=== PATIENT | female | born 1945 | race Caucasian/White ===

== ENCOUNTER 2017-01-25 21:04 | Emergency (ER) | payer MEDICARE ==
[2017-01-25] MEDS ORDERED: ONDANSETRON 4 MG TAB.RAPDIS PO ONE (21:54)
[2017-01-25 22:12] LABS: ANION GAP 17 (5-19); BLOOD UREA NITROGEN 24 mg/dL (7-20); CALCIUM 10.4 mg/dL (8.4-10.2); CARBON DIOXIDE 27 mmol/L (22-30); CHLORIDE 98 mmol/L (98-107); CREATININE RESULT 0.86 mg/dL (0.52-1.25); GLUCOSE 255 mg/dL (75-110); POTASSIUM 3.7 mmol/L (3.6-5.0); SODIUM 141.5 mmol/L (137-145)
[2017-01-25] MEDS ORDERED: HALOPERIDOL LACTATE INJ 5 MG/1 ML VIAL IV ONE ×2 (22:34)
--- NOTE | 2017-01-25 22:35 | ER Document Report ---
ED General - General Stated Complaint: ALL OVER PAIN Cannot obtain history due to: Altered mental status Notes: Patient is a 71-year-old female with past medical history of Charcot-Ludy- Tooth disease, hypertension, pacer placement for bradycardia who presents with agitation and uncontrollable muscle spasms. She has presented on multiple occasions for the same complaint and has intermittently been hospitalized for this. Patient is a very poor historian on initial assessment, crying and asking for medications to help her calm down. Family at the bedside corroborates the patient has had multiple similar presentations that are thought to be psychiatric in origin. Patient denies any focal complaints beyond bilateral leg pain which she has chronically for which she takes methadone. She does complain of severe anxiety. Nothing has been noted to improve or worsen her symptoms. She has not seen her primary care doctor regarding today's concerns. TRAVEL OUTSIDE OF THE [place] IN LAST 30 DAYS: No - Related Data Allergies/Adverse Reactions: lorazepam [From Ativan] Allergy (Intermediate, Verified 09/04/16 08:40) makes her crazy Sulfa (Sulfonamide Antibiotics) Allergy (Mild, Verified 09/04/16 08:40) Hives Past Medical History - General Information source: Patient - Social History Smoking Status: Never Smoker Frequency of alcohol use: None Drug Abuse: None Lives with: Spouse/Significant other Family History: Hypertension - Past Medical History Cardiac Medical History: Reports: Hx Congestive Heart Failure, Hx Coronary Artery Disease, Hx Heart Attack, Hx Hypercholesterolemia, Hx Hypertension Denies: Hx DVT, Hx Pulmonary Embolism Pulmonary Medical History: Reports: Hx Pneumonia Denies: Hx Asthma, Hx COPD Neurological Medical History: Reports: Hx Seizures Endocrine Medical History: Reports: Hx Diabetes Mellitus Type 1, Hx Diabetes Mellitus Type 2, Hx Hypothyroidism. Denies: Hx Hyperthyroidism GI Medical History: Denies: Hx Cirrhosis, Hx Gastroesophageal Reflux Disease, Hx Hepatitis Musculoskeltal Medical History: Reports Hx Arthritis Skin Medical History: Denies Hx Eczema, Denies Hx Psoriasis Psychiatric Medical History: Reports: Hx Depression Infectious Medical History: Denies: Hx Hepatitis Past Surgical History: Reports: Hx Appendectomy, Hx Cardiac Surgery - pacemaker/ CABG, Hx Cholecystectomy, Hx Coronary Artery Bypass Graft, Hx Hysterectomy, Hx Orthopedic Surgery - Back surgery 2., Hx Pacemaker - Immunizations Hx Diphtheria, Pertussis, Tetanus Vaccination: Yes Hx Pneumococcal Vaccination: 10/29/10 Review of Systems - Review of Systems Notes: Constitutional: Negative for fever. HENT: Negative for sore throat. Eyes: Negative for visual changes. Cardiovascular: Negative for chest pain. Respiratory: Negative for shortness of breath. Gastrointestinal: Negative for abdominal pain, vomiting or diarrhea. Genitourinary: Negative for dysuria. Musculoskeletal: Negative for back pain. Positive for bilateral leg pain Skin: Negative for rash. Neurological: Negative for headaches, weakness or numbness. 10 point ROS negative except as marked above and in HPI. Physical Exam - Vital signs Vitals: BP 177/99 H 01/25/17 21:15 Interpretation: Hypertensive Notes: PHYSICAL EXAMINATION: GENERAL: Appears very restless, somewhat agitated HEAD: Atraumatic, normocephalic. EYES: Pupils equal round and reactive to light, extraocular movements intact, sclera anicteric, conjunctiva are normal. ENT: nares patent, oropharynx clear without exudates. Moist mucous membranes. NECK: Normal range of motion, supple without lymphadenopathy LUNGS: Breath sounds clear to auscultation bilaterally and equal. No wheezes rales or rhonchi. HEART: Regular rate and rhythm ABDOMEN: Soft, nontender, normoactive bowel sounds. No guarding, no rebound. No masses appreciated. EXTREMITIES: Normal range of motion, no pitting or edema. No cyanosis. NEUROLOGICAL: No focal neurological deficits. Moves all extremities spontaneously and on command. PSYCH: Highly agitated, repeatedly saying "I need a shot" SKIN: Warm, Dry, normal turgor, no rashes or lesions noted. Course - Re-evaluation Re-evalutation: 01/25/17 22:35 Patient presents with multiple vague complaints that did not appear to be concerning for any acute life-threatening pathology. Patient is agitated and has presented to the emergency room for the same presentation on multiple occasions and has been responsive to antipsychotics in the past. Vitals are within normal limits at triage and at time of discharge. Physical examination is unremarkable. Patient has tolerated oral intake without difficulty. Patient was not noted to be in distress at any point during their ER visit. Patient was observed for 4 hours did have complete resolution of her symptoms after medications were administered. At this time, based on the reassuring evaluation, I do not suspect an acute UT, pulmonary embolus, aortic dissection, acute intra-abdominal pathology, stroke, or sepsis.Will discharge with return precautions and follow-up recommendations. Verbal discharge instructions given a the bedside and opportunity for questions given. Medication warnings reviewed. Patient is in agreement with this plan and has verbalized understanding of return precautions and the need for primary care follow-up in the next 24-72 hours. - Vital Signs Vital signs: Temp Pulse Resp BP Pulse Ox 18 143/87 H 97 01/26/17 01:14 01/26/17 01:14 01/26/17 01:14 - Laboratory Result Diagrams: 01/25/17 21:24 Laboratory results interpreted by me: 01/25/17 01/25/17 21:21 21:24 BUN 24 H Glucose 255 H POC Glucose 233 H Calcium 10.4 H Discharge - Discharge Clinical Impression: Charcot-Ludy disease, Anxiety Condition: Good Disposition: HOME, SELF-CARE Additional Instructions: Please return to the emergency room immediately if you experience any concerning symptoms including high fevers, severe headache, chest pain, difficulty breathing, abdominal pain, slurred speech, numbness or weakness in your arms or legs, or any other symptom that concerns you. Follow-up with your primary care doctor in the next 1-2 days
[2017-01-25] MEDS ORDERED: HALOPERIDOL LACTATE INJ 5 MG/1 ML VIAL ONE (22:36)
[2017-01-26] MEDS ORDERED: DIAZEPAM INJ 10 MG/2 ML DISP.SYRIN IV ONE (00:06)
[2017-01-26] MEDS ORDERED: FENTANYL CITRATE INJ/PF 100 MCG/2 ML AMPUL IV ONE (00:58)
[2017-01-26 03:11] VITALS: BP 149/73
== END 2017-01-26 03:10 | disposition home or self-care (01) ==
LOC: ER 21:04
DX: G60.0 Hereditary motor and sensory neuropathy (principal); F41.9 Anxiety disorder, unspecified; I10 Essential (primary) hypertension; M62.838 Other muscle spasm; M79.604 Pain in right leg; M79.605 Pain in left leg; G89.29 Other chronic pain; Z79.891 Long term (current) use of opiate analgesic; R00.1 Bradycardia, unspecified; Z95.0 Presence of cardiac pacemaker; I25.10 Atherosclerotic heart disease of native coronary artery without angina pectoris; I25.2 Old myocardial infarction; E11.9 Type 2 diabetes mellitus without complications; Z95.1 Presence of aortocoronary bypass graft; Z88.8 Allergy status to other drugs, medicaments and biological substances; Z88.2 Allergy status to sulfonamides
CPT/HCPCS: 96376; 99284; 96374; 96375; 36415; 82962; 80048; J3360; A9270; J3010; J1630; S0119

== ENCOUNTER 2017-02-16 19:41 | Emergency (ER) | payer MEDICARE ==
[2017-02-16 20:15] VITALS: BP 159/80
--- NOTE | 2017-02-16 20:37 | ER Document Report ---
ED Medical Screen (RME) - General Chief Complaint: Altered Mental Status Stated Complaint: ALTERED MENTAL STATUS Notes: This 71-year-old female patient is brought to emergency room by her spouse for mental status changes with hallucinations. He reports she's been that way ever since she came to the emergency room and got to new medications. That ER visit was actually 3 weeks ago on January 25 and she received some Haldol at that time. He reports she is hallucinating seeing and hearing people who were not there. She is then O2 dependent COPD here and he came here without her oxygen and her O2 sat was 84% when they checked her in. By history she fell sometime in the last week or more and possibly reinjured the right knee. I have greeted and performed a rapid initial assessment of this patient. A comprehensive ED assessment and evaluation of the patient, analysis of test results and completion of the medical decision making process will be conducted by additional ED providers. TRAVEL OUTSIDE OF THE [place] IN LAST 30 DAYS: No - Related Data Allergies/Adverse Reactions: lorazepam [From Ativan] Allergy (Intermediate, Verified 09/04/16 08:40) makes her crazy Sulfa (Sulfonamide Antibiotics) Allergy (Mild, Verified 09/04/16 08:40) Hives Past Medical History - Past Medical History Cardiac Medical History: Reports: Hx Congestive Heart Failure, Hx Coronary Artery Disease, Hx Heart Attack, Hx Hypercholesterolemia, Hx Hypertension Denies: Hx DVT, Hx Pulmonary Embolism Pulmonary Medical History: Reports: Hx Pneumonia Denies: Hx Asthma, Hx COPD Neurological Medical History: Reports: Hx Seizures Endocrine Medical History: Reports: Hx Diabetes Mellitus Type 1, Hx Diabetes Mellitus Type 2, Hx Hypothyroidism. Denies: Hx Hyperthyroidism Renal/ Medical History: Denies: Hx Peritoneal Dialysis GI Medical History: Denies: Hx Cirrhosis, Hx Gastroesophageal Reflux Disease, Hx Hepatitis Musculoskeltal Medical History: Reports Hx Arthritis Skin Medical History: Denies Hx Eczema, Denies Hx Psoriasis Psychiatric Medical History: Reports: Hx Depression Infectious Medical History: Denies: Hx Hepatitis Past Surgical History: Reports: Hx Appendectomy, Hx Cardiac Surgery - pacemaker/ CABG, Hx Cholecystectomy, Hx Coronary Artery Bypass Graft, Hx Hysterectomy, Hx Orthopedic Surgery - Back surgery 2., Hx Pacemaker - Immunizations Hx Diphtheria, Pertussis, Tetanus Vaccination: Yes Physical Exam - Vital signs Vitals: Temp Pulse Resp BP Pulse Ox 98.5 F 94 18 159/80 H 84 L 04/21/17 20:12 02/16/17 20:12 02/16/17 20:12 02/16/17 20:12 02/16/17 20:12 Course - Vital Signs Vital signs: Temp Pulse Resp BP Pulse Ox 98.5 F 94 18 159/80 H 84 L 02/16/17 20:12 02/16/17 20:12 02/16/17 20:12 02/16/17 20:12 02/16/17 20:12
[2017-02-16 21:19] LABS: APPEARANCE,URINE CLEAR; BILIRUBIN,URINE NEGATIVE (NEGATIVE); GLUCOSE, URINE >=500 mg/dL (NEGATIVE); KETONES,URINE NEGATIVE (NEGATIVE); LEUKOCYTE ESTERASE,URINE NEGATIVE (NEGATIVE); NITRITE,URINE NEGATIVE (NEGATIVE); PROTEIN,URINE 100 mg/dL (NEGATIVE); URINE SPECIFIC GRAVITY 1.023; UROBILINOGEN,URINE NEGATIVE mg/dL (<2.0)
[2017-02-16] MEDS ORDERED: ACETAMINOPHEN 325 MG TABLET ONE (21:57)
--- NOTE | 2017-02-16 22:10 | ER Document Report ---
ED General - General Chief Complaint: Altered Mental Status Stated Complaint: ALTERED MENTAL STATUS Cannot obtain history due to: Mentally challenged Notes: Patient is a 71-year-old female who presents with complaints of right knee pain. Patient is an extremely poor historian as is her . States the pain has been intermittent for many months and therefore I'm mostly why she acutely came today. Described pain as a dull, constant, aching pain. She has not recently seen her primary care doctor regarding these concerns. States pushing on it or ambulate worsens the pain. She has had a patellar dislocation in the past. She has contacted the orthopedic surgical office but has not received a call back. Her also notes that she has "been crazy" for the past several days and has had visual hallucinations. The patient herself denies this complaint and states that she feels completely normally. TRAVEL OUTSIDE OF THE [place] IN LAST 30 DAYS: No - Related Data Allergies/Adverse Reactions: lorazepam [From Ativan] Allergy (Intermediate, Verified 09/04/16 08:40) makes her crazy Sulfa (Sulfonamide Antibiotics) Allergy (Mild, Verified 09/04/16 08:40) Hives Past Medical History - General Information source: Patient, Relative - Social History Smoking Status: Never Smoker Frequency of alcohol use: None Drug Abuse: None Lives with: Spouse/Significant other Family History: Reviewed & Not Pertinent, Hypertension Patient has suicidal ideation: No Patient has homicidal ideation: No - Past Medical History Cardiac Medical History: Reports: Hx Congestive Heart Failure, Hx Coronary Artery Disease, Hx Heart Attack, Hx Hypercholesterolemia, Hx Hypertension Denies: Hx DVT, Hx Pulmonary Embolism Pulmonary Medical History: Reports: Hx Pneumonia Denies: Hx Asthma, Hx COPD Neurological Medical History: Reports: Hx Seizures Endocrine Medical History: Reports: Hx Diabetes Mellitus Type 1, Hx Diabetes Mellitus Type 2, Hx Hypothyroidism. Denies: Hx Hyperthyroidism Renal/ Medical History: Denies: Hx Peritoneal Dialysis GI Medical History: Denies: Hx Cirrhosis, Hx Gastroesophageal Reflux Disease, Hx Hepatitis Musculoskeltal Medical History: Reports Hx Arthritis Skin Medical History: Denies Hx Eczema, Denies Hx Psoriasis Psychiatric Medical History: Reports: Hx Depression Infectious Medical History: Denies: Hx Hepatitis Past Surgical History: Reports: Hx Appendectomy, Hx Cardiac Surgery - pacemaker/ CABG, Hx Cholecystectomy, Hx Coronary Artery Bypass Graft, Hx Hysterectomy, Hx Orthopedic Surgery - Back surgery 2., Hx Pacemaker - Immunizations Hx Diphtheria, Pertussis, Tetanus Vaccination: Yes Hx Pneumococcal Vaccination: 10/29/10 Review of Systems - Review of Systems Notes: Constitutional: Negative for fever. HENT: Negative for sore throat. Eyes: Negative for visual changes. Cardiovascular: Negative for chest pain. Respiratory: Negative for shortness of breath. Gastrointestinal: Negative for abdominal pain, vomiting or diarrhea. Genitourinary: Negative for dysuria. Musculoskeletal: Positive for right knee pain Skin: Negative for rash. Neurological: Negative for headaches, weakness or numbness. 10 point ROS negative except as marked above and in HPI. Physical Exam - Vital signs Vitals: Temp Pulse Resp BP Pulse Ox 98.5 F 94 18 159/80 H 84 L 02/16/17 20:12 02/16/17 20:12 02/16/17 20:12 02/16/17 20:12 02/16/17 20:12 Interpretation: Hypoxic - Patient does have a history of oxygen dependent COPD and came to the hospital without her oxygen Notes: PHYSICAL EXAMINATION: GENERAL: Well-appearing, well-nourished and in no acute distress. HEAD: Atraumatic, normocephalic. EYES: Pupils equal round and reactive to light, extraocular movements intact, sclera anicteric, conjunctiva are normal. ENT: nares patent, oropharynx clear without exudates. Moist mucous membranes. NECK: Normal range of motion, supple without lymphadenopathy LUNGS: Breath sounds clear to auscultation bilaterally and equal. No wheezes rales or rhonchi. HEART: Regular rate and rhythm without murmurs ABDOMEN: Soft, nontender, normoactive bowel sounds. No guarding, no rebound. No masses appreciated. EXTREMITIES: Normal range of motion, full flexion extension of the knees bilaterally. There is mild laxity to the right patella and it is easily shifted with direct pressure. NEUROLOGICAL: No focal neurological deficits. Moves all extremities spontaneously and on command. PSYCH: Normal mood, normal affect. SKIN: Warm, Dry, normal turgor, no rashes or lesions noted. Course - Re-evaluation Re-evalutation: 02/16/17 22:04 Patient complains of right knee pain and has a history of a patellar dislocation. X-ray shows a possible subluxation although on exam patient does have a floating kneecap easily shifts back. She does not have any acute fracture. An Rj wrap is placed and she is already nonweightbearing on this extremity. I've instructed her to follow-up with orthopedic surgery as needed. The also complains the patient has had intermittent altered mental status. Patient has a very long-standing history of this with 3 admissions for this complaint in 2015 and the ED visit at the end of December where she saw me for the same. Patient is actually much more coherent today, alert and oriented 4. She denies any visual or auditory hallucinations. She is hard of hearing but has a clear thought process. I have encouraged him to follow-up with outpatient psychiatry as patient has had repeated episodes of psychosis in the past and yet has not received treatment or been evaluated by psychiatry. She has no acute safety concerns would warrant involuntary commitment or emergent psychiatric evaluation here in the emergency department today.At this time will discharge with return precautions and follow-up recommendations. Verbal discharge instructions given a the bedside and opportunity for questions given. Medication warnings reviewed. Patient is in agreement with this plan and has verbalized understanding of return precautions and the need for primary care follow-up in the next 24-72 hours. - Vital Signs Vital signs: Temp Pulse Resp BP Pulse Ox 98.5 F 94 20 159/80 H 100 02/16/17 20:12 02/16/17 20:12 02/16/17 22:00 02/16/17 20:12 02/16/17 22:00 - Laboratory Laboratory results interpreted by me: 02/16/17 21:00 Urine Protein 100 H Urine Glucose (UA) >=500 H Urine Blood SMALL H - Diagnostic Test Radiology reviewed: Image reviewed, Reports reviewed Radiology results interpreted by me: 02/16/17 22:07 Right knee x-ray: Possible subluxation of the patella Discharge - Discharge Clinical Impression: Psychotic disorder Qualifiers: Psychosis type: unspecified psychosis type Qualified Code(s): F29 - Unspecified psychosis not due to a substance or known physiological condition Right knee pain Qualifiers: Chronicity: acute Qualified Code(s): M25.561 - Pain in right knee Condition: Good Disposition: HOME, SELF-CARE Additional Instructions: Please wear the Rj wrap as needed for discomfort in your right knee. Follow- up with orthopedic surgery. Please also follow-up with psychiatry. Return for any additional concerns.
== END 2017-02-16 22:46 | disposition home or self-care (01) ==
LOC: ER 19:41
DX: F29 Unspecified psychosis not due to a substance or known physiological condition (principal); M25.561 Pain in right knee; I50.9 Heart failure, unspecified; I25.10 Atherosclerotic heart disease of native coronary artery without angina pectoris; E78.00 Pure hypercholesterolemia, unspecified; I11.0 Hypertensive heart disease with heart failure; E11.9 Type 2 diabetes mellitus without complications; Z88.2 Allergy status to sulfonamides; Z95.810 Presence of automatic (implantable) cardiac defibrillator; Z90.49 Acquired absence of other specified parts of digestive tract; Z95.1 Presence of aortocoronary bypass graft; Z90.710 Acquired absence of both cervix and uterus; I25.2 Old myocardial infarction
CPT/HCPCS: 81001; 99285

== ENCOUNTER → 2017-02-21 | Outpatient (CLI) | payer MEDICARE ==
[2017-02-21 15:31] LABS: ABSOLUTE BASOPHILS # (AUTO) 0.1 10^3/uL (0.0-0.2); ABSOLUTE EOSINOPHILS # (AUTO) 0.1 10^3/uL (0.0-0.6); ABSOLUTE LYMPHOCYTES (AUTO) 1.5 10^3/uL (0.5-4.7); ABSOLUTE MONOCYTES (AUTO) 0.4 10^3/uL (0.1-1.4); ABSOLUTE NEUT (AUTO) 8.1 10^3/uL (1.7-8.2); BASOPHILS % (AUTO) 0.5 % (0-2); EOSINOPHILS % (AUTO) 1.1 % (0-6); HEMOGLOBIN 10.9 g/dL (12.0-15.5); HGB HCT DIFFERENCE -0.3; LYMPHOCYTES % (AUTO) 14.4 % (13-45); MEAN CORPUSCULAR HEMOGLOBIN 28.6 pg (27.0-33.4); MEAN CORPUSCULAR HGB CONC 33.1 g/dL (32.0-36.0); MEAN CORPUSCULAR VOLUME 86 fl (80-97); MONOCYTES % (AUTO) 4.1 % (3-13); RED BLOOD COUNT 3.82 10^6/uL (3.72-5.28); RED CELL DISTRIBUTION WIDTH 15.4 % (11.5-14.0); SEGMENTED NEUTROPHILS % (AUTO) 79.9 % (42-78); WHITE BLOOD COUNT 10.2 10^3/uL (4.0-10.5)
[2017-02-21 15:55] LABS: ALANINE AMINOTRANSFERASE 23 U/L (9-52); ASPARTATE AMINO TRANSFERASE 17 U/L (14-36); BLOOD UREA NITROGEN 25 mg/dL (7-20); CHLORIDE 98 mmol/L (98-107); CREATININE RESULT 0.85 mg/dL (0.52-1.25); MAGNESIUM 1.6 mg/dL (1.6-2.3); PHOSPHORUS 3.7 mg/dL (2.5-4.5); POTASSIUM 4.5 mmol/L (3.6-5.0)
--- NOTE | 2017-02-21 21:14 | EKG REPORT ---
SEVERITY:- ABNORMAL ECG - SINUS RHYTHM, APCs RBBB AND LAFB LEFT VENTRICULAR HYPERTROPHY : Confirmed by: Oneida Barlow 21-Feb-2017 21:13:58
== END ==
LOC: OD 14:34
PROVIDERS: ATTEND Student in an Organized Health Care Education/Training Program
DX: N39.0 Urinary tract infection, site not specified (principal); Z79.1 Long term (current) use of non-steroidal anti-inflammatories (NSAID); Z79.891 Long term (current) use of opiate analgesic; Z79.899 Other long term (current) drug therapy
CPT/HCPCS: 93005; 36415; 84520; 82435; 82565; 83735; 84100; 84132; 84450; 84460; 84295; 85025; 93010; G0480; 80358

== ENCOUNTER → 2017-05-21 | Outpatient (CLI) | payer MEDICARE ==
--- NOTE | 2017-05-21 15:11 | RADIOLOGY REPORT (SQ) ---
EXAM DESCRIPTION: KUB/ABDOMEN (SINGLE VIEW) COMPLETED DATE/TIME: 05/21/2017 2:08 pm REASON FOR STUDY: CONSTIPATION - SLOW TRANSIT COMPARISON: None. NUMBER OF VIEWS: One view. TECHNIQUE: Supine radiographic image of the abdomen acquired. LIMITATIONS: None. FINDINGS: BOWEL GAS PATTERN: There is some mild gaseous distension of the stomach. A moderate amoun t a gas and fecal material is identified throughout the colon. CALCIFICATIONS: No suspicious calcifications. SOFT TISSUES: No gross mass or suggestion of organomegaly. HARDWARE: Surgical clips are identified in the right upper quadrant BONES: No acute fracture. No worrisome bone lesions. OTHER: No other significant finding. IMPRESSION: NO RADIOGRAPHIC EVIDENCE FOR ACUTE ABDOMINAL DISEASE. TECHNICAL DOCUMENTATION: JOB ID: [id number] [employer]- All Rights Reserved
== END ==
LOC: RAD 13:53
PROVIDERS: ATTEND Internal Medicine Gastroenterology
DX: K59.01 Slow transit constipation (principal)
CPT/HCPCS: 74000

== ENCOUNTER 2017-06-12 15:10 | Day surgery (SDC) | payer MEDICARE ==
[2017-06-12] MEDS ORDERED: NALOXONE HCL INJ/PF 0.4 MG/1 ML SDV ONE (15:58)
[2017-06-12] MEDS ORDERED: MIDAZOLAM 2 MG/2 ML INJ ONE ×2 (15:59)
[2017-06-12] MEDS ORDERED: GLUCAGON,HUMAN RECOMB 1 MG INJ ONE (16:00)
[2017-06-12] MEDS ORDERED: FLUMAZENIL INJ 0.5 MG/5 ML VIAL IV ONE (16:00)
[2017-06-12] MEDS ORDERED: EPINEPHRINE INJ 1 MG/10 ML DISP.SYRIN ONE (16:00)
[2017-06-12] MEDS: FENTANYL CITRATE INJ/PF 100 MCG/2 ML AMPUL ONE ×2 (16:30→16:39)
--- NOTE | 2017-06-12 16:59 | Operative Report ---
Operative Report DATE OF SURGERY: 06/12/17 Operative Report: Pre-op diagnosis: Abdominal pain, rectal pain and constipation Post-op diagnosis: 1. Normal EGD 2. Sigmoid colon polyp Surgery: Upper endoscopy with biopsy and Colonoscopy and polypectomy Medications: Versed 4mg, Fentanyl 150mcg IV push Tissue removed: Antral biopsy and colon polyp Procedure: After informed consent obtained from patient, patient's pharynx was sprayed with Hurricane and conscious sedation was achieved. The upper endoscope was then inserted into the esophagus under direct vision and advanced into the stomach and further into the duodenum. Detailed examination of the duodenum, stomach and the esophagus was then performed. A digital rectal examination was performed and this was unremarkable. The colonoscope was inserted into the rectum and advanced to the ileocolonic anastomosis in the right colon. The mucosa was examined into details as the colonoscope was slowly pulled out of the patient. The endoscope was retroflexed in the rectum. Patient tolerated the procedure well. Findings Esophagus: Normal Stomach: Normal. Biopsy taken from the antrum Duodenum: Normal Ileocolonic anastomosis: Normal Ascending colon: Normal Transverse colon: Normal Descending colon: Normal Sigmoid colon: 5 mm polyp removed with a cold snare Rectum: Normal except for internal hemorrhoids Plan: Continue fiber supplement and MiraLAX OPERATION: .
[2017-06-12 17:55] VITALS: BP 131/70
== END 2017-06-12 17:50 | disposition home or self-care (01) ==
LOC: END 15:10
PROVIDERS: ATTEND Internal Medicine Gastroenterology
PROC: 0DB68ZX Excision of Stomach, Via Natural or Artificial Opening Endoscopic, Diagnostic (ICD-10-PCS; principal; 2017-06-12 15:30)
PROC: 0DBN8ZX Excision of Sigmoid Colon, Via Natural or Artificial Opening Endoscopic, Diagnostic (ICD-10-PCS; 2017-06-12 15:30)
DX: D12.5 Benign neoplasm of sigmoid colon (principal); K64.8 Other hemorrhoids; K31.9 Disease of stomach and duodenum, unspecified; G40.909 Epilepsy, unspecified, not intractable, without status epilepticus; E11.9 Type 2 diabetes mellitus without complications; Z86.73 Personal history of transient ischemic attack (TIA), and cerebral infarction without residual deficits; Z85.038 Personal history of other malignant neoplasm of large intestine; Z88.2 Allergy status to sulfonamides; Z88.8 Allergy status to other drugs, medicaments and biological substances; Z79.4 Long term (current) use of insulin; Z79.899 Other long term (current) drug therapy; Z79.82 Long term (current) use of aspirin; Z99.81 Dependence on supplemental oxygen
CPT/HCPCS: 43239; 45385; 82962; 88305; 88342; J0171; J1610; J2250; J2310; J3010; J3490

== ENCOUNTER 2017-07-28 14:20 | Emergency (ER) | payer MEDICARE ==
[2017-07-28] MEDS ORDERED: CLONAZEPAM 1 MG TABLET PO ONE (14:46)
--- NOTE | 2017-07-28 14:49 | ER Document Report ---
ED General - General Chief Complaint: Constipation Stated Complaint: ABDOMINAL PAIN Time Seen by Provider: 07/28/17 14:36 Mode of Arrival: Medic Information source: Patient Notes: Patient presents to the emergency department with complaints of abdominal pain cramping constipation. Patient reports she has not had a bowel movement for 1 week. She reports history of constipation. She reports she had a colonoscopy approximately 4 weeks ago and since that time she has had trouble having a bowel movement. She has followed up with her pcp. She is taking multiple over- the-counter agents without relief of symptoms. She also had enemas this AM and stated she had very little result. Patient does take methadone for chronic back pain. She denies fever vomiting diarrhea. She reports she is eating/ drinking fine. Pt has history of COPD and is home 02 at 2.5 l/nc. Pt also reports she is in a wheelchair and unable to ambulate. TRAVEL OUTSIDE OF THE [place] IN LAST 30 DAYS: No - HPI Onset: Other Onset/Duration: Persistent Quality of pain: Cramping Pain Level: 3 Associated symptoms: None Exacerbated by: Denies Relieved by: Denies Similar symptoms previously: Yes Recently seen / treated by doctor: Yes - Related Data Allergies/Adverse Reactions: lorazepam [From Ativan] Allergy (Intermediate, Verified 06/12/17 15:14) Delirium Sulfa (Sulfonamide Antibiotics) Allergy (Mild, Verified 06/12/17 15:14) Hives Past Medical History - General Information source: Patient - Social History Smoking Status: Unknown if Ever Smoked Cigarette use (# per day): No Frequency of alcohol use: None Drug Abuse: None Lives with: Family Family History: Reviewed & Not Pertinent, Hypertension - Past Medical History Cardiac Medical History: Reports: Hx Congestive Heart Failure, Hx Coronary Artery Disease, Hx Heart Attack - PACE MAKER, Hx Hypercholesterolemia, Hx Hypertension Denies: Hx DVT, Hx Pulmonary Embolism Pulmonary Medical History: Reports: Hx COPD, Hx Pneumonia Denies: Hx Asthma, Hx Bronchitis Neurological Medical History: Reports: Hx Cerebrovascular Accident, Hx Seizures Endocrine Medical History: Reports: Hx Diabetes Mellitus Type 1, Hx Diabetes Mellitus Type 2, Hx Hypothyroidism. Denies: Hx Hyperthyroidism Renal/ Medical History: Denies: Hx Peritoneal Dialysis GI Medical History: Denies: Hx Cirrhosis, Hx Gastroesophageal Reflux Disease, Hx Hepatitis Musculoskeltal Medical History: Reports Hx Arthritis Skin Medical History: Denies Hx Eczema, Denies Hx Psoriasis Psychiatric Medical History: Reports: Hx Depression Infectious Medical History: Denies: Hx Hepatitis Past Surgical History: Reports: Hx Appendectomy, Hx Cardiac Surgery - pacemaker/ CABG, Hx Cholecystectomy, Hx Coronary Artery Bypass Graft, Hx Hysterectomy, Hx Orthopedic Surgery - Back surgery 2., Hx Pacemaker - Immunizations Hx Diphtheria, Pertussis, Tetanus Vaccination: Yes Hx Pneumococcal Vaccination: 10/29/10 Review of Systems - Review of Systems Notes: Review HPI for review of systems., All other systems negative Physical Exam - Notes Notes: PHYSICAL EXAMINATION: GENERAL: Nontoxic looking HEAD: Atraumatic, normocephalic. EYES: Pupils equal round extraocular movements intact, sclera anicteric, conjunctiva are normal. ENT: nares patent, ropharynx clear without exudates. Moist mucous membranes. NECK: Normal range of motion, supple without lymphadenopathy LUNGS: CTAB and equal. No wheezes rales or rhonchi. HEART: Regular rate and rhythm without murmurs ABDOMEN: Soft, no tenderness. No guarding, no rebound denies pain with palpation BACK: Reports chronic back pain EXTREMITIES: hands contracted NEUROLOGICAL: Cranial nerves grossly intact. Normal sensory/motor exams. PSYCH: Normal mood, normal affect. SKIN: Warm, Dry, normal turgor, no rashes or lesions noted Course - Re-evaluation Re-evalutation: 07/28/17 14:52 Will complete basic labs and obtain KUB 07/28/17 17:24 Soapsuds enema ordered liquid stool returned, attempted disimpaction, no hard stool noted, return of liquid stool with small pieces of stool 07/28/17 17:[address] Li, labs and xray reviewed, he advises discharge home, pt to fu with pcp, GI for follow up. - Laboratory Result Diagrams: 07/28/17 15:17 07/28/17 15:17 Laboratory results interpreted by me: 07/28/17 07/28/17 07/28/17 15:17 15:17 15:45 Hgb 11.8 L Hct 34.2 L Carbon Dioxide 34 H Glucose 125 H Alkaline Phosphatase 139 H Lipase 20.6 L Urine Protein 30 H Ur Leukocyte Esterase TRACE H - Diagnostic Test Radiology reviewed: Image reviewed, Reports reviewed Discharge - Discharge Clinical Impression: Chronic constipation Condition: Stable Disposition: HOME, SELF-CARE Instructions: Constipation ([facility]), Stool Softener ([facility]) Additional Instructions: *You have been evaluated for abdominal pain, chronic constipation *Take medication as prescribed *Follow up with a primary care provider within 3 days *Follow up with Dr Loaiza within one week *Return to ED for worsening condition, changes, needs *Return to ED if not better in 24 hours Prescriptions: Docusate Sodium [Colace 100 mg Capsule] 100 mg PO DAILY #30 capsule Referrals: JONATHAN ALEXANDER MD [Primary Care Provider] - Follow up as needed
--- NOTE | 2017-07-28 15:28 | RADIOLOGY REPORT (SQ) ---
EXAM DESCRIPTION: KUB/ABDOMEN (SINGLE VIEW) COMPLETED DATE/TIME: 07/28/2017 3:14 pm REASON FOR STUDY: ABD CRAMPING, CONSTIPATION COMPARISON: 05/21/2017 NUMBER OF VIEWS: One view. TECHNIQUE: Supine radiographic image of the abdomen acquired. LIMITATIONS: None. FINDINGS: BOWEL GAS PATTERN: Abundant fecal material throughout nondilated colon. CALCIFICATIONS: No suspicious calcifications. SOFT TISSUES: No gross mass or suggestion of organomegaly. HARDWARE: Anastomosis right lower quadrant. Clips right upper quadrant. BONES: No bone lesions or fracture. OTHER: No other significant finding. IMPRESSION: Fecal retention.
[2017-07-28 15:30] LABS: ABSOLUTE BASOPHILS # (AUTO) 0.1 10^3/uL (0.0-0.2); ABSOLUTE EOSINOPHILS # (AUTO) 0.1 10^3/uL (0.0-0.6); ABSOLUTE LYMPHOCYTES (AUTO) 1.5 10^3/uL (0.5-4.7); ABSOLUTE MONOCYTES (AUTO) 0.4 10^3/uL (0.1-1.4); ABSOLUTE NEUT (AUTO) 5.3 10^3/uL (1.7-8.2); BASOPHILS % (AUTO) 0.7 % (0-2); EOSINOPHILS % (AUTO) 0.8 % (0-6); HEMATOCRIT 34.2 % (36.0-47.0); HEMOGLOBIN 11.8 g/dL (12.0-15.5); HGB HCT DIFFERENCE 1.2; LYMPHOCYTES % (AUTO) 20.4 % (13-45); MEAN CORPUSCULAR HGB CONC 34.6 g/dL (32.0-36.0); MEAN CORPUSCULAR VOLUME 90 fl (80-97); MONOCYTES % (AUTO) 5.6 % (3-13); RED BLOOD COUNT 3.81 10^6/uL (3.72-5.28); SEGMENTED NEUTROPHILS % (AUTO) 72.5 % (42-78); WHITE BLOOD COUNT 7.3 10^3/uL (4.0-10.5)
[2017-07-28 15:45] LABS: ALANINE AMINOTRANSFERASE 16 U/L (9-52); ALBUMIN 4.1 g/dL (3.5-5.0); ALKALINE PHOSPHATASE 139 U/L (38-126); ANION GAP 8 (5-19); ASPARTATE AMINO TRANSFERASE 19 U/L (14-36); BILIRUBIN,DIRECT 0.4 mg/dL (0.0-0.4); BILIRUBIN,TOTAL 0.5 mg/dL (0.2-1.3); BLOOD UREA NITROGEN 18 mg/dL (7-20); CALCIUM 9.3 mg/dL (8.4-10.2); CARBON DIOXIDE 34 mmol/L (22-30); CHLORIDE 99 mmol/L (98-107); CREATININE RESULT 0.88 mg/dL (0.52-1.25); GLUCOSE 125 mg/dL (75-110); LIPASE 20.6 U/L (23-300); POTASSIUM 4.2 mmol/L (3.6-5.0); SODIUM 140.5 mmol/L (137-145); TOTAL PROTEIN 6.8 g/dL (6.3-8.2)
[2017-07-28 16:05] LABS: APPEARANCE,URINE CLOUDY; BILIRUBIN,URINE NEGATIVE (NEGATIVE); GLUCOSE, URINE NEGATIVE (NEGATIVE); KETONES,URINE NEGATIVE (NEGATIVE); LEUKOCYTE ESTERASE,URINE TRACE (NEGATIVE); NITRITE,URINE NEGATIVE (NEGATIVE); PROTEIN,URINE 30 mg/dL (NEGATIVE); URINE SPECIFIC GRAVITY 1.016; UROBILINOGEN,URINE NEGATIVE mg/dL (<2.0)
[2017-07-28 18:26] VITALS: BP 137/63
== END 2017-07-28 18:27 | disposition home or self-care (01) ==
LOC: ER 14:20
DX: K59.00 Constipation, unspecified (principal); R10.9 Unspecified abdominal pain
CPT/HCPCS: 99284; 36415; 83690; 85025; 80053; 81001; 74000; A9270

== ENCOUNTER 2017-08-06 10:37 | Emergency (ER) | payer MEDICARE ==
[2017-08-06 11:06] VITALS: BP 142/60
--- NOTE | 2017-08-06 12:11 | RADIOLOGY REPORT (SQ) ---
EXAM DESCRIPTION: KUB/ABDOMEN (SINGLE VIEW) COMPLETED DATE/TIME: 08/06/2017 11:13 am REASON FOR STUDY: abd pain, constipation COMPARISON: 07/28/2017 NUMBER OF VIEWS: One view. TECHNIQUE: Supine radiographic image of the abdomen acquired. LIMITATIONS: None. FINDINGS: BOWEL GAS PATTERN: Nonobstructive bowel gas pattern. There is considerable fecal material within the colon. CALCIFICATIONS: No suspicious calcifications. SOFT TISSUES: No gross mass or suggestion of organomegaly. HARDWARE: None in the abdomen. BONES: Lumbar degenerative changes. OTHER: No other significant finding. IMPRESSION: Nonspecific abdomen. Constipation is suggested. TECHNICAL DOCUMENTATION: JOB ID: [id number] [employer]- All Rights Reserved
--- NOTE | 2017-08-06 13:46 | ER Document Report ---
ED General - General Chief Complaint: Constipation Stated Complaint: POSSIBLE CONSTIPATION Time Seen by Provider: 08/06/17 10:41 Mode of Arrival: Ambulatory Information source: Patient Notes: Patient is a 72-year-old female with chronic constipation and opiate dependence on methadone who presents to the ER today for 10 days of constipation. Patient sees corporate strategy intern, Dr. Loaiza who she says has her on "so many meds." She says she's tried "everything in the store." She asks for an enema here as she states that worked last time. She denies n/vomiting, fever or chills. She admits to abdominal discomfort. TRAVEL OUTSIDE OF THE [place] IN LAST 30 DAYS: No - Related Data Allergies/Adverse Reactions: lorazepam [From Ativan] Allergy (Intermediate, Verified 08/06/17 11:02) Delirium Sulfa (Sulfonamide Antibiotics) Allergy (Mild, Verified 08/06/17 11:02) Hives Past Medical History - General Information source: Patient - Social History Smoking Status: Never Smoker Chew tobacco use (# tins/day): No Frequency of alcohol use: None Drug Abuse: None Family History: Reviewed & Not Pertinent, Hypertension Patient has suicidal ideation: No Patient has homicidal ideation: No - Past Medical History Cardiac Medical History: Reports: Hx Congestive Heart Failure, Hx Coronary Artery Disease, Hx Heart Attack - PACE MAKER, Hx Hypercholesterolemia, Hx Hypertension Denies: Hx DVT, Hx Pulmonary Embolism Pulmonary Medical History: Reports: Hx COPD, Hx Pneumonia Denies: Hx Asthma, Hx Bronchitis Neurological Medical History: Reports: Hx Cerebrovascular Accident, Hx Seizures Endocrine Medical History: Reports: Hx Diabetes Mellitus Type 1, Hx Diabetes Mellitus Type 2, Hx Hypothyroidism. Denies: Hx Hyperthyroidism Renal/ Medical History: Denies: Hx Peritoneal Dialysis GI Medical History: Denies: Hx Cirrhosis, Hx Gastroesophageal Reflux Disease, Hx Hepatitis Musculoskeltal Medical History: Reports Hx Arthritis Skin Medical History: Denies Hx Eczema, Denies Hx Psoriasis Psychiatric Medical History: Reports: Hx Depression Infectious Medical History: Denies: Hx Hepatitis Past Surgical History: Reports: Hx Appendectomy, Hx Cardiac Surgery - pacemaker/ CABG, Hx Cholecystectomy, Hx Coronary Artery Bypass Graft, Hx Hysterectomy, Hx Orthopedic Surgery - Back surgery 2., Hx Pacemaker - Immunizations Hx Diphtheria, Pertussis, Tetanus Vaccination: Yes Hx Pneumococcal Vaccination: 10/29/10 Review of Systems - Review of Systems Constitutional: No symptoms reported EENT: No symptoms reported Cardiovascular: No symptoms reported Respiratory: No symptoms reported Gastrointestinal: See HPI Genitourinary: No symptoms reported Female Genitourinary: No symptoms reported Musculoskeletal: No symptoms reported Skin: No symptoms reported Hematologic/Lymphatic: No symptoms reported Neurological/Psychological: No symptoms reported Physical Exam - Vital signs Vitals: Temp Pulse Resp BP Pulse Ox 98.8 F 75 16 142/60 H 96 08/06/17 11:02 08/06/17 11:02 08/06/17 11:02 08/06/17 11:02 08/06/17 11:02 - Notes Notes: PHYSICAL EXAMINATION: GENERAL: Elderly, chronically ill-appearing, but in no acute distress. HEAD: Atraumatic, normocephalic. EYES: Pupils equal round and reactive to light, extraocular movements intact, sclera anicteric, conjunctiva are normal. NECK: Normal range of motion, supple without lymphadenopathy LUNGS: CTAB and equal. No wheezes rales or rhonchi. HEART: Regular rate and rhythm without murmurs ABDOMEN: Soft, mild diffuse tenderness. No guarding, no rebound BACK: no vertebral tenderness, normal ROM GI/: no CVA tenderness EXTREMITIES: Normal range of motion, no pitting edema. No cyanosis. NEUROLOGICAL: Cranial nerves grossly intact. Normal sensory/motor exams. PSYCH: Normal mood, normal affect. SKIN: Warm, Dry, normal turgor, no rashes or lesions noted Course - Re-evaluation Re-evalutation: 08/06/17 14:18 Abdominal x-ray reports diffuse stool throughout the colon, patient had success with soapsuds and mineral oil enema and is asking to go home. - Vital Signs Vital signs: Temp Pulse Resp BP Pulse Ox 98.8 F 75 16 142/60 H 96 08/06/17 11:02 08/06/17 11:02 08/06/17 11:02 08/06/17 11:02 08/06/17 11:02 Discharge - Discharge Clinical Impression: Constipation Qualifiers: Constipation type: slow transit constipation Qualified Code(s): K59.01 - Slow transit constipation Condition: Stable Disposition: HOME, SELF-CARE Instructions: Constipation (OM) Additional Instructions: Return immediately for any new or worsening symptoms. Follow up with primary care provider, call tomorrow to make followup appointment. Referrals: TI LOAIZA MD [ACTIVE STAFF] - Follow up as needed
== END 2017-08-06 14:35 | disposition home or self-care (01) ==
LOC: ER 10:37
DX: K59.01 Slow transit constipation (principal); I25.10 Atherosclerotic heart disease of native coronary artery without angina pectoris; I25.2 Old myocardial infarction; I10 Essential (primary) hypertension; J44.9 Chronic obstructive pulmonary disease, unspecified; Z95.0 Presence of cardiac pacemaker; Z95.1 Presence of aortocoronary bypass graft; Z88.8 Allergy status to other drugs, medicaments and biological substances; Z88.2 Allergy status to sulfonamides
CPT/HCPCS: 74000; 99283

== ENCOUNTER 2017-08-23 12:12 | Emergency (ER) | payer MEDICARE ==
--- NOTE | 2017-08-23 12:55 | ER Document Report ---
ED General - General Chief Complaint: Constipation Stated Complaint: ABDOMINAL PAIN Time Seen by Provider: 08/23/17 12:32 Mode of Arrival: Ambulatory Information source: Patient, [facility] Records TRAVEL OUTSIDE OF THE [place] IN LAST 30 DAYS: No - HPI Patient complains to provider of: constipation Onset: Last week Quality of pain: Cramping Associated symptoms: None Similar symptoms previously: Yes Recently seen / treated by doctor: Yes Notes: Patient is a 72-year-old female who has a history of chronic constipation. Patient seen here several weeks ago for same and received a soapsuds enema at that time. Patient presents today requesting an enema once again. Patient states she feels constipated. No nausea or vomiting. Patient is on chronic methadone therapy. Patient is followed by gastroenterology. Patient states last bowel movement was several days ago. - Related Data Allergies/Adverse Reactions: lorazepam [From Ativan] Allergy (Intermediate, Verified 08/06/17 11:02) Delirium Sulfa (Sulfonamide Antibiotics) Allergy (Mild, Verified 08/06/17 11:02) Hives Past Medical History - General Information source: Patient, [facility] Records - Social History Smoking Status: Never Smoker Family History: Reviewed & Not Pertinent, Hypertension - Past Medical History Cardiac Medical History: Reports: Hx Congestive Heart Failure, Hx Coronary Artery Disease, Hx Heart Attack - PACE MAKER, Hx Hypercholesterolemia, Hx Hypertension Denies: Hx DVT, Hx Pulmonary Embolism Pulmonary Medical History: Reports: Hx COPD, Hx Pneumonia Denies: Hx Asthma, Hx Bronchitis Neurological Medical History: Reports: Hx Cerebrovascular Accident, Hx Seizures Endocrine Medical History: Reports: Hx Diabetes Mellitus Type 1, Hx Diabetes Mellitus Type 2, Hx Hypothyroidism. Denies: Hx Hyperthyroidism Renal/ Medical History: Denies: Hx Peritoneal Dialysis GI Medical History: Denies: Hx Cirrhosis, Hx Gastroesophageal Reflux Disease, Hx Hepatitis Musculoskeltal Medical History: Reports Hx Arthritis Skin Medical History: Denies Hx Eczema, Denies Hx Psoriasis Psychiatric Medical History: Reports: Hx Depression Infectious Medical History: Denies: Hx Hepatitis Past Surgical History: Reports: Hx Appendectomy, Hx Cardiac Surgery - pacemaker/ CABG, Hx Cholecystectomy, Hx Coronary Artery Bypass Graft, Hx Hysterectomy, Hx Orthopedic Surgery - Back surgery 2., Hx Pacemaker - Immunizations Hx Diphtheria, Pertussis, Tetanus Vaccination: Yes Hx Pneumococcal Vaccination: 10/29/10 Review of Systems - Review of Systems Gastrointestinal: Constipation -: Yes All other systems reviewed and negative Physical Exam - Vital signs Vitals: Temp Pulse Resp Pulse Ox 99.3 F 80 16 97 08/23/17 12:21 08/23/17 12:21 08/23/17 12:21 08/23/17 12:21 Interpretation: Normal - General General appearance: Appears well, Alert - HEENT Head: Normocephalic, Atraumatic Eyes: Normal Pupils: PERRL - Respiratory Respiratory status: No respiratory distress Chest status: Nontender Breath sounds: Normal Chest palpation: Normal - Cardiovascular Rhythm: Regular Heart sounds: Normal auscultation Murmur: No - Abdominal Inspection: Normal Distension: No distension Bowel sounds: Normal Tenderness: Nontender Organomegaly: No organomegaly - Back Back: Normal, Nontender - Extremities General upper extremity: Normal inspection, Nontender, Normal color, Normal ROM , Normal temperature General lower extremity: Normal inspection, Nontender, Normal color, Normal ROM , Normal temperature, Normal weight bearing. No: Carmen's sign - Neurological Neuro grossly intact: Yes Cognition: Normal Orientation: AAOx4 [place] Coma Scale Eye Opening: Spontaneous Myra Coma Scale Verbal: Oriented [place] Coma Scale Motor: Obeys Commands Myra Coma Scale Total: 15 Speech: Normal Motor strength normal: LUE, RUE, LLE, RLE Sensory: Normal - Psychological Associated symptoms: Normal affect, Normal mood - Skin Skin Temperature: Warm Skin Moisture: Dry Skin Color: Normal Course - Re-evaluation Re-evalutation: 08/23/17 13:29 X-rays consistent with normal fecal pattern. Nothing to suggest obstipation or bowel obstruction. Rectal exam was performed and chaperoned by RN. Minimal amount of soft stool noted rectal vault. There is no indication for any further intervention at this time. I have discussed this with the patient. Patient is to continue with laxatives. She is to follow-up with her logistics operations manager. - Vital Signs Vital signs: Temp Pulse Resp BP Pulse Ox 99.3 F 80 16 97 08/23/17 12:21 08/23/17 12:21 08/23/17 12:21 08/23/17 12:21 - Diagnostic Test Radiology reviewed: Image reviewed Radiology results interpreted by me: 08/23/17 13:30 Moderate amount of stool load, no evidence of bowel obstruction Discharge - Discharge Clinical Impression: Constipation Condition: Good Disposition: HOME, SELF-CARE Instructions: Constipation (OM) Additional Instructions: Follow-up with your primary care doctor as well as her logistics operations manager. Return to the emergency department if worse or for any other problems. Continue with laxative use such as MiraLAX or citrate of magnesia. Referrals: MURIEL ALICIA MD [Primary Care Provider] - Follow up as needed
--- NOTE | 2017-08-23 13:55 | RADIOLOGY REPORT (SQ) ---
EXAM DESCRIPTION: ACUTE ABDOMEN SERIES COMPLETED DATE/TIME: 08/23/2017 1:27 pm REASON FOR STUDY: bed 21 -constipation with abdominal pain COMPARISON: 08/06/2017 NUMBER OF VIEWS: Three views. TECHNIQUE: Frontal chest, supine abdomen and upright/decubitus abdomen radiographic images acquired. LIMITATIONS: None. FINDINGS: CHEST: Lungs clear of infiltrates. FREE AIR: None. No abnormal gas collections. BOWEL GAS PATTERN: Nonobstructive pattern. No dilated loops or air fluid levels. CALCIFICATIONS: No suspicious calcifications. HARDWARE: Surgical clips are identified in the right upper quadrant and right lower quadrant. SOFT TISSUES: No gross mass or suggestion of organomegaly. BONES: No acute fracture. No worrisome bone lesions. OTHER: Some elevation of the left hemidiaphragm is seen. IMPRESSION: NO RADIOGRAPHIC EVIDENCE FOR ACUTE ABDOMINAL DISEASE. TECHNICAL DOCUMENTATION: JOB ID: [id number] [employer]- All Rights Reserved
[2017-08-23 13:59] VITALS: BP 141/92
== END 2017-08-23 14:00 | disposition home or self-care (01) ==
LOC: ER 12:12
DX: K59.00 Constipation, unspecified (principal); I25.10 Atherosclerotic heart disease of native coronary artery without angina pectoris; I10 Essential (primary) hypertension; I25.2 Old myocardial infarction; J44.9 Chronic obstructive pulmonary disease, unspecified; Z79.891 Long term (current) use of opiate analgesic; Z88.8 Allergy status to other drugs, medicaments and biological substances; Z88.2 Allergy status to sulfonamides; Z95.0 Presence of cardiac pacemaker; Z95.1 Presence of aortocoronary bypass graft; E11.9 Type 2 diabetes mellitus without complications
CPT/HCPCS: 74022; 99283

== ENCOUNTER 2018-02-04 16:12 | Emergency (ER) | payer MEDICARE ==
--- NOTE | 2018-02-04 17:06 | ER Document Report ---
ED General - General Chief Complaint: Chest Pain Stated Complaint: SICK Time Seen by Provider: 02/04/18 16:31 Mode of Arrival: Stretcher Information source: Patient TRAVEL OUTSIDE OF THE [place] IN LAST 30 DAYS: No - HPI Patient complains to provider of: Feeling unwell Onset: Yesterday Onset/Duration: Gradual Quality of pain: Achy Associated symptoms: Chest pain Exacerbated by: Denies Relieved by: Denies Similar symptoms previously: Yes Recently seen / treated by doctor: No Notes: Patient is a 72-year-old female presenting to via EMS complaining of generalized feeling of unwellness, generalized weakness, states she woke up around 1030 this morning, ate 2 waffles and then went back to lay down in bed, around 1:00 in the afternoon she developed some pressure in her chest with a tingling sensation down the left arm, she took 1 dose of nitroglycerin which helped her symptoms and she has not had a return of symptoms since then, during my evaluation in the emergency room she reports feeling much better, denies any fever, no cough, cold or congestion, no headache at present time, she does report some chronic constipation - Related Data Allergies/Adverse Reactions: lorazepam [From Ativan] Allergy (Intermediate, Verified 08/06/17 11:02) Delirium Sulfa (Sulfonamide Antibiotics) Allergy (Mild, Verified 08/06/17 11:02) Hives Past Medical History - General Information source: Patient - Social History Smoking Status: Never Smoker Family History: Reviewed & Not Pertinent, Hypertension - Past Medical History Cardiac Medical History: Reports: Hx Congestive Heart Failure, Hx Coronary Artery Disease, Hx Heart Attack - PACE MAKER, Hx Hypercholesterolemia, Hx Hypertension Denies: Hx DVT, Hx Pulmonary Embolism Pulmonary Medical History: Reports: Hx COPD, Hx Pneumonia Denies: Hx Asthma, Hx Bronchitis Neurological Medical History: Reports: Hx Cerebrovascular Accident, Hx Seizures Endocrine Medical History: Reports: Hx Diabetes Mellitus Type 1, Hx Diabetes Mellitus Type 2, Hx Hypothyroidism. Denies: Hx Hyperthyroidism Renal/ Medical History: Denies: Hx Peritoneal Dialysis GI Medical History: Denies: Hx Cirrhosis, Hx Gastroesophageal Reflux Disease, Hx Hepatitis Musculoskeltal Medical History: Reports Hx Arthritis Skin Medical History: Denies Hx Eczema, Denies Hx Psoriasis Psychiatric Medical History: Reports: Hx Depression Infectious Medical History: Denies: Hx Hepatitis Past Surgical History: Reports: Hx Appendectomy, Hx Cardiac Surgery - pacemaker/ CABG, Hx Cholecystectomy, Hx Coronary Artery Bypass Graft, Hx Hysterectomy, Hx Orthopedic Surgery - Back surgery 2., Hx Pacemaker - Immunizations Hx Diphtheria, Pertussis, Tetanus Vaccination: Yes Hx Pneumococcal Vaccination: 10/29/10 Review of Systems - Review of Systems Constitutional: See HPI EENT: No symptoms reported Cardiovascular: Chest pain Respiratory: No symptoms reported Gastrointestinal: No symptoms reported Genitourinary: No symptoms reported Female Genitourinary: No symptoms reported Musculoskeletal: No symptoms reported Skin: No symptoms reported Hematologic/Lymphatic: No symptoms reported Neurological/Psychological: No symptoms reported -: Yes All other systems reviewed and negative Physical Exam - Vital signs Vitals: Temp Pulse Resp BP Pulse Ox 98.3 F 85 18 159/74 H 95 02/04/18 16:20 02/04/18 16:20 02/04/18 16:20 02/04/18 16:20 02/04/18 16:20 Interpretation: Normal - General General appearance: Appears well, Alert - HEENT Head: Normocephalic, Atraumatic Eyes: Normal Pupils: PERRL - Respiratory Respiratory status: No respiratory distress Chest status: Nontender Breath sounds: Normal Chest palpation: Normal - Cardiovascular Rhythm: Regular Heart sounds: Normal auscultation Murmur: No - Abdominal Inspection: Normal Distension: No distension Bowel sounds: Normal Tenderness: Nontender Organomegaly: No organomegaly - Back Back: Normal, Nontender - Extremities General upper extremity: Nontender, Normal color, Normal ROM, Normal temperature General lower extremity: Normal inspection, Nontender, Normal color, Normal ROM , Normal temperature. No: Carmen's sign Hand: Other - Chronic finger contraction - Neurological Neuro grossly intact: Yes Cognition: Normal Orientation: AAOx4 Myra Coma Scale Eye Opening: Spontaneous [place] Coma Scale Verbal: Oriented [place] Coma Scale Motor: Obeys Commands Myra Coma Scale Total: 15 Speech: Normal Motor strength normal: LUE, RUE, LLE, RLE Sensory: Normal - Psychological Associated symptoms: Normal affect, Normal mood - Skin Skin Temperature: Warm Skin Moisture: Dry Skin Color: Normal Course - Re-evaluation Re-evalutation: 02/04/18 18:14 Patient is resting comfortably, reports no symptoms since arriving in the emergency department and requesting to be discharged home, her evaluation here is unremarkable, since she is feeling well and requesting to be discharged home , had some chest pressure which responded appropriately to 1 days of sublingual nitroglycerin which patient has a decent supply of at home, she has appropriate follow-up with primary care and cardiology I will discharge her home with instructions for follow-up, she agrees to return immediately if any additional concerns or symptoms return, patient acknowledges understanding and agreement with this plan - Vital Signs Vital signs: Temp Pulse Resp BP Pulse Ox 98.3 F 85 18 159/74 H 98 02/04/18 16:20 02/04/18 16:20 02/04/18 16:20 02/04/18 16:20 02/04/18 17:18 - Laboratory Result Diagrams: 02/04/18 16:54 02/04/18 16:54 Laboratory results interpreted by me: 02/04/18 02/04/18 16:54 16:54 RDW 14.4 H Carbon Dioxide 37 H BUN 26 H Direct Bilirubin 0.5 H - Diagnostic Test Radiology reviewed: Image reviewed, Reports reviewed - EKG Interpretation by Me EKG shows normal: Sinus rhythm Rate: Normal [place]/QRS: RBBB, LAHB/LAFB When compared to previous EKG there are: No significant change Discharge - Discharge Clinical Impression: Generalized weakness Chest pain Qualifiers: Chest pain type: unspecified Qualified Code(s): R07.9 - Chest pain, unspecified Condition: Stable Disposition: HOME, SELF-CARE Instructions: Chest Pain of Unclear Cause ([facility]), Weakness ([facility]) Additional Instructions: Follow up with your primary care provider in one to 2 days. Return to the emergency room immediately if symptoms worsen or any additional concerns.
[2018-02-04 17:09] LABS: ABSOLUTE BASOPHILS # (AUTO) 0.1 10^3/uL (0.0-0.2); ABSOLUTE EOSINOPHILS # (AUTO) 0.1 10^3/uL (0.0-0.6); ABSOLUTE LYMPHOCYTES (AUTO) 2.4 10^3/uL (0.5-4.7); ABSOLUTE MONOCYTES (AUTO) 0.4 10^3/uL (0.1-1.4); ABSOLUTE NEUT (AUTO) 5.4 10^3/uL (1.7-8.2); BASOPHILS % (AUTO) 0.7 % (0-2); EOSINOPHILS % (AUTO) 1.3 % (0-6); HEMATOCRIT 37.8 % (36.0-47.0); HEMOGLOBIN 12.6 g/dL (12.0-15.5); LYMPHOCYTES % (AUTO) 28.7 % (13-45); MEAN CORPUSCULAR HEMOGLOBIN 30.6 pg (27.0-33.4); MEAN CORPUSCULAR HGB CONC 33.4 g/dL (32.0-36.0); MEAN CORPUSCULAR VOLUME 92 fl (80-97); MONOCYTES % (AUTO) 5.2 % (3-13); PLATELET COUNT 239 10^3/uL (150-450); RED BLOOD COUNT 4.12 10^6/uL (3.72-5.28); RED CELL DISTRIBUTION WIDTH 14.4 % (11.5-14.0); SEGMENTED NEUTROPHILS % (AUTO) 64.1 % (42-78); TOTAL CELLS COUNTED % (AUTO) 100 %; WHITE BLOOD COUNT 8.5 10^3/uL (4.0-10.5)
[2018-02-04 17:27] LABS: ALANINE AMINOTRANSFERASE 12 U/L (9-52); ALBUMIN 4.2 g/dL (3.5-5.0); ALKALINE PHOSPHATASE 115 U/L (38-126); ANION GAP 5 (5-19); ASPARTATE AMINO TRANSFERASE 24 U/L (14-36); BILIRUBIN,DIRECT 0.5 mg/dL (0.0-0.4); BILIRUBIN,TOTAL 0.5 mg/dL (0.2-1.3); BLOOD UREA NITROGEN 26 mg/dL (7-20); CALCIUM 9.4 mg/dL (8.4-10.2); CARBON DIOXIDE 37 mmol/L (22-30); CHLORIDE 100 mmol/L (98-107); GLUCOSE 89 mg/dL (75-110); LIPASE 34.9 U/L (23-300); POTASSIUM 4.2 mmol/L (3.6-5.0); SODIUM 142.3 mmol/L (137-145)
--- NOTE | 2018-02-04 17:50 | RADIOLOGY REPORT (SQ) ---
EXAM DESCRIPTION: CHEST SINGLE VIEW COMPLETED DATE/TIME: 02/04/2018 5:10 pm REASON FOR STUDY: cp COMPARISON: 08/31/2016. NUMBER OF VIEWS: One view. TECHNIQUE: Single frontal radiographic view of the chest acquired. LIMITATIONS: None. FINDINGS: LUNGS AND PLEURA: Low lung volumes. No opacities, masses or pneumothorax. No pleural eff usion. MEDIASTINUM AND HILAR STRUCTURES: Stable contours. Status post CABG. HEART AND VASCULAR STRUCTURES: Normal size. No evidence for failure. BONES: No acute findings. HARDWARE: Left transvenous pacer in place, leads grossly intact. OTHER: No other significant finding. IMPRESSION: LOW LUNG VOLUMES. NO SIGNIFICANT RADIOGRAPHIC FINDING IN THE CHEST. TECHNICAL DOCUMENTATION: JOB ID: [id number] [employer]- All Rights Reserved Reading location - IP/workstation name: [email or web address]
[2018-02-04 17:52] LABS: TROPONIN I 0.041 ng/mL
[2018-02-04 18:52] VITALS: BP 159/86
--- NOTE | 2018-02-05 07:27 | EKG REPORT ---
SEVERITY:- ABNORMAL ECG - SINUS RHYTHM ATRIAL PREMATURE COMPLEX RBBB AND LAFB LEFT VENTRICULAR HYPERTROPHY : Confirmed by: Nael Gil MD 05-Feb-2018 07:27:23
== END 2018-02-04 18:52 | disposition home or self-care (01) ==
LOC: ER 16:12
DX: R07.89 Other chest pain (principal); R53.1 Weakness; R20.2 Paresthesia of skin; I45.2 Bifascicular block; K59.00 Constipation, unspecified; I10 Essential (primary) hypertension; I25.10 Atherosclerotic heart disease of native coronary artery without angina pectoris; I25.2 Old myocardial infarction; J44.9 Chronic obstructive pulmonary disease, unspecified; M20.099 Other deformity of finger(s), unspecified finger(s); Z88.8 Allergy status to other drugs, medicaments and biological substances; Z88.2 Allergy status to sulfonamides; Z87.01 Personal history of pneumonia (recurrent); Z95.0 Presence of cardiac pacemaker; Z95.1 Presence of aortocoronary bypass graft
CPT/HCPCS: 36415; 71045; 80053; 83690; 83880; 84484; 85025; 93005; 93010; 99285

== ENCOUNTER → 2018-04-05 | Outpatient (CLI) | payer MEDICARE ==
--- NOTE | 2018-04-05 21:47 | EKG REPORT ---
SEVERITY:- ABNORMAL ECG - SINUS RHYTHM RIGHT BUNDLE BRANCH BLOCK LEFT VENTRICULAR HYPERTROPHY ANTERIOR Q WAVES, POSSIBLY DUE TO LVH : Confirmed by: Chiara Castellano MD 05-Apr-2018 21:46:50
== END ==
LOC: OD 10:27
PROVIDERS: ATTEND Physician Assistant Medical
DX: Z79.891 Long term (current) use of opiate analgesic (principal)
CPT/HCPCS: 93005; 36415; 93010; G0480; 80358

== ENCOUNTER 2018-06-20 08:53 | Emergency (ER) | payer MEDICARE ==
--- NOTE | 2018-06-20 10:43 | ER Document Report ---
ED GI/ - General Chief Complaint: Constipation Stated Complaint: CONSTIPATION Time Seen by Provider: 06/20/18 10:11 TRAVEL OUTSIDE OF THE [place] IN LAST 30 DAYS: No - HPI Patient complains to provider of: Abdominal pain Onset: Other - 5 days Timing/Duration: Gradual, Persistent Quality of pain: Cramping, Fullness Severity at maximum: Mild Severity in ED: Mild Associated symptoms: None Exacerbated by: Denies Relieved by: Denies Similar symptoms previously: Yes Recently seen / treated by doctor: No Notes: 06/20/18 10:44 Patient is a 72-year-old female with a history of chronic constipation presenting to the emergency room today complaining of inability to have a bowel movement for the past 5 days, she says typically she takes laxatives at home or her will manually disimpact her which usually gives her relief, however this time neither of those methods has worked, she reports feeling some fullness in the abdomen, denies any actual abdominal pain, abdomen is soft and nontender, she did have a slight episode of vomiting this morning after taking MiraLAX which she states she usually cannot tolerate taking, she does take 10 mg of methadone on a daily basis as well as 1 mg of clonazepam, has a history of Adijhda-Rbwmy-Lkutd, has been seen by multiple gastroenterologists in the past and states that she plans on getting a colostomy if her constipation issue continues - Related Data Allergies/Adverse Reactions: lorazepam [From Ativan] Allergy (Intermediate, Verified 06/20/18 08:56) Delirium Sulfa (Sulfonamide Antibiotics) Allergy (Mild, Verified 06/20/18 08:56) Hives promethazine [From Phenergan] Allergy (Verified 06/20/18 08:56) Past Medical History - General Information source: Patient - Social History Smoking Status: Never Smoker Family History: Reviewed & Not Pertinent, Hypertension Patient has suicidal ideation: No Patient has homicidal ideation: No - Past Medical History Cardiac Medical History: Reports: Hx Congestive Heart Failure, Hx Coronary Artery Disease, Hx Heart Attack - PACE MAKER, Hx Hypercholesterolemia, Hx Hypertension Denies: Hx DVT, Hx Pulmonary Embolism Pulmonary Medical History: Reports: Hx COPD, Hx Pneumonia Denies: Hx Asthma, Hx Bronchitis Neurological Medical History: Reports: Hx Cerebrovascular Accident, Hx Seizures Endocrine Medical History: Reports: Hx Diabetes Mellitus Type 1, Hx Diabetes Mellitus Type 2, Hx Hypothyroidism. Denies: Hx Hyperthyroidism Renal/ Medical History: Denies: Hx Peritoneal Dialysis GI Medical History: Denies: Hx Cirrhosis, Hx Gastroesophageal Reflux Disease, Hx Hepatitis Musculoskeletal Medical History: Reports Hx Arthritis Skin Medical History: Denies Hx Eczema, Denies Hx Psoriasis Psychiatric Medical History: Reports: Hx Depression Infectious Medical History: Denies: Hx Hepatitis Past Surgical History: Reports: Hx Appendectomy, Hx Cardiac Surgery - pacemaker/ CABG, Hx Cholecystectomy, Hx Coronary Artery Bypass Graft, Hx Hysterectomy, Hx Orthopedic Surgery - Back surgery 2., Hx Pacemaker - Immunizations Hx Diphtheria, Pertussis, Tetanus Vaccination: Yes Hx Pneumococcal Vaccination: 10/29/10 Review of Systems - Review of Systems Constitutional: No symptoms reported EENT: No symptoms reported Cardiovascular: No symptoms reported Respiratory: No symptoms reported Gastrointestinal: Constipation Genitourinary: No symptoms reported Female Genitourinary: No symptoms reported Musculoskeletal: No symptoms reported Skin: No symptoms reported Hematologic/Lymphatic: No symptoms reported Neurological/Psychological: No symptoms reported -: Yes All other systems reviewed and negative Physical Exam - Vital signs Vitals: Temp Pulse Resp BP Pulse Ox 98.6 F 90 20 167/80 H 100 06/20/18 08:59 06/20/18 08:59 06/20/18 08:59 06/20/18 08:59 06/20/18 08:59 Interpretation: Normal - General General appearance: Appears well, Alert In distress: None - HEENT Head: Normocephalic, Atraumatic Eyes: Normal Pupils: PERRL - Respiratory Respiratory status: No respiratory distress Chest status: Nontender Breath sounds: Normal Chest palpation: Normal - Cardiovascular Rhythm: Regular Heart sounds: Normal auscultation Murmur: No - Abdominal Inspection: Normal Distension: No distension Bowel sounds: Normal Tenderness: Nontender Organomegaly: No organomegaly - Back Back: Normal, Nontender - Extremities General upper extremity: Nontender, Normal color, Normal ROM, Normal temperature General lower extremity: Nontender, Normal color, Normal ROM, Normal temperature , Normal weight bearing. No: Carmen's sign - Neurological Neuro grossly intact: Yes Cognition: Normal Orientation: AAOx4 Myra Coma Scale Eye Opening: Spontaneous [place]ra Coma Scale Verbal: Oriented [place] Coma Scale Motor: Obeys Commands [place] Coma Scale Total: 15 Speech: Normal - Psychological Associated symptoms: Normal affect, Normal mood - Skin Skin Temperature: Warm Skin Moisture: Dry Skin Color: Normal Course - Re-evaluation Re-evalutation: 06/20/18 12:40 After receiving an enema in the emergency department patient reports having several bowel movements and feels much better, states she is ready to go home, patient advises that she will follow-up with her physician in [place] and likely get a colostomy bag placed to assist her with her constipation, patient was advised to drink plenty of fluids, continue taking a stool softener and follow-up with her primary care provider as well, return if symptoms worsen, patient acknowledges understanding and agreement with this plan - Vital Signs Vital signs: Temp Pulse Resp BP Pulse Ox 98.6 F 90 20 167/80 H 100 06/20/18 08:59 06/20/18 08:59 06/20/18 08:59 06/20/18 08:59 06/20/18 08:59 Discharge - Discharge Clinical Impression: Constipation Qualifiers: Constipation type: unspecified constipation type Qualified Code(s): K59.00 - Constipation, unspecified Condition: Stable Disposition: HOME, SELF-CARE Instructions: Constipation ([facility]) Additional Instructions: Follow up with your primary care provider in one to 2 days. Return to the emergency room immediately if symptoms worsen or any additional concerns. Referrals: BROOKE ORTIZ PA-C [Primary Care Provider] - Follow up as needed
[2018-06-20 13:02] VITALS: BP 148/79
== END 2018-06-20 13:00 | disposition home or self-care (01) ==
LOC: ER 08:53
DX: K59.00 Constipation, unspecified (principal); R11.10 Vomiting, unspecified; I25.10 Atherosclerotic heart disease of native coronary artery without angina pectoris; I10 Essential (primary) hypertension; I25.2 Old myocardial infarction; J44.9 Chronic obstructive pulmonary disease, unspecified; E11.9 Type 2 diabetes mellitus without complications; G60.0 Hereditary motor and sensory neuropathy; Z79.891 Long term (current) use of opiate analgesic; Z79.899 Other long term (current) drug therapy; Z88.8 Allergy status to other drugs, medicaments and biological substances; Z95.1 Presence of aortocoronary bypass graft; Z95.0 Presence of cardiac pacemaker
CPT/HCPCS: 99283

== ENCOUNTER 2018-08-28 14:08 | Emergency (ER) | payer MEDICARE ==
--- NOTE | 2018-08-28 16:08 | ER Document Report ---
ED General - General Chief Complaint: Constipation Stated Complaint: CONSTIPATION Time Seen by Provider: 08/28/18 16:01 Notes: Patient is complaining of chronic constipation. She has had this problem for many years. Saw Dr. Loaiza, local slaughterer religious [facility], in his office about a year ago and was not able to get much help from them. She recently saw a new slaughterer religious ritual in [place], a couple of weeks ago, and he put her on Dulcolax pills and MiraLAX and she says that it has helped a little bit but not much. She says her last bowel movement was about a week ago. 1 of the contributing factors is likely to be the fact that the patient has chronic pain and is on methadone from Dr. Armin Choi, 10 mg 4 times a day for the past 15 years. gives her enemas every morning. Not helping currently. 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 She is not able to walk except with a walker and only on a limited manner. She says that she feels "" from her knees down to her feet. She has had 2 back surgeries in the past. Patient has not had any nausea or vomiting, but does have discomfort in the mid anterior abdomen. Has not had any fever. TRAVEL OUTSIDE OF THE [place] IN LAST 30 DAYS: No - Related Data Allergies/Adverse Reactions: lorazepam [From Ativan] Allergy (Intermediate, Verified 08/28/18 14:15) Delirium Sulfa (Sulfonamide Antibiotics) Allergy (Mild, Verified 08/28/18 14:15) Hives promethazine [From Phenergan] Allergy (Verified 08/28/18 14:15) Past Medical History - Social History Smoking Status: Never Smoker Chew tobacco use (# tins/day): No Frequency of alcohol use: None Family History: Reviewed & Not Pertinent, Hypertension Patient has suicidal ideation: No Patient has homicidal ideation: No - Past Medical History Cardiac Medical History: Reports: Hx Congestive Heart Failure, Hx Coronary Artery Disease, Hx Heart Attack - PACE MAKER, Hx Hypercholesterolemia, Hx Hypertension Denies: Hx DVT, Hx Pulmonary Embolism Pulmonary Medical History: Reports: Hx COPD - On home O2 at 2 L/min at all times., Hx Pneumonia Denies: Hx Asthma, Hx Bronchitis Neurological Medical History: Reports: Hx Cerebrovascular Accident, Hx Seizures Endocrine Medical History: Reports: Hx Diabetes Mellitus Type 1, Hx Diabetes Mellitus Type 2, Hx Hypothyroidism Musculoskeletal Medical History: Reports Hx Arthritis Psychiatric Medical History: Reports: Hx Depression Infectious Medical History: Denies: Hx Hepatitis Past Surgical History: Reports: Hx Appendectomy, Hx Cardiac Surgery - pacemaker/ CABG, Hx Cholecystectomy, Hx Coronary Artery Bypass Graft, Hx Hysterectomy, Hx Orthopedic Surgery - Back surgery 2., Hx Pacemaker - Immunizations Hx Diphtheria, Pertussis, Tetanus Vaccination: Yes Hx Pneumococcal Vaccination: 10/29/10 Review of Systems - Review of Systems Notes: REVIEW OF SYSTEMS: CONSTITUTIONAL : Denies fever. EENT: Denies eye, ear, nose or mouth or throat pain or other symptoms. CARDIOVASCULAR: Denies chest pain. RESPIRATORY: Denies cough, chest congestion, but has chronic shortness of breath on home O2 2 L all the time.. GASTROINTESTINAL: See HPI. GENITOURINARY: Denies difficulty or painful urinating, urinary frequency, blood in urine. MUSCULOSKELETAL: Chronic back and spinal pain. 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 SKIN: Denies rash or skin lesions. NEUROLOGICAL: Denies LOC or altered mental status. Denies headache. Denies sensory loss or motor deficits. ALL OTHER SYSTEMS REVIEWED AND NEGATIVE. Physical Exam - Vital signs Vitals: Temp Pulse Resp BP Pulse Ox 99.3 F 68 20 126/73 H 89 L 08/28/18 14:47 08/28/18 14:47 08/28/18 14:47 08/28/18 14:47 08/28/18 14:47 Interpretation: Normal - Notes Notes: PHYSICAL EXAMINATION: GENERAL: Well-appearing, in no acute distress. On nasal oxygen at 2 L. HEAD: Atraumatic, normocephalic. EYES: Pupils equal round and reactive to light, extraocular movements intact. ENT: oropharynx clear without exudates. Moist mucous membranes. NECK: Normal range of motion, supple. LUNGS: Breath sounds clear and equal bilaterally. HEART: Regular rate and rhythm without murmurs. ABDOMEN: Soft, nontender. No guarding or rebound. No masses. Rectal exam shows no stool in the rectal vault. BACK: Tenderness throughout entire back. 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 NEUROLOGICAL: Normal speech. Only able to ambulate minimally when using a walker. Normal sensory, motor, and reflex exams. Awake, alert, and oriented x3. PSYCH: Normal mood, normal affect. SKIN: Warm, dry, no rashes. Course - Re-evaluation Re-evalutation: 08/28/18 19:05 Patient was given an oil retention enema followed by soapsuds enema with very poor results. X-ray shows constipation, no obstruction. Had lengthy discussion with patient and about constipation and the many treatments that can help this condition. - Vital Signs Vital signs: Temp Pulse Resp BP Pulse Ox 99.3 F 68 20 126/73 H 95 08/28/18 14:47 08/28/18 14:47 08/28/18 14:47 08/28/18 14:47 08/28/18 15:19 - Diagnostic Test Radiology reviewed: Image reviewed, Reports reviewed - X-rays of the abdomen read as showing constipation. Discharge - Discharge Clinical Impression: Constipation Condition: Stable Disposition: HOME, SELF-CARE Additional Instructions: CONSTIPATION: Constipation is a common problem. It is especially likely as you get older. Constipation is a common cause of abdominal pain, but sometimes causes no symptoms at all. Causes of constipation include certain medications, dehydration, diets, inactivity, and low-fiber intake. Rarely, it can be a symptom of underlying disease. The physician has evaluated you for this. Avoid constipation by eating a diet high in fiber, fruits, and vegetables. Drink plenty of liquids. Get regular exercise. If possible, avoid constipating medicines like narcotic pain medication. Some vitamin tablets can cause constipation. Stool softeners may be needed for difficult cases. An excellent stool softener is Konsyl which is available at [employer], and [employer] [facility]. Just add a teaspoon to a glass of pineapple or orange juice daily or twice a day if needed. Laxatives are useful for occasional constipation. You should use them only when necessary. Too-frequent use can make your bowels dependent on them. Some over the counter laxatives available without prescription are: Milk of Magnesia, 1-2 tablespoons twice a day Dulcolax, 5 mg pill or 10 mg suppository. Citrate of Magnesia, 4-5 ounces a day for a day or two For acute constipation, Fleet's Enemas and Dulcolax suppositories are helpful. 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 Your bowel may become dependant on them. You do not need to have a bowel movement every day. Many people do fine with a bowel movement every three or four days. You should call your doctor or return for re-evaluation if you pass blood in the stool, or if you develop fever or increasing abdominal pain. BULK LAXATIVES: Bulk laxatives make the stool softer and bulkier. They're useful for preventing constipation. You can choose between psyllium, methylcellulose, and polycarbophil. They are available without a prescription. Psyllium brand names include Konsyl, Metamucil, Perdiem, Effer-Syllium and Hydrocil. It's available as powder, flavored drink powder, or chewable. The usual dose of psyllium powder is one heaping teaspoon in water each morning, increasing to twice a day if needed. [place] juice can disguise the slightly grainy texture. Methylcellulose is marketed as Citrucel and other brands. The average dose is two grams in a cup of water one to three times a day. Polycarbophil is marketed as Fiber-Con. Take two tablets with a cup of water one to three times a day. LAXATIVE: A laxative agent has been prescribed for your condition. This should result in passage of stool within 12 hours. Some mild intestinal cramping is common as the hard stool begins to move. You may have loose or runny stools for a short time. Contact your doctor if there is severe cramping, vomiting, or passage of blood. Return for further care if this medicine fails to improve your condition. FOLLOW-UP CARE: If you have been referred to a physician for follow-up care, call the physician s office for an appointment as you were instructed or within the next two days. If you experience worsening or a significant change in your symptoms, notify the physician immediately or return to the Emergency Department at any time for re-evaluation. Referrals: JENNY MARKS MD [Primary Care Provider] - Follow up as needed
[2018-08-28] MEDS ORDERED: MINERAL OIL ENEMA 133 ML PR ONE (16:10)
--- NOTE | 2018-08-28 17:25 | RADIOLOGY REPORT (SQ) ---
EXAM DESCRIPTION: ABDOMEN 2 VIEWS COMPLETED DATE/TIME: 08/28/2018 5:16 pm REASON FOR STUDY: Constipation? No BM for 4 days COMPARISON: 05/21/2017 NUMBER OF VIEWS: Two views. TECHNIQUE: Supine and erect/decubitus radiographic images of the abdomen acquired. LIMITATIONS: None. FINDINGS: FREE AIR: None. No abnormal gas collections. LUNG BASES: Clear. BOWEL GAS PATTERN: Nonobstructive pattern. Marked constipation. CALCIFICATIONS: Right upper quadrant calcification. Possibly in the right kidney or gallbladder. SOFT TISSUES: No gross mass or suggestion of organomegaly. HARDWARE: Right upper quadrant clips. Right lower quadrant clips. BONES: Extensive degenerative changes in the spine. OTHER: No other significant finding. IMPRESSION: Marked constipation. TECHNICAL DOCUMENTATION: JOB ID: [id number] [employer]- All Rights Reserved Reading location - IP/workstation name: [email or web address]
[2018-08-28 19:14] VITALS: BP 139/70
== END 2018-08-28 19:14 | disposition home or self-care (01) ==
LOC: ER 14:08
DX: K59.00 Constipation, unspecified (principal); I10 Essential (primary) hypertension; I25.10 Atherosclerotic heart disease of native coronary artery without angina pectoris; J44.9 Chronic obstructive pulmonary disease, unspecified; Z99.81 Dependence on supplemental oxygen; E11.9 Type 2 diabetes mellitus without complications; G60.0 Hereditary motor and sensory neuropathy; M54.9 Dorsalgia, unspecified; G89.29 Other chronic pain; Z79.891 Long term (current) use of opiate analgesic; Z79.899 Other long term (current) drug therapy; Z95.1 Presence of aortocoronary bypass graft; Z88.8 Allergy status to other drugs, medicaments and biological substances; Z88.2 Allergy status to sulfonamides
CPT/HCPCS: 99283; 74019; J3490

== ENCOUNTER 2018-09-10 06:43 | Emergency (ER) | payer MEDICARE ==
[2018-09-10 07:36] LABS: ABSOLUTE EOSINOPHILS # (AUTO) 0.1 10^3/uL (0.0-0.6); ABSOLUTE LYMPHOCYTES (AUTO) 2.5 10^3/uL (0.5-4.7); ABSOLUTE MONOCYTES (AUTO) 0.4 10^3/uL (0.1-1.4); ABSOLUTE NEUT (AUTO) 4.7 10^3/uL (1.7-8.2); BASOPHILS % (AUTO) 0.5 % (0-2); HEMATOCRIT 37.1 % (36.0-47.0); HEMOGLOBIN 12.7 g/dL (12.0-15.5); LYMPHOCYTES % (AUTO) 32.3 % (13-45); MEAN CORPUSCULAR HGB CONC 34.4 g/dL (32.0-36.0); MEAN CORPUSCULAR VOLUME 90 fl (80-97); MONOCYTES % (AUTO) 5.4 % (3-13); PLATELET COUNT 211 10^3/uL (150-450); RED BLOOD COUNT 4.11 10^6/uL (3.72-5.28); SEGMENTED NEUTROPHILS % (AUTO) 60.8 % (42-78); TOTAL CELLS COUNTED % (AUTO) 100 %; WHITE BLOOD COUNT 7.7 10^3/uL (4.0-10.5)
[2018-09-10 07:52] LABS: ALANINE AMINOTRANSFERASE 13 U/L (9-52); ALBUMIN 4.4 g/dL (3.5-5.0); ALKALINE PHOSPHATASE 126 U/L (38-126); ANION GAP 11 (5-19); ASPARTATE AMINO TRANSFERASE 26 U/L (14-36); BILIRUBIN,DIRECT 0.3 mg/dL (0.0-0.4); BILIRUBIN,TOTAL 0.6 mg/dL (0.2-1.3); BLOOD UREA NITROGEN 19 mg/dL (7-20); CALCIUM 9.5 mg/dL (8.4-10.2); CARBON DIOXIDE 35 mmol/L (22-30); CHLORIDE 100 mmol/L (98-107); CREATINE KINASE 101 U/L (30-135); GLUCOSE 143 mg/dL (75-110); LIPASE 17.5 U/L (23-300); POTASSIUM 4.3 mmol/L (3.6-5.0); SODIUM 145.9 mmol/L (137-145); TOTAL PROTEIN 6.9 g/dL (6.3-8.2)
[2018-09-10 08:03] LABS: CREATINE KINASE MB 3.78 ng/mL (<4.55); TROPONIN I 0.024 ng/mL
--- NOTE | 2018-09-10 08:19 | RADIOLOGY REPORT (SQ) ---
EXAM DESCRIPTION: ACUTE ABDOMEN SERIES COMPLETED DATE/TIME: 09/10/2018 7:52 am REASON FOR STUDY: abd pain COMPARISON: Abdominal films 07/28/2017, 08/06/2017, 08/23/2017, 08/28/2018 NUMBER OF VIEWS: Three views. TECHNIQUE: Frontal chest, supine abdomen and upright abdomen radiographic images acquired. LIMITATIONS: None. FINDINGS: CHEST: Lungs clear of infiltrates. Old sternotomy and CABG. No cardiomegaly. Left-sided dual lead pacemaker. No pleural effusion or pneumothorax. FREE AIR: None. No abnormal gas collections. BOWEL GAS PATTERN: Large amount of stool throughout the colon. Few borderline dilated small bowel lo ops in the mid epigastrium. Evidence of prior right partial colectomy with right lower quadrant surg ical grover. CALCIFICATIONS: No suspicious calcifications. HARDWARE: Anastomotic bowel grover right lower quadrant. Clips post cholecystectomy right upper juan drant SOFT TISSUES: No gross mass or suggestion of organomegaly. BONES: No acute fracture. No worrisome bone lesions. OTHER: No other significant finding. IMPRESSION: Large amount of stool throughout the colon TECHNICAL DOCUMENTATION: JOB ID: [id number]- All Rights Reserved Reading location - IP/workstation name: [email or web address]
[2018-09-10] MEDS ORDERED: MAGNESIUM CITRATE 296 ML BOTTLE PO ONE (08:53)
[2018-09-10] MEDS ORDERED: LIDOCAINE 2% URO-JET 5 ML KIT MM ONE (08:53)
[2018-09-10] MEDS ORDERED: MINERAL OIL 30 ML UDCUP PR ONE (09:14)
--- NOTE | 2018-09-10 09:57 | EKG REPORT ---
SEVERITY:- ABNORMAL ECG - SINUS RHYTHM ATRIAL PREMATURE COMPLEX RIGHT BUNDLE BRANCH BLOCK, CONSIDER RVH LEFT VENTRICULAR HYPERTROPHY ANTERIOR Q WAVES, POSSIBLY DUE TO LVH : Confirmed by: Oneida Barlow 10-Sep-2018 09:56:45
--- NOTE | 2018-09-10 12:03 | ER Document Report ---
ED General - General Chief Complaint: Abdominal Pain Stated Complaint: CHEST PAIN Time Seen by Provider: 09/10/18 06:59 TRAVEL OUTSIDE OF THE [place] IN LAST 30 DAYS: No - HPI Patient complains to provider of: Abdominal pain chest pain Notes: Patient coming in for abdominal pain diffuse chest pain epigastric substernal ongoing since early this morning. Patient has a history of chronic constipation patient states that she has not taken a bowel movement in the last 3-4 days. Patient states she did try an enema at home prior to coming in small amount of s stool was produced that was black. Patient states that she has been on her bowel regimen however missed last 3 days patient states also having pain epigastric region substernal chest pain. Patient states this also started earlier this morning around 3:00. Patient denies any fevers chills nausea vomiting diarrhea. - Related Data Allergies/Adverse Reactions: lorazepam [From Ativan] Allergy (Intermediate, Verified 09/10/18 07:30) Delirium Sulfa (Sulfonamide Antibiotics) Allergy (Mild, Verified 09/10/18 07:30) Hives promethazine [From Phenergan] Allergy (Verified 09/10/18 07:30) Past Medical History - Social History Smoking Status: Unknown if Ever Smoked Family History: Reviewed & Not Pertinent, Hypertension Patient has suicidal ideation: No Patient has homicidal ideation: No - Past Medical History Cardiac Medical History: Reports: Hx Congestive Heart Failure, Hx Coronary Artery Disease, Hx Heart Attack - PACE MAKER, Hx Hypercholesterolemia, Hx Hypertension Denies: Hx DVT, Hx Pulmonary Embolism Pulmonary Medical History: Reports: Hx COPD - On home O2 at 2 L/min at all times., Hx Pneumonia Denies: Hx Asthma, Hx Bronchitis Neurological Medical History: Reports: Hx Cerebrovascular Accident, Hx Seizures Endocrine Medical History: Reports: Hx Diabetes Mellitus Type 1, Hx Diabetes Mellitus Type 2, Hx Hypothyroidism. Denies: Hx Hyperthyroidism Renal/ Medical History: Denies: Hx Peritoneal Dialysis GI Medical History: Denies: Hx Cirrhosis, Hx Gastroesophageal Reflux Disease, Hx Hepatitis Musculoskeletal Medical History: Reports Hx Arthritis Skin Medical History: Denies Hx Eczema, Denies Hx Psoriasis Psychiatric Medical History: Reports: Hx Depression Infectious Medical History: Denies: Hx Hepatitis Past Surgical History: Reports: Hx Appendectomy, Hx Cardiac Surgery - pacemaker/ CABG, Hx Cholecystectomy, Hx Coronary Artery Bypass Graft, Hx Hysterectomy, Hx Orthopedic Surgery - Back surgery 2., Hx Pacemaker - Immunizations Hx Diphtheria, Pertussis, Tetanus Vaccination: Yes Hx Pneumococcal Vaccination: 10/29/10 Review of Systems - Review of Systems Constitutional: No symptoms reported EENT: No symptoms reported Cardiovascular: Chest pain Respiratory: No symptoms reported Gastrointestinal: Abdominal pain, Constipation Genitourinary: No symptoms reported Female Genitourinary: No symptoms reported Musculoskeletal: No symptoms reported Skin: No symptoms reported Hematologic/Lymphatic: No symptoms reported Neurological/Psychological: No symptoms reported -: Yes All other systems reviewed and negative Physical Exam - Vital signs Vitals: Pulse Ox 96 09/10/18 06:49 Interpretation: Normal - General General appearance: Appears well, Alert - HEENT Head: Normocephalic, Atraumatic Eyes: Normal Pupils: PERRL - Respiratory Respiratory status: No respiratory distress Chest status: Nontender Breath sounds: Normal Chest palpation: Normal - Cardiovascular Rhythm: Regular Heart sounds: Normal auscultation Murmur: No - Abdominal Inspection: Normal Distension: No distension Bowel sounds: Normal Tenderness: Tender - Diffuse no focal tenderness no guarding no rebound Organomegaly: No organomegaly - Rectal Stool: Heme negative, Black Hemorrhoids: None Notes: Black stool I did 2 Hemoccult cards at bedside that were both negative we did send one Hemoccult card down to the laboratory which also was negative. - Back Back: Normal, Nontender - Extremities General upper extremity: Normal inspection, Nontender, Normal color, Normal ROM , Normal temperature General lower extremity: Normal inspection, Nontender, Normal color, Normal ROM , Normal temperature, Normal weight bearing. No: Carmen's sign - Neurological Neuro grossly intact: Yes Cognition: Normal Orientation: AAOx4 [place] Coma Scale Eye Opening: Spontaneous [place] Coma Scale Verbal: Oriented [place] Coma Scale Motor: Obeys Commands Myra Coma Scale Total: 15 Speech: Normal Motor strength normal: LUE, RUE, LLE, RLE Sensory: Normal - Psychological Associated symptoms: Normal affect, Normal mood - Skin Skin Temperature: Warm Skin Moisture: Dry Skin Color: Normal Course - Re-evaluation Re-evalutation: 09/10/18 14:25 X-ray showed significant amount stool throughout the colon. Patient's laboratory studies show troponin to be negative. Patient was given an enema with copious amounts of stool return. Also recommend the patient drink a bottle of mag citrate here entire bowel tonight While today have mild tomorrow. Did encourage patient to follow-up with your PCP for further evaluation of her recurring constipation. - Vital Signs Vital signs: Temp Pulse Resp BP Pulse Ox 98.6 F 18 153/98 H 98 09/10/18 12:12 09/10/18 12:12 09/10/18 12:12 09/10/18 12:12 - Laboratory Result Diagrams: 09/10/18 07:20 09/10/18 07:20 Laboratory results interpreted by me: 09/10/18 07:20 Sodium 145.9 H Carbon Dioxide 35 H Est GFR (Non-Af Amer) 57 L Glucose 143 H Lipase 17.5 L Discharge - Discharge Clinical Impression: Chest wall pain Constipation Qualifiers: Constipation type: unspecified constipation type Qualified Code(s): K59.00 - Constipation, unspecified Condition: Good Disposition: HOME, SELF-CARE Instructions: Abdominal Pain ([facility]), Chest Wall Pain ([facility]), Constipation ([facility]) Additional Instructions: Your evaluation today does not show any signs of significant cardiac pathology. Her troponins are negative no signs of cardiac ischemia. EKG does not show any acute changes. Your x-ray does show significant amount of constipation or stool throughout the colon. I would highly recommend she discuss your chronic episodes of constipation with your primary care physician is that you are on methadone more likely contributing to your constipation. I would recommend possibility of being placed on a medication such as Movantik or Relistor. I also recommend to drink the mag citrate that we gave you here in the ER at least half a bottle today in the next half tomorrow. I will give you medications to help out with any nausea that this may cause. Return to the ER if symptoms worsen. Prescriptions: Ondansetron [Zofran Odt] 4 mg PO Q6 PRN #30 tab.rapdis PRN Reason: For Nausea/Vomiting Forms: Return to Work Referrals: JENNY MARKS MD [Primary Care Provider] - Follow up as needed
[2018-09-10 13:04] VITALS: BP 153/98
== END 2018-09-10 12:20 | disposition home or self-care (01) ==
LOC: ER 06:43
DX: K59.00 Constipation, unspecified (principal); R19.5 Other fecal abnormalities; R07.89 Other chest pain; I25.10 Atherosclerotic heart disease of native coronary artery without angina pectoris; I10 Essential (primary) hypertension; I25.2 Old myocardial infarction; J44.9 Chronic obstructive pulmonary disease, unspecified; E11.9 Type 2 diabetes mellitus without complications; Z95.1 Presence of aortocoronary bypass graft; Z95.810 Presence of automatic (implantable) cardiac defibrillator; Z88.8 Allergy status to other drugs, medicaments and biological substances; Z88.2 Allergy status to sulfonamides
CPT/HCPCS: 93005; 99284; 86900; 86901; 36415; 82553; 86850; 82550; 83605; 83690; 85025; 82272; 80053; 84484; 74022; 93010; J3490 ×2; A9270

== ENCOUNTER 2018-09-15 10:47 | Observation (INO) | payer MEDICARE ==
--- NOTE | 2018-09-15 11:10 | ER Document Report ---
ED General - General Stated Complaint: PSYCH EVAL Time Seen by Provider: 09/15/18 10:55 Mode of Arrival: Medic Information source: Patient, Emergency Med Personnel, [facility] Records Notes: 73-year-old female with [id number] disease ,congestive heart failure, coronary artery disease, hypertension, hyperlipidemia, COPD on 2 L of oxygen at night, type 1 diabetes, previous pacemaker placement presents via EMS from home with complaints of slurred speech that occurred yesterday but resolved. Patient states that she went to [facility] yesterday for the slurred speech that she reports lasted only a few minutes. She left AGAINST MEDICAL ADVICE because "I just did not like them". She states that "they tied me down because I wanted to leave". She states that no CAT scan was performed at that time. Patient denies any slurred speech today, headache, visual changes, focal weakness. 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 She denies any worsening weakness. TRAVEL OUTSIDE OF THE [place] IN LAST 30 DAYS: No - HPI Onset: Yesterday Onset/Duration: Sudden, Gone Quality of pain: No pain Severity: None Associated symptoms: denies: Chest pain, Fever, Headache, Shortness of breath, Weakness Exacerbated by: Denies Relieved by: Denies Similar symptoms previously: Yes Recently seen / treated by doctor: Yes - Seen yesterday at [facility] but left AGAINST MEDI - Related Data Allergies/Adverse Reactions: lorazepam [From Ativan] Allergy (Intermediate, Verified 09/10/18 07:30) Delirium Sulfa (Sulfonamide Antibiotics) Allergy (Mild, Verified 09/10/18 07:30) Hives promethazine [From Phenergan] Allergy (Verified 09/10/18 07:30) Past Medical History - General Information source: Patient - Social History Smoking Status: Never Smoker Frequency of alcohol use: None Drug Abuse: None Lives with: Spouse/Significant other Family History: Reviewed & Not Pertinent, Hypertension - Past Medical History Cardiac Medical History: Reports: Hx Congestive Heart Failure, Hx Coronary Artery Disease, Hx Heart Attack - PACE MAKER, Hx Hypercholesterolemia, Hx Hypertension Denies: Hx DVT, Hx Pulmonary Embolism Pulmonary Medical History: Reports: Hx COPD - On home O2 at 2 L/min at all times., Hx Pneumonia Denies: Hx Asthma, Hx Bronchitis Neurological Medical History: Reports: Hx Cerebrovascular Accident, Hx Seizures Endocrine Medical History: Reports: Hx Diabetes Mellitus Type 1, Hx Diabetes Mellitus Type 2, Hx Hypothyroidism. Denies: Hx Hyperthyroidism Renal/ Medical History: Denies: Hx Peritoneal Dialysis GI Medical History: Denies: Hx Cirrhosis, Hx Gastroesophageal Reflux Disease, Hx Hepatitis Musculoskeletal Medical History: Reports Hx Arthritis Skin Medical History: Denies Hx Eczema, Denies Hx Psoriasis Psychiatric Medical History: Reports: Hx Depression Infectious Medical History: Denies: Hx Hepatitis Past Surgical History: Reports: Hx Appendectomy, Hx Cardiac Surgery - pacemaker/ CABG, Hx Cholecystectomy, Hx Coronary Artery Bypass Graft, Hx Hysterectomy, Hx Orthopedic Surgery - Back surgery 2., Hx Pacemaker - Immunizations Hx Diphtheria, Pertussis, Tetanus Vaccination: Yes Hx Pneumococcal Vaccination: 10/29/10 Review of Systems - Review of Systems Notes: REVIEW OF SYSTEMS: CONSTITUTIONAL : Denies fever, chills, or sweats. Denies recent illness. Denies weight loss, recent hospitalizations. EENT: Denies visual changes, eye pain. Denies sore throat, oral lesions, difficulty swallowing. CARDIOVASCULAR: Denies chest pain. Denies palpitations. Denies lower extremity edema. RESPIRATORY: Denies cough. Denies shortness of breath, wheezing. GASTROINTESTINAL: Denies abdominal pain or distention. Denies nausea, vomiting , or diarrhea. Denies blood in vomitus, stools, or per rectum. Denies black, tarry stools. Denies constipation. GENITOURINARY: Denies difficulty urinating, painful urination, frequency, blood in urine, or vaginal discharge. MUSCULOSKELETAL: Denies back or neck pain or stiffness. Denies joint pain or swelling. SKIN: Denies rash, lesions or sores. HEMATOLOGIC : Denies easy bruising or bleeding. LYMPHATIC: Denies swollen glands. NEUROLOGICAL: Denies confusion or altered mental status. Denies loss of consciousness. Denies dizziness or lightheadedness. Denies headache. Denies weakness or paralysis. Denies sensory loss, numbness, or tingling. Denies seizures. PSYCHIATRIC: Denies anxiety or stress. Denies depression, suicidal ideation, or homicidal ideation. Denies visual or auditory hallucinations. Physical Exam - Vital signs Vitals: Resp Pulse Ox 13 94 09/15/18 10:49 09/15/18 10:49 - Notes Notes: PHYSICAL EXAMINATION: GENERAL: Well-appearing, well-nourished and in no acute distress. HEAD: Atraumatic, normocephalic. EYES: Pupils equal round and reactive to light, extraocular movements intact, conjunctiva are normal. ENT: Nares patent, oropharynx clear without exudates. Moist mucous membranes. NECK: Normal range of motion, supple without lymphadenopathy LUNGS: Breath sounds clear to auscultation bilaterally and equal. No wheezes rales or rhonchi. HEART: Regular rate and rhythm without murmurs ABDOMEN: Soft, nontender, nondistended abdomen. No guarding, no rebound. No masses appreciated. Female : deferred Musculoskeletal: Contractures of all the fingers of the hands bilaterally. Atrophy of the lower extremity. Patient able to move all 4 extremities. NEUROLOGICAL: Cranial nerves grossly intact. Normal speech, normal gait. Normal sensory, motor exams. NIH-0 alert and oriented x4 PSYCH: Normal mood, normal affect. SKIN: Warm, Dry, normal turgor, no rashes or lesions noted. Course - Re-evaluation Re-evalutation: Laboratory 09/15/18 09/15/18 09/15/18 10:53 10:53 10:53 WBC 7.7 RBC 4.27 Hgb 13.2 Hct 38.6 MCV 91 MCH 30.8 MCHC 34.1 RDW 13.7 Plt Count 250 Seg Neutrophils % 69.6 Lymphocytes % 25.5 Monocytes % 4.5 Eosinophils % 0.1 Basophils % 0.3 Absolute Neutrophils 5.4 Absolute Lymphocytes 2.0 Absolute Monocytes 0.3 Absolute Eosinophils 0.0 Absolute Basophils 0.0 PT 13.2 INR 0.96 APTT 28.4 Sodium 140.9 Potassium 4.2 Chloride 96 L Carbon Dioxide 28 Anion Gap 17 BUN 11 Creatinine 0.72 Est GFR ( Amer) > 60 Est GFR (Non-Af Amer) > 60 Glucose 173 H Calcium 10.0 Total Bilirubin 1.1 Direct Bilirubin 0.3 Neonat Total Bilirubin Not Reportable Neonat Direct Bilirubin Not Reportable Neonat Indirect Bili Not Reportable AST 35 ALT 17 Alkaline Phosphatase 152 H Creatine Kinase 190 H CK-MB (CK-2) Troponin I Total Protein 7.8 Albumin 4.9 Urine Color Urine Appearance Urine pH Ur Specific [place] Urine Protein Urine Glucose (UA) Urine Ketones Urine Blood Urine Nitrite Urine Bilirubin Urine Urobilinogen Ur Leukocyte Esterase Urine WBC (Auto) Urine RBC (Auto) Urine Bacteria (Auto) Squamous Epi Cells Auto Urine Mucus (Auto) Urine Ascorbic Acid Salicylates < 1.0 L Urine Opiates Screen Urine Methadone Screen Acetaminophen < 10 L Ur Barbiturates Screen Ur Phencyclidine Scrn Ur Amphetamines Screen U Benzodiazepines Scrn Urine Cocaine Screen U Marijuana (THC) Screen Serum Alcohol 09/15/18 09/15/18 09/15/18 10:53 10:53 12:18 WBC RBC Hgb Hct MCV MCH MCHC RDW Plt Count Seg Neutrophils % Lymphocytes % Monocytes % Eosinophils % Basophils % Absolute Neutrophils Absolute Lymphocytes Absolute Monocytes Absolute Eosinophils Absolute Basophils PT INR APTT Sodium Potassium Chloride Carbon Dioxide Anion Gap BUN Creatinine Est GFR ( Amer) Est GFR (Non-Af Amer) Glucose Calcium Total Bilirubin Direct Bilirubin Neonat Total Bilirubin Neonat Direct Bilirubin Neonat Indirect Bili AST ALT Alkaline Phosphatase Creatine Kinase CK-MB (CK-2) 2.90 Troponin I 0.109 Total Protein Albumin Urine Color COLORLESS Urine Appearance CLEAR Urine pH 8.0 Ur Specific [place] 1.008 Urine Protein 100 H Urine Glucose (UA) NEGATIVE Urine Ketones TRACE H Urine Blood SMALL H Urine Nitrite NEGATIVE Urine Bilirubin NEGATIVE Urine Urobilinogen NEGATIVE Ur Leukocyte Esterase NEGATIVE Urine WBC (Auto) 4 Urine RBC (Auto) 18 Urine Bacteria (Auto) 1+ Squamous Epi Cells Auto 1 Urine Mucus (Auto) RARE Urine Ascorbic Acid NEGATIVE Salicylates Urine Opiates Screen Urine Methadone Screen Acetaminophen Ur Barbiturates Screen Ur Phencyclidine Scrn Ur Amphetamines Screen U Benzodiazepines Scrn Urine Cocaine Screen U Marijuana (THC) Screen Serum Alcohol < 10 09/15/18 09/15/18 09/15/18 12:18 14:21 18:23 WBC RBC Hgb Hct MCV MCH MCHC RDW Plt Count Seg Neutrophils % Lymphocytes % Monocytes % Eosinophils % Basophils % Absolute Neutrophils Absolute Lymphocytes Absolute Monocytes Absolute Eosinophils Absolute Basophils PT INR APTT Sodium Potassium Chloride Carbon Dioxide Anion Gap BUN Creatinine Est GFR ( Amer) Est GFR (Non-Af Amer) Glucose Calcium Total Bilirubin Direct Bilirubin Neonat Total Bilirubin Neonat Direct Bilirubin Neonat Indirect Bili AST ALT Alkaline Phosphatase Creatine Kinase 191 H CK-MB (CK-2) Troponin I 0.094 Total Protein Albumin Urine Color Urine Appearance Urine pH Ur Specific [place] Urine Protein Urine Glucose (UA) Urine Ketones Urine Blood Urine Nitrite Urine Bilirubin Urine Urobilinogen Ur Leukocyte Esterase Urine WBC (Auto) Urine RBC (Auto) Urine Bacteria (Auto) Squamous Epi Cells Auto Urine Mucus (Auto) Urine Ascorbic Acid Salicylates Urine Opiates Screen NEGATIVE Urine Methadone Screen UNCONFIRMED POSITIVE Acetaminophen Ur Barbiturates Screen NEGATIVE Ur Phencyclidine Scrn NEGATIVE Ur Amphetamines Screen NEGATIVE U Benzodiazepines Scrn NEGATIVE Urine Cocaine Screen NEGATIVE U Marijuana (THC) Screen NEGATIVE Serum Alcohol 09/15/18 18:23 WBC RBC Hgb Hct MCV MCH MCHC RDW Plt Count Seg Neutrophils % Lymphocytes % Monocytes % Eosinophils % Basophils % Absolute Neutrophils Absolute Lymphocytes Absolute Monocytes Absolute Eosinophils Absolute Basophils PT INR APTT Sodium Potassium Chloride Carbon Dioxide Anion Gap BUN Creatinine Est GFR ( Amer) Est GFR (Non-Af Amer) Glucose Calcium Total Bilirubin Direct Bilirubin Neonat Total Bilirubin Neonat Direct Bilirubin Neonat Indirect Bili AST ALT Alkaline Phosphatase Creatine Kinase CK-MB (CK-2) Troponin I 0.082 Total Protein Albumin Urine Color Urine Appearance Urine pH Ur Specific [place] Urine Protein Urine Glucose (UA) Urine Ketones Urine Blood Urine Nitrite Urine Bilirubin Urine Urobilinogen Ur Leukocyte Esterase Urine WBC (Auto) Urine RBC (Auto) Urine Bacteria (Auto) Squamous Epi Cells Auto Urine Mucus (Auto) Urine Ascorbic Acid Salicylates Urine Opiates Screen Urine Methadone Screen Acetaminophen Ur Barbiturates Screen Ur Phencyclidine Scrn Ur Amphetamines Screen U Benzodiazepines Scrn Urine Cocaine Screen U Marijuana (THC) Screen Serum Alcohol Chest X-Ray 09/15/18 11:05 IMPRESSION: Low volume AP examination without acute abnormality of the lungs. Head CT 09/15/18 11:05 IMPRESSION: No acute intracranial pathology. Unchanged right occipital encephalomalacia. Consider MRI to more sensitively evaluate acute diffusion restricting infarction if indicated by localizing neurologic signs and symptoms. EVIDENCE OF ACUTE STROKE: NO. 73-year-old female with complex medical history presents via EMS from home with concern for stroke. She states that yesterday she had an episode of slurred speech that lasted momentarily and resolved spontaneously. She does report a history of previous TIAs. She states that she was seen at [facility] but left AGAINST MEDICAL ADVICE because she did not like that they tried to tie her down. Vital signs reviewed upon arrival patient is tachycardic but afebrile. She is AO x4. Patient found to have a mildly elevated troponin with repeat troponin trending downwards. She denies any chest pain on her EKG is unchanged from previous. Patient does have a history of substance abuse and has now currently on methadone. Patient has a completely normal neurologic exam except for where her hands are contracted and she has difficulty moving her leg secondary to pain but she states this is not new or worse. Nurse repeatedly comes out to report that the patient is having visual hallucinations of men in her room. She comes out again and states now the patient is seeing a little girl. MRI cannot be obtained secondary to the patient's pacemaker. Patient's only significant laboratory abnormalities include an elevated alk phos CK-MB and, troponin. 09/15/18 15:54 Contacted psychiatry for consult regarding the patient being alert and oriented x4 but having active hallucinations. They recommend medical admission and IVC petition at this time. 09/15/18 16:07 Spoke to patient regarding the need for admission and she adamantly refuses. She states that she has to take care of her who is very sick. She she starts pulling out her IV and oxygen once she is informed that she no longer has the right to leave AGAINST MEDICAL ADVICE.. I did speak to the patient's Mr. Anders Queen who states that unlike what the patient reported he does not need her for self care. He states that he would like for us to keep her there and he will be here in the morning. I have advised him that I will likely need to sedate the patient because she is upset regarding the admission. Patient did receive Ativan and Haldol with no improvement of her agitation. Prior to that she did receive her documented dose of methadone. Although the patient is alert and oriented x3 and able to hold a conversation with active visual hallucinations, history of substance abuse and indeterminate cardiac enzymes I feel that it is best that patient be at least observed overnight and evaluated by psychiatry in the morning. Patient has been accepted by the hospitalist for admission. 09/15/18 21:28 09/15/18 21:29 - Vital Signs Vital signs: Temp Pulse Resp BP Pulse Ox 98.0 F 120 H 22 H 141/93 H 97 09/15/18 20:03 09/15/18 20:03 09/15/18 20:03 09/15/18 20:03 09/15/18 20:03 - Laboratory Result Diagrams: 09/15/18 10:53 09/15/18 10:53 Laboratory results interpreted by me: 09/15/18 09/15/18 10:53 12:18 Chloride 96 L Glucose 173 H Alkaline Phosphatase 152 H Creatine Kinase 190 H Urine Protein 100 H Urine Ketones TRACE H Urine Blood SMALL H Salicylates < 1.0 L Acetaminophen < 10 L - Diagnostic Test Radiology reviewed: Image reviewed, Reports reviewed - EKG Interpretation by Me EKG shows normal: Sinus rhythm Rate: Normal Rhythm: NSR Gratis/QRS: RBBB Discharge - Discharge Clinical Impression: Visual hallucination, Elevated troponin, Agitation, Delirium, Encephalomalacia Diabetes mellitus type I Qualifiers: Diabetes mellitus complication status: without complication Qualified Code(s): E10.9 - Type 1 diabetes mellitus without complications Hypertension Qualifiers: Hypertension type: unspecified Qualified Code(s): I10 - Essential (primary) hypertension Condition: Good Disposition: ADMITTED OBSERVATION Admitting Provider: Hospitalist Unit Admitted: Medical Floor
[2018-09-15 11:29] LABS: INTERNATIONAL RATION (INR) 0.96; PROTHROMBIN TIME 13.2 SEC (11.4-15.4)
[2018-09-15 11:30] LABS: PARTIAL THROMBOPLASTIN TIME 28.4 SEC (23.5-35.8)
[2018-09-15 11:36] LABS: ABSOLUTE MONOCYTES (AUTO) 0.3 10^3/uL (0.1-1.4); ABSOLUTE NEUT (AUTO) 5.4 10^3/uL (1.7-8.2); BASOPHILS % (AUTO) 0.3 % (0-2); EOSINOPHILS % (AUTO) 0.1 % (0-6); HEMATOCRIT 38.6 % (36.0-47.0); HEMOGLOBIN 13.2 g/dL (12.0-15.5); LYMPHOCYTES % (AUTO) 25.5 % (13-45); MEAN CORPUSCULAR HEMOGLOBIN 30.8 pg (27.0-33.4); MEAN CORPUSCULAR HGB CONC 34.1 g/dL (32.0-36.0); MEAN CORPUSCULAR VOLUME 91 fl (80-97); MONOCYTES % (AUTO) 4.5 % (3-13); PLATELET COUNT 250 10^3/uL (150-450); RED BLOOD COUNT 4.27 10^6/uL (3.72-5.28); RED CELL DISTRIBUTION WIDTH 13.7 % (11.5-14.0); SEGMENTED NEUTROPHILS % (AUTO) 69.6 % (42-78); TOTAL CELLS COUNTED % (AUTO) 100 %; WHITE BLOOD COUNT 7.7 10^3/uL (4.0-10.5)
[2018-09-15 11:40] LABS: ALANINE AMINOTRANSFERASE 17 U/L (9-52); ALBUMIN 4.9 g/dL (3.5-5.0); ALKALINE PHOSPHATASE 152 U/L (38-126); ANION GAP 17 (5-19); ASPARTATE AMINO TRANSFERASE 35 U/L (14-36); BILIRUBIN,DIRECT 0.3 mg/dL (0.0-0.4); BILIRUBIN,TOTAL 1.1 mg/dL (0.2-1.3); BLOOD UREA NITROGEN 11 mg/dL (7-20); CARBON DIOXIDE 28 mmol/L (22-30); CHLORIDE 96 mmol/L (98-107); CREATINE KINASE 190 U/L (30-135); GLUCOSE 173 mg/dL (75-110); POTASSIUM 4.2 mmol/L (3.6-5.0); SODIUM 140.9 mmol/L (137-145); TOTAL PROTEIN 7.8 g/dL (6.3-8.2)
[2018-09-15 11:41] LABS: ACETAMINOPHEN < 10 ug/mL (10-30); SALICYLATE < 1.0 mg/dL (2.0-20.0)
[2018-09-15 11:51] LABS: CREATINE KINASE MB 2.9 ng/mL (<4.55)
[2018-09-15 11:53] LABS: TROPONIN I 0.109 ng/mL
[2018-09-15] MEDS ORDERED: NORMAL SALINE 250 ML IV ONE (12:15)
--- NOTE | 2018-09-15 12:28 | RADIOLOGY REPORT (SQ) ---
EXAM DESCRIPTION: CT HEAD WITHOUT COMPLETED DATE/TIME: 09/15/2018 11:44 am REASON FOR STUDY: Slurred speech COMPARISON: 09/11/2016 TECHNIQUE: Axial images acquired through the brain without intravenous contrast. Images reviewed wi th bone, brain and subdural windows. Additional sagittal and coronal reconstructions were generated. Images stored on PACS. All CT scanners at this facility use dose modulation, iterative reconstruction, and/or weight based d osing when appropriate to reduce radiation dose to as low as reasonably achievable (ALARA). [facility]: Dose Right [facility]: CareDose [facility]: Dose Right [facility]: Teradose 4D [facility]: [employer] RADIATION DOSE: CT Rad equipment meets quality standard of care and radiation dose reduction techniq ues were employed. CTDIvol: 53.2 mGy. DLP: 1044 mGy-cm. mGy. LIMITATIONS: None. FINDINGS: VENTRICLES: Normal size and contour. CEREBRUM: No masses. No hemorrhage. No midline shift. No evidence for acute infarction. Normal gra y/white matter differentiation. Unchanged right occipital encephalomalacia. CEREBELLUM: No masses. No hemorrhage. No alteration of density. No evidence for acute infarction. EXTRAAXIAL SPACES: No fluid collections. No masses. ORBITS AND GLOBE: No intra- or extraconal masses. Normal contour of globe without masses. CALVARIUM: No fracture. PARANASAL SINUSES: No fluid or mucosal thickening. SOFT TISSUES: No mass or hematoma. OTHER: No other significant finding. IMPRESSION: No acute intracranial pathology. Unchanged right occipital encephalomalacia. Consider MRI to more sensitively evaluate acute diffusion restricting infarction if indicated by localizing ne urologic signs and symptoms. EVIDENCE OF ACUTE STROKE: NO. COMMENT: Quality ID # [id number]: Final reports with documentation of one or more dose reduction techniques (e.g., Automated exposure control, adjustment of the mA and/or kV according to patient size, use of iterative reconstruction technique) TECHNICAL DOCUMENTATION: JOB ID: [id number] [employer]- All Rights Reserved Reading location - IP/workstation name: [email or web address]
--- NOTE | 2018-09-15 12:30 | RADIOLOGY REPORT (SQ) ---
EXAM DESCRIPTION: CHEST SINGLE VIEW COMPLETED DATE/TIME: 09/15/2018 11:51 am REASON FOR STUDY: Slurred speech COMPARISON: 08/31/2016 EXAM PARAMETERS: NUMBER OF VIEWS: One view. TECHNIQUE: Single frontal radiographic view of the chest acquired. RADIATION DOSE: NA LIMITATIONS: Low volume. FINDINGS: LUNGS AND PLEURA: Low volume examination. No opacities, masses or pneumothorax. No pleura l effusion. MEDIASTINUM AND HILAR STRUCTURES: No masses. Contour normal. HEART AND VASCULAR STRUCTURES: Status post median sternotomy with left chest multi lead pacer. BONES: No acute findings. HARDWARE: None in the chest. OTHER: No other significant finding. IMPRESSION: Low volume AP examination without acute abnormality of the lungs. TECHNICAL DOCUMENTATION: JOB ID: [id number] [employer]- All Rights Reserved Reading location - IP/workstation name: [email or web address]
[2018-09-15 12:45] LABS: APPEARANCE,URINE CLEAR; BILIRUBIN,URINE NEGATIVE (NEGATIVE); COLOR,URINE COLORLESS; GLUCOSE, URINE NEGATIVE (NEGATIVE); KETONES,URINE TRACE mg/dL (NEGATIVE); LEUKOCYTE ESTERASE,URINE NEGATIVE (NEGATIVE); NITRITE,URINE NEGATIVE (NEGATIVE); PROTEIN,URINE 100 mg/dL (NEGATIVE); URINE SPECIFIC GRAVITY 1.008; UROBILINOGEN,URINE NEGATIVE mg/dL (<2.0)
[2018-09-15 13:01] LABS: URINE AMPHETAMINES SCREEN NEGATIVE; URINE BARBITURATES SCREEN NEGATIVE; URINE BENZODIAZEPINES SCREEN NEGATIVE; URINE COCAINE SCREEN NEGATIVE; URINE MARIJUANA (THC) SCREEN NEGATIVE; URINE METHADONE SCREEN UNCONFIRMED POSITIVE; URINE PHENCYCLIDINE SCREEN NEGATIVE
[2018-09-15] MEDS ORDERED: METHADONE HCL 10 MG TABLET PO ONE (13:09)
[2018-09-15] MEDS ORDERED: LORAZEPAM INJ 2 MG/1 ML VIAL ONE (16:05)
[2018-09-15] MEDS ORDERED: HALOPERIDOL LACTATE INJ 5 MG/1 ML VIAL ONE (16:14)
[2018-09-15] MEDS ORDERED: HYDROMORPHONE HCL INJ/PF 2 MG/ML AMPULE IV ONE (16:19)
[2018-09-15] MEDS ORDERED: METOCLOPRAMIDE HCL INJ/PF 10 MG/2 ML SDV IV ONE (16:19)
[2018-09-15] MEDS ORDERED: DIPHENHYDRAMINE HCL 50 MG/ML VIAL IV ONE ×2 (16:19→19:00)
[2018-09-15 16:43] LABS: ALCOHOL < 10 mg/dL (NONE DETECTED)
[2018-09-15] MEDS ORDERED: ONDANSETRON 4 MG TAB.RAPDIS PO PRN (16:59)
--- NOTE | 2018-09-15 17:29 | EKG REPORT ---
SEVERITY:- ABNORMAL ECG - SINUS RHYTHM RIGHT BUNDLE BRANCH BLOCK LEFT VENTRICULAR HYPERTROPHY ANTERIOR Q WAVES, POSSIBLY DUE TO LVH : Confirmed by: Oneida Barlow 15-Sep-2018 17:28:36
[2018-09-15] MEDS ORDERED: HALOPERIDOL LACTATE INJ 5 MG/1 ML VIAL IV PRN (17:31)
[2018-09-15] MEDS ORDERED: IPRATROPIUM/ALBUTEROL 0.5-2.5 MG/3 ML AMPUL NEB PRN (17:45)
[2018-09-15] MEDS ORDERED: GLUCAGON,HUMAN RECOMB 1 MG INJ IM PRN (18:12)
[2018-09-15] MEDS ORDERED: DEXTROSE 50%-WATER 25 GM/50 ML DISP.SYRIN IV PRN ×2 (18:12)
[2018-09-15] MEDS ORDERED: DEXTROSE 40% GEL 15 GM TUBE PO PRN ×2 (18:12)
[2018-09-15] MEDS ORDERED: INSULIN LISPRO 100 UNIT/ML 3 ML VIAL SUBCUT PRN (18:12)
[2018-09-15] MEDS ORDERED: HYDROMORPHONE HCL INJ/PF 2 MG/ML AMPULE IV PRN (18:35)
--- NOTE | 2018-09-15 18:35 | PDOC H&P ---
History of Present Illness Admission Date/PCP: 09/15/18 16:51 JENNY MARKS MD Patient complains of: The patient has been in the [facility] emergency department on August 28, September 10 and now September 15. Evidently she was in the [facility] emergency department within the last 48 hours as well. She arrived by ambulance. It is unclear if her family called the ambulance. She has been having hallucinations. She is hard of hearing. She has some difficulty with recall. She is very complex medical history and was not able to provide immediate answers to questions. She remembered 2 medications that she has allergies to but cannot tell me her current medications. Because of her hallucinations and mental state the patient will be further evaluated by psychiatry tomorrow and for the time being is being held on involuntary commitment. History of Present Illness: MONTY CHADWICK is a 73 year old female who has a complex medical history. She is very poor historian. Review of her medical records reveals a history of congestive heart failure, coronary artery disease, myocardial infarction, hypertension, hypercholesterolemia and pacemaker implant. There is a history of chronic obstructive pulmonary disease and she is on home oxygen at 2 L/min. There is no evidence of inhaler therapy on her regimen. There is a history of cirrhosis and gastroesophageal reflux disease with hepatitis. She also has a history of depression. The type of hepatitis and because of cirrhosis are not documented. From a surgical standpoint she has had an appendectomy, coronary artery bypass graft, pacemaker placement, cholecystectomy, hysterectomy and several back surgeries. It is difficult to know the extent or chronicity of her mental status changes. She is on scheduled methadone and clonazepam. Because of the hallucinations, psychiatry was called, they are placing her on involuntary commitment and we will be admitting her initially for observation and then depending on the psychiatric assessment her disposition will be determined. Past Medical History Cardiac Medical History: Reports: Congestive Heart Failure, Coronary Artery Disease, Myocardial Infarction - PACE MAKER, Hyperlipidema, Hypertension Denies: DVT, Pulmonary Embolism Pulmonary Medical History: Reports: Chronic Obstructive Pulmonary Disease (COPD ) - On home O2 at 2 L/min at all times., Pneumonia Denies: Asthma, Bronchitis Neurological Medical History: Reports: Seizures Endocrine Medical History: Reports: Diabetes Mellitus Type 2, Hypothyroidism Denies: Hyperthyroidism Endocrine History Note: The patient was unable to provide details on her diabetes mellitus. Since she is not on insulin therapy it is most likely diabetes mellitus type 2. She did exhibit mild hyperglycemia at this time. GI Medical History: Denies: Cirrhosis, Gastroesophageal Reflux Disease, Hepatitis Musculoskeltal Medical History: Reports: Arthritis Skin Medical History: Denies: Eczema, Psoriasis Psychiatric Medical History: Reports: Depression Hematology: Denies: Anemia Past Surgical History Past Surgical History: Reports: Appendectomy, Cholecystectomy, Coronary Artery Bypass Graft, Hysterectomy, Orthopedic Surgery - Back surgery 2., Pacemaker Social History Lives with: Spouse/Significant other Smoking Status: Never Smoker Frequency of Alcohol Use: None Hx Recreational Drug Use: No Hx Prescription Drug Abuse: No - Advance Directive Resuscitation Status: Full Code - I was unable to contact the patient's by phone. Emergency department records Family History Family History: Reviewed & Not Pertinent, Hypertension Family History: Based on this encounter I feel the patient is not very reliable historian. Information gathered from the emergency department records. Parental Family History Reviewed: No Children Family History Reviewed: No Sibling(s) Family History Reviewed.: No Medication/Allergy Home Medications: Aspirin 81 mg PO DAILY 06/12/17 Clonazepam [Klonopin] 1 mg PO TID 06/12/17 Furosemide [Lasix] 40 mg PO DAILY 06/12/17 Isosorbide Mononitrate [Imdur 30 mg Tablet.er] 30 mg PO DAILY 06/12/17 Methadone HCl 10 mg PO QID 06/12/17 Docusate Sodium [Colace 100 mg Capsule] 100 mg PO DAILY #30 capsule 07/28/17 Ondansetron [Zofran Odt] 4 mg PO Q6 PRN #30 tab.rapdis 09/10/18 Allergies/Adverse Reactions: lorazepam [From Ativan] Allergy (Intermediate, Verified 09/10/18 07:30) Delirium Sulfa (Sulfonamide Antibiotics) Allergy (Mild, Verified 09/10/18 07:30) Hives promethazine [From Phenergan] Allergy (Verified 09/10/18 07:30) Review of Systems ROS unobtainable: Due to mental status Ears: PRESENT: hearing changes - The patient is extremely hard of hearing Cardiovascular: ABSENT: chest pain, dyspnea on exertion, edema Respiratory: PRESENT: other - Carries diagnosis of COPD. Wears oxygen 2 L at home. Does not have any inhaler therapy on her medication regimen and currently not wearing oxygen. Gastrointestinal: PRESENT: constipation - A chronic problem requiring multiple emergency room visits.. ABSENT: nausea, vomiting Musculoskeletal: PRESENT: back pain - 2 spine surgeries. 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 Integumentary: PRESENT: lesions - Multiple skin tears on upper extremities, other - Bruising on the wrists that she claims is from restraints at [facility] Neurological: PRESENT: memory loss - Some difficulty recalling specifics from her history Psychiatric: PRESENT: depression - Not on an antidepressant despite a history of depression, hallucinations Hematologic/Lymphatic: PRESENT: easy bruising Physical Exam Vital Signs: Temp Pulse Resp BP Pulse Ox 98.1 F 103 H 16 109/96 H 97 09/15/18 13:19 09/15/18 10:50 09/15/18 13:00 09/15/18 12:02 09/15/18 13:00 General appearance: PRESENT: cooperative - Fairly cooperative but kept calling out for her coat so she could leave the emergency department., disheveled, hard of hearing, well-developed Eye exam: PRESENT: conjunctiva pink. ABSENT: scleral icterus Mouth exam: PRESENT: dry mucosa, tongue midline Neck exam: ABSENT: carotid bruit, JVD, lymphadenopathy Respiratory exam: PRESENT: clear to auscultation bebe, symmetrical, unlabored. ABSENT: rales, rhonchi, wheezes Cardiovascular exam: PRESENT: RRR, +S1, +S2, systolic murmur - 2/6 GI/Abdominal exam: PRESENT: normal bowel sounds, soft. ABSENT: distended, guarding, tenderness Rectal exam: PRESENT: deferred Extremities exam: PRESENT: other - Left fifth toe amputation. Charcot Ceja changes in both feet. She requires orthotics. Contractions of all fingers. Neurological exam: PRESENT: alert, awake, oriented to person, oriented to place. ABSENT: oriented to situation - Does not understand that she will be held on involuntary commitment. Psychiatric exam: PRESENT: anxious, appropriate affect. ABSENT: agitated - At the time of this encounter she was not agitated Focused psych exam: PRESENT: restlessness, other - Hallucinations-made mention of children when none were in the room. Skin exam: PRESENT: abrasion, other - Multiple skin tears on arms. Areas of bruising towards the wrists mostly on the left. Results Laboratory Results: First troponin was 0.109. Second troponin. Serum creatinine kinase is 190 with an MB fraction of 2.5. Serum glucose was also slightly elevated. Impressions: Chest X-Ray 09/15/18 11:05 IMPRESSION: Low volume AP examination without acute abnormality of the lungs. Head CT 09/15/18 11:05 IMPRESSION: No acute intracranial pathology. Unchanged right occipital encephalomalacia. Consider MRI to more sensitively evaluate acute diffusion restricting infarction if indicated by localizing neurologic signs and symptoms. EVIDENCE OF ACUTE STROKE: NO. Assessment & Plan - Diagnosis (1) Visual hallucination Is this a current diagnosis for this admission?: Yes Plan: The patient was having hallucinations. She was seeing children that were not in the room. They did not present a problem such has fear or anger. She did express very little insight into her current situation/condition. She will have Haldol available on an as-needed basis. The patient is on methadone 10 mg 4 times a day and clonazepam 1 mg 3 times a day. She certainly could be suffering adverse effects of the medications. She is listed as having a lorazepam allergy with the reaction being delirium. In addition to being on the scheduled Klonopin she was given 2 mg of lorazepam by IV in the emergency department. (2) Encephalomalacia Is this a current diagnosis for this admission?: Yes Plan: The patient has a history of stroke. She does have encephalomalacia without an acute stroke. She likely has significant microvascular disease considering her history of coronary artery disease. This could be a developing vascular dementia. (3) Anxiety and depression Is this a current diagnosis for this admission?: Yes Plan: The diagnosis is listed for the clonazepam as anxiety. Psychiatry will be seeing the patient tomorrow. With her listed adverse reaction to lorazepam it would likely be beneficial to use an alternate medication such as BuSpar, a selective serotonin reuptake inhibitor such as sertraline or a mood stabilizer such as Depakote. (4) Constipation Qualifiers: Constipation type: drug induced constipation Qualified Code(s): K59.03 - Drug induced constipation Is this a current diagnosis for this admission?: Yes Plan: The patient is on 10 mg of methadone 4 times a day. She has struggled with opiate-induced constipation for some time. There is no Linzess or Relistor on her current medication regimen. She would likely benefit from this. I have added several medications to her treatment regimen. (5) Coronary artery disease Qualifiers: Coronary Disease-Associated Artery/Lesion type: [place] artery [place] vs. transplanted heart: [place] heart Associated angina: without angina Qualified Code(s): I25.10 - Atherosclerotic heart disease of [place] coronary artery without angina pectoris Is this a current diagnosis for this admission?: Yes Plan: With history of coronary artery disease, bypass surgery and myocardial infarction the patient is only on isosorbide mononitrate. She is also on furosemide and 81 mg aspirin daily. There is no listing for beta-blockers or ANDREA inhibitors on previously listed medication regimen. The patient is unable to provide details of her medications. I did call the patient's home but there was no answer. (6) Psychotic disorder Qualifiers: Psychosis type: unspecified psychosis type Qualified Code(s): F29 - Unspecified psychosis not due to a substance or known physiological condition Is this a current diagnosis for this admission?: Yes Plan: There are multiple etiologies that are possible. Despite listing lorazepam as an adverse reaction of delirium she is on clonazepam 1 mg every 8 hours. She also received intravenous lorazepam in the emergency department. She is on long-term opiate therapy with methadone 10 mg 4 times a day and that certainly can contribute to altered mental status. She has encephalomalacia from an old stroke. There is clearly systemic atherosclerosis considering her coronary disease as well. This could be an early vascular dementia. Psychiatry placed the patient on involuntary commitment and will see them tomorrow. She will be admitted to observation until further determination can be decided. (7) Diabetes mellitus type 2 in nonobese Is this a current diagnosis for this admission?: Yes Plan: Diabetes is listed in her history. She is not on any diabetic medications. She did have hyperglycemia on her initial evaluation in the emergency department. I have placed her on a sliding scale at this time. - Time Time Spent: 50 to 70 Minutes Medications reviewed and adjusted accordingly: Yes - Plan Summary Plan Summary: As above. If the patient does not respond to medication options she may require restraints. Evidently she was in [facility] yesterday requiring restraints.
[2018-09-15] MEDS ORDERED: HYDROMORPHONE HCL INJ/PF 2 MG/ML AMPULE ONE (18:49)
[2018-09-15] MEDS ORDERED: DIPHENHYDRAMINE HCL 50 MG/ML VIAL ONE (18:54)
[2018-09-15] MEDS ORDERED: DIPHENHYDRAMINE HCL 50 MG/ML VIAL IV PRN (18:57)
[2018-09-15] MEDS: ENOXAPARIN SODIUM INJ 40 MG/0.4 ML DISP.SYRIN SUBCUT SCH (19:05)
[2018-09-15] MEDS: SENNOSIDES/DOCUSATE 8.6-50 MG 1 EACH TABLET PO SCH (19:05)
[2018-09-15] MEDS: METHADONE HCL 10 MG TABLET PO SCH (21:40)
[2018-09-15] MEDS: CLONAZEPAM 1 MG TABLET PO SCH (21:40)
[2018-09-15] MEDS ORDERED: CLONAZEPAM 1 MG TABLET PO SCH (22:00)
[2018-09-15] MEDS: HALOPERIDOL LACTATE INJ 5 MG/1 ML VIAL IV PRN (22:42)
[2018-09-16] MEDS: HALOPERIDOL LACTATE INJ 5 MG/1 ML VIAL IV PRN (04:40)
[2018-09-16] MEDS: METHADONE HCL 10 MG TABLET PO SCH ×2 (05:12→14:02)
[2018-09-16] MEDS: CLONAZEPAM 1 MG TABLET PO SCH ×2 (05:12→14:01)
[2018-09-16 06:44] LABS: HEMATOCRIT 38.7 % (36.0-47.0); HEMOGLOBIN 13.3 g/dL (12.0-15.5); MEAN CORPUSCULAR HEMOGLOBIN 30.9 pg (27.0-33.4); MEAN CORPUSCULAR HGB CONC 34.3 g/dL (32.0-36.0); MEAN CORPUSCULAR VOLUME 90 fl (80-97); PLATELET COUNT 236 10^3/uL (150-450); RED CELL DISTRIBUTION WIDTH 13.7 % (11.5-14.0); WHITE BLOOD COUNT 9.3 10^3/uL (4.0-10.5)
--- NOTE | 2018-09-16 06:55 | EKG REPORT ---
SEVERITY:- ABNORMAL ECG - SINUS TACHYCARDIA MULTIPLE ATRIAL PREMATURE COMPLEXES RIGHT BUNDLE BRANCH BLOCK LEFT VENTRICULAR HYPERTROPHY ANTERIOR Q WAVES, POSSIBLY DUE TO LVH : Confirmed by: Oneida Barlow 16-Sep-2018 06:54:42
[2018-09-16 07:07] LABS: ANION GAP 11 (5-19); BLOOD UREA NITROGEN 14 mg/dL (7-20); CALCIUM 9.7 mg/dL (8.4-10.2); CARBON DIOXIDE 35 mmol/L (22-30); CHLORIDE 97 mmol/L (98-107); CREATINE KINASE 251 U/L (30-135); GLUCOSE 128 mg/dL (75-110); POTASSIUM 3.5 mmol/L (3.6-5.0); SODIUM 142.8 mmol/L (137-145)
[2018-09-16 07:23] LABS: FREE T3 3.14 pg/mL (2.77-5.27); FREE T4 (FREE THYROXINE) 1.29 ng/dL (0.78-2.19)
[2018-09-16 07:36] LABS: THYROID STIMULATING HORMONE 5.21 uIU/mL (0.47-4.68)
--- NOTE | 2018-09-16 08:42 | Physician Advisory Note ---
Physician Advisor ProgressNote .: [facility] I have reviewed the medical record for this patient. Physician Advisor Statement: Please consider documenting, if you agree: 1. "Chronic hypoxemic respiratory failure requiring 2L O2 at baseline" 2. Specify likely type of psychotic d/o/AMS present: "Acute delirium, due to toxic encephalopathy, due to [substance]"?, or "Acute delirium due to vasc dementia"?, or ... (evidence of psychotic d/o is already well presented) A. Metabolic Encephalopathy due to = AMS due to acute or chronic medical disease state, usually reversible. Causes include fever, infection, dehydration, acidosis, sepsis, hypoxia, electrolyte imbalance, B. Toxic Encephalopathy due to =AMS due to drug, poison, or toxin. Usually reversible. C. Acute Delirium due to =nonspecific disorientation/ behavioral problem, cause can be psychiatric, or encephalopathic, or intracranial. May show confusion, disorientation, agitation, inattention, . *If documentation does not specify the underlying cause of delirium, the ICD-10 coding classification attributes it to a psychiatric origin (such as schizophrenia, micheline, or rapid progression of dementia ), with a correspondingly lower severity of illness, than if there is encephalopathy. 3. "chronic opioid & benzodiazepine dependence" 4. "chronic CHF, suspect ___ type" Status: appropriately brought in as Obs status. Medicare pt. If not clinically safe for d/c to home or psych hospital later today, please document the reasons/ongoing concerns, & may change to INpt status. Thanks! CK
[2018-09-16] MEDS: SENNOSIDES/DOCUSATE 8.6-50 MG 1 EACH TABLET PO SCH ×2 (09:27→17:11)
[2018-09-16] MEDS ORDERED: ENOXAPARIN SODIUM INJ 40 MG/0.4 ML DISP.SYRIN SUBCUT SCH (10:00)
[2018-09-16] MEDS ORDERED: ISOSORBIDE MONONITRATE 30 MG TAB.ER.24H PO SCH (10:00)
[2018-09-16] MEDS ORDERED: DOCUSATE SODIUM 100 MG CAPSULE PO SCH (10:00)
[2018-09-16] MEDS ORDERED: ASPIRIN 81 MG TABLET, CHEWABLE PO SCH (10:00)
[2018-09-16] MEDS ORDERED: FUROSEMIDE 40 MG TABLET PO SCH (10:00)
--- NOTE | 2018-09-16 16:39 | PSYCHOLOGICAL NOTE ---
Psych Note - Psych Note Date seen by psych provider: 09/16/18 Time seen by psych provider: 15:00 Psych Note: Reason for Consult: hallucinations Patient reports she has not seen any people (not there) since yesterday. She disclosed that the last time that it occurred was when she had her stroke back in 1994. She states that she discloses that when it happens it is normally just people and is never been scary to her. She reports that she came to [facility] because she was afraid she had a mild stroke and is able to correctly identify the month and year. She stated the date was the (it is the ). Patient was able to correctly identify that she was at [facility]. She reports she has no concerns at this time and confirms she does not have an outpatient mental health provider. She reports that she does not feel she needs an outpatient provider because for her seeing things is more medical in nature. Head CT 09/15/2018 IMPRESSION: No acute intracranial pathology. Unchanged right occipital encephalomalacia. Consider MRI to more sensitively evaluate acute diffusion restricting infarction if indicated by localizing neurologic signs and symptoms. Patient is alert and orientated to person, place, time and circumstance. Mood is euthymic with congruent affect as evidenced by smiling and openly engaging with clinician. Patient denies suicidal and homicidal ideation. Patient is not demonstrating any behaviors indicating she is responding to internal stimuli i.e. organized and linear thought processes, maintains good eye contact , and has normal rate tone and prosody for conversational speech. Delusions are absent. Intellectual abilities appear to be within the average range. Attention and concentration were good. Insight, judgment, impulse control are fair. no medication recommendations at this time Diagnosis 298.9 (F29) unspecified psychotic disorder R/O 799.59 (R41.9) unspecified neurocognitive disorder Impression\plan: Patient is recommended for rescind of IVC and is cleared from his acute psychiatric services. Patient is not demonstrating any behaviors indicating she is responding to internal stimuli. Patient has good eye contact is able to carry on an organized and linear conversation. Patient reports that she has not had any difficulties with seeing things since yesterday. Patient's head CT indicates probable neurocognitive disorder. Patient is recommended to follow-up with neurology. Dr. Tolbert was consulted and the care and management this patient; attending physicians in agreement with recommendations and disposition. Patient have
--- NOTE | 2018-09-16 17:08 | PDOC DISCHARGE SUMMARY ---
General - Admit/Disc Date/PCP Admission Date/Primary Care Provider: 09/15/18 16:51 JENNY MARKS MD Discharge Date: 09/16/18 - Discharge Diagnosis (1) Visual hallucination Is this a current diagnosis for this admission?: Yes Summary: The patient presented yesterday. She was experiencing visual hallucinations. Primarily she was seeing children in the room when there were no children present. These were not frightening for the patient. There was more agitation because she wanted to leave then because of the hallucinations. With modifications in her medications she was not having any hallucinations today. She was placed on involuntary commitment yesterday and was seen by psychiatry today and cleared. She will be discharged home. I explained to the patient that I thought her medications were contributing. I suggested she take her medications as she has been getting them here. This would be decreasing her methadone and her clonazepam. See medications below. (2) Encephalomalacia Is this a current diagnosis for this admission?: Yes Summary: The patient has a history of stroke with subsequent encephalomalacia. With this history she is at risk for recurrent stroke. After evaluating the patient it is unlikely that she had a new stroke for this admission. The encephalomalacia present it is due to an old stroke. (3) Anxiety and depression Is this a current diagnosis for this admission?: Yes Summary: The patient does have a history of anxiety and depression. Currently her clonazepam is dedicated to her anxiety. She was very pleasant today and has done well on 0.5 mg of Klonopin 3 times a day as opposed to her previous dose of 1 mg 3 times a day. She is listed as having an adverse reaction to lorazepam with subsequent delirium. Primary care should consider discontinuing all benzodiazepine therapy. (4) Constipation Is this a current diagnosis for this admission?: Yes Summary: This is opioid-induced constipation. This has been a chronic problem for the patient. She certainly should discuss the use of Linzess or other medications specifically designated for opiate-induced constipation. (5) Coronary artery disease Is this a current diagnosis for this admission?: Yes Summary: Patient has a long history of coronary disease including bypass surgery. During her stay she exhibited no signs or symptoms of coronary disease. She will continue on her preadmission medication regimen. (6) Psychotic disorder Is this a current diagnosis for this admission?: Yes Summary: I believe that the etiology of this episode is medication induced. There certainly could be a component of stress however it was difficult to discern this from the patient on admission. I believe she will do well on the decreased regimen. (7) Diabetes mellitus type 2 in nonobese Is this a current diagnosis for this admission?: Yes Summary: The patient's glucose readings during her hospitalization varied. She is currently on a single dose of Lantus. She needs follow-up with her primary care physician and would likely benefit from sliding scale coverage as well. Unfortunately with the deformities in her hands she is unable to administer her insulin to herself. Even with autoinjector pens it would be difficult. Family members would need to be taught the use of sliding scale and insulin administration. - Additional Information Resuscitation Status: Full Code - I was unable to contact the patient's by phone. Emergency department records Discharge Diet: Cardiac, Diabetic Discharge Activity: Activity As Tolerated Home Medications: Aspirin 81 mg PO DAILY 06/12/17 Docusate Sodium [Colace 100 mg Capsule] 100 mg PO DAILY #30 capsule 07/28/17 Clonazepam [Klonopin 1 mg Tablet] 0.5 mg PO Q8 tablet 09/16/18 Diclofenac Sodium [Voltaren] 2 gm TP TIDP PRN 09/16/18 Esomeprazole Mag Trihydrate [Nexium] 40 mg PO ACBRKFST 09/16/18 Furosemide [Lasix 40 mg Tablet] 40 mg PO DAILY tablet 09/16/18 Insulin Glargine,Hum.rec.anlog [Radha Orozco] 32 unit SQ QAM 09/16/18 Isosorbide Mononitrate [Imdur 30 mg Tablet.er] 30 mg PO DAILY tab.er.24h Methadone HCl [Dolophine 10 mg Tablet] 10 mg PO Q8 tablet 09/16/18 Nitroglycerin [Nitrostat 0.4 mg (1/150 Gr) Tabs 25/Bottle] 1 tab SL Q5MP PRN History of Present Illness History of Present Illness: MONTY CHADWICK is a 73 year old female who has a complex medical history. She is very poor historian. Review of her medical records reveals a history of congestive heart failure, coronary artery disease, myocardial infarction, hypertension, hypercholesterolemia and pacemaker implant. There is a history of chronic obstructive pulmonary disease and she is on home oxygen at 2 L/min. There is no evidence of inhaler therapy on her regimen. There is a history of cirrhosis and gastroesophageal reflux disease with hepatitis. She also has a history of depression. The type of hepatitis and because of cirrhosis are not documented. From a surgical standpoint she has had an appendectomy, coronary artery bypass graft, pacemaker placement, cholecystectomy, hysterectomy and several back surgeries. It is difficult to know the extent or chronicity of her mental status changes. She is on scheduled methadone and clonazepam. Because of the hallucinations, psychiatry was called, they are placing her on involuntary commitment and we will be admitting her initially for observation and then depending on the psychiatric assessment her disposition will be determined. Hospital Course Hospital Course: Patient had a benign hospital course. She in fact slept well last night. She was very pleasant this morning. Her did bring her hearing aids and I believe the ability to hear and interact with people was a positive factor as well. By decreasing her scheduled medications she exhibited significant improvement. After psychiatry rescinded the involuntary commitment in order I discharge the patient to home. Physical Exam Vital Signs: Temp Pulse Resp BP Pulse Ox 99.1 F 98 18 131/66 H 94 09/16/18 16:27 09/16/18 16:27 09/16/18 16:27 09/16/18 16:27 09/16/18 16:27 Intake & Output 09/15/18 09/16/18 09/17/18 06:59 06:59 06:59 Intake Total 118 Output Total 450 100 Balance -450 18 Weight 61.5 kg General appearance: PRESENT: no acute distress, cooperative, well-developed Neck exam: ABSENT: carotid bruit, JVD, lymphadenopathy Respiratory exam: PRESENT: clear to auscultation bebe, symmetrical, unlabored. ABSENT: prolonged expiratory phas, rales, rhonchi, wheezes Cardiovascular exam: PRESENT: RRR, +S1, +S2, systolic murmur - Over 6 GI/Abdominal exam: PRESENT: normal bowel sounds, soft. ABSENT: distended, guarding, tenderness Extremities exam: PRESENT: other - Marked deformities in her hands. The second through fourth fingers on both hands are permanently contracted. The patient is unable to flex her fingers at all. She has changes in her feet consistent with Charcot joints secondary to her diabetes. Musculoskeletal exam: PRESENT: ambulatory Neurological exam: PRESENT: alert, awake, oriented to person, oriented to place , oriented to time, oriented to situation, CN II-XII grossly intact Psychiatric exam: PRESENT: appropriate affect, normal mood. ABSENT: agitated, anxious Focused psych exam: ABSENT: delusional, pressured speech, restlessness Skin exam: PRESENT: other - Multiple skin tears on both arms. She is wearing protective sleeves. She has very thin fragile skin. Results Laboratory Results: 09/16/18 06:37 09/16/18 06:34 09/16/18 09/16/18 09/16/18 06:34 06:34 06:34 WBC RBC Hgb Hct MCV MCH MCHC RDW Plt Count Sodium 142.8 Potassium 3.5 L Chloride 97 L Carbon Dioxide 35 H Anion Gap 11 BUN 14 Creatinine 0.93 Est GFR ( Amer) > 60 Est GFR (Non-Af Amer) 59 L Glucose 128 H Calcium 9.7 Phosphorus 3.0 Magnesium 1.8 Ammonia < 8.7 L TSH 5.21 H Free T4 1.29 Free T3 pg/mL 3.14 09/16/18 06:37 WBC 9.3 RBC 4.30 Hgb 13.3 Hct 38.7 MCV 90 MCH 30.9 MCHC 34.3 RDW 13.7 Plt Count 236 Sodium Potassium Chloride Carbon Dioxide Anion Gap BUN Creatinine Est GFR ( Amer) Est GFR (Non-Af Amer) Glucose Calcium Phosphorus Magnesium Ammonia TSH Free T4 Free T3 pg/mL 09/15/18 09/15/18 09/16/18 18:23 18:23 00:21 Creatine Kinase 191 H 251 H Troponin I 0.082 09/16/18 09/16/18 09/16/18 00:21 06:34 06:34 Creatine Kinase 251 H Troponin I 0.091 0.087 Impressions: Chest X-Ray 09/15/18 11:05 IMPRESSION: Low volume AP examination without acute abnormality of the lungs. Head CT 09/15/18 11:05 IMPRESSION: No acute intracranial pathology. Unchanged right occipital encephalomalacia. Consider MRI to more sensitively evaluate acute diffusion restricting infarction if indicated by localizing neurologic signs and symptoms. EVIDENCE OF ACUTE STROKE: NO. Qualifiers - * PATIENT BEING DISCHARGED WITH ANY OF THE FOLLOWING DIAGNOSIS: No Plan Discharge Plan: The patient is being discharged home. I explained to her that she should be on smaller doses of her pain and anxiety medications. She did very well with decreased doses. She also would benefit from tighter glucose control. I will defer to her primary care physician for further management. Time Spent: Less than 30 Minutes
[2018-09-16] MEDS: ENOXAPARIN SODIUM INJ 40 MG/0.4 ML DISP.SYRIN SUBCUT SCH (17:11)
[2018-09-16 18:12] VITALS: BP 132/76
== END 2018-09-16 18:32 | disposition home or self-care (01) ==
LOC: ER 10:47 → EH 16:51 → INTOOBSV 16:51 → 3S 18:17 → 3N 21:54
PROVIDERS: ADMIT Emergency Medicine; ATTEND Emergency Medicine
DX: R44.1 Visual hallucinations (principal); I69.398 Other sequelae of cerebral infarction; G93.89 Other specified disorders of brain; F41.9 Anxiety disorder, unspecified; F32.9 Major depressive disorder, single episode, unspecified; K59.03 Drug induced constipation; T40.2X5A Adverse effect of other opioids, initial encounter; I25.10 Atherosclerotic heart disease of native coronary artery without angina pectoris; F29 Unspecified psychosis not due to a substance or known physiological condition; E11.65 Type 2 diabetes mellitus with hyperglycemia; K21.9 Gastro-esophageal reflux disease without esophagitis; J44.9 Chronic obstructive pulmonary disease, unspecified; G60.0 Hereditary motor and sensory neuropathy; M54.9 Dorsalgia, unspecified; R41.3 Other amnesia; I50.9 Heart failure, unspecified; S41.112A Laceration without foreign body of left upper arm, initial encounter; S41.111A Laceration without foreign body of right upper arm, initial encounter; S60.212A Contusion of left wrist, initial encounter; S60.211A Contusion of right wrist, initial encounter; X58.XXXA Exposure to other specified factors, initial encounter; Z95.1 Presence of aortocoronary bypass graft; Z79.82 Long term (current) use of aspirin; Z23 Encounter for immunization; Z99.81 Dependence on supplemental oxygen; Z98.890 Other specified postprocedural states; Z90.49 Acquired absence of other specified parts of digestive tract; Z95.0 Presence of cardiac pacemaker
CPT/HCPCS: 93005 ×2; 99285; 96374; 96375; 36415 ×2; 87086; 84439; 82553; 82962 ×2; 80307 ×4; 82140; 82550 ×2; 83735; 84100; 84443; 85025; 85027; 85610; 85730; 87088; 80048; 80053; 81001; 84484 ×2; 87186; 84481; 71045; 70450; 90686; 93010 ×2; G0378 ×3; A9270 ×10; J1200; J1630 ×2; J2765; J1650 ×2; J1170; J2060; J3490 ×2; J7050; J1815

== ENCOUNTER 2018-10-05 14:06 | Emergency (ER) | payer MEDICARE ==
[2018-10-05] MEDS ORDERED: FAMOTIDINE INJ/PF 20 MG/2 ML SDV IV ONE (14:26)
--- NOTE | 2018-10-05 14:32 | ER Document Report ---
ED General - General Stated Complaint: CMTPACEMAKER,CONSTIPATION,BACK PAIN Time Seen by Provider: 10/05/18 14:14 Mode of Arrival: Medic Information source: Patient, Emergency Med Personnel Notes: This is a 73-year-old female with a history of shortcut [place] tooth ( nonambulatory, disabled), COPD (2-1/2 L nasal cannula), coronary artery disease (CABG) who is brought in by EMS because of a burning sensation "all over". Patient states this is been going on for 3 days. She does states she has been taking Benadryl. She does report having some chills and a nonproductive cough. TRAVEL OUTSIDE OF THE [place] IN LAST 30 DAYS: No - HPI Onset: Last week Onset/Duration: Gradual Quality of pain: Burning Severity: Mild Pain Level: 1 Associated symptoms: denies: Chest pain, Fever, Shortness of breath Exacerbated by: Denies Relieved by: Denies, Other - She has been taking a lot of [id number] Benadryl Similar symptoms previously: Yes Recently seen / treated by doctor: No - Related Data Allergies/Adverse Reactions: lorazepam [From Ativan] Allergy (Intermediate, Verified 09/10/18 07:30) Delirium Sulfa (Sulfonamide Antibiotics) Allergy (Mild, Verified 09/10/18 07:30) Hives promethazine [From Phenergan] Allergy (Verified 09/10/18 07:30) Past Medical History - General Information source: Patient - Social History Smoking Status: Never Smoker Cigarette use (# per day): No Chew tobacco use (# tins/day): No Frequency of alcohol use: None Drug Abuse: None Lives with: Family Family History: Reviewed & Not Pertinent, Hypertension Patient has suicidal ideation: No Patient has homicidal ideation: No - Past Medical History Cardiac Medical History: Reports: Hx Congestive Heart Failure, Hx Coronary Artery Disease, Hx Heart Attack - PACE MAKER, Hx Hypercholesterolemia, Hx Hypertension Denies: Hx DVT, Hx Pulmonary Embolism Pulmonary Medical History: Reports: Hx COPD - On home O2 at 2 L/min at all times., Hx Pneumonia Denies: Hx Asthma, Hx Bronchitis Neurological Medical History: Reports: Hx Cerebrovascular Accident, Hx Seizures Endocrine Medical History: Reports: Hx Diabetes Mellitus Type 1, Hx Diabetes Mellitus Type 2, Hx Hypothyroidism. Denies: Hx Hyperthyroidism Renal/ Medical History: Denies: Hx Peritoneal Dialysis GI Medical History: Denies: Hx Cirrhosis, Hx Gastroesophageal Reflux Disease, Hx Hepatitis Musculoskeletal Medical History: Reports Hx Arthritis Skin Medical History: Denies Hx Eczema, Denies Hx Psoriasis Psychiatric Medical History: Reports: Hx Depression Infectious Medical History: Denies: Hx Hepatitis Past Surgical History: Reports: Hx Appendectomy, Hx Cardiac Surgery - pacemaker/ CABG, Hx Cholecystectomy, Hx Coronary Artery Bypass Graft, Hx Hysterectomy, Hx Orthopedic Surgery - Back surgery 2., Hx Pacemaker - Immunizations Hx Diphtheria, Pertussis, Tetanus Vaccination: Yes Hx Pneumococcal Vaccination: 10/29/10 Review of Systems - Review of Systems Constitutional: denies: Chills, Fever EENT: No symptoms reported Cardiovascular: denies: Chest pain, Palpitations, Heart racing Respiratory: No symptoms reported Gastrointestinal: Constipation, Other - Patient states she has been constipated but had a bowel movement this morning and now feels fine.. denies: Abdomen distended, Abdominal pain Genitourinary: Other - Patient states he had a recent urine infection but has absolutely no symptoms at this time of UTI.. denies: Burning, Dysuria, Discharge Female Genitourinary: No symptoms reported Musculoskeletal: See HPI Skin: No symptoms reported Hematologic/Lymphatic: No symptoms reported Neurological/Psychological: No symptoms reported Physical Exam - Vital signs Notes: Physical exam: GENERAL: The patient is alert and oriented x3. She appears in no distress. There is no obvious tachypnea, skin changes. Her blood pressure is stable. She does have a tachycardia with a pulse rate of 121. HEAD: Atraumatic, normocephalic. EYES: Pupils equal round and reactive to light, extraocular movements intact, sclera anicteric, conjunctiva are normal. ENT: TMs normal, nares patent, oropharynx clear without exudates. Moist mucous membranes. NECK: Normal range of motion, supple without obvious mass or JVD. LUNGS: Breath sounds clear to auscultation bilaterally and equal. No wheezes rales or rhonchi. HEART: Regular rate and rhythm without murmurs, rubs or gallops. ABDOMEN: Soft, normoactive bowel sounds. No tenderness to palpation. No guarding, no rebound. No masses appreciated. EXTREMITIES: Patient has chronic deformed extremities upper and lower from her CMT. NEUROLOGICAL: Cranial nerves II through XII grossly intact. Normal speech, moving all extremities. PSYCH: Normal mood, normal affect. SKIN: Warm, Dry, normal turgor, no rashes or lesions noted. Course - Re-evaluation Re-evalutation: 10/05/18 17:40 Note: Patient's tachycardia has improved. She is comfortable. She states she feels better after Pepcid. I her labs do show some mild dehydration and I talked to her about increasing her p.o. intake and holding off the Lasix for a day. She is going to have her sugar rechecked and call her physician. - Laboratory Result Diagrams: 10/05/18 15:30 10/05/18 15:30 Laboratory results interpreted by me: 10/05/18 10/05/18 10/05/18 15:00 15:30 15:30 Hct 35.2 L Chloride 95 L Carbon Dioxide 32 H BUN 31 H Est GFR ( Amer) 58 L Est GFR (Non-Af Amer) 48 L Glucose 330 H Urine Protein 100 H Urine Glucose (UA) 150 H Urine Blood LARGE H Urine Urobilinogen 2.0 H Ur Leukocyte Esterase SMALL H - Diagnostic Test Radiology reviewed: Image reviewed, Reports reviewed - Test x-ray shows no infiltrates Discharge - Discharge Clinical Impression: Mild dehydration, Adverse reaction Condition: Stable Disposition: HOME, SELF-CARE Additional Instructions: As we discussed, the chest x-ray showed no infiltrates. We did send a urine culture. The sample was not the greatest sample. Given that you have no symptoms of UTI today, we will see what the culture shows. Your labs did show some mild dehydration. I want you to cut back on the Benadryl. Take Pepcid daily. This is a medicine that we give for heartburn but it has some effect against allergic reactions. As we discussed, hold the Lasix for day. Follow-up with your primary care doctor on Sunday. Prescriptions: Famotidine [Pepcid 20 mg Tablet] 20 mg PO DAILY #12 tablet Referrals: JENNY MARKS MD [Primary Care Provider] - Follow up as needed
--- NOTE | 2018-10-05 15:10 | RADIOLOGY REPORT (SQ) ---
EXAM DESCRIPTION: CHEST SINGLE VIEW COMPLETED DATE/TIME: 10/05/2018 3:01 pm REASON FOR STUDY: cough COMPARISON: 09/15/2018 EXAM PARAMETERS: NUMBER OF VIEWS: One view. TECHNIQUE: Single frontal radiographic view of the chest acquired. RADIATION DOSE: NA LIMITATIONS: None. FINDINGS: LUNGS AND PLEURA: Unchanged elevation of the left hemidiaphragm with associated atelectasi s or scarring. No new airspace opacity. MEDIASTINUM AND HILAR STRUCTURES: No masses. Contour normal. HEART AND VASCULAR STRUCTURES: Status post median sternotomy with CABG clips and left chest multi pauly d pacer. BONES: No acute findings. HARDWARE: None in the chest. OTHER: No other significant finding. IMPRESSION: No acute abnormality of the lungs in AP projection. Unchanged elevation of the left hem idiaphragm with associated atelectasis or scarring. TECHNICAL DOCUMENTATION: JOB ID: [id number] [employer]- All Rights Reserved Reading location - IP/workstation name: [email or web address]
[2018-10-05 15:27] LABS: APPEARANCE,URINE SLIGHTLY-CLOUDY; BILIRUBIN,URINE NEGATIVE (NEGATIVE); COLOR,URINE YELLOW; GLUCOSE, URINE 150 mg/dL (NEGATIVE); KETONES,URINE NEGATIVE (NEGATIVE); LEUKOCYTE ESTERASE,URINE SMALL (NEGATIVE); NITRITE,URINE NEGATIVE (NEGATIVE); PROTEIN,URINE 100 mg/dL (NEGATIVE); URINE SPECIFIC GRAVITY 1.016
[2018-10-05 15:42] LABS: ABSOLUTE LYMPHOCYTES (AUTO) 1.6 10^3/uL (0.5-4.7); ABSOLUTE MONOCYTES (AUTO) 0.4 10^3/uL (0.1-1.4); ABSOLUTE NEUT (AUTO) 6.6 10^3/uL (1.7-8.2); BASOPHILS % (AUTO) 0.2 % (0-2); EOSINOPHILS % (AUTO) 0.3 % (0-6); HEMATOCRIT 35.2 % (36.0-47.0); LYMPHOCYTES % (AUTO) 18.5 % (13-45); MEAN CORPUSCULAR HEMOGLOBIN 30.9 pg (27.0-33.4); MEAN CORPUSCULAR HGB CONC 34.1 g/dL (32.0-36.0); MEAN CORPUSCULAR VOLUME 90 fl (80-97); MONOCYTES % (AUTO) 4.3 % (3-13); PLATELET COUNT 266 10^3/uL (150-450); RED BLOOD COUNT 3.89 10^6/uL (3.72-5.28); RED CELL DISTRIBUTION WIDTH 13.9 % (11.5-14.0); SEGMENTED NEUTROPHILS % (AUTO) 76.7 % (42-78); TOTAL CELLS COUNTED % (AUTO) 100 %; WHITE BLOOD COUNT 8.6 10^3/uL (4.0-10.5)
[2018-10-05 16:07] LABS: ALANINE AMINOTRANSFERASE 14 U/L (9-52); ALBUMIN 4.2 g/dL (3.5-5.0); ALKALINE PHOSPHATASE 124 U/L (38-126); ANION GAP 15 (5-19); ASPARTATE AMINO TRANSFERASE 27 U/L (14-36); BILIRUBIN,DIRECT 0.4 mg/dL (0.0-0.4); BILIRUBIN,TOTAL 0.6 mg/dL (0.2-1.3); BLOOD UREA NITROGEN 31 mg/dL (7-20); CALCIUM 8.9 mg/dL (8.4-10.2); CARBON DIOXIDE 32 mmol/L (22-30); CHLORIDE 95 mmol/L (98-107); GLUCOSE 330 mg/dL (75-110); POTASSIUM 3.7 mmol/L (3.6-5.0); SODIUM 142.3 mmol/L (137-145); TOTAL PROTEIN 6.7 g/dL (6.3-8.2)
== END 2018-10-05 17:50 | disposition home or self-care (01) ==
LOC: ER 14:06
DX: E86.0 Dehydration (principal); T50.1X5A Adverse effect of loop [high-ceiling] diuretics, initial encounter; J44.9 Chronic obstructive pulmonary disease, unspecified; Z99.81 Dependence on supplemental oxygen; I25.10 Atherosclerotic heart disease of native coronary artery without angina pectoris; R68.83 Chills (without fever); R05 Cough; G60.0 Hereditary motor and sensory neuropathy; I10 Essential (primary) hypertension; E11.9 Type 2 diabetes mellitus without complications; R00.0 Tachycardia, unspecified; I25.2 Old myocardial infarction; Z95.1 Presence of aortocoronary bypass graft; Z88.8 Allergy status to other drugs, medicaments and biological substances; Z88.2 Allergy status to sulfonamides
CPT/HCPCS: 99284; 36415; 87086; 85025; 80053; 81001; 71045; S0028

== ENCOUNTER 2018-10-18 09:50 | Emergency (ER) | payer MEDICARE ==
--- NOTE | 2018-10-18 10:38 | ER Document Report ---
ED Medical Screen (RME) - General Chief Complaint: Constipation Stated Complaint: CONSTIPATION Time Seen by Provider: 10/18/18 10:32 Notes: 73-year-old female patient with multiple medical problems including O2 dependent COPD comes emergency room for constipation. This is a chronic problem which she comes here frequently for. She comes today requesting the soapsuds enema which is usually required when she gets this bad. I have greeted and performed a rapid initial assessment of this patient. A comprehensive ED assessment and evaluation of the patient, analysis of test results and completion of the medical decision making process will be conducted by additional ED providers. TRAVEL OUTSIDE OF THE [place] IN LAST 30 DAYS: No - Related Data Allergies/Adverse Reactions: lorazepam [From Ativan] Allergy (Intermediate, Verified 09/10/18 07:30) Delirium Sulfa (Sulfonamide Antibiotics) Allergy (Mild, Verified 09/10/18 07:30) Hives promethazine [From Phenergan] Allergy (Verified 09/10/18 07:30) Past Medical History - Social History Chew tobacco use (# tins/day): No Frequency of alcohol use: None Drug Abuse: None - Past Medical History Cardiac Medical History: Reports: Hx Congestive Heart Failure, Hx Coronary Artery Disease, Hx Heart Attack - PACE MAKER, Hx Hypercholesterolemia, Hx Hypertension Denies: Hx DVT, Hx Pulmonary Embolism Pulmonary Medical History: Reports: Hx COPD - On home O2 at 2 L/min at all times., Hx Pneumonia Denies: Hx Asthma, Hx Bronchitis Neurological Medical History: Reports: Hx Cerebrovascular Accident, Hx Seizures Endocrine Medical History: Reports: Hx Diabetes Mellitus Type 1, Hx Diabetes Mellitus Type 2, Hx Hypothyroidism. Denies: Hx Hyperthyroidism Renal/ Medical History: Denies: Hx Peritoneal Dialysis GI Medical History: Denies: Hx Cirrhosis, Hx Gastroesophageal Reflux Disease, Hx Hepatitis Musculoskeltal Medical History: Reports Hx Arthritis Skin Medical History: Denies Hx Eczema, Denies Hx Psoriasis Psychiatric Medical History: Reports: Hx Depression Infectious Medical History: Denies: Hx Hepatitis Past Surgical History: Reports: Hx Appendectomy, Hx Cardiac Surgery - pacemaker/CABG, Hx Cholecystectomy, Hx Coronary Artery Bypass Graft, Hx Hysterectomy, Hx Orthopedic Surgery - Back surgery 2., Hx Pacemaker - Immunizations Hx Diphtheria, Pertussis, Tetanus Vaccination: Yes Physical Exam - Vital signs Vitals: Temp Pulse Resp BP Pulse Ox 99.0 F 96 18 154/69 H 99 12/21/18 10:10 10/18/18 10:10 10/18/18 10:10 10/18/18 10:10 10/18/18 10:10 Course - Vital Signs Vital signs: Temp Pulse Resp BP Pulse Ox 99.0 F 96 18 154/69 H 99 10/18/18 10:10 10/18/18 10:10 10/18/18 10:10 10/18/18 10:10 10/18/18 10:10 Doctor's Discharge - Discharge Referrals: JENNY MARKS MD [Primary Care Provider] - Follow up as needed
--- NOTE | 2018-10-18 11:11 | RADIOLOGY REPORT (SQ) ---
EXAM DESCRIPTION: KUB/ABDOMEN (SINGLE VIEW) COMPLETED DATE/TIME: 10/18/2018 10:59 am REASON FOR STUDY: constipation COMPARISON: Abdominal films 08/31/2018, 08/28/2018, 08/23/2018, 05/21/2017 NUMBER OF VIEWS: One view. TECHNIQUE: Supine radiographic image of the abdomen acquired. LIMITATIONS: None. FINDINGS: BOWEL GAS PATTERN: Nonobstructive bowel gas pattern with moderate stool throughout the col on. CALCIFICATIONS: Calcified right pelvic phleboliths SOFT TISSUES: No gross mass or suggestion of organomegaly. HARDWARE: Clips right upper quadrant post cholecystectomy. Clips post right partial colectomy. BONES: Diffuse degenerative disc changes lumbar spine OTHER: No other significant finding. IMPRESSION: Nonobstructive bowel gas pattern with moderate stool throughout the colon TECHNICAL DOCUMENTATION: JOB ID: [id number] [facility]- All Rights Reserved Reading location - IP/workstation name: [email or web address]
[2018-10-18] MEDS ORDERED: MAGNESIUM CITRATE 296 ML BOTTLE PO ONE (11:48)
[2018-10-18] MEDS ORDERED: MINERAL OIL 30 ML UDCUP PR ONE (13:03)
--- NOTE | 2018-10-18 13:04 | ER Document Report ---
ED General - General Chief Complaint: Constipation Stated Complaint: CONSTIPATION Time Seen by Provider: 10/18/18 10:32 Information source: Patient, Relative, [facility] Records TRAVEL OUTSIDE OF THE [place] IN LAST 30 DAYS: No - HPI Patient complains to provider of: Constipation Onset: Other - 73-year-old with a history of Jdgawgt-Zdqbh-Iwvge syndrome that presents for evaluation of constipation. She notes that she has had chronic constipation for almost her entire life which is been worsening over the last several years for which she has needed intermittent enemas as well as laxatives. She is been on an aggressive bowel regimen with MiraLAX and Colace at home but still sometimes has difficulty moving her bowels she notes that her last normal bowel movement was about 4 days prior. Nothing is made it better. In the past she has responded well to enemas. - Related Data Allergies/Adverse Reactions: lorazepam [From Ativan] Allergy (Intermediate, Verified 09/10/18 07:30) Delirium Sulfa (Sulfonamide Antibiotics) Allergy (Mild, Verified 09/10/18 07:30) Hives promethazine [From Phenergan] Allergy (Verified 09/10/18 07:30) Past Medical History - General Information source: Patient - Social History Smoking Status: Never Smoker Chew tobacco use (# tins/day): No Frequency of alcohol use: None Drug Abuse: None Family History: Reviewed & Not Pertinent, Hypertension Patient has suicidal ideation: No Patient has homicidal ideation: No - Past Medical History Cardiac Medical History: Reports: Hx Congestive Heart Failure, Hx Coronary Artery Disease, Hx Heart Attack - PACE MAKER, Hx Hypercholesterolemia, Hx Hype rtension Denies: Hx DVT, Hx Pulmonary Embolism Pulmonary Medical History: Reports: Hx COPD - On home O2 at 2 L/min at all times., Hx Pneumonia Denies: Hx Asthma, Hx Bronchitis Neurological Medical History: Reports: Hx Cerebrovascular Accident, Hx Seizures Endocrine Medical History: Reports: Hx Diabetes Mellitus Type 1, Hx Diabetes Mellitus Type 2, Hx Hypothyroidism. Denies: Hx Hyperthyroidism Renal/ Medical History: Denies: Hx Peritoneal Dialysis GI Medical History: Denies: Hx Cirrhosis, Hx Gastroesophageal Reflux Disease, Hx Hepatitis Musculoskeletal Medical History: Reports Hx Arthritis Skin Medical History: Denies Hx Eczema, Denies Hx Psoriasis Psychiatric Medical History: Reports: Hx Depression Infectious Medical History: Denies: Hx Hepatitis Past Surgical History: Reports: Hx Appendectomy, Hx Cardiac Surgery - pacemaker/CABG, Hx Cholecystectomy, Hx Coronary Artery Bypass Graft, Hx Hysterectomy, Hx Orthopedic Surgery - Back surgery 2., Hx Pacemaker - Immunizations Hx Diphtheria, Pertussis, Tetanus Vaccination: Yes Hx Pneumococcal Vaccination: 10/29/10 Review of Systems - Review of Systems -: Yes All other systems reviewed and negative Physical Exam - Vital signs Vitals: Temp Pulse Resp BP Pulse Ox 99.0 F 96 18 154/69 H 99 10/18/18 10:10 10/18/18 10:10 10/18/18 10:10 10/18/18 10:10 10/18/18 10:10 - General General appearance: Alert In distress: None - HEENT Head: Normocephalic, Atraumatic Eyes: Normal Pupils: PERRL - Respiratory Respiratory status: No respiratory distress Chest status: Nontender Breath sounds: Normal Chest palpation: Normal - Cardiovascular Rhythm: Regular Heart sounds: Normal auscultation Murmur: No - Abdominal Inspection: Normal Distension: No distension Bowel sounds: Normal Tenderness: Nontender Organomegaly: No organomegaly - Rectal Stool: Other - hard stool without fecalith Hemorrhoids: External - Back Back: Normal, Nontender - Extremities Shoulder: Normal Arm: Normal Hand: Other - contracted hands bilaterally - Neurological Neuro grossly intact: Yes Cognition: Normal Orientation: AAOx4 Myra Coma Scale Eye Opening: Spontaneous Myra Coma Scale Verbal: Oriented Myra Coma Scale Motor: Obeys Commands Myra Coma Scale Total: 15 Speech: Normal Motor strength normal: LUE, RUE, LLE, RLE Sensory: Normal - Psychological Associated symptoms: Normal affect, Normal mood Course - Re-evaluation Re-evalutation: 73-year-old female presents for evaluation of constipation. Has a modest stool burden through the abdomen and pelvis. Rectal examination does not demonstrate any obviously obstructing fecalith. Will attempt bowel regimen utilizing enemas as well as magnesium citrate. Patient did spit up magnesium citrate after drinking. She is been given 2 enemas with some output appreciable. States that she is ready to go home now. We will discharge home with a bowel regimen and return precautions. She is been given some nausea medication as well to help assist with her nausea. Do not believe this represents acute abdomen hollow viscus injury AAA or other serious intra-abdominal pathology. - Vital Signs Vital signs: Temp Pulse Resp BP Pulse Ox 99.0 F 96 18 154/69 H 99 10/18/18 10:10 10/18/18 10:10 10/18/18 10:10 10/18/18 10:10 10/18/18 10:10 Discharge - Discharge Clinical Impression: Constipation Qualifiers: Constipation type: unspecified constipation type Qualified Code(s): K59.00 - Constipation, unspecified Condition: Good Disposition: HOME, SELF-CARE Instructions: Constipation ([facility]), Laxative ([facility]) Additional Instructions: You were seen today in the emergency department for your constipation. You had an evaluation including x-rays. You should use the aggressive bowel regimen which you have been with both Colace as well as MiraLAX. You have been given a prescription for a strong laxative, if you are going to take this laxative drink only half of the bottle, give it an hour to work and if it does not work after an hour then you should drink the other half. Return for worsening fevers, chills, inability to eat or drink or worsening abdominal pain. Prescriptions: Magnesium Citrate [Citrate of Magnesia 296 ml Bottle] 296 ml PO ONCE PRN #1 bottle PRN Reason: Ondansetron [Zofran Odt 4 mg Tablet] 1 - 2 tab PO Q4H PRN #15 tab.rapdis PRN Reason: For Nausea/Vomiting Referrals: JENNY MARKS MD [ACTIVE STAFF] - Follow up as needed
[2018-10-18 14:34] VITALS: BP 119/69
== END 2018-10-18 14:35 | disposition home or self-care (01) ==
LOC: ER 09:50
DX: K59.00 Constipation, unspecified (principal); I50.9 Heart failure, unspecified; I25.10 Atherosclerotic heart disease of native coronary artery without angina pectoris; I11.0 Hypertensive heart disease with heart failure; J44.9 Chronic obstructive pulmonary disease, unspecified; Z99.81 Dependence on supplemental oxygen; E11.9 Type 2 diabetes mellitus without complications; G60.0 Hereditary motor and sensory neuropathy
CPT/HCPCS: 99283; 74018; J3490

== ENCOUNTER 2018-10-25 16:53 | Emergency (ER) | payer MEDICARE ==
[2018-10-25 17:08] VITALS: BP 151/72
== END 2018-10-25 17:53 | disposition left against medical advice (07) ==
LOC: ER 16:53
DX: Z53.21 Procedure and treatment not carried out due to patient leaving prior to being seen by health care provider (principal)

== ENCOUNTER 2018-10-26 09:06 | Emergency (ER) | payer MEDICARE ==
--- NOTE | 2018-10-26 09:32 | ER Document Report ---
ED Medical Screen (RME) - General Chief Complaint: Constipation Stated Complaint: CONSTIPATION Time Seen by Provider: 10/26/18 09:28 Notes: Patient is a 73-year-old female that presents to the emergency department for chief complaint of constipation. Patient reports that she has been constipated for approximately 1 week, she started taking MiraLAX, 3 doses yesterday and 1 this morning she is starting to work, but she is having abdominal cramping and distention so she decided come back to the ED today. She was in the waiting room yesterday but left without being seen.. ROS: Other than noted above, the 12 point review of systems was reviewed with the patient and were negative, all pertinent findings are included in the HPI. PHYSICAL EXAMINATION: Vital signs reviewed. GENERAL: Elderly female, appears to be mildly uncomfortable HEAD: Atraumatic, normocephalic. EYES: Pupils equal round extraocular movements intact, conjunctiva are normal. ENT: Nares patent NECK: Normal range of motion CV: Heart regular rate and rhythm LUNGS: No respiratory distress Musculoskeletal: Patient noted to have severe arthritic deformities to the hands bilaterally NEUROLOGICAL: Normal speech PSYCH: Normal mood, normal affect. MDM: Patient seen and examined for rapid initial assessment. Vital signs reviewed. A comprehensive ED assessment and evaluation of the patient, analysis of test results and completion of the medical decision making process will be conducted by additional ED providers. *Note is created using voice recognition software and may contain spelling, syntax or grammatical errors. TRAVEL OUTSIDE OF THE [place] IN LAST 30 DAYS: No - Related Data Allergies/Adverse Reactions: lorazepam [From Ativan] Allergy (Intermediate, Verified 10/25/18 17:04) Delirium Sulfa (Sulfonamide Antibiotics) Allergy (Mild, Verified 10/25/18 17:04) Hives promethazine [From Phenergan] Allergy (Verified 10/25/18 17:04) Past Medical History - Social History Chew tobacco use (# tins/day): No Frequency of alcohol use: None Drug Abuse: None - Past Medical History Cardiac Medical History: Reports: Hx Congestive Heart Failure, Hx Coronary Artery Disease, Hx Heart Attack - PACE MAKER, Hx Hypercholesterolemia, Hx Hypertension Denies: Hx DVT, Hx Pulmonary Embolism Pulmonary Medical History: Reports: Hx COPD - On home O2 at 2 L/min at all times., Hx Pneumonia Denies: Hx Asthma, Hx Bronchitis Neurological Medical History: Reports: Hx Cerebrovascular Accident, Hx Seizures Endocrine Medical History: Reports: Hx Diabetes Mellitus Type 1, Hx Diabetes Mellitus Type 2, Hx Hypothyroidism. Denies: Hx Hyperthyroidism Renal/ Medical History: Denies: Hx Peritoneal Dialysis GI Medical History: Denies: Hx Cirrhosis, Hx Gastroesophageal Reflux Disease, Hx Hepatitis Musculoskeltal Medical History: Reports Hx Arthritis Skin Medical History: Denies Hx Eczema, Denies Hx Psoriasis Psychiatric Medical History: Reports: Hx Depression Infectious Medical History: Denies: Hx Hepatitis Past Surgical History: Reports: Hx Appendectomy, Hx Cardiac Surgery - pacemaker/CABG, Hx Cholecystectomy, Hx Coronary Artery Bypass Graft, Hx Hysterectomy, Hx Orthopedic Surgery - Back surgery 2., Hx Pacemaker - Immunizations Hx Diphtheria, Pertussis, Tetanus Vaccination: Yes Physical Exam - Vital signs Vitals: Pulse Resp BP Pulse Ox 87 16 123/54 L 96 10/26/18 09:32 10/26/18 09:32 10/26/18 09:32 10/26/18 09:32 Course - Vital Signs Vital signs: Temp Pulse Resp BP Pulse Ox 87 16 123/54 L 96 10/26/18 09:32 10/26/18 09:32 10/26/18 09:32 10/26/18 09:32
[2018-10-26] MEDS ORDERED: MAGNESIUM CITRATE 296 ML BOTTLE PO ONE ×2 (09:33→11:24)
--- NOTE | 2018-10-26 10:14 | RADIOLOGY REPORT (SQ) ---
EXAM DESCRIPTION: KUB/ABDOMEN (SINGLE VIEW) COMPLETED DATE/TIME: 10/26/2018 9:58 am REASON FOR STUDY: constipation/abdominal pain COMPARISON: 10/18/2018 NUMBER OF VIEWS: One view. TECHNIQUE: Supine radiographic image of the abdomen acquired. LIMITATIONS: None. FINDINGS: BOWEL GAS PATTERN: Normal bowel gas pattern. No dilated loops. CALCIFICATIONS: No suspicious calcifications. SOFT TISSUES: No gross mass or suggestion of organomegaly. HARDWARE: Anastomosis right lower quadrant. BONES: No bone lesions or fracture. OTHER: No other significant finding. IMPRESSION: NO RADIOGRAPHIC EVIDENCE FOR ACUTE ABDOMINAL DISEASE. Reading location - IP/workstation name: [email or web address]
--- NOTE | 2018-10-26 10:52 | ER Document Report ---
ED General - General Chief Complaint: Constipation Stated Complaint: CONSTIPATION Time Seen by Provider: 10/26/18 09:28 Mode of Arrival: Stretcher Information source: Patient Notes: Patient is a 73-year-old female who presents emergency department for chief complaint of constipation. Patient states that she has a history of Qdgbrop-Tbzzs-Xoody disease. She is on prescribed narcotics that caused her to be constipated. She states that she has been constipated for the last week. She started drinking MiraLAX. She had 3 doses yesterday and 1 this morning. She states that it is starting to work. She states that she did have a small bowel movement this morning but feels like there is more stool that needs to be evacuated. Patient states that she typically comes to the emergency department for soapsuds enemas. Patient states that she came to the emergency department yesterday but left without being seen because it was dark outside. Patient denies any current nausea, vomiting, abdominal pain. TRAVEL OUTSIDE OF THE [place] IN LAST 30 DAYS: No - HPI Onset: Last week Onset/Duration: Intermittent Quality of pain: No pain Severity: Mild Pain Level: Denies Associated symptoms: None Exacerbated by: Denies Relieved by: Denies Similar symptoms previously: Yes Recently seen / treated by doctor: No - Related Data Allergies/Adverse Reactions: lorazepam [From Ativan] Allergy (Intermediate, Verified 10/25/18 17:04) Delirium Sulfa (Sulfonamide Antibiotics) Allergy (Mild, Verified 10/25/18 17:04) Hives promethazine [From Phenergan] Allergy (Verified 10/25/18 17:04) Past Medical History - General Information source: Patient - Social History Smoking Status: Former Smoker Chew tobacco use (# tins/day): No Frequency of alcohol use: None Drug Abuse: None Family History: Reviewed & Not Pertinent, Hypertension Patient has suicidal ideation: No Patient has homicidal ideation: No - Past Medical History Cardiac Medical History: Reports: Hx Congestive Heart Failure, Hx Coronary Artery Disease, Hx Heart Attack - PACE MAKER, Hx Hypercholesterolemia, Hx Hypertension Denies: Hx DVT, Hx Pulmonary Embolism Pulmonary Medical History: Reports: Hx COPD - On home O2 at 2 L/min at all times., Hx Pneumonia Denies: Hx Asthma, Hx Bronchitis Neurological Medical History: Reports: Hx Cerebrovascular Accident, Hx Seizures Endocrine Medical History: Reports: Hx Diabetes Mellitus Type 1, Hx Diabetes Mellitus Type 2, Hx Hypothyroidism. Denies: Hx Hyperthyroidism Renal/ Medical History: Denies: Hx Peritoneal Dialysis GI Medical History: Denies: Hx Cirrhosis, Hx Gastroesophageal Reflux Disease, Hx Hepatitis Musculoskeletal Medical History: Reports Hx Arthritis Skin Medical History: Denies Hx Eczema, Denies Hx Psoriasis Psychiatric Medical History: Reports: Hx Depression Infectious Medical History: Denies: Hx Hepatitis Past Surgical History: Reports: Hx Appendectomy, Hx Cardiac Surgery - pacemaker/CABG, Hx Cholecystectomy, Hx Coronary Artery Bypass Graft, Hx Hysterectomy, Hx Orthopedic Surgery - Back surgery 2., Hx Pacemaker - Immunizations Hx Diphtheria, Pertussis, Tetanus Vaccination: Yes Hx Pneumococcal Vaccination: 10/29/10 Review of Systems - Review of Systems Constitutional: No symptoms reported EENT: No symptoms reported Cardiovascular: No symptoms reported Respiratory: No symptoms reported Gastrointestinal: Constipation Genitourinary: No symptoms reported Female Genitourinary: No symptoms reported Musculoskeletal: No symptoms reported Skin: No symptoms reported Hematologic/Lymphatic: No symptoms reported Neurological/Psychological: No symptoms reported -: Yes All other systems reviewed and negative Physical Exam - Vital signs Vitals: Pulse Resp BP Pulse Ox 87 16 123/54 L 96 10/26/18 09:32 10/26/18 09:32 10/26/18 09:32 10/26/18 09:32 - Notes Notes: PHYSICAL EXAMINATION: GENERAL: Well-appearing, well-nourished and in no acute distress. HEAD: Atraumatic, normocephalic. EYES: Pupils equal round and reactive to light, extraocular movements intact, conjunctiva are normal. ENT: Nares patent, oropharynx clear without exudates. Moist mucous membranes. NECK: Normal range of motion, supple without lymphadenopathy LUNGS: Breath sounds clear to auscultation bilaterally and equal. No wheezes rales or rhonchi. HEART: Regular rate and rhythm without murmurs ABDOMEN: Soft, nontender, nondistended abdomen. No guarding, no rebound. Normal active bowel sounds Female : deferred Musculoskeletal: Normal range of motion, no pitting or edema. No cyanosis. NEUROLOGICAL: Cranial nerves grossly intact. Normal speech, normal gait. Normal sensory, motor exams PSYCH: Normal mood, normal affect. SKIN: Warm, Dry, normal turgor, no rashes or lesions noted. Course - Re-evaluation Re-evalutation: 10/26/18 10:53 Magnesium citrate was ordered for the patient. She is refusing to drink the magnesium citrate. She is requesting a soapsuds enema. X-ray was obtained. No signs of free air or obstruction. Physical exam is within normal limits. Patient does not have any abdominal tenderness to palpation. She does have normal active bowel sounds. She is passing gas. A soapsuds enema was ordered. 10/26/18 12:49 Patient consumed some of the magnesium citrate that was ordered. She was also given a soapsuds enema. Patient had a bowel movement while in the emergency department. She has relief of symptoms. She feels comfortable with discharge home and following up outpatient with her primary care physician. - Vital Signs Vital signs: Temp Pulse Resp BP Pulse Ox 87 16 123/54 L 96 10/26/18 09:32 10/26/18 09:32 10/26/18 09:32 10/26/18 09:32 Discharge - Discharge Clinical Impression: Constipation Qualifiers: Constipation type: unspecified constipation type Qualified Code(s): K59.00 - Constipation, unspecified Condition: Good Disposition: HOME, SELF-CARE Instructions: Constipation ([facility]) Referrals: ESAU CARLOS MD [COMMUNITY BASED STAFF] - Follow up as needed
[2018-10-26 13:50] VITALS: BP 150/86
== END 2018-10-26 13:51 | disposition home or self-care (01) ==
LOC: ER 09:06
DX: K59.00 Constipation, unspecified (principal); G60.0 Hereditary motor and sensory neuropathy; Z87.891 Personal history of nicotine dependence; I50.9 Heart failure, unspecified; I25.10 Atherosclerotic heart disease of native coronary artery without angina pectoris; I25.2 Old myocardial infarction; I11.0 Hypertensive heart disease with heart failure; J44.9 Chronic obstructive pulmonary disease, unspecified; Z99.81 Dependence on supplemental oxygen; E11.9 Type 2 diabetes mellitus without complications
CPT/HCPCS: 99283; 74018; J3490

== ENCOUNTER 2018-11-21 14:37 | Emergency (ER) | payer MEDICARE ==
[2018-11-21 14:54] VITALS: BP 137/59
--- NOTE | 2018-11-21 15:45 | ER Document Report ---
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 Patient presents with constipation: No BM in the last 4-5 days. Patient does have some abdominal cramping which is consistent with her episodes of constipation. Patient states that normally she will get a soapsuds enema and ER and this will provide significant relief. She denies any fever or vomiting. TRAVEL OUTSIDE OF THE [place] IN LAST 30 DAYS: No - Related Data Allergies/Adverse Reactions: lorazepam [From Ativan] Allergy (Intermediate, Verified 10/25/18 17:04) Delirium Sulfa (Sulfonamide Antibiotics) Allergy (Mild, Verified 10/25/18 17:04) Hives promethazine [From Phenergan] Allergy (Verified 10/25/18 17:04) Past Medical History - Social History Frequency of alcohol use: None Drug Abuse: None - Past Medical History Cardiac Medical History: Reports: Hx Congestive Heart Failure, Hx Coronary Artery Disease, Hx Heart Attack - PACE MAKER, Hx Hypercholesterolemia, Hx Hypertension Denies: Hx DVT, Hx Pulmonary Embolism Pulmonary Medical History: Reports: Hx COPD - On home O2 at 2 L/min at all times., Hx Pneumonia Denies: Hx Asthma, Hx Bronchitis Neurological Medical History: Reports: Hx Cerebrovascular Accident, Hx Seizures Endocrine Medical History: Reports: Hx Diabetes Mellitus Type 1, Hx Diabetes Mellitus Type 2, Hx Hypothyroidism. Denies: Hx Hyperthyroidism Renal/ Medical History: Denies: Hx Peritoneal Dialysis GI Medical History: Denies: Hx Cirrhosis, Hx Gastroesophageal Reflux Disease, Hx Hepatitis Musculoskeltal Medical History: Reports Hx Arthritis Skin Medical History: Denies Hx Eczema, Denies Hx Psoriasis Psychiatric Medical History: Reports: Hx Depression Infectious Medical History: Denies: Hx Hepatitis Past Surgical History: Reports: Hx Appendectomy, Hx Cardiac Surgery - pacemaker/CABG, Hx Cholecystectomy, Hx Coronary Artery Bypass Graft, Hx Hysterectomy, Hx Orthopedic Surgery - Back surgery 2., Hx Pacemaker - Immunizations Hx Diphtheria, Pertussis, Tetanus Vaccination: Yes Physical Exam - Vital signs Vitals: Temp Pulse Resp BP Pulse Ox 98.8 F 72 16 137/59 H 94 11/21/18 14:46 11/21/18 14:46 11/21/18 14:46 11/21/18 14:46 11/21/18 14:46 Course - Vital Signs Vital signs: Temp Pulse Resp BP Pulse Ox 98.8 F 72 16 137/59 H 94 11/21/18 14:46 11/21/18 14:46 11/21/18 14:46 11/21/18 14:46 11/21/18 14:46
--- NOTE | 2018-11-21 16:29 | RADIOLOGY REPORT (SQ) ---
EXAM DESCRIPTION: ACUTE ABDOMEN SERIES COMPLETED DATE/TIME: 11/21/2018 4:16 pm REASON FOR STUDY: abd pain COMPARISON: Abdominal films 10/26/2018, 10/18/2018, 09/10/2018 NUMBER OF VIEWS: Three views. TECHNIQUE: Frontal chest, supine abdomen and upright abdomen radiographic images acquired. LIMITATIONS: None. FINDINGS: CHEST: Lungs clear of infiltrates. Cardiac silhouette size normal. Old sternotomy and CA BG with left-sided dual lead pacemaker. FREE AIR: None. No abnormal gas collections. BOWEL GAS PATTERN: Large amount of stool in the ascending and transverse colon. Otherwise unremarkab le bowel gas pattern CALCIFICATIONS: Calcified pelvic phleboliths HARDWARE: Surgical clips at the right colon post partial right colectomy. Clips right upper quadrant post cholecystectomy. SOFT TISSUES: No gross mass or suggestion of organomegaly. BONES: Degenerative convex rightward curvature OTHER: No other significant finding. IMPRESSION: Moderate constipation TECHNICAL DOCUMENTATION: JOB ID: [id number] [employer]- All Rights Reserved Reading location - IP/workstation name: [email or web address]
--- NOTE | 2018-11-21 18:59 | ER Document Report ---
ED General - General Chief Complaint: Constipation Stated Complaint: CONSTIPATION Time Seen by Provider: 11/21/18 15:31 Mode of Arrival: Wheelchair Notes: Patient is a 73-year-old female with a known history of Knubwlk-Oznfz-Iorlm, and long-standing history of chronic constipation likely related to underlying chronic opiate dependence. She presents today complaining of her chronic constipation and requesting a soapsuds enema. The patient reports that her symptoms today are identical to previous occasions of constipation and that nothing is otherwise new or different. Patient states that she is actually going to be seeing a hand frame surgical elastic knitter in [place] at the end of this month for consideration of an elective ostomy due to the frequency of her constipation. She notes intermittent abdominal cramping although denies any current abdominal pain. When the pain is present she regards it as being a mild to moderate discomfort. She denies any difficulty tolerating oral intake. Continues to pass flatus. Last bowel movement was 4-5 days ago. No melena, hematochezia or hematemesis. No fever or constitutional symptoms. Has not seen her general physician regarding today's concerns. Nothing improves or worsens her symptoms. TRAVEL OUTSIDE OF THE [place] IN LAST 30 DAYS: No - Related Data Allergies/Adverse Reactions: lorazepam [From Ativan] Allergy (Intermediate, Verified 10/25/18 17:04) Delirium Sulfa (Sulfonamide Antibiotics) Allergy (Mild, Verified 10/25/18 17:04) Hives promethazine [From Phenergan] Allergy (Verified 10/25/18 17:04) Past Medical History - General Information source: Patient - Social History Smoking Status: Never Smoker Frequency of alcohol use: None Drug Abuse: None Lives with: Spouse/Significant other Family History: Reviewed & Not Pertinent, Hypertension Patient has suicidal ideation: No Patient has homicidal ideation: No - Past Medical History Cardiac Medical History: Reports: Hx Congestive Heart Failure, Hx Coronary Artery Disease, Hx Heart Attack - PACE MAKER, Hx Hypercholesterolemia, Hx Hyper tension Denies: Hx DVT, Hx Pulmonary Embolism Pulmonary Medical History: Reports: Hx COPD - On home O2 at 2 L/min at all times., Hx Pneumonia Denies: Hx Asthma, Hx Bronchitis Neurological Medical History: Reports: Hx Cerebrovascular Accident, Hx Seizures Endocrine Medical History: Reports: Hx Diabetes Mellitus Type 1, Hx Diabetes Mellitus Type 2, Hx Hypothyroidism. Denies: Hx Hyperthyroidism Renal/ Medical History: Denies: Hx Peritoneal Dialysis GI Medical History: Denies: Hx Cirrhosis, Hx Gastroesophageal Reflux Disease, Hx Hepatitis Musculoskeletal Medical History: Reports Hx Arthritis Skin Medical History: Denies Hx Eczema, Denies Hx Psoriasis Psychiatric Medical History: Reports: Hx Depression Infectious Medical History: Denies: Hx Hepatitis Past Surgical History: Reports: Hx Appendectomy, Hx Cardiac Surgery - pacemaker/CABG, Hx Cholecystectomy, Hx Coronary Artery Bypass Graft, Hx Hysterectomy, Hx Orthopedic Surgery - Back surgery 2., Hx Pacemaker - Immunizations Hx Diphtheria, Pertussis, Tetanus Vaccination: Yes Hx Pneumococcal Vaccination: 10/29/10 Review of Systems - Review of Systems Notes: Constitutional: Negative for fever. HENT: Negative for sore throat. Eyes: Negative for visual changes. Cardiovascular: Negative for chest pain. Respiratory: Negative for shortness of breath. Gastrointestinal: Positive for abdominal cramping and constipation Genitourinary: Negative for dysuria. Musculoskeletal: Negative for back pain. Skin: Negative for rash. Neurological: Negative for headaches, weakness or numbness. 10 point ROS negative except as marked above and in HPI. Physical Exam - Vital signs Vitals: Temp Pulse Resp BP Pulse Ox 98.8 F 72 16 137/59 H 94 11/21/18 14:46 11/21/18 14:46 11/21/18 14:46 11/21/18 14:46 11/21/18 14:46 Interpretation: Normal Notes: PHYSICAL EXAMINATION: GENERAL: Well-appearing but does have signs of chronic illness HEAD: Atraumatic, normocephalic. EYES: Pupils equal round and reactive to light, extraocular movements intact, sclera anicteric, conjunctiva are normal. ENT: nares patent, oropharynx clear without exudates. Moderately dry mucous membranes. NECK: Normal range of motion, supple without lymphadenopathy LUNGS: Breath sounds clear to auscultation bilaterally and equal. No wheezes rales or rhonchi. HEART: Regular rate and rhythm without murmurs ABDOMEN: Soft, nontender, normoactive bowel sounds. No guarding, no rebound. No masses appreciated. EXTREMITIES: Contracted hands and bilateral lower extremities NEUROLOGICAL: No focal neurological deficits. Moves all extremities spontaneously and on command. PSYCH: Normal mood, normal affect. SKIN: Warm, Dry, normal turgor, no rashes or lesions noted. Course - Re-evaluation Re-evalutation: 11/21/18 18:53 Presentation of a relatively well appearing although chronically ill at baseline patient requesting a soapsuds enema for chronic constipation. The patient's abdominal exam is completely benign without any focal areas of tenderness. The patient denies any further current abdominal pain. She does not have any signs or symptoms to suggest an acute obstruction. Acute abdominal series without any evidence of perforation or obstruction, does show moderate to severe constipation. The patient has had a multitude of similar presentations under similar circumstances and states that this is identical. I therefore do not believe any more broad workup is indicated at this point given the reliability of the patient's history which her at the bedside does support. Will give the patient a soapsuds enema for relief, recommend close outpatient follow- up as planned. At this time will discharge with return precautions and follow- up recommendations. Verbal discharge instructions given a the bedside and opportunity for questions given. Medication warnings reviewed. Patient is in agreement with this plan and has verbalized understanding of return precautions and the need for primary care follow-up in the next 24-72 hours. - Vital Signs Vital signs: Temp Pulse Resp BP Pulse Ox 98.8 F 72 16 137/59 H 94 11/21/18 14:46 11/21/18 14:46 11/21/18 14:46 11/21/18 14:46 11/21/18 14:46 - Diagnostic Test Radiology reviewed: Image reviewed, Reports reviewed Radiology results interpreted by me: 11/21/18 18:55 Acute abdominal series: Moderate to severe constipation, no evidence of obstruction or perforation Discharge - Discharge Clinical Impression: Pascfxe-Qepeg-Mktdj disease Constipation Qualifiers: Constipation type: unspecified constipation type Qualified Code(s): K59.00 - Constipation, unspecified Opiate dependence Qualifiers: Substance use status: uncomplicated Qualified Code(s): F11.20 - Opioid dependence, uncomplicated Condition: Good Disposition: HOME, SELF-CARE Additional Instructions: Please follow-up with your primary care doctor regarding your chronic constipation which is likely related to underlying opiate dependence. Please return to the emergency department if you develop severe abdominal pain, began vomiting, develop a fever of greater than 100.4 F, or have any other additional symptoms that are worrisome to you.
== END 2018-11-21 20:36 | disposition home or self-care (01) ==
LOC: ER 14:37
DX: G60.0 Hereditary motor and sensory neuropathy (principal); K59.00 Constipation, unspecified; F11.20 Opioid dependence, uncomplicated; I50.9 Heart failure, unspecified; I25.10 Atherosclerotic heart disease of native coronary artery without angina pectoris; E78.00 Pure hypercholesterolemia, unspecified; I11.0 Hypertensive heart disease with heart failure; J44.9 Chronic obstructive pulmonary disease, unspecified; E03.9 Hypothyroidism, unspecified; E11.9 Type 2 diabetes mellitus without complications; Z99.81 Dependence on supplemental oxygen; Z95.0 Presence of cardiac pacemaker; Z95.1 Presence of aortocoronary bypass graft; I25.2 Old myocardial infarction; Z90.710 Acquired absence of both cervix and uterus; Z88.2 Allergy status to sulfonamides; Z90.49 Acquired absence of other specified parts of digestive tract
CPT/HCPCS: 74022; 99283

== ENCOUNTER 2018-12-05 07:58 | Emergency (ER) | payer MEDICARE ==
[2018-12-05] MEDS ORDERED: ASPIRIN 81 MG TABLET, CHEWABLE PO ONE (08:44)
--- NOTE | 2018-12-05 08:53 | ER Document Report ---
ED General - General Chief Complaint: Chest Pain Stated Complaint: CHEST PAIN Time Seen by Provider: 12/05/18 08:33 Mode of Arrival: Medic Information source: Patient TRAVEL OUTSIDE OF THE [place] IN LAST 30 DAYS: No - HPI Patient complains to provider of: Chest pain Onset: This morning Onset/Duration: Sudden, Gone Quality of pain: Other - Feels like an elephant on her chest Severity: Moderate Associated symptoms: Nausea, Shortness of breath Exacerbated by: Denies Relieved by: Other - Relieved by one sublingual nitroglycerin at home Notes: Patient is a very difficult historian. Patient comes in complaining of chest pain, described as a heaviness. It is in the left side of her chest. It does not radiate. She describes associated shortness of breath and mild nausea. She did take 1 sublingual nitroglycerin which completely relieved her pain. I nitially she tells me that she had been sleeping when this pain started. She later tells me that she was fighting with her . She sees a caster operator in [place]. She is unsure of her last stress test or heart catheterization. The patient denies any PCI or stent placement after her CABG in 2002. She states that she has had pain similar to this in the past. She saw her primary care physician 3 weeks ago and discussed it with him at that time. She had her pacemaker checked this week. She has an appointment with her caster operator coming up at the end of the month. Patient also notes that she had dysuria. She states she was taking [id number] Azo. She denies having any dysuria this morning. She denies any fever or chills. No associated nausea or vomiting. - Related Data Allergies/Adverse Reactions: lorazepam [From Ativan] Allergy (Intermediate, Verified 10/25/18 17:04) Delirium Sulfa (Sulfonamide Antibiotics) Allergy (Mild, Verified 10/25/18 17:04) Hives promethazine [From Phenergan] Allergy (Verified 10/25/18 17:04) Past Medical History - Social History Smoking Status: Unknown if Ever Smoked Family History: Reviewed & Not Pertinent, Hypertension - Past Medical History Cardiac Medical History: Reports: Hx Congestive Heart Failure, Hx Coronary Artery Disease, Hx Heart Attack - PACE MAKER, Hx Hypercholesterolemia, Hx Hypertension Denies: Hx DVT, Hx Pulmonary Embolism Pulmonary Medical History: Reports: Hx COPD - On home O2 at 2 L/min at all times., Hx Pneumonia Denies: Hx Asthma, Hx Bronchitis Neurological Medical History: Reports: Hx Cerebrovascular Accident, Hx Seizures Endocrine Medical History: Reports: Hx Diabetes Mellitus Type 1, Hx Diabetes Mellitus Type 2, Hx Hypothyroidism. Denies: Hx Hyperthyroidism Renal/ Medical History: Denies: Hx Peritoneal Dialysis GI Medical History: Denies: Hx Cirrhosis, Hx Gastroesophageal Reflux Disease, Hx Hepatitis Musculoskeletal Medical History: Reports Hx Arthritis Skin Medical History: Denies Hx Eczema, Denies Hx Psoriasis Psychiatric Medical History: Reports: Hx Depression Infectious Medical History: Denies: Hx Hepatitis Past Surgical History: Reports: Hx Appendectomy, Hx Cardiac Surgery - pacemaker/CABG, Hx Cholecystectomy, Hx Coronary Artery Bypass Graft, Hx Hyste rectomy, Hx Orthopedic Surgery - Back surgery 2., Hx Pacemaker - Immunizations Hx Diphtheria, Pertussis, Tetanus Vaccination: Yes Hx Pneumococcal Vaccination: 10/29/10 Review of Systems - Review of Systems Constitutional: No symptoms reported EENT: No symptoms reported Cardiovascular: Chest pain Respiratory: Short of breath Gastrointestinal: Nausea Genitourinary: Dysuria Physical Exam - Vital signs Vitals: Temp Pulse Ox 98.9 F 98 12/05/18 08:12 12/05/18 08:12 - General General appearance: Appears well, Alert In distress: None - HEENT Head: Normocephalic, Atraumatic Pupils: PERRL - Respiratory Respiratory status: No respiratory distress Breath sounds: Decreased air movement - Cardiovascular Rhythm: Regular - Abdominal Inspection: Normal Bowel sounds: Normal Tenderness: Nontender - Extremities Calf: Nontender - Neurological Neuro grossly intact: Yes Orientation: AAOx4 - Psychological Associated symptoms: Normal affect, Normal mood - Skin Skin Temperature: Warm Skin Moisture: Dry Course - Re-evaluation Re-evalutation: 12/05/18 10:27 I went back into confirmed that the patient had not had any repeat chest pain. While there I met her . He remarked on her significant constipation. He believes this is secondary to her CMT. He asked that this be evaluated as well. The patient states she did have a small bowel movement yesterday but she does require frequent enemas. 12/05/18 13:09 Reevaluated the patient. She still has not had any repeat of her chest pain. She states this is not new. She would like to follow-up with her primary care physician and her caster operator. Patient did have enema. No significant results. This is likely as the patient's stool was primarily by the hepatic flexure. She is to continue her bowel regimen at home she has previously. Her urinalysis did reveal clumps of white blood cells. Given her frequent UTIs as well as dysuria, I am inclined to treat this. Urine was sent for culture. I did review previous culture. We will start the patient on Keflex. Patient is amenable to this. She will be given instructions on UTIs, chest pain, and constipation. She is to follow-up with her primary care physician and return to the ED with worsening or new concerning symptom. - Vital Signs Vital signs: Temp Pulse Resp BP Pulse Ox 98.9 F 11 L 116/97 H 99 12/05/18 08:12 12/05/18 13:00 12/05/18 12:08 12/05/18 13:00 - Laboratory Result Diagrams: 12/05/18 08:33 12/05/18 08:33 Laboratory results interpreted by me: 12/05/18 12/05/18 12/05/18 08:33 08:33 08:33 Hgb 11.8 L Hct 34.6 L Carbon Dioxide 36 H BUN 21 H Glucose 159 H AST 45 H Urine Protein 100 H Ur Leukocyte Esterase LARGE H - Diagnostic Test Radiology reviewed: Image reviewed, Reports reviewed - EKG Interpretation by Me EKG shows normal: Sinus rhythm Rate: Normal - 97 Qulin/QRS: Left axis deviation, RBBB Additional EKG results interpreted by me: 12/05/18 09:04 EKG interpreted by myself as revealing sinus mechanism with a rate of 97 bpm, left axis deviation, right bundle branch block. No acute change when compared to prior study. 12/05/18 10:21 Discharge - Discharge Clinical Impression: Constipation, Chest pain, Urinary tract infection Condition: Fair Disposition: HOME, SELF-CARE Instructions: Chest Pain of Unclear Cause ([facility]), Urinary Tract Infection ([facility]) Additional Instructions: Constipation Constipation is a common problem. It is especially likely as you get older. Constipation is a common cause of abdominal pain, but sometimes causes no symptoms at all. Causes of constipation include certain medications, dehydration, diets, inactivity, and low-fiber intake. Rarely, it can be a symptom of underlying disease. The physician has evaluated you for this. Avoid constipation by eating a diet high in fiber, fruits, and vegetables. Drink plenty of liquids. Get regular exercise. If possible, avoid constipating medicines like narcotic pain medication. Some vitamin tablets can cause constipation. Stool softeners may be needed for difficult cases. An excellent stool softener is Konsyl which is available at [employer], and [employer] drug [employer]. Just add a teaspoon to a glass of pineapple or orange juice daily or twice a day if needed. Laxatives are useful for occasional constipation. You should use them only when necessary. Too-frequent use can make your bowels dependent on them. Some over the counter laxatives available without prescription are: Milk of Magnesia, 1-2 tablespoons twice a day Dulcolax, 5 mg pill or 10 mg suppository. Citrate of Magnesia, 4-5 ounces a day for a day or two For acute constipation, Fleet's Enemas and Dulcolax suppositories are helpful. Chronic, retirement use of laxatives or enemas is not a good idea. Your bowel may become dependant on them. You do not need to have a bowel movement every day. Many people do fine with a bowel movement every three or four days. You should call your doctor or return for re-evaluation if you pass blood in the stool, or if you develop fever or increasing abdominal pain. Prescriptions: RX: Cephalexin Monohydrate [Keflex 500 mg Capsule] 500 mg PO Q6H 5 Days #20 c gailule
[2018-12-05 09:18] LABS: ABSOLUTE EOSINOPHILS # (AUTO) 0.1 10^3/uL (0.0-0.6); ABSOLUTE LYMPHOCYTES (AUTO) 1.7 10^3/uL (0.5-4.7); ABSOLUTE MONOCYTES (AUTO) 0.3 10^3/uL (0.1-1.4); ABSOLUTE NEUT (AUTO) 5.1 10^3/uL (1.7-8.2); BASOPHILS % (AUTO) 0.6 % (0-2); HEMATOCRIT 34.6 % (36.0-47.0); HEMOGLOBIN 11.8 g/dL (12.0-15.5); LYMPHOCYTES % (AUTO) 23.6 % (13-45); MEAN CORPUSCULAR HEMOGLOBIN 30.5 pg (27.0-33.4); MEAN CORPUSCULAR VOLUME 90 fl (80-97); MONOCYTES % (AUTO) 4.8 % (3-13); PLATELET COUNT 235 10^3/uL (150-450); RED BLOOD COUNT 3.86 10^6/uL (3.72-5.28); RED CELL DISTRIBUTION WIDTH 13.1 % (11.5-14.0); TOTAL CELLS COUNTED % (AUTO) 100 %; WHITE BLOOD COUNT 7.2 10^3/uL (4.0-10.5)
--- NOTE | 2018-12-05 09:28 | RADIOLOGY REPORT (SQ) ---
EXAM DESCRIPTION: CHEST SINGLE VIEW COMPLETED DATE/TIME: 12/05/2018 9:18 am REASON FOR STUDY: chest pain COMPARISON: 10/05/2018 EXAM PARAMETERS: NUMBER OF VIEWS: One view. TECHNIQUE: Single frontal radiographic view of the chest acquired. RADIATION DOSE: NA LIMITATIONS: None. FINDINGS: LUNGS AND PLEURA: No opacities, masses or pneumothorax. No pleural effusion. Unchanged el evation of the left hemidiaphragm. MEDIASTINUM AND HILAR STRUCTURES: No masses. Contour normal. HEART AND VASCULAR STRUCTURES: Heart normal in size. Normal vasculature. Status post median sternot rigo with CABG markers on left chest multi lead pacer. BONES: No acute findings. HARDWARE: None in the chest. OTHER: No other significant finding. IMPRESSION: No acute abnormality of the lungs in AP projection. Unchanged elevation of the left hem idiaphragm. TECHNICAL DOCUMENTATION: JOB ID: [id number]- All Rights Reserved Reading location - IP/workstation name: [email or web address]
--- NOTE | 2018-12-05 09:35 | EKG REPORT ---
SEVERITY:- ABNORMAL ECG - SINUS RHYTHM RIGHT BUNDLE BRANCH BLOCK LEFT VENTRICULAR HYPERTROPHY ANTERIOR Q WAVES, POSSIBLY DUE TO LVH : Confirmed by: Oneida Barlow 05-Dec-2018 09:34:32
[2018-12-05 09:36] LABS: ALANINE AMINOTRANSFERASE 16 U/L (9-52); ALBUMIN 4.3 g/dL (3.5-5.0); ALKALINE PHOSPHATASE 123 U/L (38-126); ANION GAP 9 (5-19); ASPARTATE AMINO TRANSFERASE 45 U/L (14-36); BILIRUBIN,DIRECT 0.4 mg/dL (0.0-0.4); BILIRUBIN,TOTAL 0.7 mg/dL (0.2-1.3); BLOOD UREA NITROGEN 21 mg/dL (7-20); CALCIUM 9.5 mg/dL (8.4-10.2); CARBON DIOXIDE 36 mmol/L (22-30); CHLORIDE 98 mmol/L (98-107); CREATINE KINASE 72 U/L (30-135); GLUCOSE 159 mg/dL (75-110); POTASSIUM 4.1 mmol/L (3.6-5.0); SODIUM 142.8 mmol/L (137-145); TOTAL PROTEIN 6.9 g/dL (6.3-8.2)
[2018-12-05 09:48] LABS: CREATINE KINASE MB 1.97 ng/mL (<4.55); TROPONIN I 0.021 ng/mL
[2018-12-05 10:55] LABS: AMORPHOUS SEDIMENT,URINE TRACE /HPF; APPEARANCE,URINE CLOUDY; BILIRUBIN,URINE NEGATIVE (NEGATIVE); COLOR,URINE AMBER; GLUCOSE, URINE NEGATIVE (NEGATIVE); KETONES,URINE NEGATIVE (NEGATIVE); LEUKOCYTE ESTERASE,URINE LARGE (NEGATIVE); NITRITE,URINE NEGATIVE (NEGATIVE); PROTEIN,URINE 100 mg/dL (NEGATIVE); URINE SPECIFIC GRAVITY 1.015; UROBILINOGEN,URINE NEGATIVE mg/dL (<2.0)
--- NOTE | 2018-12-05 11:25 | RADIOLOGY REPORT (SQ) ---
EXAM DESCRIPTION: KUB/ABDOMEN (SINGLE VIEW) COMPLETED DATE/TIME: 12/05/2018 11:00 am REASON FOR STUDY: constipation COMPARISON: KUB 11/21/2018, 10/26/2018, 10/18/2018, 09/10/2018 NUMBER OF VIEWS: One view. TECHNIQUE: Supine radiographic image of the abdomen acquired. LIMITATIONS: None. FINDINGS: BOWEL GAS PATTERN: Moderate stool in the hepatic flexure colon. Otherwise unremarkable cheli wel gas pattern. CALCIFICATIONS: No suspicious calcifications. SOFT TISSUES: No gross mass or suggestion of organomegaly. HARDWARE: Clips along the inferior right lower quadrant Post partial right colectomy. Clips right up per quadrant post cholecystectomy. BONES: Diffuse degenerative disc changes OTHER: No other significant finding. IMPRESSION: Moderate stool in the hepatic flexure colon. Otherwise unremarkable bowel gas pattern TECHNICAL DOCUMENTATION: JOB ID: [id number] [employer]- All Rights Reserved Reading location - IP/workstation name: [email or web address]
[2018-12-05 13:28] VITALS: BP 116/97
== END 2018-12-05 13:28 | disposition home or self-care (01) ==
LOC: ER 07:58
DX: N39.0 Urinary tract infection, site not specified (principal); R06.02 Shortness of breath; K59.00 Constipation, unspecified; R07.9 Chest pain, unspecified; R11.0 Nausea
CPT/HCPCS: 36415; 71045; 74018; 80053; 81001; 82550; 82553; 84484; 85025; 87086; 87088; 87186; 93005; 93010; 99285

== ENCOUNTER 2019-01-24 15:31 | Emergency (ER) | payer MEDICARE ==
[2019-01-24 15:56] VITALS: BP 132/84
--- NOTE | 2019-01-24 18:57 | ER Document Report ---
ED General - General Chief Complaint: Altered Mental Status Stated Complaint: HALLUCINATIONS Time Seen by Provider: 01/24/19 18:12 Mode of Arrival: Medic Information source: Patient Notes: Patient states that her became concerned that she did not feel well and wanted her to call the ambulance to get checked out. Patient states that she had a dental extraction performed yesterday and that her jaw was mildly sore. Patient also states that she did see a little boy run across the room that was not there. Patient states that she did have a recent in the family last week and that this has really bothered her and she thinks that she had this hallucination because of her grief over this incident. Patient denies any recent injury or illness. Patient denies any headache, chest pain, abdominal pain or back pain. Patient states that she called the EMS at her 's insistence because she is very familiar with the EMS and that they checked her out. Patient states that they checked her blood sugar and it was in the 140s and that her vital signs were good. Patient is ready to go home and would not like any evaluation at this time. TRAVEL OUTSIDE OF THE [place] IN LAST 30 DAYS: No - HPI Onset: This afternoon Onset/Duration: Gradual Pain Level: Denies Associated symptoms: Other - Pain from dental extraction site Exacerbated by: Denies Relieved by: Denies Similar symptoms previously: No Recently seen / treated by doctor: Yes - Related Data Allergies/Adverse Reactions: lorazepam [From Ativan] Allergy (Intermediate, Verified 10/25/18 17:04) Delirium Sulfa (Sulfonamide Antibiotics) Allergy (Mild, Verified 10/25/18 17:04) Hives promethazine [From Phenergan] Allergy (Verified 10/25/18 17:04) Past Medical History - General Information source: Patient - Social History Smoking Status: Never Smoker Frequency of alcohol use: None Drug Abuse: None Lives with: Spouse/Significant other Family History: Reviewed & Not Pertinent, Hypertension Patient has suicidal ideation: No Patient has homicidal ideation: No - Past Medical History Cardiac Medical History: Reports: Hx Congestive Heart Failure, Hx Coronary Artery Disease, Hx Heart Attack - PACE MAKER, Hx Hypercholesterolemia, Hx Hypertension Denies: Hx DVT, Hx Pulmonary Embolism Pulmonary Medical History: Reports: Hx COPD - On home O2 at 2 L/min at all times., Hx Pneumonia Denies: Hx Asthma, Hx Bronchitis Neurological Medical History: Reports: Hx Cerebrovascular Accident, Hx Seizures Endocrine Medical History: Reports: Hx Diabetes Mellitus Type 1, Hx Diabetes Mellitus Type 2, Hx Hypothyroidism. Denies: Hx Hyperthyroidism Renal/ Medical History: Denies: Hx Peritoneal Dialysis GI Medical History: Denies: Hx Cirrhosis, Hx Gastroesophageal Reflux Disease, Hx Hepatitis Musculoskeletal Medical History: Reports Hx Arthritis Skin Medical History: Denies Hx Eczema, Denies Hx Psoriasis Psychiatric Medical History: Reports: Hx Depression Infectious Medical History: Denies: Hx Hepatitis Past Surgical History: Reports: Hx Appendectomy, Hx Cardiac Surgery - pacemaker/CABG, Hx Cholecystectomy, Hx Coronary Artery Bypass Graft, Hx Hysterectomy, Hx Orthopedic Surgery - Back surgery 2., Hx Pacemaker - Immunizations Hx Diphtheria, Pertussis, Tetanus Vaccination: Yes Hx Pneumococcal Vaccination: 10/29/10 Review of Systems - Review of Systems Constitutional: No symptoms reported. denies: Fever, Recent illness EENT: Other - Pain from recent dental extraction Cardiovascular: No symptoms reported. denies: Chest pain, Palpitations, Dizziness Respiratory: No symptoms reported. denies: Cough, Short of breath Gastrointestinal: No symptoms reported. denies: Abdominal pain, Nausea, Vomiting Genitourinary: No symptoms reported Female Genitourinary: No symptoms reported Musculoskeletal: No symptoms reported Skin: No symptoms reported Hematologic/Lymphatic: No symptoms reported Neurological/Psychological: Hallucinations Physical Exam - Vital signs Vitals: Temp Pulse Resp BP Pulse Ox 98.8 F 79 18 132/84 H 96 01/24/19 15:41 01/24/19 15:41 01/24/19 15:41 01/24/19 15:41 01/24/19 15:41 - General General appearance: Appears well, Alert In distress: None - HEENT Head: Normocephalic, Atraumatic Eyes: Normal Conjunctiva: Normal Nasal: Normal Mouth/Lips: Normal Mucous membranes: Normal Neck: Normal, Supple. No: Lymphadenopathy, Meningismus - Respiratory Respiratory status: No respiratory distress Chest status: Nontender Breath sounds: Normal. No: Rales, Rhonchi, Stridor, Wheezing Chest palpation: Normal - Cardiovascular Rhythm: Regular Heart sounds: S1 appreciated, S2 appreciated - Abdominal Inspection: Obese Distension: No distension Bowel sounds: Normal Tenderness: Nontender - Back Back: Normal, Nontender. No: CVA tenderness - Extremities General upper extremity: Normal ROM, Other - Arthritic changes to hands General lower extremity: Normal inspection, Normal ROM - Neurological Neuro grossly intact: Yes Cognition: Normal Orientation: AAOx4 Kenna Coma Scale Eye Opening: Spontaneous Myra Coma Scale Verbal: Oriented Kenna Coma Scale Motor: Obeys Commands Kenna Coma Scale Total: 15 - Psychological Associated symptoms: Normal affect, Normal mood - Skin Skin Temperature: Warm Skin Moisture: Dry Skin Color: Normal Course - Re-evaluation Re-evalutation: 01/24/19 18:54 Patient is awake alert oriented to person place time and circumstance. Patient does report that she did have a visual hallucination in which she saw a family member who recently last week. Patient states that she has really been emotionally bothered by his . Patient denies any suicidal or homicidal ideation. Patient does acknowledge that her primary doctor had previously decreased her dose of Klonopin and then returned it back to her usual dosage. Patient refuses to have any lab work drawn. Patient states that the EMS checked her blood sugar and it was in the 140s. Patient declines having any test performed today. Patient states that she would just like a phone so she can call her daughter to pick her up. Patient is awake alert oriented and appears to have capacity at this time. Patient does not meet IVC requirements. Consulted with Dr. Rivas regarding patient presentation and refusal for any testing or evaluation be performed here today. Dr. Mckeon recommends speaking with patient's family member and inquiring if patient is agreeable with an Accu- Chek. Patient does not want provider to call her family, patient is requesting the phone and she can call them herself. Patient declines a blood sugar being checked here now as she had one performed on the ambulance. Patient states that she really would just like to go home and check on her as he is elderly and she worries about him being at home alone. 01/24/19 19:00 Patient is refusing any medical evaluation at this time and is currently awaiting for her daughter's arrival. The patient has decided not to proceed with further recommended testing or treatment to determine the cause of her symptoms. The risk and alternatives to the recommendation were discussed the patient voiced understanding. The patient appears clinically to have the capacity to make this decision. The patient was instructed that they could return to the ER at any time to complete the testing or treatment. 01/24/19 20:34 Patient's daughter at bedside to pick her up. Explained to patient in family member that patient was refusing any diagnostic evaluation while here in the emergency department. Patient does have capacity to make these decisions and does not meet IVC criteria at this time. Daughter agreed with this plan and will be driving her home at this time. Patient encouraged to return at any point if she would like to be evaluated and have testing performed. 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 - Vital Signs Vital signs: Temp Pulse Resp BP Pulse Ox 98.8 F 79 18 132/84 H 96 01/24/19 15:41 01/24/19 15:41 01/24/19 15:41 01/24/19 15:41 01/24/19 15:41 Discharge - Discharge Clinical Impression: Grief reaction, Visual hallucination Disposition: AGAINST MEDICAL ADVICE
== END 2019-01-24 20:38 | disposition left against medical advice (07) ==
LOC: ER 15:31
DX: F43.20 Adjustment disorder, unspecified (principal); R44.1 Visual hallucinations; K08.89 Other specified disorders of teeth and supporting structures; Z98.890 Other specified postprocedural states; I25.10 Atherosclerotic heart disease of native coronary artery without angina pectoris; I10 Essential (primary) hypertension; J44.9 Chronic obstructive pulmonary disease, unspecified; R56.9 Unspecified convulsions; Z79.899 Other long term (current) drug therapy; I25.2 Old myocardial infarction; Z95.0 Presence of cardiac pacemaker; Z88.8 Allergy status to other drugs, medicaments and biological substances; Z88.2 Allergy status to sulfonamides; E11.9 Type 2 diabetes mellitus without complications; Z95.1 Presence of aortocoronary bypass graft; Z53.29 Procedure and treatment not carried out because of patient's decision for other reasons
CPT/HCPCS: 99284

== ENCOUNTER 2019-03-03 14:41 | Emergency (ER) | payer MEDICARE ==
[2019-03-03] MEDS ORDERED: ASPIRIN 81 MG TABLET, CHEWABLE PO ONE (15:14)
[2019-03-03] MEDS ORDERED: IPRATROPIUM/ALBUTEROL 0.5-2.5 MG/3 ML AMPUL NEB ONE (15:16)
[2019-03-03] MEDS ORDERED: NORMAL SALINE 250 ML IV ONE (15:21)
--- NOTE | 2019-03-03 15:21 | ER Document Report ---
ED General - General Chief Complaint: General Weakness Stated Complaint: SHORTNESS OF BREATH Time Seen by Provider: 03/03/19 15:13 Mode of Arrival: Medic Information source: Patient, Parent Notes: Patient is a frail-appearing 73-year-old female who presents to the ED with chest pressure that began today at noon. She does not recall doing anything at the time but noticed chest pressure and difficulty breathing. Patient is on home oxygen of 2 L by nasal cannula for COPD her increased her oxygen to 3 L and she still did not feel any relief. Patient called EMS at that time. While waiting for EMS she took nitro and 2 baby aspirin and felt relief. Patient is still anxious she may be having a heart attack since she has had them in the past. Patient reports over the past week she has felt sick. She reports a few episodes of nausea and vomiting, but no episodes in the past few days. Past medical history of CHF, COPD, A. fib, pacemaker. TRAVEL OUTSIDE OF THE [place] IN LAST 30 DAYS: No - HPI Onset: This afternoon Onset/Duration: Sudden, Gone Quality of pain: Pressure Severity: Mild Associated symptoms: Chest pain, Headache, Nausea, Vomiting. denies: Diarrhea, Leg swelling, Rhinnorhea Exacerbated by: Denies Relieved by: Denies Similar symptoms previously: Yes Recently seen / treated by doctor: Yes - Related Data Allergies/Adverse Reactions: lorazepam [From Ativan] Allergy (Intermediate, Verified 10/25/18 17:04) Delirium Sulfa (Sulfonamide Antibiotics) Allergy (Mild, Verified 10/25/18 17:04) Hives promethazine [From Phenergan] Allergy (Verified 10/25/18 17:04) Past Medical History - General Information source: Patient, [facility] Records - Social History Smoking Status: Former Smoker Frequency of alcohol use: None Drug Abuse: None Lives with: Spouse/Significant other Family History: Reviewed & Not Pertinent, Hypertension Patient has suicidal ideation: No Patient has homicidal ideation: No - Past Medical History Cardiac Medical History: Reports: Hx Congestive Heart Failure, Hx Coronary Artery Disease, Hx Heart Attack - PACE MAKER, Hx Hypercholesterolemia, Hx Hypertension Denies: Hx DVT, Hx Pulmonary Embolism Pulmonary Medical History: Reports: Hx COPD - On home O2 at 2 L/min at all times., Hx Pneumonia Denies: Hx Asthma, Hx Bronchitis Neurological Medical History: Reports: Hx Cerebrovascular Accident, Hx Seizures Endocrine Medical History: Reports: Hx Diabetes Mellitus Type 1, Hx Diabetes Mellitus Type 2, Hx Hypothyroidism. Denies: Hx Hyperthyroidism Renal/ Medical History: Denies: Hx Peritoneal Dialysis GI Medical History: Denies: Hx Cirrhosis, Hx Gastroesophageal Reflux Disease, Hx Hepatitis Musculoskeletal Medical History: Reports Hx Arthritis Skin Medical History: Denies Hx Eczema, Denies Hx Psoriasis Psychiatric Medical History: Reports: Hx Depression Infectious Medical History: Denies: Hx Hepatitis Past Surgical History: Reports: Hx Appendectomy, Hx Cardiac Surgery - pacemaker/CABG, Hx Cholecystectomy, Hx Coronary Artery Bypass Graft, Hx Hysterectomy, Hx Orthopedic Surgery - Back surgery 2., Hx Pacemaker - Immunizations Hx Diphtheria, Pertussis, Tetanus Vaccination: Yes Hx Pneumococcal Vaccination: 10/29/10 Review of Systems - Review of Systems Notes: REVIEW OF SYSTEMS: CONSTITUTIONAL : Denies fever, chills, or sweats. Denies recent illness. Denies weight loss, recent hospitalizations. EENT: Denies visual changes, eye pain. Denies sore throat, oral lesions, difficulty swallowing. CARDIOVASCULAR: + chest pain. Denies palpitations. Denies lower extremity edema. RESPIRATORY: Denies cough. + shortness of breath, wheezing. GASTROINTESTINAL: Denies abdominal pain or distention. Denies nausea, vomiting, or diarrhea. Denies blood in vomitus, stools, or per rectum. Denies black, tarry stools. Denies constipation. GENITOURINARY: Denies difficulty urinating, painful urination, frequency, blood in urine, or vaginal discharge. MUSCULOSKELETAL: Denies back or neck pain or stiffness. Denies joint pain or swelling. SKIN: Denies rash, lesions or sores. HEMATOLOGIC : Denies easy bruising or bleeding. LYMPHATIC: Denies swollen glands. NEUROLOGICAL: Denies confusion or altered mental status. Denies loss of consciousness. Denies dizziness or lightheadedness. Denies headache. Denies weakness or paralysis. Denies problems difficulty with ambulation, slurred speech. Denies sensory loss, numbness, or tingling. Denies seizures. PSYCHIATRIC: Denies anxiety or stress. Denies depression, suicidal ideation, or homicidal ideation. Denies visual or auditory hallucinations. Physical Exam - Vital signs Vitals: Temp Pulse Resp BP Pulse Ox 98.2 F 90 26 H 144/79 H 98 03/03/19 15:10 03/03/19 15:10 03/03/19 15:10 03/03/19 15:10 03/03/19 15:10 - Notes Notes: PHYSICAL EXAMINATION: GENERAL: Well-appearing, well-nourished and in no acute distress. HEAD: Atraumatic, normocephalic. EYES: Pupils equal round and reactive to light, extraocular movements intact, conjunctiva are normal. ENT: Nares patent, oropharynx clear without exudates. Dry mucous membranes. NECK: Normal range of motion, supple without lymphadenopathy LUNGS: Breath sounds clear to auscultation bilaterally and equal. No wheezes rales or rhonchi. HEART: Regular rate and rhythm without murmurs ABDOMEN: Soft, nontender, nondistended abdomen. No guarding, no rebound. No masses appreciated. Female : deferred Musculoskeletal: Normal range of motion, no pitting or edema. No cyanosis. NEUROLOGICAL: Cranial nerves grossly intact. Normal speech, normal gait. Normal sensory, motor exams PSYCH: Normal mood, normal affect. SKIN: Warm, Dry, normal turgor, no rashes or lesions noted. Course - Re-evaluation Re-evalutation: Laboratory 03/03/19 03/03/19 03/03/19 15:02 15:02 15:02 WBC 9.5 RBC 4.05 Hgb 12.8 Hct 37.5 MCV 93 MCH 31.7 MCHC 34.2 RDW 13.8 Plt Count 246 Seg Neutrophils % 65.1 Lymphocytes % 29.4 Monocytes % 4.7 Eosinophils % 0.5 Basophils % 0.3 Absolute Neutrophils 6.2 Absolute Lymphocytes 2.8 Absolute Monocytes 0.4 Absolute Eosinophils 0.0 Absolute Basophils 0.0 VBG pH VBG pCO2 VBG HCO3 VBG Base Excess Sodium 141.8 Potassium 4.4 Chloride 100 Carbon Dioxide 32 H Anion Gap 10 BUN 21 H Creatinine 0.83 Est GFR ( Amer) > 60 Est GFR (Non-Af Amer) > 60 Glucose 163 H Calcium 9.9 Total Bilirubin 0.6 Direct Bilirubin 0.4 Neonat Total Bilirubin Not Reportable Neonat Direct Bilirubin Not Reportable Neonat Indirect Bili Not Reportable AST 26 ALT 22 Alkaline Phosphatase 112 Creatine Kinase 98 CK-MB (CK-2) 3.55 Troponin I 0.036 NT-Pro-B Natriuret Pep 813 Total Protein 7.2 Albumin 4.3 03/03/19 03/03/19 15:58 18:15 WBC RBC Hgb Hct MCV MCH MCHC RDW Plt Count Seg Neutrophils % Lymphocytes % Monocytes % Eosinophils % Basophils % Absolute Neutrophils Absolute Lymphocytes Absolute Monocytes Absolute Eosinophils Absolute Basophils VBG pH 7.39 VBG pCO2 49.1 VBG HCO3 29.1 VBG Base Excess 3.3 Sodium Potassium Chloride Carbon Dioxide Anion Gap BUN Creatinine Est GFR ( Amer) Est GFR (Non-Af Amer) Glucose Calcium Total Bilirubin Direct Bilirubin Neonat Total Bilirubin Neonat Direct Bilirubin Neonat Indirect Bili AST ALT Alkaline Phosphatase Creatine Kinase CK-MB (CK-2) Troponin I 0.037 NT-Pro-B Natriuret Pep Total Protein Albumin Chest X-Ray 03/03/19 15:14 IMPRESSION: 1. No significant interval changes since the prior examination dated 12/05/2018. Low lung volumes and elevation of the left hemidiaphragm, unchanged findings. No acute findings. Temp Pulse Resp BP Pulse Ox 98.9 F 90 17 170/88 H 97 03/03/19 18:43 03/03/19 15:10 03/03/19 18:43 03/03/19 18:43 03/03/19 18:43 73-year-old female presented with complaint of chest pressure and shortness of breath that upon my exam had resolved without intervention. Patient does have a history of COPD, chronic chest pain and is on continuous oxygen at home. EKG was obtained and showed no significant difference from prior EKGs which showed right bundle branch block, multiple PVCs. Chest x-ray is without any signif icant changes. CBC, CMP, cardiac enzymes including delta troponin are within normal limits. 03/03/19 18:18 Patient states that she is feeling better and would like to go home. Patient was evaluated and treated as appropriate for the patient's presenting symptoms and complaint, with consideration of any critical or life threatening conditions that may be associated with their obtained history and exam as noted above. All results were discussed with patient. Patient provided the opportunity to ask questions, and express concerns. Patient was educated on treatments based on their presumed diagnosis as noted above. At this time we will discharge the patient with return precautions and follow-up recommendations. Verbal discharge instructions given a the bedside. Medication warnings reviewed. Patient is in agreement with this plan and has verbalized understanding of return precautions. After careful consideration I feel that that patient can be safely discharged from the emergency department, they were advised to followup with a primary care physician in 2-3 days. Dictation on this chart was performed using voice recognition software and may result in unintended grammatical, spelling, syntax or errors. 03/03/19 21:23 - Vital Signs Vital signs: Temp Pulse Resp BP Pulse Ox 98.9 F 90 17 170/88 H 97 03/03/19 18:43 03/03/19 15:10 03/03/19 18:43 03/03/19 18:43 03/03/19 18:43 - Laboratory Result Diagrams: 03/03/19 15:02 03/03/19 15:02 Laboratory results interpreted by me: 03/03/19 15:02 Carbon Dioxide 32 H BUN 21 H Glucose 163 H - Diagnostic Test Radiology reviewed: Image reviewed, Reports reviewed - EKG Interpretation by Me EKG shows normal: Sinus rhythm Rate: Normal Rhythm: NSR, PVC's [place]/QRS: RBBB When compared to previous EKG there are: No significant change Discharge - Discharge Clinical Impression: History of COPD Chest pain Qualifiers: Chest pain type: unspecified Qualified Code(s): R07.9 - Chest pain, unspecified Condition: Good Disposition: HOME, SELF-CARE Instructions: Chest Pain of Unclear Cause ([facility]) Additional Instructions: You were seen today for chest pain. The exact cause of your pain is unclear. However, based on your cardiac enzyme testing, chest x-ray, and EKG it does not appear that it is from an immediately life-threatening cause at this time. Although your testing here is normal is critical that you follow-up with your primary care physician for continued evaluation of this chest pain and possible stress testing. I recommended you see your physician within the next 24-48 hours to be evaluated for consideration of a stress test. Please return to emergency department immediately if you have worsening of your chest pain, shortness of breath, vomiting, become unable to exert yourself due to pain or difficulty breathing, you pass out, or have any pain that radiates into your arms, jaw, or back. Please also return if you have any additional symptoms that are concerning to you. Forms: Elevated Blood Pressure
[2019-03-03 15:45] LABS: ABSOLUTE LYMPHOCYTES (AUTO) 2.8 10^3/uL (0.5-4.7); ABSOLUTE MONOCYTES (AUTO) 0.4 10^3/uL (0.1-1.4); ABSOLUTE NEUT (AUTO) 6.2 10^3/uL (1.7-8.2); BASOPHILS % (AUTO) 0.3 % (0-2); EOSINOPHILS % (AUTO) 0.5 % (0-6); HEMATOCRIT 37.5 % (36.0-47.0); HEMOGLOBIN 12.8 g/dL (12.0-15.5); LYMPHOCYTES % (AUTO) 29.4 % (13-45); MEAN CORPUSCULAR HEMOGLOBIN 31.7 pg (27.0-33.4); MEAN CORPUSCULAR HGB CONC 34.2 g/dL (32.0-36.0); MEAN CORPUSCULAR VOLUME 93 fl (80-97); MONOCYTES % (AUTO) 4.7 % (3-13); PLATELET COUNT 246 10^3/uL (150-450); RED BLOOD COUNT 4.05 10^6/uL (3.72-5.28); RED CELL DISTRIBUTION WIDTH 13.8 % (11.5-14.0); SEGMENTED NEUTROPHILS % (AUTO) 65.1 % (42-78); TOTAL CELLS COUNTED % (AUTO) 100 %; WHITE BLOOD COUNT 9.5 10^3/uL (4.0-10.5)
--- NOTE | 2019-03-03 15:51 | RADIOLOGY REPORT (SQ) ---
EXAM DESCRIPTION: CHEST SINGLE VIEW COMPLETED DATE/TIME: 03/03/2019 3:41 pm REASON FOR STUDY: chest pain COMPARISON: 12/05/2018 EXAM PARAMETERS: NUMBER OF VIEWS: One view. TECHNIQUE: Single frontal radiographic view of the chest acquired. RADIATION DOSE: NA LIMITATIONS: None. FINDINGS: LUNGS AND PLEURA: Low lung volumes and elevation of the left hemidiaphragm, unchanged fin dings. No acute pulmonary consolidation. No pneumothorax or pleural effusion. MEDIASTINUM AND HILAR STRUCTURES: No masses. Contour normal. HEART AND VASCULAR STRUCTURES: Heart normal in size. Normal vasculature. BONES: No acute findings. HARDWARE: Prior anterior median sternotomy and CABG, cardiac pacemaker, stable findings. OTHER: No other significant finding. IMPRESSION: 1. No significant interval changes since the prior examination dated 12/05/2018. Low myranda g volumes and elevation of the left hemidiaphragm, unchanged findings. No acute findings. TECHNICAL DOCUMENTATION: JOB ID: [id number] [employer]- All Rights Reserved Reading location - IP/workstation name: [email or web address]
[2019-03-03 15:59] LABS: ALANINE AMINOTRANSFERASE 22 U/L (9-52); ALBUMIN 4.3 g/dL (3.5-5.0); ALKALINE PHOSPHATASE 112 U/L (38-126); ANION GAP 10 (5-19); ASPARTATE AMINO TRANSFERASE 26 U/L (14-36); BILIRUBIN,DIRECT 0.4 mg/dL (0.0-0.4); BILIRUBIN,TOTAL 0.6 mg/dL (0.2-1.3); BLOOD UREA NITROGEN 21 mg/dL (7-20); CALCIUM 9.9 mg/dL (8.4-10.2); CARBON DIOXIDE 32 mmol/L (22-30); CHLORIDE 100 mmol/L (98-107); CREATINE KINASE 98 U/L (30-135); GLUCOSE 163 mg/dL (75-110); POTASSIUM 4.4 mmol/L (3.6-5.0); SODIUM 141.8 mmol/L (137-145); TOTAL PROTEIN 7.2 g/dL (6.3-8.2)
[2019-03-03 16:11] LABS: CREATINE KINASE MB 3.55 ng/mL (<4.55)
[2019-03-03 16:15] LABS: TROPONIN I 0.036 ng/mL
[2019-03-03 16:22] LABS: VENOUS BLOOD BASE EXCESS 3.3 mmol/L; VENOUS BLOOD HCO3 29.1 mmol/L (20-32); VENOUS BLOOD PCO2 49.1 mmHg (35-63); VENOUS BLOOD PH 7.39 (7.30-7.42)
[2019-03-03 18:56] VITALS: BP 170/88
--- NOTE | 2019-03-03 20:42 | EKG REPORT ---
SEVERITY:- ABNORMAL ECG - SINUS RHYTHM MULTIPLE ATRIAL PREMATURE COMPLEXES RIGHT BUNDLE BRANCH BLOCK LEFT VENTRICULAR HYPERTROPHY ANTERIOR Q WAVES, POSSIBLY DUE TO LVH : Confirmed by: Chiara Castellano MD 03-Mar-2019 20:41:29
== END 2019-03-03 18:56 | disposition home or self-care (01) ==
LOC: ER 14:41
DX: R07.89 Other chest pain (principal); I45.10 Unspecified right bundle-branch block; I49.3 Ventricular premature depolarization; J44.9 Chronic obstructive pulmonary disease, unspecified; Z99.81 Dependence on supplemental oxygen; R11.2 Nausea with vomiting, unspecified; R51 Headache; I25.10 Atherosclerotic heart disease of native coronary artery without angina pectoris; I25.2 Old myocardial infarction; Z87.01 Personal history of pneumonia (recurrent); E11.9 Type 2 diabetes mellitus without complications; Z88.8 Allergy status to other drugs, medicaments and biological substances; Z88.2 Allergy status to sulfonamides; Z87.891 Personal history of nicotine dependence; Z95.0 Presence of cardiac pacemaker; Z95.1 Presence of aortocoronary bypass graft
CPT/HCPCS: 93005; 94640; 99285; 96360; 36415; 82553; 82550; 85025; 80053; 84484; 82803; 83880; 71045; 93010; A9270 ×2; J7050; J7620

== ENCOUNTER 2019-03-16 11:57 | Emergency (ER) | payer MEDICARE ==
--- NOTE | 2019-03-16 12:48 | ER Document Report ---
ED Medical Screen (RME) - General Chief Complaint: Constipation Stated Complaint: ABDOMINAL PAIN Time Seen by Provider: 03/16/19 12:36 Mode of Arrival: Wheelchair Information source: Patient Notes: Patient presents to the emergency department with complaints of upper abdominal pain. Reports she feels like she is constipated. did give her an enema this morning and she had results but she still feels constipated. She also reports early in the week she felt nauseated and vomited once. Patient is on home oxygen but did not bring it in from the car. O2 sats dropped down to 89% on room air but increased to 97% on oxygen. I have greeted and performed a rapid initial assessment of this patient. A comprehensive ED assessment and evaluation of the patient, analysis of test resu lts and completion of the medical decision making process will be conducted by additional ED providers. Dictation of this chart was performed using voice recognition software; therefore, there may be some unintended grammatical errors. TRAVEL OUTSIDE OF THE [place] IN LAST 30 DAYS: No - Related Data Allergies/Adverse Reactions: lorazepam [From Ativan] Allergy (Intermediate, Verified 03/16/19 11:58) Delirium Sulfa (Sulfonamide Antibiotics) Allergy (Mild, Verified 03/16/19 11:58) Hives promethazine [From Phenergan] Allergy (Verified 03/16/19 11:58) Past Medical History - General Information source: Patient - Past Medical History Cardiac Medical History: Reports: Hx Congestive Heart Failure, Hx Coronary Artery Disease, Hx Heart Attack - PACE MAKER, Hx Hypercholesterolemia, Hx Hypertension Denies: Hx DVT, Hx Pulmonary Embolism Pulmonary Medical History: Reports: Hx COPD - On home O2 at 2 L/min at all times., Hx Pneumonia Denies: Hx Asthma, Hx Bronchitis Neurological Medical History: Reports: Hx Cerebrovascular Accident, Hx Seizures Endocrine Medical History: Reports: Hx Diabetes Mellitus Type 1, Hx Diabetes Mellitus Type 2, Hx Hypothyroidism. Denies: Hx Hyperthyroidism Renal/ Medical History: Denies: Hx Peritoneal Dialysis GI Medical History: Denies: Hx Cirrhosis, Hx Gastroesophageal Reflux Disease, Hx Hepatitis Musculoskeltal Medical History: Reports Hx Arthritis Skin Medical History: Denies Hx Eczema, Denies Hx Psoriasis Psychiatric Medical History: Reports: Hx Depression Infectious Medical History: Denies: Hx Hepatitis Past Surgical History: Reports: Hx Appendectomy, Hx Cardiac Surgery - pacemaker/CABG, Hx Cholecystectomy, Hx Coronary Artery Bypass Graft, Hx Hysterectomy, Hx Orthopedic Surgery - Back surgery 2., Hx Pacemaker - Immunizations Hx Diphtheria, Pertussis, Tetanus Vaccination: Yes Physical Exam - Vital signs Vitals: Temp Pulse Resp BP Pulse Ox 98.1 F 89 24 H 166/62 H 89 L 03/16/19 12:12 03/16/19 12:12 03/16/19 12:12 03/16/19 12:12 03/16/19 12:12 Course - Vital Signs Vital signs: Temp Pulse Resp BP Pulse Ox 98.1 F 89 24 H 166/62 H 97 03/16/19 12:12 03/16/19 12:12 03/16/19 12:12 03/16/19 12:12 03/16/19 12:37
--- NOTE | 2019-03-16 13:47 | RADIOLOGY REPORT (SQ) ---
EXAM DESCRIPTION: KUB/ABDOMEN (SINGLE VIEW) COMPLETED DATE/TIME: 03/16/2019 1:29 pm REASON FOR STUDY: feels constipated COMPARISON: 12/05/2018 NUMBER OF VIEWS: One view. TECHNIQUE: Supine radiographic image of the abdomen acquired. LIMITATIONS: None. FINDINGS: BOWEL GAS PATTERN: Nonobstructive bowel gas pattern. No dilated loops. CONSTIPATION: marked CALCIFICATIONS: No suspicious calcifications. SOFT TISSUES: No gross mass or suggestion of organomegaly. HARDWARE: None in the abdomen. BONES: No acute fracture. OTHER: No other significant finding. IMPRESSION: NO RADIOGRAPHIC EVIDENCE FOR ACUTE ABDOMINAL DISEASE. Marked constipation. TECHNICAL DOCUMENTATION: JOB ID: [id number] [id number] 2010 [employer]- All Rights Reserved Reading location - IP/workstation name: [email or web address]
--- NOTE | 2019-03-16 14:37 | ER Document Report ---
ED GI/ - General Chief Complaint: Constipation Stated Complaint: POSSIBLE CONSTIPATION Time Seen by Provider: 03/16/19 12:36 Mode of Arrival: Wheelchair Notes: Patient is complaining of upper abdominal pain and distention and feels constipated and like she needs an enema. She says her gave her an enema earlier today with only sparse results and she still feels bloated and stopped up. Nauseated but vomited earlier in the week but not vomiting now. No fevers. Has had this problem in the past. TRAVEL OUTSIDE OF THE [place] IN LAST 30 DAYS: No - Related Data Allergies/Adverse Reactions: lorazepam [From Ativan] Allergy (Intermediate, Verified 03/16/19 11:58) Delirium Sulfa (Sulfonamide Antibiotics) Allergy (Mild, Verified 03/16/19 11:58) Hives promethazine [From Phenergan] Allergy (Verified 03/16/19 11:58) Past Medical History - General Information source: Patient - Social History Smoking Status: Never Smoker Chew tobacco use (# tins/day): No Frequency of alcohol use: None Drug Abuse: None Family History: Reviewed & Not Pertinent, Hypertension Patient has suicidal ideation: No Patient has homicidal ideation: No - Past Medical History Cardiac Medical History: Reports: Hx Congestive Heart Failure, Hx Coronary Artery Disease, Hx Heart Attack - PACE MAKER, Hx Hypercholesterolemia, Hx Hypertension Pulmonary Medical History: Reports: Hx COPD - On home O2 at 2 L/min at all times., Hx Pneumonia Neurological Medical History: Reports: Hx Cerebrovascular Accident, Hx Seizures. Denies: None, Hx Migraine, Other Endocrine Medical History: Reports: Hx Diabetes Mellitus Type 1, Hx Diabetes Mellitus Type 2, Hx Hypothyroidism Renal/ Medical History: Denies: Hx Peritoneal Dialysis Musculoskeletal Medical History: Reports Hx Arthritis Psychiatric Medical History: Reports: Hx Depression Past Surgical History: Reports: Hx Appendectomy, Hx Cardiac Surgery - pacemaker/CABG, Hx Cholecystectomy, Hx Coronary Artery Bypass Graft, Hx Hysterectomy, Hx Orthopedic Surgery - Back surgery 2., Hx Pacemaker - Immunizations Hx Diphtheria, Pertussis, Tetanus Vaccination: Yes Hx Pneumococcal Vaccination: 10/29/10 Review of Systems - Review of Systems Notes: CONSTITUTIONAL : Denies fever. CARDIOVASCULAR: Denies chest pain. RESPIRATORY: Denies cough, chest congestion, or shortness of breath. GASTROINTESTINAL: See HPI. GENITOURINARY: Denies difficulty or painful urinating, urinary frequency, blood in urine. Physical Exam - Vital signs Vitals: Temp Pulse Resp BP Pulse Ox 98.1 F 89 24 H 166/62 H 89 L 03/16/19 12:12 03/16/19 12:12 03/16/19 12:12 03/16/19 12:12 03/16/19 12:12 Interpretation: Normal Notes: PHYSICAL EXAMINATION: GENERAL: Well-appearing, no acute distress. HEAD: Atraumatic, normocephalic. NECK: Normal range of motion, supple. LUNGS: Breath sounds clear and equal bilaterally. HEART: Regular rate and rhythm without murmurs heard. ABDOMEN: Soft, nontender. No guarding or rebound or masses felt. Distended somewhat in the upper abdomen and some tenderness there in the left upper quadrant, but no guarding and no rebound. No masses present. No bruits heard. Course - Re-evaluation Re-evalutation: 03/16/19 19:36 Patient's x-ray showed marked constipation. Patient had an enema with excellent results and feels so much better and does not have any abdominal complaints at this time. - Vital Signs Vital signs: Temp Pulse Resp BP Pulse Ox 98.1 F 85 18 125/99 H 93 03/16/19 12:12 03/16/19 14:41 03/16/19 14:41 03/16/19 14:41 03/16/19 14:41 - Diagnostic Test Radiology results interpreted by me: 03/16/19 19:37 Abdominal x-ray showed marked constipation. Discharge - Discharge Clinical Impression: Abdominal pain, Constipation Condition: Stable Disposition: HOME, SELF-CARE Additional Instructions: ABDOMINAL PAIN: There are many causes of abdominal pain. Pain can mean a serious problem requiring surgery (such as appendicitis). It can also be an innocent problem that goes away on its own (such as a viral infection). Often, time must pass to determine the cause of pain. The physician does not feel that hospitalization is necessary, at present. Things may change within the next 24 hours. Call the doctor or come back for re- examination if any problems occur, such as: (1) Pain that becomes more severe, steady, or becomes concentrated in one specific area. Also, pain that is more severe with movement or coughing. (2) Vomiting that persists or becomes more frequent. (3) Blood in the vomitus, urine, or bowel movements. Blood in the stool may have a tarry or black appearance. (4) Shaking chills or fever greater than 100 degrees F. (5) The abdomen becomes more distended or swollen. (6) Bowel movements cease. (7) Failure to improve as expected. NORMAL EXAM AND WORKUP: At this time, your examination and workup show no significant abnormality. No significant abnormal physical findings are noted. All laboratory, EKG, and imaging (x-ray, CT scans, ultrasound) studies that were ordered show no significant abnormality. Although your examination and all studies that were ordered showed no significant abnormal finding, there are no examinations and no studies that are 100% accurate. There is always the possibility that some abnormality could exist and not be detected with physical examination or within the limits and capabilities of laboratory and other studies. You should return or follow up as you were instructed on your visit today for further evaluation if your symptoms do not resolve. CONSTIPATION: Constipation is a common problem. It is especially likely as you get older. Constipation is a common cause of abdominal pain, but sometimes causes no symptoms at all. Causes of constipation include certain medications, dehydration, diets, inactivity, and low-fiber intake. Rarely, it can be a symptom of underlying disease. The physician has evaluated you for this. Avoid constipation by eating a diet high in fiber, fruits, and vegetables. Drink plenty of liquids. Get regular exercise. If possible, avoid constipating medicines like narcotic pain medication. Some vitamin tablets can cause constipation. Stool softeners may be needed for difficult cases. An excellent stool softener is Konsyl which is available at [employer], and [facility] drug store. Just add a teaspoon to a glass of pineapple or orange juice daily or twice a day if needed. Laxatives are useful for occasional constipation. You should use them only when necessary. Too-frequent use can make your bowels dependent on them. Some over the counter laxatives available without prescription are: Milk of Magnesia, 1-2 tablespoons twice a day Dulcolax, 5 mg pill or 10 mg suppository. Citrate of Magnesia, 4-5 ounces a day for a day or two For acute constipation, Fleet's Enemas and Dulcolax suppositories are helpful. Chronic, predatory animal exterminator use of laxatives or enemas is not a good idea. Your bowel may become dependant on them. You do not need to have a bowel movement every day. Many people do fine with a bowel movement every three or four days. You should call your doctor or return for re-evaluation if you pass blood in the stool, or if you develop fever or increasing abdominal pain. BULK LAXATIVES: Bulk laxatives make the stool softer and bulkier. They're useful for preventing constipation. You can choose between psyllium, methylcellulose, and polycarbophil. They are available without a prescription. Psyllium brand names include Konsyl, Metamucil, Perdiem, Effer-Syllium and Hydrocil. It's available as powder, flavored drink powder, or chewable. The usual dose of psyllium powder is one heaping teaspoon in water each morning, increasing to twice a day if needed. [place] juice can disguise the slightly grainy texture. Methylcellulose is marketed as Citrucel and other brands. The average dose is two grams in a cup of water one to three times a day. Polycarbophil is marketed as Fiber-Con. Take two tablets with a cup of water one to three times a day. LAXATIVE: A laxative agent has been prescribed for your condition. This should result in passage of stool within 12 hours. Some mild intestinal cramping is common as the hard stool begins to move. You may have loose or runny stools for a short time. Contact your doctor if there is severe cramping, vomiting, or passage of blood. Return for further care if this medicine fails to improve your condition. FOLLOW-UP CARE: If you have been referred to a physician for follow-up care, call the physicians office for an appointment as you were instructed or within the next two days. If you experience worsening or a significant change in your symptoms, notify the physician immediately or return to the Emergency Department at any time for re-evaluation.
[2019-03-16 14:53] VITALS: BP 125/99
== END 2019-03-16 14:54 | disposition home or self-care (01) ==
LOC: ER 11:57
DX: K59.00 Constipation, unspecified (principal); R10.10 Upper abdominal pain, unspecified; I25.10 Atherosclerotic heart disease of native coronary artery without angina pectoris; I10 Essential (primary) hypertension; J44.9 Chronic obstructive pulmonary disease, unspecified; E11.9 Type 2 diabetes mellitus without complications; Z95.810 Presence of automatic (implantable) cardiac defibrillator; Z95.1 Presence of aortocoronary bypass graft; Z88.8 Allergy status to other drugs, medicaments and biological substances; Z88.2 Allergy status to sulfonamides
CPT/HCPCS: 74018; 99283

== ENCOUNTER 2019-04-07 16:14 | Emergency (ER) | payer MEDICARE ==
[2019-04-07 16:25] VITALS: BP 152/48
[2019-04-07] MEDS ORDERED: MINERAL OIL 30 ML UDCUP PR ONE (18:49)
--- NOTE | 2019-04-07 18:50 | ER Document Report ---
ED Medical Screen (RME) - General Chief Complaint: Constipation Stated Complaint: CONSTIPATION Time Seen by Provider: 04/07/19 18:46 TRAVEL OUTSIDE OF THE [place] IN LAST 30 DAYS: No - HPI Notes: 04/07/19 18:47 Patient is a 73-year-old female with a history of oxygen dependent COPD, hypertension, insulin-dependent diabetes, Yboornp-Lsfjv-Nbcek complaining of constipation and requesting soapsuds enema. Patient states that the Eteyulf-Lhwkl-Dnubl causes her to be in pain and she is on narcotics for that which causes her then to have issues with constipation. states that they did do an enema at home and had a little bowel movement come out, but patient continues to complain of generalized abdominal pain and distention. Patient states that this pain is consistent with her constipation issues and has had this multiple times in the past. She did have one episode of nausea and vomiting today. She is otherwise urinating normally. Denies JACOME, fever, neck pain, URI, CP, SOB, dysuria, back pain, or rash. I have treated and performed a rapid initial assessment of this patient. A comprehensive ED assessment and evaluation of the patient, analysis of test results and completion of medical decision making process will be conducted by additional ED providers. PHYSICAL EXAMINATION: GENERAL: Well-appearing, well-nourished and in no acute distress. A&Ox4. Answers questions appropriately. LUNGS: Breath sounds clear to auscultation bilaterally and equal. No wheezes rales or rhonchi. HEART: Regular rate and rhythm without murmurs, rubs, gallops. - Related Data Allergies/Adverse Reactions: lorazepam [From Ativan] Allergy (Intermediate, Verified 04/07/19 16:20) Delirium Sulfa (Sulfonamide Antibiotics) Allergy (Mild, Verified 04/07/19 16:20) Hives promethazine [From Phenergan] Allergy (Verified 04/07/19 16:20) Past Medical History - Past Medical History Cardiac Medical History: Reports: Hx Congestive Heart Failure, Hx Coronary Artery Disease, Hx Heart Attack - PACE MAKER, Hx Hypercholesterolemia, Hx Hypertension Denies: Hx DVT, Hx Pulmonary Embolism Pulmonary Medical History: Reports: Hx COPD - On home O2 at 2 L/min at all times., Hx Pneumonia Denies: Hx Asthma, Hx Bronchitis Neurological Medical History: Reports: Hx Cerebrovascular Accident, Hx Seizures. Denies: Hx Migraine Endocrine Medical History: Reports: Hx Diabetes Mellitus Type 1, Hx Diabetes Mellitus Type 2, Hx Hypothyroidism. Denies: Hx Hyperthyroidism Renal/ Medical History: Denies: Hx Peritoneal Dialysis GI Medical History: Denies: Hx Cirrhosis, Hx Gastroesophageal Reflux Disease, Hx Hepatitis Musculoskeltal Medical History: Reports Hx Arthritis Skin Medical History: Denies Hx Eczema, Denies Hx Psoriasis Psychiatric Medical History: Reports: Hx Depression Infectious Medical History: Denies: Hx Hepatitis Past Surgical History: Reports: Hx Appendectomy, Hx Cardiac Surgery - pacemaker/CABG, Hx Cholecystectomy, Hx Coronary Artery Bypass Graft, Hx Hysterectomy, Hx Orthopedic Surgery - Back surgery 2., Hx Pacemaker - Immunizations Hx Diphtheria, Pertussis, Tetanus Vaccination: Yes Physical Exam - Vital signs Vitals: Temp Pulse Resp BP Pulse Ox 98.4 F 62 16 152/48 H 88 L 04/07/19 16:24 04/07/19 16:24 04/07/19 16:24 04/07/19 16:24 04/07/19 16:24 Course - Vital Signs Vital signs: Temp Pulse Resp BP Pulse Ox 98.4 F 62 16 152/48 H 88 L 04/07/19 16:24 04/07/19 16:24 04/07/19 16:24 04/07/19 16:24 04/07/19 16:24
[2019-04-07 19:24] LABS: APPEARANCE,URINE CLEAR; BILIRUBIN,URINE NEGATIVE (NEGATIVE); COLOR,URINE YELLOW; GLUCOSE, URINE NEGATIVE (NEGATIVE); KETONES,URINE NEGATIVE (NEGATIVE); LEUKOCYTE ESTERASE,URINE TRACE (NEGATIVE); NITRITE,URINE NEGATIVE (NEGATIVE); PROTEIN,URINE 100 mg/dL (NEGATIVE); URINE SPECIFIC GRAVITY 1.021; UROBILINOGEN,URINE NEGATIVE mg/dL (<2.0)
--- NOTE | 2019-04-07 19:26 | RADIOLOGY REPORT (SQ) ---
EXAM DESCRIPTION: KUB/ABDOMEN (SINGLE VIEW) COMPLETED DATE/TIME: 04/07/2019 7:03 pm REASON FOR STUDY: constipation, abd pain COMPARISON: 03/16/2019 NUMBER OF VIEWS: One view. TECHNIQUE: Supine radiographic image of the abdomen acquired. LIMITATIONS: None. FINDINGS: BOWEL GAS PATTERN: Normal bowel gas pattern. No dilated loops. CONSTIPATION: marked CALCIFICATIONS: No suspicious calcifications. SOFT TISSUES: No gross mass or suggestion of organomegaly. HARDWARE: Cholecystectomy clips. BONES: No acute fracture. No worrisome bone lesions. OTHER: No other significant finding. IMPRESSION: NO RADIOGRAPHIC EVIDENCE FOR ACUTE ABDOMINAL DISEASE. Marked constipation. TECHNICAL DOCUMENTATION: JOB ID: [id number] [place]-72 2010 [employer]- All Rights Reserved Reading location - IP/workstation name: [email or web address]
[2019-04-07 20:12] LABS: ABSOLUTE EOSINOPHILS # (AUTO) 0.1 10^3/uL (0.0-0.6); ABSOLUTE LYMPHOCYTES (AUTO) 2.6 10^3/uL (0.5-4.7); ABSOLUTE MONOCYTES (AUTO) 0.5 10^3/uL (0.1-1.4); ABSOLUTE NEUT (AUTO) 6.7 10^3/uL (1.7-8.2); BASOPHILS % (AUTO) 0.3 % (0-2); EOSINOPHILS % (AUTO) 0.8 % (0-6); HEMATOCRIT 34.7 % (36.0-47.0); HEMOGLOBIN 11.8 g/dL (12.0-15.5); MEAN CORPUSCULAR HEMOGLOBIN 31.6 pg (27.0-33.4); MEAN CORPUSCULAR HGB CONC 34.1 g/dL (32.0-36.0); MEAN CORPUSCULAR VOLUME 93 fl (80-97); MONOCYTES % (AUTO) 5.1 % (3-13); PLATELET COUNT 258 10^3/uL (150-450); RED BLOOD COUNT 3.74 10^6/uL (3.72-5.28); RED CELL DISTRIBUTION WIDTH 13.2 % (11.5-14.0); SEGMENTED NEUTROPHILS % (AUTO) 67.8 % (42-78); TOTAL CELLS COUNTED % (AUTO) 100 %; WHITE BLOOD COUNT 9.9 10^3/uL (4.0-10.5)
[2019-04-07 20:31] LABS: ALANINE AMINOTRANSFERASE 16 U/L (9-52); ALBUMIN 4.3 g/dL (3.5-5.0); ALKALINE PHOSPHATASE 102 U/L (38-126); ANION GAP 11 (5-19); ASPARTATE AMINO TRANSFERASE 22 U/L (14-36); BILIRUBIN,DIRECT 0.3 mg/dL (0.0-0.4); BILIRUBIN,TOTAL 0.3 mg/dL (0.2-1.3); BLOOD UREA NITROGEN 27 mg/dL (7-20); CALCIUM 9.3 mg/dL (8.4-10.2); CARBON DIOXIDE 28 mmol/L (22-30); CHLORIDE 102 mmol/L (98-107); GLUCOSE 219 mg/dL (75-110); LIPASE 26.7 U/L (23-300); POTASSIUM 4.5 mmol/L (3.6-5.0); SODIUM 140.7 mmol/L (137-145); TOTAL PROTEIN 6.7 g/dL (6.3-8.2)
[2019-04-07] MEDS ORDERED: MINERAL OIL 30 ML UDCUP ONE (23:37)
--- NOTE | 2019-04-08 00:35 | ER Document Report ---
ED General - General Chief Complaint: Constipation Stated Complaint: CONSTIPATION Time Seen by Provider: 04/07/19 18:46 Notes: Patient is a pleasant 73-year-old female with a history of Xpfslwe-Nlgnd-Ogtvo disease who presents with complaint of constipation. She says she frequently gets constipation due to being on opiate medications for pain. She denies any vomiting but has had some nausea. No fevers. She said that her is able to do a small amount of disimpaction at home and did do an enema however she still feels as if she has a large amount of stool and feels she needs it out. She denies any fevers. No other complaints at this time. TRAVEL OUTSIDE OF THE [place] IN LAST 30 DAYS: No - Related Data Allergies/Adverse Reactions: lorazepam [From Ativan] Allergy (Intermediate, Verified 04/07/19 16:20) Delirium Sulfa (Sulfonamide Antibiotics) Allergy (Mild, Verified 04/07/19 16:20) Hives promethazine [From Phenergan] Allergy (Verified 04/07/19 16:20) Past Medical History - Social History Smoking Status: Never Smoker Chew tobacco use (# tins/day): No Frequency of alcohol use: None Drug Abuse: None Family History: Reviewed & Not Pertinent, Hypertension Patient has suicidal ideation: No Patient has homicidal ideation: No - Past Medical History Cardiac Medical History: Reports: Hx Congestive Heart Failure, Hx Coronary Artery Disease, Hx Heart Attack - PACE MAKER, Hx Hypercholesterolemia, Hx Hypertension Denies: Hx DVT, Hx Pulmonary Embolism Pulmonary Medical History: Reports: Hx COPD - On home O2 at 2 L/min at all times., Hx Pneumonia Denies: Hx Asthma, Hx Bronchitis Neurological Medical History: Reports: Hx Cerebrovascular Accident, Hx Seizures. Denies: Hx Migraine Endocrine Medical History: Reports: Hx Diabetes Mellitus Type 1, Hx Diabetes Mellitus Type 2, Hx Hypothyroidism. Denies: Hx Hyperthyroidism Renal/ Medical History: Denies: Hx Peritoneal Dialysis GI Medical History: Denies: Hx Cirrhosis, Hx Gastroesophageal Reflux Disease, Hx Hepatitis Musculoskeletal Medical History: Reports Hx Arthritis Skin Medical History: Denies Hx Eczema, Denies Hx Psoriasis Psychiatric Medical History: Reports: Hx Depression Infectious Medical History: Denies: Hx Hepatitis Past Surgical History: Reports: Hx Appendectomy, Hx Cardiac Surgery - pacemaker/CABG, Hx Cholecystectomy, Hx Coronary Artery Bypass Graft, Hx Hysterectomy, Hx Orthopedic Surgery - Back surgery 2., Hx Pacemaker - Immunizations Hx Diphtheria, Pertussis, Tetanus Vaccination: Yes Hx Pneumococcal Vaccination: 10/29/10 Review of Systems - Review of Systems Notes: My Normal Review Basic REVIEW OF SYSTEMS: CONSTITUTIONAL : Denies fever, chills, or sweats. Denies recent illness. CARDIOVASCULAR: Denies chest pain. RESPIRATORY: Denies cough, cold, or chest congestion. Denies shortness of breath, difficulty breathing, or wheezing. GASTROINTESTINAL: Mild abdominal pain. Nausea. No vomiting. Some constipation. GENITOURINARY: Denies difficulty urinating, painful urination, burning, frequency, or blood in urine. SKIN: Denies rash or skin lesions. NEUROLOGICAL: Denies altered mental status or loss of consciousness. Denies headache. Denies weakness or paralysis or loss of use of either side. Denies problems with gait or speech. Denies sensory or motor loss. ALL OTHER SYSTEMS REVIEWED AND NEGATIVE. Physical Exam - Vital signs Vitals: Temp Pulse Resp BP Pulse Ox 98.4 F 62 16 152/48 H 88 L 04/07/19 16:24 04/07/19 16:24 04/07/19 16:24 04/07/19 16:24 04/07/19 16:24 - Notes Notes: General Appearance: Well nourished, alert, cooperative, no acute distress, no obvious discomfort. Vitals: reviewed, See vital signs table. Head: no swelling or tenderness to the head Eyes: PERRL, EOMI, Conjuctiva clear Mouth: No decreasd moisture Throat: No tonsillar inflammation, No airway obstruction, No lymphadenopathy Neck: Supple, no neck tenderness, No thyromegaly Lungs: No wheezing, No rales, No rhonci, No accessory muscle use, good air exchange bilaterally. Heart: Normal rate, Regular rythm, No murmur, no rub Abdomen: Normal BS, soft, No rigidity, no significant reproducible tenderness palpation of the abdomen. Extremities: strength 5/5 in all extremities, good pulses in all extremities, no swelling or tenderness in the extremities, no edema. Skin: warm, dry, appropriate color, no rash Neuro: speech clear, oriented x 3, normal affect, responds appropriately to questions. Course - Re-evaluation Re-evalutation: 04/08/19 04:20 Nurse at the patient was not tolerating enema very well and therefore went in to digital rectal exam patient does have significant stool at the rectal verge. I therefore did a fecal disimpaction. I was able to get a large amount of stool out. Patient did not tolerate enema much better and after the second enema had more passage of stool and now feels much improved and would like to go home. Patient to return to ER if she has significant dental pain, fevers, vomiting, or feels unwell. Dictation of this chart was performed using voice recognition software; therefore, there may be some unintended grammatical errors. - Vital Signs Vital signs: Temp Pulse Resp BP Pulse Ox 98.4 F 62 16 152/48 H 88 L 04/07/19 16:24 04/07/19 16:24 04/07/19 16:24 04/07/19 16:24 04/07/19 16:24 - Laboratory Result Diagrams: 04/07/19 19:30 04/07/19 19:30 Laboratory results interpreted by me: 04/07/19 04/07/19 04/07/19 17:05 19:30 19:30 Hgb 11.8 L Hct 34.7 L BUN 27 H Glucose 219 H Urine Protein 100 H Ur Leukocyte Esterase TRACE H Procedures - Additional Procedures rectal disimpaction Notes: 04/08/19 00:34 Patient says enema was not working. She would not allow the nurse to put much fluid in. I therefore did a rectal exam and she was having large amount of stool at the rectal verge I had followed with the small amount of enema that she had gotten. I therefore performed digital rectal disimpaction and got a very large amount of stool out. Will now go forward with a second enema to see if any further stool comes out. Discharge - Discharge Clinical Impression: Fecal impaction in rectum Condition: Good Disposition: HOME, SELF-CARE Additional Instructions: Please take fiber supplement such as Metamucil to help limit the amount of constipation you get. Please return to the ER if you ahve severe pain, vomiting, or feel unwell.
== END 2019-04-08 01:51 | disposition home or self-care (01) ==
LOC: ER 16:14
DX: K56.41 Fecal impaction (principal); G60.0 Hereditary motor and sensory neuropathy; R11.0 Nausea; I50.9 Heart failure, unspecified; I25.10 Atherosclerotic heart disease of native coronary artery without angina pectoris; I11.0 Hypertensive heart disease with heart failure; J44.9 Chronic obstructive pulmonary disease, unspecified
CPT/HCPCS: 99283; 36415; 83690; 85025; 80053; 81001; 74018; J3490

== ENCOUNTER 2019-04-10 13:02 | Emergency (ER) | payer MEDICARE ==
--- NOTE | 2019-04-10 13:46 | ER Document Report ---
ED Medical Screen (RME) - General Chief Complaint: Abdominal Pain Stated Complaint: STOMACH PAIN Time Seen by Provider: 04/10/19 13:45 Mode of Arrival: Wheelchair Information source: Patient Notes: 73-year-old female presented to ED with complaint of abdominal pain. She has had no bowel movement since she was in the emergency room on Sunday and received enemas. She has Devdfnz-Fqrjc-Buihh and has no muscle tone or control of her bowels. She cannot push to have a bowel movement. states he does give her enemas at home with no results. She is on home oxygen. I have greeted and performed a rapid initial assessment of this patient. A comprehensive ED assessment and evaluation of the patient, analysis of test results and completion of medical decision making process will be conducted by an additional ED providers. Dictation of this chart was performed using voice recognition software; therefore, there may be some unintended grammatical errors. TRAVEL OUTSIDE OF THE [place] IN LAST 30 DAYS: No - Related Data Allergies/Adverse Reactions: lorazepam [From Ativan] Allergy (Intermediate, Verified 04/10/19 13:03) Delirium Sulfa (Sulfonamide Antibiotics) Allergy (Mild, Verified 04/10/19 13:03) Hives promethazine [From Phenergan] Allergy (Verified 04/10/19 13:03) Past Medical History - Past Medical History Cardiac Medical History: Reports: Hx Congestive Heart Failure, Hx Coronary Artery Disease, Hx Heart Attack - PACE MAKER, Hx Hypercholesterolemia, Hx Hypertension Denies: Hx DVT, Hx Pulmonary Embolism Pulmonary Medical History: Reports: Hx COPD - On home O2 at 2 L/min at all times., Hx Pneumonia Denies: Hx Asthma, Hx Bronchitis Neurological Medical History: Reports: Hx Cerebrovascular Accident, Hx Seizures. Denies: Hx Migraine Endocrine Medical History: Reports: Hx Diabetes Mellitus Type 1, Hx Diabetes Mellitus Type 2, Hx Hypothyroidism. Denies: Hx Hyperthyroidism Renal/ Medical History: Denies: Hx Peritoneal Dialysis GI Medical History: Denies: Hx Cirrhosis, Hx Gastroesophageal Reflux Disease, Hx Hepatitis Musculoskeltal Medical History: Reports Hx Arthritis Skin Medical History: Denies Hx Eczema, Denies Hx Psoriasis Psychiatric Medical History: Reports: Hx Depression Infectious Medical History: Denies: Hx Hepatitis Past Surgical History: Reports: Hx Appendectomy, Hx Cardiac Surgery - pacemaker/CABG, Hx Cholecystectomy, Hx Coronary Artery Bypass Graft, Hx Hysterectomy, Hx Orthopedic Surgery - Back surgery 2., Hx Pacemaker - Immunizations Hx Diphtheria, Pertussis, Tetanus Vaccination: Yes Physical Exam - Vital signs Vitals: Temp Pulse Resp BP Pulse Ox 98.4 F 61 14 158/53 H 90 L 04/10/19 13:11 04/10/19 13:11 04/10/19 13:11 04/10/19 13:11 04/10/19 13:11 Course - Vital Signs Vital signs: Temp Pulse Resp BP Pulse Ox 98.4 F 61 14 158/53 H 90 L 04/10/19 13:11 04/10/19 13:11 04/10/19 13:11 04/10/19 13:11 04/10/19 13:11
[2019-04-10 14:22] LABS: ABSOLUTE EOSINOPHILS # (AUTO) 0.1 10^3/uL (0.0-0.6); ABSOLUTE LYMPHOCYTES (AUTO) 2.5 10^3/uL (0.5-4.7); ABSOLUTE MONOCYTES (AUTO) 0.5 10^3/uL (0.1-1.4); ABSOLUTE NEUT (AUTO) 5.5 10^3/uL (1.7-8.2); BASOPHILS % (AUTO) 0.4 % (0-2); EOSINOPHILS % (AUTO) 0.7 % (0-6); HEMATOCRIT 35.3 % (36.0-47.0); LYMPHOCYTES % (AUTO) 28.9 % (13-45); MEAN CORPUSCULAR HEMOGLOBIN 31.6 pg (27.0-33.4); MEAN CORPUSCULAR VOLUME 93 fl (80-97); MONOCYTES % (AUTO) 5.9 % (3-13); PLATELET COUNT 239 10^3/uL (150-450); RED BLOOD COUNT 3.79 10^6/uL (3.72-5.28); RED CELL DISTRIBUTION WIDTH 13.3 % (11.5-14.0); SEGMENTED NEUTROPHILS % (AUTO) 64.1 % (42-78); TOTAL CELLS COUNTED % (AUTO) 100 %; WHITE BLOOD COUNT 8.6 10^3/uL (4.0-10.5)
--- NOTE | 2019-04-10 14:25 | RADIOLOGY REPORT (SQ) ---
EXAM DESCRIPTION: ACUTE ABDOMEN SERIES COMPLETED DATE/TIME: 04/10/2019 2:14 pm REASON FOR STUDY: No bowel movement since Sunday, abdominal pain COMPARISON: None. NUMBER OF VIEWS: Three views. TECHNIQUE: Frontal chest, supine abdomen and upright/decubitus abdomen radiographic images acquired. LIMITATIONS: None. FINDINGS: CHEST: Lungs clear of infiltrates. FREE AIR: None. No abnormal gas collections. BOWEL GAS PATTERN: Nonobstructive pattern. Large amount of retained stool. CALCIFICATIONS: No suspicious calcifications. HARDWARE: None in the abdomen. SOFT TISSUES: No gross mass or suggestion of organomegaly. BONES: No acute fracture. No worrisome bone lesions. OTHER: No other significant finding. IMPRESSION: Constipation. TECHNICAL DOCUMENTATION: JOB ID: [id number] [employer]- All Rights Reserved Reading location - IP/workstation name: [email or web address]
[2019-04-10 14:48] LABS: ALANINE AMINOTRANSFERASE 19 U/L (9-52); ALBUMIN 4.2 g/dL (3.5-5.0); ALKALINE PHOSPHATASE 97 U/L (38-126); ANION GAP 6 (5-19); ASPARTATE AMINO TRANSFERASE 24 U/L (14-36); BILIRUBIN,DIRECT 0.4 mg/dL (0.0-0.4); BILIRUBIN,TOTAL 0.4 mg/dL (0.2-1.3); BLOOD UREA NITROGEN 21 mg/dL (7-20); CALCIUM 9.4 mg/dL (8.4-10.2); CARBON DIOXIDE 35 mmol/L (22-30); CHLORIDE 100 mmol/L (98-107); GLUCOSE 184 mg/dL (75-110); LIPASE 26.5 U/L (23-300); POTASSIUM 4.6 mmol/L (3.6-5.0); SODIUM 140.7 mmol/L (137-145); TOTAL PROTEIN 6.8 g/dL (6.3-8.2)
[2019-04-10 15:42] LABS: APPEARANCE,URINE SLIGHTLY-CLOUDY; BILIRUBIN,URINE NEGATIVE (NEGATIVE); COLOR,URINE YELLOW; GLUCOSE, URINE 50 mg/dL (NEGATIVE); KETONES,URINE NEGATIVE (NEGATIVE); LEUKOCYTE ESTERASE,URINE TRACE (NEGATIVE); NITRITE,URINE NEGATIVE (NEGATIVE); PROTEIN,URINE 100 mg/dL (NEGATIVE); URINE SPECIFIC GRAVITY 1.021
[2019-04-10] MEDS ORDERED: MINERAL OIL 30 ML UDCUP PR ONE (16:13)
--- NOTE | 2019-04-10 17:45 | ER Document Report ---
ED General - General Chief Complaint: Abdominal Pain Stated Complaint: STOMACH PAIN Time Seen by Provider: 04/10/19 13:45 Mode of Arrival: Wheelchair TRAVEL OUTSIDE OF THE [place].S. IN LAST 30 DAYS: No - HPI Notes: 73-year-old female presented to ED with complaint of abdominal pain. She has had no bowel movement since she was in the emergency room on Sunday and received enemas. She has Jfmlsmf-Sxxqt-Achuc which she reports causes her to have a hard time with bowel movements. states he does give her enemas at home with no results. Patient reports the pain is diffuse and crampy in her abdomen. She denies aggravating or relieving factors. She states she has an appointment coming up with her doctor in [place] to discuss getting a colostomy placed. Patient states her symptoms today feel identical to previous episodes of constipation and she came to the emergency room to receive enemas and have a bowel movement. She denies vomiting fevers and chills. Past Medical History: Vvuyvrz-Jfbib-Ewdog, chronic constipation Past Surgical History: Reviewed in chart Social History: Denies tobacco and alcohol use Family History: Reviewed and noncontributory for presenting illness Allergies: Reviewed, see documented allergy list. REVIEW OF SYSTEMS: CONSTITUTIONAL : No fever No chills No diaphoresis No recent illness EENT: No vision changes No congestion No sore throat CARDIOVASCULAR: No chest pain No palpitations RESPIRATORY: No shortness of breath No cough No difficulty breathing GASTROINTESTINAL: abdominal pain No nausea No vomiting No diarrhea GENITOURINARY: No dysuria No hematuria No difficulty urinating MUSCULOSKELETAL: No back pain No leg pain No arm pain SKIN: No rashes No lesions LYMPHATIC: No swollen, enlarged glands. NEUROLOGICAL: No lightheadedness No headache No weakness No paresthesias PSYCHIATRIC: No anxiety No depression PHYSICAL EXAMINATION: Vital signs reviewed, nursing noted reviewed. GENERAL: Well-appearing, well-nourished and in no acute distress. HEAD: Atraumatic, normocephalic. EYES: Eyes appear normal, extraocular movements intact, sclera anicteric, conjunctiva are normal. ENT: nares patent, oropharynx clear without exudates. Moist mucous membranes. NECK: Normal range of motion, supple without lymphadenopathy LUNGS: Breath sounds clear to auscultation bilaterally and equal. No wheezes rales or rhonchi. HEART: Regular rate and rhythm without murmurs ABDOMEN: Mildly distended, soft, nontender, normoactive bowel sounds. No rebound, guarding, or rigidity. No masses appreciated. EXTREMITIES: Nontender, good range of motion, no pitting or edema. NEUROLOGICAL: No focal neurological deficits. Moves all extremities spontaneously Motor and sensory grossly intact on exam. PSYCH: Normal mood, normal affect. SKIN: Warm, Dry, normal turgor, no rashes or lesions noted on exposed skin - Related Data Allergies/Adverse Reactions: lorazepam [From Ativan] Allergy (Intermediate, Verified 04/10/19 13:03) Delirium Sulfa (Sulfonamide Antibiotics) Allergy (Mild, Verified 04/10/19 13:03) Hives promethazine [From Phenergan] Allergy (Verified 04/10/19 13:03) Past Medical History - General Information source: Patient - Social History Smoking Status: Never Smoker Frequency of alcohol use: None Drug Abuse: None Family History: Reviewed & Not Pertinent, Hypertension Patient has suicidal ideation: No Patient has homicidal ideation: No - Past Medical History Cardiac Medical History: Reports: Hx Congestive Heart Failure, Hx Coronary Art brenda Disease, Hx Heart Attack - PACE MAKER, Hx Hypercholesterolemia, Hx Hypertension Denies: Hx DVT, Hx Pulmonary Embolism Pulmonary Medical History: Reports: Hx COPD - On home O2 at 2 L/min at all times., Hx Pneumonia Denies: Hx Asthma, Hx Bronchitis Neurological Medical History: Reports: Hx Cerebrovascular Accident, Hx Seizures. Denies: Hx Migraine Endocrine Medical History: Reports: Hx Diabetes Mellitus Type 1, Hx Diabetes Mellitus Type 2, Hx Hypothyroidism. Denies: Hx Hyperthyroidism Renal/ Medical History: Denies: Hx Peritoneal Dialysis GI Medical History: Denies: Hx Cirrhosis, Hx Gastroesophageal Reflux Disease, Hx Hepatitis Musculoskeletal Medical History: Reports Hx Arthritis Skin Medical History: Denies Hx Eczema, Denies Hx Psoriasis Psychiatric Medical History: Reports: Hx Depression Infectious Medical History: Denies: Hx Hepatitis Past Surgical History: Reports: Hx Appendectomy, Hx Cardiac Surgery - pacemaker/CABG, Hx Cholecystectomy, Hx Coronary Artery Bypass Graft, Hx Hysterectomy, Hx Orthopedic Surgery - Back surgery 2., Hx Pacemaker - Immunizations Hx Diphtheria, Pertussis, Tetanus Vaccination: Yes Hx Pneumococcal Vaccination: 10/29/10 Physical Exam - Vital signs Vitals: Temp Pulse Resp BP Pulse Ox 98.4 F 61 14 158/53 H 90 L 04/10/19 13:11 04/10/19 13:11 04/10/19 13:11 04/10/19 13:11 04/10/19 13:11 Course - Re-evaluation Re-evalutation: 04/10/19 17:43 Vitals reviewed. Nursing notes reviewed. Patient received an enema and mineral oil in triage and has had 2 large bowel movements. Her abdominal pain is improved. X-ray shows constipation. Her blood work is unremarkable. Patient is otherwise well-appearing with stable vital signs. She will follow with her primary care doctor to discuss a more permanent solution to her chronic constipation. She is stable at discharge. Laboratory 04/10/19 04/10/19 04/10/19 14:10 14:10 15:22 WBC 8.6 RBC 3.79 Hgb 12.0 Hct 35.3 L MCV 93 MCH 31.6 MCHC 34.0 RDW 13.3 Plt Count 239 Seg Neutrophils % 64.1 Lymphocytes % 28.9 Monocytes % 5.9 Eosinophils % 0.7 Basophils % 0.4 Absolute Neutrophils 5.5 Absolute Lymphocytes 2.5 Absolute Monocytes 0.5 Absolute Eosinophils 0.1 Absolute Basophils 0.0 Sodium 140.7 Potassium 4.6 Chloride 100 Carbon Dioxide 35 H Anion Gap 6 BUN 21 H Creatinine 0.87 Est GFR ( Amer) > 60 Est GFR (Non-Af Amer) > 60 Glucose 184 H Calcium 9.4 Total Bilirubin 0.4 Direct Bilirubin 0.4 Neonat Total Bilirubin Not Reportable Neonat Direct Bilirubin Not Reportable Neonat Indirect Bili Not Reportable AST 24 ALT 19 Alkaline Phosphatase 97 Total Protein 6.8 Albumin 4.2 Lipase 26.5 Urine Color YELLOW Urine Appearance SLIGHTLY-CLOUDY Urine pH 7.0 Ur Specific Vincent 1.021 Urine Protein 100 H Urine Glucose (UA) 50 H Urine Ketones NEGATIVE Urine Blood NEGATIVE Urine Nitrite NEGATIVE Urine Bilirubin NEGATIVE Urine Urobilinogen 2.0 H Ur Leukocyte Esterase TRACE H Urine WBC (Auto) 3 Urine RBC (Auto) 1 Urine Bacteria (Auto) TRACE Squamous Epi Cells Auto 2 Urine Mucus (Auto) RARE Urine Ascorbic Acid NEGATIVE Acute Abdomen Series 04/10/19 13:47 IMPRESSION: Constipation. - Vital Signs Vital signs: Temp Pulse Resp BP Pulse Ox 98.4 F 61 14 158/53 H 90 L 04/10/19 13:11 04/10/19 13:11 04/10/19 13:11 04/10/19 13:11 04/10/19 13:11 - Laboratory Result Diagrams: 04/10/19 14:10 04/10/19 14:10 Laboratory results interpreted by me: 04/10/19 04/10/19 04/10/19 14:10 14:10 15:22 Hct 35.3 L Carbon Dioxide 35 H BUN 21 H Glucose 184 H Urine Protein 100 H Urine Glucose (UA) 50 H Urine Urobilinogen 2.0 H Ur Leukocyte Esterase TRACE H Discharge - Discharge Clinical Impression: Constipation Qualifiers: Constipation type: other constipation type Qualified Code(s): K59.09 - Other constipation Abdominal pain Qualifiers: Abdominal location: generalized Qualified Code(s): R10.84 - Generalized abdominal pain Condition: Stable Disposition: HOME, SELF-CARE Instructions: Abdominal Pain ([facility]), Constipation ([facility]) Additional Instructions: Please return to the emergency department if you have any worsening, or concern of your symptoms. Please return to the emergency department if you develop chest pain, difficulty breathing, severe abdominal pain, or ongoing vomiting. Please follow-up with your primary care physician in 2-3 days and any other recommended physicians. If prescribed, take all medications as directed. If you have any questions or concerns do not hesitate to return the emergency department for evaluation. Continue using your bowel regimen including enemas at home
[2019-04-10 18:11] VITALS: BP 122/74
== END 2019-04-10 18:11 | disposition home or self-care (01) ==
LOC: ER 13:02
DX: K59.09 Other constipation (principal); R10.84 Generalized abdominal pain; R10.9 Unspecified abdominal pain; I50.9 Heart failure, unspecified; I25.10 Atherosclerotic heart disease of native coronary artery without angina pectoris; I25.2 Old myocardial infarction; E11.9 Type 2 diabetes mellitus without complications
CPT/HCPCS: 99283; 36415; 83690; 85025; 80053; 81001; 74022; J3490

== ENCOUNTER 2019-04-20 12:27 | Emergency (ER) | payer MEDICARE ==
[2019-04-20] MEDS ORDERED: MINERAL OIL 30 ML UDCUP PR ONE ×2 (12:48→17:00)
--- NOTE | 2019-04-20 12:54 | ER Document Report ---
ED Medical Screen (RME) - General Chief Complaint: Constipation Stated Complaint: ABDOMINAL PAIN TRAVEL OUTSIDE OF THE [place].S. IN LAST 30 DAYS: No - HPI Notes: 04/20/19 12:54 Patient is a 73-year-old female with a history of oxygen dependent COPD, hypertension, insulin-dependent diabetes, Igtgyeq-Rajyd-Oitwu complaining of constipation and requesting soapsuds enema. Patient states that the Cspnezr-Exbmy-Ldolb causes her to be in pain and she is on narcotics for that which causes her then to have issues with constipation. states that they did do an enema at home and had a little bowel movement come out, but patient continues to complain of generalized abdominal pain and distention. Patient states that this pain is consistent with her constipation issues and has had this multiple times in the past. She did have one episode of nausea and vomiting yesterday. She is otherwise urinating normally. Denies JACOME, fever, neck pain, URI, CP, SOB, dysuria, back pain, or rash. I have treated and performed a rapid initial assessment of this patient. A comprehensive ED assessment and evaluation of the patient, analysis of test results and completion of medical decision making process will be conducted by additional ED providers. PHYSICAL EXAMINATION: GENERAL: Well-appearing, well-nourished and in no acute distress. A&Ox4. Answers questions appropriately. LUNGS: Breath sounds clear to auscultation bilaterally and equal. No wheezes rales or rhonchi. HEART: Regular rate and rhythm without murmurs, rubs, gallops. - Related Data Allergies/Adverse Reactions: lorazepam [From Ativan] Allergy (Intermediate, Verified 04/10/19 13:03) Delirium Sulfa (Sulfonamide Antibiotics) Allergy (Mild, Verified 04/10/19 13:03) Hives promethazine [From Phenergan] Allergy (Verified 04/10/19 13:03) Past Medical History - Past Medical History Cardiac Medical History: Reports: Hx Congestive Heart Failure, Hx Coronary Artery Disease, Hx Heart Attack - PACE MAKER, Hx Hypercholesterolemia, Hx Hypertension Denies: Hx DVT, Hx Pulmonary Embolism Pulmonary Medical History: Reports: Hx COPD - On home O2 at 2 L/min at all times., Hx Pneumonia Denies: Hx Asthma, Hx Bronchitis Neurological Medical History: Reports: Hx Cerebrovascular Accident, Hx Seizures. Denies: Hx Migraine Endocrine Medical History: Reports: Hx Diabetes Mellitus Type 1, Hx Diabetes Mellitus Type 2, Hx Hypothyroidism. Denies: Hx Hyperthyroidism Renal/ Medical History: Denies: Hx Peritoneal Dialysis GI Medical History: Denies: Hx Cirrhosis, Hx Gastroesophageal Reflux Disease, Hx Hepatitis Musculoskeltal Medical History: Reports Hx Arthritis Skin Medical History: Denies Hx Eczema, Denies Hx Psoriasis Psychiatric Medical History: Reports: Hx Depression Infectious Medical History: Denies: Hx Hepatitis Past Surgical History: Reports: Hx Appendectomy, Hx Cardiac Surgery - pacemaker/ CABG, Hx Cholecystectomy, Hx Coronary Artery Bypass Graft, Hx Hysterectomy, Hx Orthopedic Surgery - Back surgery 2., Hx Pacemaker - Immunizations Hx Diphtheria, Pertussis, Tetanus Vaccination: Yes Physical Exam - Vital signs Vitals: Temp Pulse Resp BP Pulse Ox 98.2 F 64 16 162/62 H 94 04/20/19 12:40 04/20/19 12:40 04/20/19 12:40 04/20/19 12:40 04/20/19 12:40 Course - Vital Signs Vital signs: Temp Pulse Resp BP Pulse Ox 98.2 F 64 16 162/62 H 94 04/20/19 12:40 04/20/19 12:40 04/20/19 12:40 04/20/19 12:40 04/20/19 12:40
[2019-04-20 13:42] LABS: ABSOLUTE EOSINOPHILS # (AUTO) 0.1 10^3/uL (0.0-0.6); ABSOLUTE LYMPHOCYTES (AUTO) 2.2 10^3/uL (0.5-4.7); ABSOLUTE MONOCYTES (AUTO) 0.5 10^3/uL (0.1-1.4); ABSOLUTE NEUT (AUTO) 7.3 10^3/uL (1.7-8.2); BASOPHILS % (AUTO) 0.3 % (0-2); EOSINOPHILS % (AUTO) 0.7 % (0-6); HEMATOCRIT 35.8 % (36.0-47.0); HEMOGLOBIN 12.3 g/dL (12.0-15.5); LYMPHOCYTES % (AUTO) 21.4 % (13-45); MEAN CORPUSCULAR HEMOGLOBIN 31.7 pg (27.0-33.4); MEAN CORPUSCULAR HGB CONC 34.2 g/dL (32.0-36.0); MEAN CORPUSCULAR VOLUME 93 fl (80-97); MONOCYTES % (AUTO) 5.1 % (3-13); PLATELET COUNT 256 10^3/uL (150-450); RED BLOOD COUNT 3.87 10^6/uL (3.72-5.28); SEGMENTED NEUTROPHILS % (AUTO) 72.5 % (42-78); TOTAL CELLS COUNTED % (AUTO) 100 %
[2019-04-20 13:57] LABS: ANION GAP 8 (5-19); BLOOD UREA NITROGEN 24 mg/dL (7-20); CALCIUM 9.5 mg/dL (8.4-10.2); CARBON DIOXIDE 35 mmol/L (22-30); CHLORIDE 99 mmol/L (98-107); GLUCOSE 111 mg/dL (75-110); POTASSIUM 4.7 mmol/L (3.6-5.0); SODIUM 141.8 mmol/L (137-145)
--- NOTE | 2019-04-20 14:19 | RADIOLOGY REPORT (SQ) ---
EXAM DESCRIPTION: KUB/ABDOMEN (SINGLE VIEW) COMPLETED DATE/TIME: 04/20/2019 2:03 pm REASON FOR STUDY: constipation, abd pain COMPARISON: 04/10/2019. NUMBER OF VIEWS: One view. TECHNIQUE: Supine radiographic image of the abdomen acquired. LIMITATIONS: None. FINDINGS: BOWEL GAS PATTERN: There is evidence of a large amount of fecal material throughout the co maddison to the rectum. Scattered small bowel gas. CALCIFICATIONS: No suspicious calcifications. SOFT TISSUES: No gross mass or suggestion of organomegaly. HARDWARE: Surgical clips right upper quadrant. Surgical clips right lower quadrant. BONES: Lumbar spondylosis. OTHER: No other significant finding. IMPRESSION: Constipation. Nonspecific bowel-gas pattern. TECHNICAL DOCUMENTATION: JOB ID: [id number] SC-69 2010 [employer]- All Rights Reserved Reading location - IP/workstation name: [email or web address]
--- NOTE | 2019-04-20 16:36 | ER Document Report ---
ED GI/ - General Chief Complaint: Constipation Stated Complaint: ABDOMINAL PAIN Time Seen by Provider: 04/20/19 13:05 Notes: Patient is a 73-year-old female with a history of COPD, hypertension, insulin- dependent diabetes, Vayztwn-Ygqvn-diccv syndrome who presents to the emergency department with a chief complaint of constipation. Patient states that her last bowel movement was when she was seen here in the emergency department last week. Patient states that she did attempt an enema and a rectal disimpaction by her earlier this morning with some result in relief. Patient states that she does follow Dr. 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 States that she is also in a research study at [place] regarding her symptoms with constipation. Patient denies fever. Patient denies any urinary symptoms. TRAVEL OUTSIDE OF THE [place].S. IN LAST 30 DAYS: No - Related Data Allergies/Adverse Reactions: lorazepam [From Ativan] Allergy (Intermediate, Verified 04/10/19 13:03) Delirium Sulfa (Sulfonamide Antibiotics) Allergy (Mild, Verified 04/10/19 13:03) Hives promethazine [From Phenergan] Allergy (Verified 04/10/19 13:03) Past Medical History - General Information source: Patient - Social History Smoking Status: Unknown if Ever Smoked Cigarette use (# per day): No Chew tobacco use (# tins/day): No Smoking Education Provided: No Frequency of alcohol use: None Drug Abuse: None Lives with: Family Family History: Reviewed & Not Pertinent, Hypertension Patient has suicidal ideation: No Patient has homicidal ideation: No - Past Medical History Cardiac Medical History: Reports: Hx Congestive Heart Failure, Hx Coronary Artery Disease, Hx Heart Attack - PACE MAKER, Hx Hypercholesterolemia, Hx Hypertension Denies: Hx DVT, Hx Pulmonary Embolism Pulmonary Medical History: Reports: Hx COPD - On home O2 at 2 L/min at all times., Hx Pneumonia Denies: Hx Asthma, Hx Bronchitis Neurological Medical History: Reports: Hx Cerebrovascular Accident, Hx Seizures. Denies: Hx Migraine Endocrine Medical History: Reports: Hx Diabetes Mellitus Type 1, Hx Diabetes Mellitus Type 2, Hx Hypothyroidism. Denies: Hx Hyperthyroidism Renal/ Medical History: Reports: None. Denies: Hx Peritoneal Dialysis Malignancy Medical History: Reports: None GI Medical History: Reports: None. Denies: Hx Cirrhosis, Hx Gastroesophageal Reflux Disease, Hx Hepatitis Musculoskeletal Medical History: Reports Hx Arthritis Skin Medical History: Reports None, Denies Hx Eczema, Denies Hx Psoriasis Psychiatric Medical History: Reports: Hx Depression Traumatic Medical History: Reports: None Infectious Medical History: Reports: None. Denies: Hx Hepatitis Past Surgical History: Reports: Hx Appendectomy, Hx Cardiac Surgery - pacemaker/CABG, Hx Cholecystectomy, Hx Coronary Artery Bypass Graft, Hx Hysterectomy, Hx Orthopedic Surgery - Back surgery 2., Hx Pacemaker - Immunizations Hx Diphtheria, Pertussis, Tetanus Vaccination: Yes Hx Pneumococcal Vaccination: 10/29/10 Review of Systems - Review of Systems Constitutional: No symptoms reported EENT: No symptoms reported Cardiovascular: No symptoms reported Respiratory: No symptoms reported Gastrointestinal: See HPI Genitourinary: No symptoms reported Female Genitourinary: No symptoms reported Musculoskeletal: No symptoms reported Skin: No symptoms reported Hematologic/Lymphatic: No symptoms reported Neurological/Psychological: No symptoms reported Physical Exam - Vital signs Vitals: Temp Pulse Resp BP Pulse Ox 98.2 F 64 16 162/62 H 94 04/20/19 12:40 04/20/19 12:40 04/20/19 12:40 04/20/19 12:40 04/20/19 12:40 Interpretation: Hypertensive - Notes Notes: GENERAL: Well-appearing, well-nourished and in no acute distress. HEAD: Atraumatic, normocephalic. EYES: Pupils equal round and reactive to light, extraocular movements intact, sclera anicteric, conjunctiva are normal. ENT: Nares patent, oropharynx clear without exudates. Moist mucous membranes. NECK: Normal range of motion, supple without lymphadenopathy or JVD. LUNGS: Breath sounds clear to auscultation bilaterally and equal. No wheezes rales or rhonchi. HEART: Regular rate and rhythm without murmurs, rubs or gallops. ABDOMEN: Soft, nontender, normoactive bowel sounds. No guarding, no rebound. No masses appreciated. BACK: No cervical, thoracic, lumbar midline tenderness. No saddle anesthesia, normal distal neurovascular exam. GENITOURINARY: Deferred. EXTREMITIES: Normal range of motion, no pitting or edema. No clubbing or cyanosis. NEUROLOGICAL: Cranial nerves II through XII grossly intact. Normal speech, normal gait. PSYCH: Normal mood, normal affect. SKIN: Warm, Dry, normal turgor, no rashes or lesions noted. Course - Re-evaluation Re-evalutation: 04/20/19 Patient's lab work was unremarkable. The x-ray did show constipation with stool and gas pattern. Patient did receive a enema while in the emergency department with relief of gas and a small amount of stool. Patient states she feels much better. Patient's abdomen is soft and nontender. She states when she is extremely constipated her abdomen will be swollen and hard. I did perform a rectal exam which did not show any hard stool in the rectum. She did have a non-thrombosed external hemorrhoid. Patient states she would like to go home as a lot of her discomfort was relieved when her performed a enema at home this morning. I did inform the patient that her x-ray did show constipation and stool in the colon. Will give patient a dose of mag citrate to take home as she states this has worked for her in the past. Patient has been her multiple times for constipation. I did explain to the patient the importance of following up with her physician in [place]. - Vital Signs Vital signs: Temp Pulse Resp BP Pulse Ox 98.9 F 63 16 154/59 H 95 04/20/19 17:46 04/20/19 17:46 04/20/19 17:46 04/20/19 17:46 04/20/19 17:46 - Laboratory Result Diagrams: 04/20/19 13:20 04/20/19 13:20 Laboratory results interpreted by me: 04/20/19 04/20/19 13:20 13:20 Hct 35.8 L Carbon Dioxide 35 H BUN 24 H Est GFR (Non-Af Amer) 59 L Glucose 111 H - Diagnostic Test Radiology reviewed: Reports reviewed Discharge - Discharge Clinical Impression: Constipation Qualifiers: Constipation type: unspecified constipation type Qualified Code(s): K59.00 - Constipation, unspecified Condition: Stable Disposition: HOME, SELF-CARE Instructions: Constipation ([facility]) Additional Instructions: You were seen in the emergency department for constipation. Your x-ray did show in fact that you are constipated. You did receive an enema which did release a lot of fluid but very little stool. Your abdomen is very soft and you are not having any abdominal pain. You have stated that you feel much better and would like to go home although you did not have very much stool from the enema. I did perform a rectal exam which did not show any hard stool in the rectum. Please follow-up with your physician in [place] for further management of your constipation. I have given you some mag citrate to take home and drink as this should make you have bowel movements please return to the emergency department for any worsening signs or symptoms. Constipation Constipation is a common problem. It is especially likely as you get older. Constipation is a common cause of abdominal pain, but sometimes causes no symptoms at all. Causes of constipation include certain medications, dehydration, diets, inactivity, and low-fiber intake. Rarely, it can be a symptom of underlying disease. The physician has evaluated you for this. Avoid constipation by eating a diet high in fiber, fruits, and vegetables. Drink plenty of liquids. Get regular exercise. If possible, avoid constipating medicines like narcotic pain medication. Some vitamin tablets can cause constipation. Stool softeners may be needed for difficult cases. An excellent stool softener is Konsyl which is available at [employer], and [employer]. Just add a teaspoon to a glass of pineapple or orange juice daily or twice a day if needed. Laxatives are useful for occasional constipation. You should use them only when necessary. Too-frequent use can make your bowels dependent on them. Some over the counter laxatives available without prescription are: Milk of Magnesia, 1-2 tablespoons twice a day Dulcolax, 5 mg pill or 10 mg suppository. Citrate of Magnesia, 4-5 ounces a day for a day or two For acute constipation, Fleet's Enemas and Dulcolax suppositories are helpful. Chronic, tank terminal gauger use of laxatives or enemas is not a good idea. Your bowel may become dependant on them. You do not need to have a bowel movement every day. Many people do fine with a bowel movement every three or four days. You should call your doctor or return for re-evaluation if you pass blood in the stool, or if you develop fever or increasing abdominal pain.
[2019-04-20 17:48] VITALS: BP 154/59
[2019-04-20] MEDS ORDERED: MAGNESIUM CITRATE 296 ML BOTTLE PO ONE (17:48)
== END 2019-04-20 18:21 | disposition home or self-care (01) ==
LOC: ER 12:27
DX: K59.00 Constipation, unspecified (principal); J44.9 Chronic obstructive pulmonary disease, unspecified; E11.9 Type 2 diabetes mellitus without complications; I25.10 Atherosclerotic heart disease of native coronary artery without angina pectoris; E78.00 Pure hypercholesterolemia, unspecified; I11.0 Hypertensive heart disease with heart failure; I50.9 Heart failure, unspecified; Z95.810 Presence of automatic (implantable) cardiac defibrillator; Z79.4 Long term (current) use of insulin; Z99.81 Dependence on supplemental oxygen; Z90.49 Acquired absence of other specified parts of digestive tract; Z90.710 Acquired absence of both cervix and uterus
CPT/HCPCS: 99283; 36415; 85025; 80048; 74018; J3490 ×2

== ENCOUNTER 2019-04-28 14:56 | Emergency (ER) | payer MEDICARE ==
[2019-04-28] MEDS ORDERED: ASPIRIN 81 MG TABLET, CHEWABLE PO ONE (15:46)
--- NOTE | 2019-04-28 15:50 | ER Document Report ---
ED Medical Screen (RME) - General Chief Complaint: Abdominal Pain Stated Complaint: GENERAL BURNING Time Seen by Provider: 04/28/19 15:44 Mode of Arrival: Medic Information source: Patient Notes: Patient presents complaining of burning sensation to the head chest and abdomen area. Patient does report nausea. Symptoms started yesterday. Patient denies any chest pain symptoms. hx: Epspgfo-Njvzd-Qkgzf, anxiety, pacemaker I have greeted and performed a rapid initial assessment of this patient. A comprehensive ED assessment and evaluation of the patient, analysis of test results and completion of the medical decision making process will be conducted by additional ED providers. TRAVEL OUTSIDE OF THE [place]. IN LAST 30 DAYS: No - Related Data Allergies/Adverse Reactions: lorazepam [From Ativan] Allergy (Intermediate, Verified 04/28/19 15:00) Delirium Sulfa (Sulfonamide Antibiotics) Allergy (Mild, Verified 04/28/19 15:00) Hives promethazine [From Phenergan] Allergy (Verified 04/28/19 15:00) Past Medical History - Social History Frequency of alcohol use: None Drug Abuse: None - Past Medical History Cardiac Medical History: Reports: Hx Congestive Heart Failure, Hx Coronary Arter y Disease, Hx Heart Attack - PACE MAKER, Hx Hypercholesterolemia, Hx Hypertension Denies: Hx DVT, Hx Pulmonary Embolism Pulmonary Medical History: Reports: Hx COPD - On home O2 at 2 L/min at all times., Hx Pneumonia Denies: Hx Asthma, Hx Bronchitis Neurological Medical History: Reports: Hx Cerebrovascular Accident, Hx Seizures. Denies: Hx Migraine Endocrine Medical History: Reports: Hx Diabetes Mellitus Type 1, Hx Diabetes Mellitus Type 2, Hx Hypothyroidism. Denies: Hx Hyperthyroidism Renal/ Medical History: Denies: Hx Peritoneal Dialysis GI Medical History: Denies: Hx Cirrhosis, Hx Gastroesophageal Reflux Disease, Hx Hepatitis Musculoskeltal Medical History: Reports Hx Arthritis Skin Medical History: Denies Hx Eczema, Denies Hx Psoriasis Psychiatric Medical History: Reports: Hx Depression Infectious Medical History: Denies: Hx Hepatitis Past Surgical History: Reports: Hx Appendectomy, Hx Cardiac Surgery - pacemaker/CABG, Hx Cholecystectomy, Hx Coronary Artery Bypass Graft, Hx Hysterectomy, Hx Orthopedic Surgery - Back surgery 2., Hx Pacemaker - Immunizations Hx Diphtheria, Pertussis, Tetanus Vaccination: Yes Physical Exam - Vital signs Vitals: Temp Pulse Resp BP Pulse Ox 98.8 F 103 H 16 165/83 H 92 07/01/19 15:11 04/28/19 15:11 04/28/19 15:11 04/28/19 15:11 04/28/19 15:11 - Abdominal Tenderness: Tender - generalized abd Course - Vital Signs Vital signs: Temp Pulse Resp BP Pulse Ox 98.8 F 103 H 16 165/83 H 92 04/28/19 15:11 04/28/19 15:11 04/28/19 15:11 04/28/19 15:11 04/28/19 15:11
--- NOTE | 2019-04-28 16:28 | RADIOLOGY REPORT (SQ) ---
EXAM DESCRIPTION: ACUTE ABDOMEN SERIES COMPLETED DATE/TIME: 04/28/2019 4:20 pm REASON FOR STUDY: burning in chest/abd COMPARISON: 04/20/2019 NUMBER OF VIEWS: Three views. TECHNIQUE: Frontal chest, supine abdomen and upright/decubitus abdomen radiographic images acquired. LIMITATIONS: None. FINDINGS: CHEST: Lungs clear of infiltrates. FREE AIR: None. No abnormal gas collections. BOWEL GAS PATTERN: Abundant gas and fecal material throughout nondilated colon. Gas fluid levels wit hin nondilated loops of small bowel left upper quadrant. CALCIFICATIONS: No suspicious calcifications. HARDWARE: None in the abdomen. SOFT TISSUES: No gross mass or suggestion of organomegaly. BONES: No acute fracture. No worrisome bone lesions. OTHER: No other significant finding. IMPRESSION: Similar to prior. Fecal retention. Nonspecific bowel gas pattern. TECHNICAL DOCUMENTATION: JOB ID: [id number] [employer]- All Rights Reserved Reading location - IP/workstation name: [email or web address]
[2019-04-28 17:03] LABS: ABSOLUTE LYMPHOCYTES (AUTO) 2.3 10^3/uL (0.5-4.7); ABSOLUTE MONOCYTES (AUTO) 0.5 10^3/uL (0.1-1.4); ABSOLUTE NEUT (AUTO) 8.8 10^3/uL (1.7-8.2); BASOPHILS % (AUTO) 0.3 % (0-2); EOSINOPHILS % (AUTO) 0.4 % (0-6); HEMATOCRIT 37.1 % (36.0-47.0); HEMOGLOBIN 12.7 g/dL (12.0-15.5); LYMPHOCYTES % (AUTO) 19.3 % (13-45); MEAN CORPUSCULAR HEMOGLOBIN 31.6 pg (27.0-33.4); MEAN CORPUSCULAR HGB CONC 34.1 g/dL (32.0-36.0); MEAN CORPUSCULAR VOLUME 93 fl (80-97); MONOCYTES % (AUTO) 4.6 % (3-13); PLATELET COUNT 291 10^3/uL (150-450); RED BLOOD COUNT 4.01 10^6/uL (3.72-5.28); RED CELL DISTRIBUTION WIDTH 12.8 % (11.5-14.0); SEGMENTED NEUTROPHILS % (AUTO) 75.4 % (42-78); TOTAL CELLS COUNTED % (AUTO) 100 %; WHITE BLOOD COUNT 11.7 10^3/uL (4.0-10.5)
[2019-04-28 17:29] LABS: ALANINE AMINOTRANSFERASE 26 U/L (9-52); ALBUMIN 4.7 g/dL (3.5-5.0); ALKALINE PHOSPHATASE 122 U/L (38-126); ANION GAP 11 (5-19); ASPARTATE AMINO TRANSFERASE 32 U/L (14-36); BILIRUBIN,DIRECT 0.5 mg/dL (0.0-0.4); BILIRUBIN,TOTAL 0.7 mg/dL (0.2-1.3); BLOOD UREA NITROGEN 26 mg/dL (7-20); CALCIUM 9.7 mg/dL (8.4-10.2); CARBON DIOXIDE 31 mmol/L (22-30); CHLORIDE 98 mmol/L (98-107); CREATINE KINASE 108 U/L (30-135); GLUCOSE 165 mg/dL (75-110); LIPASE 25.2 U/L (23-300); POTASSIUM 3.7 mmol/L (3.6-5.0); TOTAL PROTEIN 7.8 g/dL (6.3-8.2)
[2019-04-28 21:45] LABS: APPEARANCE,URINE SLIGHTLY-CLOUDY; BILIRUBIN,URINE NEGATIVE (NEGATIVE); COLOR,URINE YELLOW; GLUCOSE, URINE NEGATIVE (NEGATIVE); KETONES,URINE NEGATIVE (NEGATIVE); LEUKOCYTE ESTERASE,URINE TRACE (NEGATIVE); NITRITE,URINE NEGATIVE (NEGATIVE); PROTEIN,URINE >=500 mg/dL (NEGATIVE); URINE SPECIFIC GRAVITY 1.022; UROBILINOGEN,URINE NEGATIVE mg/dL (<2.0)
--- NOTE | 2019-04-28 22:14 | RADIOLOGY REPORT (SQ) ---
EXAM DESCRIPTION: CT HEAD WITHOUT INTRAVENOUS CONTRAST CLINICAL HISTORY: Slurred speech COMPARISON: None TECHNIQUE: CT of the head was performed without intravenous contrast .This exam was performed according to our departmental dose-optimization program, which includes automated exposure control, adjustment of the mA and/or KV according to the patient's size and/or use of iterative reconstruction technique. FINDINGS: Mild ventriculomegaly and cortical atrophy. Nonspecific periventricular white matter low density. Suspected mild size right occipital parasagittal nonacute infarction. No obvious acute intra-axial or extra-axial lesions. Atherosclerotic disease. Mastoid air cells, paranasal sinuses and bony calvarium are unremarkable. IMPRESSION: 1. No acute non prominent infarction in the right occipital lobe parasagittal region. 2. No obvious acute findings. There are nonspecific white matter changes. If clinically suspicious, consider MRI.
[2019-04-29] MEDS ORDERED: ISOSORBIDE MONONITRATE 30 MG TAB.ER.24H PO ONE (00:29)
--- NOTE | 2019-04-29 00:30 | EKG REPORT ---
SEVERITY:- ABNORMAL ECG - SINUS RHYTHM ATRIAL PREMATURE COMPLEX RBBB AND LAFB LEFT VENTRICULAR HYPERTROPHY : Confirmed by: Oneida Barlow 29-Apr-2019 00:29:57
--- NOTE | 2019-04-29 00:40 | RADIOLOGY REPORT (SQ) ---
EXAM DESCRIPTION: XR CHEST 2 VIEWS COMPLETED DATE/TME: 04/28/2019 23:13 CLINICAL HISTORY: 73 years Female, upper body burning COMPARISON:Mar 03 2019 NUMBER OF VIEWS/TECHNIQUE: 2, Frontal, Lateral FINDINGS: Adequate lung volume, clear parenchyma, normal cardiac silhouette, and intact bony thorax. Sternotomy. Cardiac/mediastinal hardware/clips. Left cardiac stimulator with leads. Upper abdominal clips. IMPRESSION: No acute cardiopulmonary findings.
[2019-04-29 00:47] VITALS: BP 158/117
[2019-04-29] MEDS ORDERED: DIPHENHYDRAMINE HCL 25 MG CAPSULE PO ONE (01:25)
[2019-04-29] MEDS ORDERED: METHADONE HCL 10 MG TABLET PO ONE (01:25)
--- NOTE | 2019-04-29 01:43 | ER Document Report ---
ED General - General Chief Complaint: Abdominal Pain Stated Complaint: GENERAL BURNING Time Seen by Provider: 04/28/19 15:44 Mode of Arrival: Medic Notes: Patient is a 73-year-old female with a history of COPD, oxygen dependent at 2 L, hypertension, insulin-dependent diabetes, and Charcot-Ludy tooth syndrome presents to the emergency department with a chief complaint of abdominal burning that radiates into her upper shoulder blades. Patient states she has had this discomfort for 3 years. Patient states that when she develops this burning sensation she will take a couple of swigs of Benadryl at home. Patient states that she was not told to take the Benadryl but that she has taken it because it helps with the discomfort. She states that she continues to receive enemas from her daily and her last bowel movement was earlier today. Patient states that she does not feel constipated as she is passing gas and having bowel movements. She denies chest pain or shortness of breath. Patient states that burning sensation feels like her CMT. She states she has a doctor in [place] that she follows for CMT but has not seen him in weeks. Patient does take Methadone for chronic back pain - and her pain management physician is Dr. Choi. TRAVEL OUTSIDE OF THE [place] IN LAST 30 DAYS: No - Related Data Allergies/Adverse Reactions: lorazepam [From Ativan] Allergy (Intermediate, Verified 04/28/19 15:00) Delirium Sulfa (Sulfonamide Antibiotics) Allergy (Mild, Verified 04/28/19 15:00) Hives promethazine [From Phenergan] Allergy (Verified 04/28/19 15:00) Past Medical History - General Information source: Patient - Social History Smoking Status: Never Smoker Frequency of alcohol use: None Drug Abuse: None Family History: Reviewed & Not Pertinent, Hypertension Patient has suicidal ideation: No Patient has homicidal ideation: No - Past Medical History Cardiac Medical History: Reports: Hx Congestive Heart Failure, Hx Coronary Artery Disease, Hx Heart Attack - PACE MAKER, Hx Hypercholesterolemia, Hx Hypertension Denies: Hx DVT, Hx Pulmonary Embolism Pulmonary Medical History: Reports: Hx COPD - On home O2 at 2 L/min at all times., Hx Pneumonia Denies: Hx Asthma, Hx Bronchitis Neurological Medical History: Reports: Hx Cerebrovascular Accident, Hx Seizures. Denies: Hx Migraine Endocrine Medical History: Reports: Hx Diabetes Mellitus Type 1, Hx Diabetes Mellitus Type 2, Hx Hypothyroidism. Denies: Hx Hyperthyroidism Renal/ Medical History: Reports: None. Denies: Hx Peritoneal Dialysis Malignancy Medical History: Reports: None GI Medical History: Reports: None. Denies: Hx Cirrhosis, Hx Gastroesophageal Reflux Disease, Hx Hepatitis Musculoskeletal Medical History: Reports Hx Arthritis Skin Medical History: Reports None, Denies Hx Eczema, Denies Hx Psoriasis Psychiatric Medical History: Reports: Hx Depression Traumatic Medical History: Reports: None Infectious Medical History: Reports: None. Denies: Hx Hepatitis Past Surgical History: Reports: Hx Appendectomy, Hx Cardiac Surgery - pacemaker/CABG, Hx Cholecystectomy, Hx Coronary Artery Bypass Graft, Hx Hysterectomy, Hx Orthopedic Surgery - Back surgery 2., Hx Pacemaker - Immunizations Hx Diphtheria, Pertussis, Tetanus Vaccination: Yes Hx Pneumococcal Vaccination: 10/29/10 Review of Systems - Review of Systems Constitutional: No symptoms reported EENT: No symptoms reported Cardiovascular: No symptoms reported Respiratory: No symptoms reported Gastrointestinal: See HPI Genitourinary: No symptoms reported Female Genitourinary: No symptoms reported Musculoskeletal: No symptoms reported Skin: No symptoms reported Hematologic/Lymphatic: No symptoms reported Neurological/Psychological: No symptoms reported Physical Exam - Vital signs Vitals: Temp Pulse Resp BP Pulse Ox 98.8 F 103 H 16 165/83 H 92 04/28/19 15:11 04/28/19 15:11 04/28/19 15:11 04/28/19 15:11 04/28/19 15:11 Interpretation: Hypertensive - Notes Notes: GENERAL: Well-appearing, disheveled and in no acute distress. HEAD: Atraumatic, normocephalic. EYES: Pupils equal round and reactive to light, extraocular movements intact, sclera anicteric, conjunctiva are normal. ENT: Nares patent, oropharynx clear without exudates. Moist mucous membranes. NECK: Normal range of motion, supple without lymphadenopathy or JVD. LUNGS: Breath sounds clear to auscultation bilaterally and equal. No wheezes rales or rhonchi. HEART: Regular rate and rhythm without murmurs, rubs or gallops. ABDOMEN: Soft, nontender, normoactive bowel sounds. No guarding, no rebound. No masses appreciated. BACK: No cervical, thoracic, lumbar midline tenderness. No saddle anesthesia, normal distal neurovascular exam. GENITOURINARY: Deferred. EXTREMITIES: Normal range of motion, no pitting or edema. No clubbing or cyanosis. NEUROLOGICAL: Cranial nerves II through XII grossly intact. Normal speech, normal gait. PSYCH: Normal mood, normal affect. SKIN: Warm, Dry, normal turgor, no rashes or lesions noted. Course - Re-evaluation Re-evalutation: 04/29/19 01:26 Patient's delta troponin was slightly increased from the initial. Did speak with Dr. Cardona regarding the patient's case who recommends obtaining a third troponin at the appropriate time. I did discuss this with the patient. Patient initially stated she wanted to sign out AMA but then states she would stay. I will give patient her dose of methadone as she has not had it since being in the emergency department. Patient does see Dr. Choi with pain management due to multiple back surgery and is prescribed methadone 10 mg every 8 hours. Patient states that she still has a burning sensation in the mid abdomen that radiates upward behind her shoulder blades. Patient states that this is the same type of pain she has been dealing with intermittently for 3 years and knows that it is related to the CMT as it feels very similar. States that she takes Benadryl when she has this type of pain. We will give a small dose of Benadryl. Update the patient and regarding her laboratory studies and imaging results. 04/29/19 03:08 Patient states that after receiving the Benadryl she feels better with the burning sensation that was located to the mid abdomen towards her shoulder blades. 04/29/19 03:20 I did discuss this case with Dr. Cardona who has reviewed the chart and agrees with discharge plan as her Troponin did not increase and patient is asymptomatic and feels better. - Vital Signs Vital signs: Temp Pulse Resp BP Pulse Ox 98.8 F 103 H 18 158/117 H 90 L 04/28/19 15:11 04/28/19 15:11 04/29/19 02:00 04/28/19 23:01 04/29/19 02:00 - Laboratory Result Diagrams: 04/28/19 16:29 04/28/19 16:29 Laboratory results interpreted by me: 04/28/19 04/28/19 04/28/19 16:29 16:29 21:02 WBC 11.7 H Absolute Neutrophils 8.8 H Carbon Dioxide 31 H BUN 26 H Glucose 165 H Direct Bilirubin 0.5 H Urine Protein >=500 H Ur Leukocyte Esterase TRACE H - Diagnostic Test Radiology reviewed: Reports reviewed - EKG Interpretation by Me Additional EKG results interpreted by me: 04/29/19 His EKG shows a sinus rhythm with a heart rate of 88, RI interval 164, QT 429 QTC 509. Patient does have atrial premature complexes which was also present in her previous EKG that was performed 03/03/2019, she does have a left ventricular hypertrophy with a right bundle branch block which was also present in previous EKGs. It does appear that patient has ST depression in V3 but not in any other consecutive leads. Discharge - Discharge Clinical Impression: Abdominal discomfort Condition: Stable Disposition: HOME, SELF-CARE Additional Instructions: Today you were seen in the emergency department for abdominal discomfort and a burning sensation. After receiving a dose of Benadryl you state that the "burning" has now improved. We did monitor you continuously over the past 12+ hours and you state that you are ready to go home. Please return to the emergency department for any concerning signs or symptoms to include shortness of breath, chest pain, dizziness, severe abdominal pain, vomiting or any other concerning signs or symptoms. Please follow-up with your doctor in [place] regarding your CMT symptoms and the burning sensation that has been present for three years. Please continue your home medications as previously prescribed.
== END 2019-04-29 03:55 | disposition home or self-care (01) ==
LOC: ER 14:56
DX: R10.84 Generalized abdominal pain (principal); J44.9 Chronic obstructive pulmonary disease, unspecified; E11.9 Type 2 diabetes mellitus without complications; I50.9 Heart failure, unspecified; E78.00 Pure hypercholesterolemia, unspecified; I11.0 Hypertensive heart disease with heart failure; Z99.81 Dependence on supplemental oxygen; Z95.0 Presence of cardiac pacemaker; Z86.73 Personal history of transient ischemic attack (TIA), and cerebral infarction without residual deficits; Z90.49 Acquired absence of other specified parts of digestive tract; Z88.2 Allergy status to sulfonamides; Z90.710 Acquired absence of both cervix and uterus
CPT/HCPCS: 93005; 99284; 36415; 82550; 83690; 85025; 80053; 81001; 84484; 74022; 71046; 70450; 93010; A9270 ×3

== ENCOUNTER 2019-06-07 07:53 | Emergency (ER) | payer MEDICARE ==
--- NOTE | 2019-06-07 08:15 | ER Document Report ---
HPI - HPI Patient complains to provider of: headache Time Seen by Provider: 06/07/19 08:10 Onset: Yesterday Onset/Duration: Gradual, Persistent Quality of pain: Achy Severity: Mild Pain Level: 3 Context: 73 yr old female pt, with the listed pmh, here for frontal and diffuse headache mostly on the top of her head now since yesterday. not worst estrada of life. denies sudden onset. has had similar headaches before in the past when she hasn't worn her glasses like she is supposed too due to eye strain. denies any actual vision changes. she hasn't worn her glasses over the last couple days because they broke and she just got a new pair today. she has them available to wear today with the correct prescription in them however still hasn't put them on for whatever reason. has had a neg head ct before in the past. no fall or trauma. no blood thinners. no recent illness or change in caffeine intake. no prior hx of migraines. no recent abx or steroids. hx of copd on 2L home o2-this is unchanged per pt. hx of diabetes and sugars well controlled per pt. no personal or fam hx of rare brain conditions. no prior migraine meds. pain controlled minimally by otc meds. hasn't sought care until now. no fevers, vision changes, uri sx, neckpain/stiffness, rash, or change in neurologic or any other sx. no facial droop, slurred speech, one sided weakness, or ams. no other changes in meds or diet. no tick bites. no pain anywhere else. no other associated sx. - ROS Systems Reviewed and Negative: Yes All other systems reviewed and negative - to include 10 systems, unless mentioned in the hpi - REPRODUCTIVE Reproductive: DENIES: : - DERM Skin Color: Normal, [place] Past Medical History - General Information source: Patient, [facility] Records - Social History Smoking Status: Never Smoker Frequency of alcohol use: None Drug Abuse: None Lives with: Spouse/Significant other Family History: Reviewed & Not Pertinent, Hypertension Patient has suicidal ideation: No Patient has homicidal ideation: No - Past Medical History Cardiac Medical History: Reports: Hx Congestive Heart Failure, Hx Coronary Artery Disease, Hx Heart Attack - PACE MAKER, Hx Hypercholesterolemia, Hx Hypertension Denies: Hx DVT, Hx Pulmonary Embolism Pulmonary Medical History: Reports: Hx COPD - On home O2 at 2 L/min at all times., Hx Pneumonia Denies: Hx Asthma, Hx Bronchitis Neurological Medical History: Reports: Hx Cerebrovascular Accident, Hx Seizures. Denies: Hx Migraine Endocrine Medical History: Reports: Hx Diabetes Mellitus Type 1, Hx Diabetes Mellitus Type 2, Hx Hypothyroidism. Denies: Hx Hyperthyroidism Renal/ Medical History: Denies: Hx Peritoneal Dialysis GI Medical History: Denies: Hx Cirrhosis, Hx Gastroesophageal Reflux Disease, Hx Hepatitis Musculoskeletal Medical History: Reports Hx Arthritis Skin Medical History: Denies Hx Eczema, Denies Hx Psoriasis Psychiatric Medical History: Reports: Hx Depression Infectious Medical History: Denies: Hx Hepatitis Past Surgical History: Reports: Hx Appendectomy, Hx Cholecystectomy, Hx Coronary Artery Bypass Graft, Hx Hysterectomy, Hx Orthopedic Surgery - Back surgery 2., Hx Pacemaker - Immunizations Immunizations up to date: Yes Hx Diphtheria, Pertussis, Tetanus Vaccination: Yes Hx Pneumococcal Vaccination: 10/29/10 Vertical Provider Document - CONSTITUTIONAL Notes: GENERAL_APPEARANCE: well_nourished, alert, cooperative, no obvious discomfort. Pleasant, obese elderly white female, who appears chronically debilitated but not toxic, smiling, speaking in full sentences, in no sign of pain or resp distress, easily sitting up. lights and tv on in room. VITALS: reviewed, see vital signs table. HEAD: normocephalic and atraumatic, no raccoon eyes, no rosales signs. no swel ling or ttp. EARS: canal_clear_ on left. hearing aid on right so canal and right tm not assessed; she denies any right ear complaints, TM_clear on left, no_discharge_from_ears. no hemotympanum on left EYES: EOMI without pain, conjunctiva_clear. PERRL, eyelids wnl. no drainage. no ttp or crepitation of the orbits. no sign of orbital/periorbital cellulitis. no hyphema. MOUTH: no_lacerations inside_mouth. no broken teeth. no tmj clicking or ttp. pharynx wnl. tongue protrudes midline. no drooling, tripoding, voice change, or stridor, no thrush or oral lesions. no tongue or lip swelling. NOSE: no drainage or epistaxis NECK: no_swelling\tenderness on the neck. no midline bony tenderness. no step offs or deformities. full rom. full strength. no meningeal signs. no sign of central cord syndrome. HEART: normal_rate, normal_rhythm, LUNGS: ctab. no chest wall ttp. no overlying skin changes. no flail chest or crepitation. ABDOMEN: normal_BS, soft, no_abd_tenderness, no rebound, guarding, distension, or peritoneal signs. no cva ttp. no overlying skin changes. BACK: no midline bony tenderness. no step offs or deformities RECTAL: deferred, however, no sign of loss of bowel or bladder or soiling of clothing. EXTREMITIES: strength 5/5 in all_extremities, good pulses all_extremities, no_abrasions\lacerations in the extremities, no_swelling\tenderness in the extremities. full rom. gait not assessed at pt is minimally ambulatory at baseline and usually just does a little more than transfers at baseline with assistance per pt. she is at her baseline per pt. [place] [employer]. brisk cap refill. 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 unchanged per pt. no other shortening or rotation of the limbs or other signs of deformities unless otherwise noted. SKIN: warm, dry, good_color. no other grossly visible overlying skin changes or signs of trauma unless otherwise noted. NEURO: reflexes symmetric throughout, cranial nerves 2 - 12 intact, motor_intact, sensory_intact. cerebellar function intact GLASCOW_COMA_SCORE: (adult) - eyes_open_spontaneously_4, verbal_converses_and_oriented_5, motor_obeys_commands_6, glasgow_coma_total_15, MENTAL_STATUS: speech_clear, oriented_X_3, responds_appropriately to questions. - INFECTION CONTROL TRAVEL OUTSIDE OF THE [place] IN LAST 30 DAYS: No Course - Re-evaluation Re-evalutation: pt here for headache. resolved with tx here. accucheck was 70 and pt fed and this improved on recheck. she denies hypoglycemia sx. she is low risk for sah. no meningeal signs. no signs of central cord syndrome, spinal cord involvement, or cauda equina. she remained neurononfocal. no trauma or injury so no head ct was done and pt has had a neg one in the past. advised otc meds for pain and to wear her glasses since she hasn't been wearing them lately and usually gets a headache like this due to eye strain when she doesn't wear her glasses. denies any actual vision changes or eye sx though. advised to f/u with pcp/neuro in 1-2 days. return for any worsening symptoms. vss. well appearing. satting well on ra. neurononfocal. pt understands and agrees to plan. On reexam, pt improved with tx listed. remained stable. nontoxic. well appearing. pain controlled. tolerating po. requesting to go home. neurononfocal. Documentation achieved through voice recording which my lead to some occasional accidental typographical errors. Extensive efforts have been made to proof read documentation to make sure these are the least as possible. Category Date Time Status Accucheck (ED) NOW Care 06/07/19 09:23 Active PCT AccuChek Documentation NOW Care 06/07/19 09:23 Active Diphenhydramine HCl [Benadryl Inj 50 mg/1 ml Vial] Med 06/07/19 08:37 Discontinued 25 mg IV NOW ONE Ketorolac Tromethamine [Toradol Inj/Pf 30 mg/1 ml Sdv] Med 06/07/19 08:37 Discontinued 15 mg IV NOW ONE Normal Saline [NaCl 0.9% 500 ml IV Soln] 500 ml Med 06/07/19 08:38 Discontinued IV STAT - Vital Signs Vital signs: Temp Pulse Resp BP Pulse Ox 99.3 F 103 H 20 163/85 H 92 06/07/19 08:07 06/07/19 08:07 06/07/19 08:07 06/07/19 08:07 06/07/19 08:07 Temp Pulse Pulse Resp BP BP Pulse Ox 06/07/19 10:54 98.9 F 89 18 154/89 H 92 06/07/19 08:07 99.3 F 103 H 20 163/85 H 92 - Laboratory Laboratory results interpreted by me: Labs- Entire Visit 06/07/19 09:41 POC Glucose 70 Discharge - Discharge Clinical Impression: Headache Qualifiers: Headache type: unspecified Headache chronicity pattern: acute headache Intractability: not intractable Qualified Code(s): R51 - Headache Condition: Good Disposition: HOME, SELF-CARE Instructions: Headache ([facility]) Additional Instructions: Follow-up with PCP in 1 to 2 days. Return for any worsening symptoms. Tylenol as needed for any pain. Drink plenty of fluids. Wear your glasses as prescribed. Eat and drink at regular intervals. keep a close check on your sugars as discussed.
[2019-06-07] MEDS ORDERED: KETOROLAC TROMETHAMINE INJ/PF 30 MG/1 ML SDV IV ONE (08:37)
[2019-06-07] MEDS ORDERED: DIPHENHYDRAMINE HCL 50 MG/ML VIAL IV ONE (08:37)
[2019-06-07] MEDS ORDERED: NORMAL SALINE 500 ML IV ONE (08:38)
[2019-06-07 10:55] VITALS: BP 154/89
== END 2019-06-07 10:54 | disposition home or self-care (01) ==
LOC: ER 07:53
DX: R51 Headache (principal); I50.9 Heart failure, unspecified; I25.10 Atherosclerotic heart disease of native coronary artery without angina pectoris; E78.00 Pure hypercholesterolemia, unspecified; I11.0 Hypertensive heart disease with heart failure; J44.9 Chronic obstructive pulmonary disease, unspecified; Z95.0 Presence of cardiac pacemaker; Z99.81 Dependence on supplemental oxygen; Z90.49 Acquired absence of other specified parts of digestive tract; I25.2 Old myocardial infarction
CPT/HCPCS: 99283; 96374; 96375; 82962; J1200; J1885; J7040

== ENCOUNTER 2019-10-03 11:34 | Emergency (ER) | payer MEDICARE ==
[2019-10-03 12:08] LABS: INTERNATIONAL RATION (INR) 0.98
[2019-10-03 12:10] LABS: ABSOLUTE EOSINOPHILS # (AUTO) 0.1 10^3/uL (0.0-0.6); ABSOLUTE LYMPHOCYTES (AUTO) 2.5 10^3/uL (0.5-4.7); ABSOLUTE MONOCYTES (AUTO) 0.5 10^3/uL (0.1-1.4); ABSOLUTE NEUT (AUTO) 6.2 10^3/uL (1.7-8.2); BASOPHILS % (AUTO) 0.3 % (0-2); EOSINOPHILS % (AUTO) 1.4 % (0-6); HEMATOCRIT 36.5 % (36.0-47.0); HEMOGLOBIN 12.5 g/dL (12.0-15.5); LYMPHOCYTES % (AUTO) 26.7 % (13-45); MEAN CORPUSCULAR HEMOGLOBIN 31.2 pg (27.0-33.4); MEAN CORPUSCULAR HGB CONC 34.4 g/dL (32.0-36.0); MEAN CORPUSCULAR VOLUME 91 fl (80-97); MONOCYTES % (AUTO) 5.2 % (3-13); PLATELET COUNT 266 10^3/uL (150-450); RED BLOOD COUNT 4.03 10^6/uL (3.72-5.28); RED CELL DISTRIBUTION WIDTH 13.4 % (11.5-14.0); SEGMENTED NEUTROPHILS % (AUTO) 66.4 % (42-78); TOTAL CELLS COUNTED % (AUTO) 100 %; WHITE BLOOD COUNT 9.4 10^3/uL (4.0-10.5)
--- NOTE | 2019-10-03 12:21 | ER Document Report ---
ED General - General Chief Complaint: Fall Injury Stated Complaint: FALL/HEAD INJURY Time Seen by Provider: 10/03/19 12:20 Primary Care Provider: PATYS CONTRERAS MD [ACTIVE STAFF] - Follow up as needed ANDRES HORAN MD [NO LOCAL MD] - Follow up as needed TRAVEL OUTSIDE OF THE [place] IN LAST 30 DAYS: No - HPI Notes: Patient is a 74-year-old female with a history of congestive heart failure, coronary artery disease, COPD and on 2 L via nasal cannula all the time, diabetes, Hvdznyz-Pnfxc-Ocfmy who presents complaining of having elevated blood pressure this morning that was higher than her normal. Patient states that she did have a fall 2 days ago from the commode. Patient states that she was leaning forward lost her balance and hit her forehead off of the ground. Patient states that she has had some localized bruising and swelling to the forehead which is then moved distally into her face over the course of 2 days. Patient states that she does have a burning sensation to her abdomen which she has had chronically and is requesting liquid Benadryl for. Patient states that this is the only thing that helps when she feels this way. Patient states that she has no chest pain and this is all in her abdomen and described as a burning. Patient states that she does not have any other pain at this time. She has been able to eat and drink without difficulty. She is urinating normally and having normal bowel movements. Patient is not on any blood thinners aside from taking aspirin daily. She has no other concerns or complaints. Denies any headache, fever, neck pain, changes in vision/speech/mentation/hearing, URI, sore throat, chest pain, palpitations, syncope, cough, shortness of breath, wheeze, dyspnea, nausea/vomiting/diarrhea, urinary retention, dysuria, hematuria, loss of control of bowel or bladder, numbness/tingling, saddle anesthesia, muscle paralysis, or rash. - Related Data Allergies/Adverse Reactions: lorazepam [From Ativan] Allergy (Intermediate, Verified 04/28/19 15:00) Delirium Sulfa (Sulfonamide Antibiotics) Allergy (Mild, Verified 04/28/19 15:00) Hives promethazine [From Phenergan] Allergy (Verified 04/28/19 15:00) Past Medical History - Social History Smoking Status: Smoker,Current Status Unk Family History: Reviewed & Not Pertinent, Hypertension - Past Medical History Cardiac Medical History: Reports: Hx Congestive Heart Failure, Hx Coronary Arter y Disease, Hx Heart Attack - PACE MAKER, Hx Hypercholesterolemia, Hx Hypertension Denies: Hx DVT, Hx Pulmonary Embolism Pulmonary Medical History: Reports: Hx COPD - On home O2 at 2 L/min at all times., Hx Pneumonia Denies: Hx Asthma, Hx Bronchitis Neurological Medical History: Reports: Hx Cerebrovascular Accident, Hx Seizures. Denies: Hx Migraine Endocrine Medical History: Reports: Hx Diabetes Mellitus Type 1, Hx Diabetes Mellitus Type 2, Hx Hypothyroidism. Denies: Hx Hyperthyroidism Renal/ Medical History: Denies: Hx Peritoneal Dialysis GI Medical History: Denies: Hx Cirrhosis, Hx Gastroesophageal Reflux Disease, Hx Hepatitis Musculoskeletal Medical History: Reports Hx Arthritis Skin Medical History: Denies Hx Eczema, Denies Hx Psoriasis Psychiatric Medical History: Reports: Hx Depression Infectious Medical History: Denies: Hx Hepatitis Past Surgical History: Reports: Hx Appendectomy, Hx Cardiac Surgery - pacemaker/CABG, Hx Cholecystectomy, Hx Coronary Artery Bypass Graft, Hx Hysterectomy, Hx Orthopedic Surgery - Back surgery 2., Hx Pacemaker - Immunizations Immunizations up to date: Yes Hx Diphtheria, Pertussis, Tetanus Vaccination: Yes Hx Pneumococcal Vaccination: 10/29/10 Review of Systems - Review of Systems -: Yes All other systems reviewed and negative Physical Exam - Vital signs Vitals: Temp Pulse Resp BP Pulse Ox 98.7 F 69 18 167/72 H 91 L 10/03/19 12:05 10/03/19 12:05 10/03/19 12:05 10/03/19 12:05 10/03/19 12:05 - Notes Notes: PHYSICAL EXAMINATION: accompanied by female nurse GENERAL: Well-appearing, well-nourished and in no acute distress. A&Ox4. Answers questions appropriately. HEAD: There is noted aging ecchymosis left/mid forehead that has tracked down to the eyes b/l. + mild tenderness left supraorbit but no other facial tenderness. No rosales sign EYES: Pupils equal round and reactive to light, extraocular movements intact, sclera anicteric, conjunctiva are normal. No entrapment ENT: EAC clear b/l. TM's intact b/l without erythema, fluid, or perforation. Nares patent and without discharge. oropharynx clear without exudates. No tonsilar hypertrophy or erythema. Moist mucous membranes. No sinus tenderness. No hemotympanum/CSF discharge. NECK: Normal range of motion, supple without lymphadenopathy. No rigidity. No midline tenderness. Chest: No flail chest. equal rise/fall. Non-tender LUNGS: Breath sounds clear to auscultation bilaterally and equal. No wheezes rales or rhonchi. HEART: Regular rate and rhythm without murmurs, rubs, gallops. ABDOMEN: Soft, nontender, nondistended abdomen. No guarding, no rebound. Normal bowel sounds present. No CVA tenderness bilaterally. Musculoskeletal: Ext b/l: FROM to passive/active. Strength 5+/5. No deficits noted. No bony tenderness of extremities. Back: FROM to passive/active. Strength 5+/5. No vertebral point tenderness, stepoffs, or deformities. No other bony tenderness or ecchymosis. SLR negative b/l. Extremities: No cyanosis, clubbing, or edema b/l. Peripheral pulses 2+. Capillary refill less than 2 seconds. NEUROLOGICAL: NIH 0. GCS 15. Cranial nerves grossly intact. Normal speech. Normal sensory, motor exams. Reflexes 2+ b/l. SADE's negative. Pronator drift negative. Heel/brown, finger/nose wnl. PSYCH: Normal mood, normal affect. SKIN: Warm, Dry, normal turgor, no rashes or lesions noted. see above. Course - Re-evaluation Re-evalutation: 10/03/19 13:20 Patient is an afebrile, well-hydrated, 74-year-old female who presents to the ED with closed head injury (2 days old) and elevated blood pressure, otherwise asym ptomatic. Vitals are acceptable without any significant tachycardia, tachypnea, or hypoxia. PE is otherwise unremarkable for any focal neurological deficits, neurovascular compromise, obvious tendon/ligament rupture, obvious fracture/dislocation, septic joint. Labs and CT head unremarkable. No other labs or imaging warranted at this time based on H&P. NIH 0, GCS 15, cranial nerves grossly intact, Nexus criteria negative. Patient is nontoxic-appearing and is tolerating p.o. without any difficulties. The benadryl has resolved her 'burning' in the mid abd. No abd tenderness. She has not had any CP/SOB/GRANT. Low suspicion for any meningitis, fracture, expanding/ruptured AAA, cauda equina syndrome, epidural mass lesion/abscess, herniated disc causing severe spinal stenosis, acute intracranial process, or other systemic infection at this time. Patient is aware that this condition can change from initial presentation and that she needs monitor symptoms closely for any acute changes. Conservative measures otherwise for symptoms. Recheck with your PCM in 2-3 days. Return to the ED with any worsening/concerning symptoms otherwise as reviewed in discharge. Patient is in agreement. - Vital Signs Vital signs: Temp Pulse Resp BP Pulse Ox 98.7 F 64 18 172/56 H 93 10/03/19 13:25 10/03/19 13:25 10/03/19 12:05 10/03/19 14:07 10/03/19 13:25 - Laboratory Result Diagrams: 10/03/19 11:45 10/03/19 11:45 Laboratory results interpreted by me: 10/03/19 11:45 Carbon Dioxide 34 H BUN 22 H Glucose 72 L Discharge - Discharge Clinical Impression: Elevated blood pressure reading Closed head injury Qualifiers: Encounter type: initial encounter Qualified Code(s): S09.90XA - Unspecified injury of head, initial encounter Condition: Stable Disposition: HOME, SELF-CARE Instructions: Head Injury Precautions ([facility]), High Blood Pressure ([facility]) Additional Instructions: Rest, Ice/cool compress Tylenol as needed Light stretches daily Monitor blood pressure daily, take meds, and keep a log F/u with your PCP in 2-3 days for a recheck Consider consult(s) with Neurology for ongoing/worsening symptoms Return to the ED with any worsening symptoms and/or development of fever, headache, changes in behavior/mentation/vision/speech, chest pain, palpitations, syncope, shortness of breath, trouble breathing, abdominal pain, n/v/d, blood in stool/urine, loss of control of bowel/bladder, urinary retention, muscle weakness/paralysis, saddle anesthesia, numbness/tingling, or other worsening symptoms that are concerning to you. Prescriptions: Lisinopril [Prinivil] 5 mg PO DAILY #5 tablet Forms: Elevated Blood Pressure Referrals: PATSY CONTRERAS MD [ACTIVE STAFF] - Follow up as needed ANDRES HORAN MD [NO LOCAL MD] - Follow up as needed
[2019-10-03 12:31] LABS: ALBUMIN 4.1 g/dL (3.5-5.0); ALKALINE PHOSPHATASE 119 U/L (38-126); ANION GAP 6 (5-19); ASPARTATE AMINO TRANSFERASE 29 U/L (14-36); BILIRUBIN,DIRECT 0.2 mg/dL (0.0-0.4); BILIRUBIN,TOTAL 0.7 mg/dL (0.2-1.3); BLOOD UREA NITROGEN 22 mg/dL (7-20); CALCIUM 9.4 mg/dL (8.4-10.2); CARBON DIOXIDE 34 mmol/L (22-30); CHLORIDE 99 mmol/L (98-107); GLUCOSE 72 mg/dL (75-110); POTASSIUM 4.5 mmol/L (3.6-5.0); TOTAL PROTEIN 6.8 g/dL (6.3-8.2)
[2019-10-03] MEDS ORDERED: DIPHENHYDRAMINE HCL 25 MG/10 ML UDC PO ONE (12:41)
--- NOTE | 2019-10-03 12:52 | RADIOLOGY REPORT (SQ) ---
EXAM DESCRIPTION: CT HEAD WITHOUT COMPLETED DATE/TIME: 10/03/2019 12:37 pm REASON FOR STUDY: FALL COMPARISON: 04/28/2019 TECHNIQUE: Axial images acquired through the brain without intravenous contrast. Images reviewed wi th bone, brain and subdural windows. Additional sagittal and coronal reconstructions were generated. Images stored on PACS. All CT scanners at this facility use dose modulation, iterative reconstruction, and/or weight based d osing when appropriate to reduce radiation dose to as low as reasonably achievable (ALARA). [facility]: Dose Right [facility]: CareDose [facility]: Dose Right [facility]: Teradose 4D [facility]: [employer] RADIATION DOSE: CT Rad equipment meets quality standard of care and radiation dose reduction techniq ues were employed. CTDIvol: 53.2 mGy. DLP: 1017 mGy-cm. mGy. LIMITATIONS: None. FINDINGS: VENTRICLES: Normal size and contour. CEREBRUM: No masses. No hemorrhage. No midline shift. Encephalomalacia in the right occipital lobe medially. No evidence for acute infarction. Areas of low density in the white matter most likely ch ronic small vessel ischemic changes. CEREBELLUM: No masses. No hemorrhage. No alteration of density. No evidence for acute infarction. EXTRAAXIAL SPACES: No fluid collections. No masses. ORBITS AND GLOBE: No intra- or extraconal masses. Normal contour of globe without masses. CALVARIUM: No fracture. PARANASAL SINUSES: No fluid or mucosal thickening. SOFT TISSUES: No mass or hematoma. OTHER: No other significant finding. 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 No acute finding. EVIDENCE OF ACUTE STROKE: NO. COMMENT: Quality ID # [id number]: Final reports with documentation of one or more dose reduction techniques (e.g., Automated exposure control, adjustment of the mA and/or kV according to patient size, use of iterative reconstruction technique) TECHNICAL DOCUMENTATION: JOB ID: [id number] [email or web address]- All Rights Reserved Reading location - IP/workstation name: [email or web address]
[2019-10-03 14:53] VITALS: BP 161/50
== END 2019-10-03 14:53 | disposition home or self-care (01) ==
LOC: ER 11:34
DX: S09.90XA Unspecified injury of head, initial encounter (principal); R03.0 Elevated blood-pressure reading, without diagnosis of hypertension; W18.11XA Fall from or off toilet without subsequent striking against object, initial encounter; I50.9 Heart failure, unspecified; I25.10 Atherosclerotic heart disease of native coronary artery without angina pectoris; E11.9 Type 2 diabetes mellitus without complications; J44.9 Chronic obstructive pulmonary disease, unspecified; Z99.81 Dependence on supplemental oxygen; Z88.2 Allergy status to sulfonamides; Z79.82 Long term (current) use of aspirin
CPT/HCPCS: 99284; 36415; 85025; 85610; 80053; 70450; A9270; J3490

== ENCOUNTER 2019-12-02 13:11 | Emergency (ER) | payer MEDICARE ==
[2019-12-02 13:41] VITALS: BP 164/41
--- NOTE | 2019-12-02 13:59 | ER Document Report ---
ED Medical Screen (RME) - General Chief Complaint: Chest Pain Stated Complaint: LOCALIZED CHEST PAIN Time Seen by Provider: 12/02/19 13:54 Mode of Arrival: Wheelchair Information source: Patient Notes: 74-year-old female presents to ED for complaint of chest pain but no shortness of breath. She states the chest pain was such that she took 1 nitro this morning. She states last week she called the rescue squad because her pain in her chest was so bad and her chest was swollen around the pacemaker but it is no swelling or redness at that area at this time. She states that her left arm is been hurting yesterday and last night also. States she also had some pain in the back of her neck. She has a pacemaker and she states she has had a four-way bypass but it has been a while. She states she thinks is 2002. She states the chest pain is better now she is not having pain at this moment. We will get blood chest x-ray EKG and give her 4 baby aspirin. She has shoulder Ludy tooth syndrome, cardiac problems and severe arthritis. I have greeted and performed a rapid initial assessment of this patient. A comprehensive ED assessment and evaluation of the patient, analysis of test results and completion of medical decision making process will be conducted by an additional ED providers. TRAVEL OUTSIDE OF THE [place] IN LAST 30 DAYS: No - Related Data Allergies/Adverse Reactions: lorazepam [From Ativan] Allergy (Intermediate, Verified 12/02/19 13:52) Delirium Sulfa (Sulfonamide Antibiotics) Allergy (Mild, Verified 12/02/19 13:52) Hives promethazine [From Phenergan] Allergy (Verified 12/02/19 13:52) Past Medical History - Past Medical History Cardiac Medical History: Reports: Hx Congestive Heart Failure, Hx Coronary Artery Disease, Hx Heart Attack - PACE MAKER, Hx Hypercholesterolemia, Hx Hypertension Denies: Hx DVT, Hx Pulmonary Embolism Pulmonary Medical History: Reports: Hx COPD - On home O2 at 2 L/min at all times., Hx Pneumonia Denies: Hx Asthma, Hx Bronchitis Neurological Medical History: Reports: Hx Cerebrovascular Accident, Hx Seizures. Denies: Hx Migraine Endocrine Medical History: Reports: Hx Diabetes Mellitus Type 1, Hx Diabetes Mellitus Type 2, Hx Hypothyroidism. Denies: Hx Hyperthyroidism Renal/ Medical History: Denies: Hx Peritoneal Dialysis GI Medical History: Denies: Hx Cirrhosis, Hx Gastroesophageal Reflux Disease, Hx Hepatitis Musculoskeltal Medical History: Reports Hx Arthritis Skin Medical History: Denies Hx Eczema, Denies Hx Psoriasis Psychiatric Medical History: Reports: Hx Depression Infectious Medical History: Denies: Hx Hepatitis Past Surgical History: Reports: Hx Appendectomy, Hx Cardiac Surgery - pacemaker/CABG, Hx Cholecystectomy, Hx Coronary Artery Bypass Graft, Hx Hysterectomy, Hx Orthopedic Surgery - Back surgery 2., Hx Pacemaker - Immunizations Immunizations up to date: Yes Hx Diphtheria, Pertussis, Tetanus Vaccination: Yes Physical Exam - Vital signs Vitals: Temp Pulse Resp BP Pulse Ox 98.2 F 67 16 164/41 H 95 12/02/19 13:40 12/02/19 13:40 12/02/19 13:40 12/02/19 13:40 12/02/19 13:40 Course - Vital Signs Vital signs: Temp Pulse Resp BP Pulse Ox 98.2 F 67 16 164/41 H 95 12/02/19 13:40 12/02/19 13:40 12/02/19 13:40 12/02/19 13:40 12/02/19 13:40
[2019-12-02] MEDS ORDERED: ASPIRIN 81 MG TABLET, CHEWABLE PO ONE (14:01)
--- NOTE | 2019-12-02 15:18 | RADIOLOGY REPORT (SQ) ---
EXAM DESCRIPTION: CHEST 2 VIEWS COMPLETED DATE/TIME: 12/02/2019 1:37 pm REASON FOR STUDY: Chest pain COMPARISON: 04/29/2019 EXAM PARAMETERS: NUMBER OF VIEWS: two views TECHNIQUE: Digital Frontal and Lateral radiographic views of the chest acquired. RADIATION DOSE: NA LIMITATIONS: none FINDINGS: LUNGS AND PLEURA: No opacities, masses or pneumothorax. No pleural effusion. MEDIASTINUM AND HILAR STRUCTURES: No masses or contour abnormalities. HEART AND VASCULAR STRUCTURES: Heart normal size. No evidence for failure. BONES: No acute findings. HARDWARE: Left infraclavicular pacemaker with intact lead wires. Postoperative changes in the medias tinum. OTHER: No other significant finding. IMPRESSION: NO ACUTE RADIOGRAPHIC FINDING IN THE CHEST. TECHNICAL DOCUMENTATION: JOB ID: [id number] [email or web address]- All Rights Reserved Reading location - IP/workstation name: [email or web address]
== END 2019-12-02 15:45 | disposition left against medical advice (07) ==
LOC: ER 13:11
DX: R07.9 Chest pain, unspecified (principal); M79.602 Pain in left arm; M54.2 Cervicalgia; I10 Essential (primary) hypertension; I25.2 Old myocardial infarction; J44.9 Chronic obstructive pulmonary disease, unspecified; I25.10 Atherosclerotic heart disease of native coronary artery without angina pectoris; E11.9 Type 2 diabetes mellitus without complications; Z95.0 Presence of cardiac pacemaker; Z95.1 Presence of aortocoronary bypass graft; Z88.8 Allergy status to other drugs, medicaments and biological substances; Z88.2 Allergy status to sulfonamides; Z53.20 Procedure and treatment not carried out because of patient's decision for unspecified reasons
CPT/HCPCS: 99281; 71046; A9270

== ENCOUNTER 2020-04-18 13:18 | Emergency (ER) | payer MEDICARE ==
--- NOTE | 2020-04-18 13:51 | ER Document Report ---
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 She has been seen in the emergency department on other occasions with constipation which is not responded to fleets enema at home. TRAVEL OUTSIDE OF THE [place] IN LAST 30 DAYS: No - Related Data Allergies/Adverse Reactions: lorazepam [From Ativan] Allergy (Intermediate, Verified 12/02/19 13:52) Delirium Sulfa (Sulfonamide Antibiotics) Allergy (Mild, Verified 12/02/19 13:52) Hives promethazine [From Phenergan] Allergy (Verified 12/02/19 13:52) Home Medications: Clonazepam, colace, levemir, methadone, miralax, nexium, oxygen 4 lpm Past Medical History - Social History Smoking Status: Never Smoker Frequency of alcohol use: None Drug Abuse: None Family History: Reviewed & Not Pertinent, Hypertension Patient has homicidal ideation: No - Past Medical History Cardiac Medical History: Reports: Hx Congestive Heart Failure, Hx Coronary Artery Disease, Hx Heart Attack - PACE MAKER, Hx Hypercholesterolemia, Hx Hypertension Denies: Hx DVT, Hx Pulmonary Embolism Pulmonary Medical History: Reports: Hx COPD - On home O2 at 2 L/min at all times., Hx Pneumonia Denies: Hx Asthma, Hx Bronchitis Neurological Medical History: Reports: Hx Cerebrovascular Accident, Hx Seizures. Denies: Hx Migraine Endocrine Medical History: Reports: Hx Diabetes Mellitus Type 1, Hx Diabetes Mellitus Type 2, Hx Hypothyroidism. Denies: Hx Hyperthyroidism Renal/ Medical History: Denies: Hx Peritoneal Dialysis GI Medical History: Denies: Hx Cirrhosis, Hx Gastroesophageal Reflux Disease, Hx Hepatitis Musculoskeletal Medical History: Reports Hx Arthritis Skin Medical History: Denies Hx Eczema, Denies Hx Psoriasis Psychiatric Medical History: Reports: Hx Depression Infectious Medical History: Denies: Hx Hepatitis Past Surgical History: Reports: Hx Appendectomy, Hx Cardiac Surgery - pacemaker/CABG, Hx Cholecystectomy, Hx Coronary Artery Bypass Graft, Hx Hysterectomy, Hx Orthopedic Surgery - Back surgery 2., Hx Pacemaker - Immunizations Immunizations up to date: Yes Hx Diphtheria, Pertussis, Tetanus Vaccination: Yes Hx Pneumococcal Vaccination: 10/29/10 Review of Systems - Review of Systems Notes: Constitutional: Negative for fever. HENT: Negative for sore throat. Eyes: Negative for visual changes. Cardiovascular: Negative for chest pain. Respiratory: Negative for shortness of breath. Gastrointestinal: + Constipation Genitourinary: Negative for dysuria. Musculoskeletal: + Hand contractures bilateral, + bilateral lower extremity weakness Skin: Negative for rash. Neurological: Negative for headaches, weakness or numbness. 10 point ROS negative except as marked above and in HPI. Physical Exam - Vital signs Vitals: Temp Pulse Resp BP Pulse Ox 98.9 F 63 12 163/52 H 96 04/18/20 13:24 04/18/20 13:24 04/18/20 13:24 04/18/20 13:04/18/20 13:24 - Notes Notes: PHYSICAL EXAMINATION: Physical Exam: General: Medically ill 74-year-old woman in no acute distress HEENT: NC/AT, pupils equal round and reactive to light, MM moist,nares clear, oropharynx clear, airway patent Neck: supple, no adenopathy, no masses. Good range of motion Lungs: clear, no wheezing, no rales no rhonchi CVS: Regular rate and rhythm no murmur gallop or rub Abdomen: Soft, active, nontender, no masses, no hepatosplenomegaly Ext: + Contractures of the hands bilaterally, atrophy and weakness in the lower extremities bilaterally Neuro: Alert and responsive, moving all 4 extremities on command, cranial nerves intact, no focal findings Skin: Intact no open lesions, no rash PSYCH: Normal mood, normal affect. Course - Vital Signs Vital signs: Temp Pulse Resp BP Pulse Ox 98.9 F 63 12 163/52 H 96 04/18/20 13:27 04/18/20 13:24 04/18/20 13:24 04/18/20 13:24 04/18/20 13:24 - Diagnostic Test Radiology reviewed: Image reviewed, Reports reviewed - KUB: increased stool Discharge - Discharge Clinical Impression: Frmraey-Evelw-Zsysy syndrome Constipation Qualifiers: Constipation type: other constipation type Qualified Code(s): K59.09 - Other constipation Condition: Good Disposition: HOME, SELF-CARE Instructions: Constipation ([facility]) Additional Instructions: You were seen in the emergency department today and treated for constipation. Please continue to monitor and treat your constipation at home as you have previously done with fleets enemas as needed. If his symptoms are worsening or if you have other concerns you may return to the emergency department for further evaluation and treatment. HOME CARE INSTRUCTIONS & INFORMATION: Thank you for choosing us for your medical needs. We hope you're satisfied with the care you received. After you leave, you must properly care for your problem and, at the same time, observe its progress. Any condition can change. Some illnesses can change rapidly over hours or days. If your condition worsens, return to the Emergency Department or see your physician promptly. ABOUT YOUR X-RAYS AND EKG'S: If you had an EKG or X-rays taken, they have been read by the Emergency Physician. The X-rays and EKG's will also be read by a Radiologist or Mechanical Drafter within 24 hours. If discrepancies are noted, you will be notified by telephone. Please be certain the ED has a correct telephone number & address where you can be reached. Also, realize that some fractures or abnormalities do not show up on initial X-rays. If your symptoms continue, see your physician. ABOUT YOUR LABORATORY TEST: If you had laboratory tests, the results have been reviewed by the Emergency Physician. Some test results (for example cultures) may not be available for several days. You will be contacted if any test result shows you need additional treatment. Please be certain the ED has a correct telephone number and address where you can be reached. ABOUT YOUR MEDICATIONS: You will receive instructions on how to take your medicine on the prescription label you receive. Additional information may be provided by the Pharmacy. If you have questions afterwards, call the ED for clarification or further instructions. Some prescribed medications may cause drowsiness. Do not perform tasks such as driving a car or operating machinery without consulting your Pharmacist. If you feel you need a refill of pain medication, your condition will need re-evaluation. Please do not call for a refill of any medication. ABOUT YOUR SIGNATURE: Signature of this document acknowledges to followin. Understanding that you received emergency treatment and that you may be released before al medical problems are known or treated. Please be certain the ED has a correct phone number & address where you can be reached. 2. Acknowledgement that you will arrange for follow-up care as recommended. 3. Authorization for the Emergency Physician to provide information to your follow-up Physician in order to maximize your care. AT ANY TIME, IF YOUR SYMPTOMS CHANGE SIGNIFICANTLY OR WORSEN OR YOU DEVELOP NEW SYMPTOMS, RETURN TO THE EMERGENCY DEPARTMENT IMMEDIATELY FOR RE-EVALUATION. OUR GOAL IS TO PROVIDE EXCELLENT MEDICAL CARE! WE HOPE THAT WE HAVE MET YOUR EXPECTATIONS DURING YOUR EMERGENCY DEPARTMENT VISIT AND THAT YOU FEEL YOU HAVE RECEIVED EXCELLENT CARE!
--- NOTE | 2020-04-18 14:28 | RADIOLOGY REPORT (SQ) ---
EXAM DESCRIPTION: KUB/ABDOMEN (SINGLE VIEW) IMAGES COMPLETED DATE/TIME: 04/18/2020 2:09 pm REASON FOR STUDY: Constipation COMPARISON: None. NUMBER OF VIEWS: One view. TECHNIQUE: Supine radiographic image of the abdomen acquired. LIMITATIONS: None. FINDINGS: BOWEL GAS PATTERN: Normal bowel gas pattern. No dilated loops. CALCIFICATIONS: No suspicious calcifications. SOFT TISSUES: No gross mass or suggestion of organomegaly. HARDWARE: Chain sutures are seen within the right hemiabdomen. Surgical clips are seen within the Ri ght upper quadrant BONES: No acute fracture. No worrisome bone lesions. OTHER: No other significant finding. IMPRESSION: Nonspecific, nonobstructed bowel gas pattern. TECHNICAL DOCUMENTATION: JOB ID: [id number] [employer]- All Rights Reserved Reading location - IP/workstation name: [email or web address]
[2020-04-18 17:21] VITALS: BP 150/62
== END 2020-04-18 17:22 | disposition home or self-care (01) ==
LOC: ER 13:18
DX: K59.09 Other constipation (principal); G60.0 Hereditary motor and sensory neuropathy; I25.10 Atherosclerotic heart disease of native coronary artery without angina pectoris; I10 Essential (primary) hypertension; I25.2 Old myocardial infarction; J44.9 Chronic obstructive pulmonary disease, unspecified; E11.9 Type 2 diabetes mellitus without complications; Z79.4 Long term (current) use of insulin; Z79.899 Other long term (current) drug therapy; Z79.891 Long term (current) use of opiate analgesic; Z99.81 Dependence on supplemental oxygen; Z88.8 Allergy status to other drugs, medicaments and biological substances; Z88.2 Allergy status to sulfonamides
CPT/HCPCS: 74018; 99283

== ENCOUNTER 2020-05-05 12:20 | Emergency (ER) | payer MEDICARE ==
--- NOTE | 2020-05-05 12:47 | ER Document Report ---
ED Medical Screen (RME) - General Chief Complaint: Constipation Stated Complaint: CONSTIPATION Time Seen by Provider: 05/05/20 12:44 Notes: Patient presents complaining of constipation and abdominal pain. Patient states is been 4 days since her last bowel movement. I have greeted and performed a rapid initial assessment of this patient. A comprehensive ED assessment and evaluation of the patient, analysis of test results and completion of the medical decision making process will be conducted by additional ED providers. TRAVEL OUTSIDE OF THE [place] IN LAST 30 DAYS: No - Related Data Allergies/Adverse Reactions: lorazepam [From Ativan] Allergy (Intermediate, Verified 05/05/20 12:43) Delirium Sulfa (Sulfonamide Antibiotics) Allergy (Mild, Verified 05/05/20 12:43) Hives promethazine [From Phenergan] Allergy (Verified 05/05/20 12:43) Past Medical History - Past Medical History Cardiac Medical History: Reports: Hx Congestive Heart Failure, Hx Coronary Artery Disease, Hx Heart Attack - PACE MAKER, Hx Hypercholesterolemia, Hx Hypertension Denies: Hx DVT, Hx Pulmonary Embolism Pulmonary Medical History: Reports: Hx COPD - On home O2 at 2 L/min at all times., Hx Pneumonia Denies: Hx Asthma, Hx Bronchitis Neurological Medical History: Reports: Hx Cerebrovascular Accident, Hx Seizures. Denies: Hx Migraine Endocrine Medical History: Reports: Hx Diabetes Mellitus Type 1, Hx Diabetes Mellitus Type 2, Hx Hypothyroidism. Denies: Hx Hyperthyroidism Renal/ Medical History: Denies: Hx Peritoneal Dialysis GI Medical History: Denies: Hx Cirrhosis, Hx Gastroesophageal Reflux Disease, Hx Hepatitis Musculoskeltal Medical History: Reports Hx Arthritis Skin Medical History: Denies Hx Eczema, Denies Hx Psoriasis Psychiatric Medical History: Reports: Hx Depression Infectious Medical History: Denies: Hx Hepatitis Past Surgical History: Reports: Hx Appendectomy, Hx Cardiac Surgery - pacemaker/CABG, Hx Cholecystectomy, Hx Coronary Artery Bypass Graft, Hx Hysterectomy, Hx Orthopedic Surgery - Back surgery 2., Hx Pacemaker - Immunizations Immunizations up to date: Yes Hx Diphtheria, Pertussis, Tetanus Vaccination: Yes Physical Exam - Vital signs Vitals: Temp Pulse Resp BP Pulse Ox 98.2 F 82 18 140/90 H 99 05/05/20 12:28 05/05/20 12:28 05/05/20 12:28 05/05/20 12:28 05/05/20 12:28 - General General appearance: Alert Notes: Extremely hard of hearing, lower abdominal tenderness, assessment limited by fact patient sitting in a wheelchair Course - Vital Signs Vital signs: Temp Pulse Resp BP Pulse Ox 98.2 F 82 18 140/90 H 99 05/05/20 12:28 05/05/20 12:28 05/05/20 12:28 05/05/20 12:28 05/05/20 12:28
[2020-05-05] MEDS ORDERED: IPRATROPIUM/ALBUTEROL 0.5-2.5 MG/3 ML AMPUL NEB ONE (13:02)
[2020-05-05 14:02] LABS: ABSOLUTE EOSINOPHILS # (AUTO) 0.2 10^3/uL (0.0-0.6); ABSOLUTE LYMPHOCYTES (AUTO) 2.5 10^3/uL (0.5-4.7); ABSOLUTE MONOCYTES (AUTO) 0.5 10^3/uL (0.1-1.4); ABSOLUTE NEUT (AUTO) 8.4 10^3/uL (1.7-8.2); BASOPHILS % (AUTO) 0.5 % (0-2); EOSINOPHILS % (AUTO) 1.6 % (0-6); HEMATOCRIT 40.7 % (36.0-47.0); HEMOGLOBIN 13.6 g/dL (12.0-15.5); LYMPHOCYTES % (AUTO) 21.5 % (13-45); MEAN CORPUSCULAR HEMOGLOBIN 30.5 pg (27.0-33.4); MEAN CORPUSCULAR HGB CONC 33.3 g/dL (32.0-36.0); MEAN CORPUSCULAR VOLUME 91 fl (80-97); MONOCYTES % (AUTO) 4.5 % (3-13); PLATELET COUNT 347 10^3/uL (150-450); RED BLOOD COUNT 4.45 10^6/uL (3.72-5.28); SEGMENTED NEUTROPHILS % (AUTO) 71.9 % (42-78); TOTAL CELLS COUNTED % (AUTO) 100 %; WHITE BLOOD COUNT 11.7 10^3/uL (4.0-10.5)
[2020-05-05 14:03] LABS: ABSOLUTE BASOPHILS # (AUTO) 0.1 10^3/uL (0.0-0.2)
--- NOTE | 2020-05-05 14:10 | RADIOLOGY REPORT (SQ) ---
EXAM DESCRIPTION: CHEST SINGLE VIEW IMAGES COMPLETED DATE/TIME: 05/05/2020 2:00 pm REASON FOR STUDY: sob COMPARISON: 12/02/2019 EXAM PARAMETERS: NUMBER OF VIEWS: One view. TECHNIQUE: Single frontal radiographic view of the chest acquired. RADIATION DOSE: NA LIMITATIONS: None. FINDINGS: LUNGS AND PLEURA: No opacities, masses or pneumothorax. No pleural effusion. MEDIASTINUM AND HILAR STRUCTURES: No masses. Contour normal. HEART AND VASCULAR STRUCTURES: Heart normal in size. Normal vasculature. BONES: No acute findings. HARDWARE: Sternotomy wires. Pacemaker. OTHER: No other significant finding. IMPRESSION: NO ACUTE RADIOGRAPHIC FINDING IN THE CHEST. TECHNICAL DOCUMENTATION: JOB ID: [id number] 2010 [email or web address]- All Rights Reserved Reading location - IP/workstation name: [email or web address]
--- NOTE | 2020-05-05 14:10 | RADIOLOGY REPORT (SQ) ---
EXAM DESCRIPTION: KUB/ABDOMEN (SINGLE VIEW) IMAGES COMPLETED DATE/TIME: 05/05/2020 2:00 pm REASON FOR STUDY: abd pain, constipation COMPARISON: 04/18/2020 NUMBER OF VIEWS: One view. TECHNIQUE: Supine radiographic image of the abdomen acquired. LIMITATIONS: None. FINDINGS: BOWEL GAS PATTERN: Nonobstructive pattern. Retained stool. CALCIFICATIONS: No suspicious calcifications. SOFT TISSUES: No gross mass or suggestion of organomegaly. HARDWARE: None in the abdomen. BONES: No acute fracture. No worrisome bone lesions. OTHER: No other significant finding. IMPRESSION: Moderate constipation TECHNICAL DOCUMENTATION: JOB ID: [id number] 2010 [employer]- All Rights Reserved Reading location - IP/workstation name: [email or web address]
[2020-05-05] MEDS ORDERED: CLONAZEPAM 1 MG TABLET PO ONE (14:19)
[2020-05-05 14:20] LABS: ALBUMIN 4.3 g/dL (3.5-5.0); ALKALINE PHOSPHATASE 140 U/L (38-126); ANION GAP 7 (5-19); ASPARTATE AMINO TRANSFERASE 29 U/L (14-36); BILIRUBIN,DIRECT 0.1 mg/dL (0.0-0.4); BILIRUBIN,TOTAL 0.6 mg/dL (0.2-1.3); BLOOD UREA NITROGEN 25 mg/dL (7-20); CALCIUM 9.1 mg/dL (8.4-10.2); CARBON DIOXIDE 39 mmol/L (22-30); CHLORIDE 91 mmol/L (98-107); GLUCOSE 234 mg/dL (75-110); POTASSIUM 3.1 mmol/L (3.6-5.0); TOTAL PROTEIN 7.1 g/dL (6.3-8.2)
--- NOTE | 2020-05-05 14:26 | ER Document Report ---
ED General - General Chief Complaint: Shortness Of Breath Stated Complaint: CONSTIPATION Time Seen by Provider: 05/05/20 12:44 TRAVEL OUTSIDE OF THE [place] IN LAST 30 DAYS: No - HPI Notes: Patient is a 74-year-old female who presents to the emergency department for evaluation. She is a difficult historian. Evidently she initially complained of some constipation, for which she came in via EMS. She states she has not had a bowel movement in 4 days. She intermittently gets constipation, she states her bowels are "locked up because of my Tctwaca-Wwzcx-Aerkk." She is also on methadone. She states she has taken Senokot and MiraLAX at home without any relief. She is passing gas. While in the waiting room, she began screaming that she could not breathe, her work-up was amended, and she was brought back to her room for further evaluation. On questioning, the patient states that the problem is that she has not yet had her clonazepam. That is why she cannot breathe and cannot stop shaking. She denies any other difficulty breathing. No chest pain. She has abdominal pain and cramping consistent with constipation. No vomiting. - Related Data Allergies/Adverse Reactions: lorazepam [From Ativan] Allergy (Intermediate, Verified 05/05/20 12:43) Delirium Sulfa (Sulfonamide Antibiotics) Allergy (Mild, Verified 05/05/20 12:43) Hives promethazine [From Phenergan] Allergy (Verified 05/05/20 12:43) Home Medications: clonazepam. omeprazole. amlodipine. levothyroxine. metoprolol. isosoribide. insulin. aspirin. Lasix. Nitroglycerin. Celexa. Methadone Past Medical History - General Information source: Patient - Social History Smoking Status: Never Smoker Chew tobacco use (# tins/day): No Frequency of alcohol use: None Drug Abuse: None Family History: Reviewed & Not Pertinent, Hypertension Patient has homicidal ideation: No - Medical History Medical History: Other - Qbiqjup-Nozyy-Hvqww - Past Medical History Cardiac Medical History: Reports: Hx Congestive Heart Failure, Hx Coronary Artery Disease, Hx Heart Attack - PACE MAKER, Hx Hypercholesterolemia, Hx Hypertension Denies: Hx DVT, Hx Pulmonary Embolism Pulmonary Medical History: Reports: Hx COPD - On home O2 at 2 L/min at all times., Hx Pneumonia Denies: Hx Asthma, Hx Bronchitis Neurological Medical History: Reports: Hx Cerebrovascular Accident, Hx Seizures. Denies: Hx Migraine Endocrine Medical History: Reports: Hx Diabetes Mellitus Type 1, Hx Diabetes Me llitus Type 2, Hx Hypothyroidism. Denies: Hx Hyperthyroidism Renal/ Medical History: Denies: Hx Peritoneal Dialysis GI Medical History: Denies: Hx Cirrhosis, Hx Gastroesophageal Reflux Disease, Hx Hepatitis Musculoskeletal Medical History: Reports Hx Arthritis Skin Medical History: Denies Hx Eczema, Denies Hx Psoriasis Psychiatric Medical History: Reports: Hx Depression Infectious Medical History: Denies: Hx Hepatitis Past Surgical History: Reports: Hx Appendectomy, Hx Cardiac Surgery - pacemaker/CABG, Hx Cholecystectomy, Hx Coronary Artery Bypass Graft, Hx Hysterectomy, Hx Orthopedic Surgery - Back surgery 2., Hx Pacemaker - Immunizations Immunizations up to date: Yes Hx Diphtheria, Pertussis, Tetanus Vaccination: Yes Hx Pneumococcal Vaccination: 10/29/10 Review of Systems - Review of Systems Gastrointestinal: See HPI Neurological/Psychological: See HPI -: Yes All other systems reviewed and negative Physical Exam - Vital signs Vitals: Temp Pulse Resp BP Pulse Ox 98.2 F 82 18 140/90 H 99 05/05/20 12:28 05/05/20 12:28 05/05/20 12:28 05/05/20 12:28 05/05/20 12:28 - Notes Notes: This is a very anxious, hard of hearing patient, who appears her stated age in a moderate amount of distress. She is yelling out that she needs her clonazepam, repeatedly telling me the dose and how badly she needs it. She is able to be redirected, but is perseverating on it repeatedly. Vital signs reviewed, please refer to chart. Head is normocephalic, atraumatic. Pupils equal round, reactive to light. Neck is supple without meningismus. Heart is regular rate and rhythm. Lungs are clear to auscultation bilaterally. Abdomen is soft, nontender, normoactive bowel sounds throughout. Extremities without cyanosis, clubbing. Right lower extremity edema worse than left, chronic per patient. Posterior calves are nontender. Peripheral pulses are equal. Course - Re-evaluation Re-evalutation: 05/05/20 15:51 Patient presents to the emergency department for evaluation. She is primarily here for constipation. On waiting in the waiting room, she began complaining of shortness of breath. She admitted to me this is just her anxiety and she needed her Klonopin. She was feeling less anxious. She was given an enema but was unable to retain it. She had a little in the way of results. I went back into the room and discussed this with the patient. We will try magnesium citrate at home. She was very anxious about this. She was also concerned that she might vomit up the magnesium citrate. I will send her home with Moy for this. In regards to her blood work, her troponin was indeterminately elevated. She always has an indeterminately elevated troponin. She has no chest pain. Her shortness of breath is secondary to her anxiety per her own admission. This is an ongoing and a chronic issue that she experiences daily, it is not any different. Patient is being sent home with magnesium citrate and constipation instructions. She is to follow-up with her primary care doctor, return to the ED with worsening. - Vital Signs Vital signs: Temp Pulse Resp BP Pulse Ox 98.2 F 82 18 140/90 H 95 05/05/20 12:43 05/05/20 12:28 05/05/20 12:28 05/05/20 12:28 05/05/20 13:56 - Laboratory Result Diagrams: 05/05/20 13:50 05/05/20 13:50 Laboratory results interpreted by me: 05/05/20 05/05/20 13:50 13:50 WBC 11.7 H Absolute Neuts (auto) 8.4 H Potassium 3.1 L Chloride 91 L Carbon Dioxide 39 H BUN 25 H Est GFR (MDRD) Non-Af 50 L Glucose 234 H Alkaline Phosphatase 140 H - Diagnostic Test Radiology reviewed: Image reviewed, Reports reviewed Radiology results interpreted by me: 05/05/20 15:52 KUB X-Ray 05/05/20 12:46 IMPRESSION: Moderate constipation Chest X-Ray 05/05/20 13:02 IMPRESSION: NO ACUTE RADIOGRAPHIC FINDING IN THE CHEST. - EKG Interpretation by Me Additional EKG results interpreted by me: 05/05/20 15:52 Sinus mechanism with a rate of 80 bpm, PACs noted. Left axis deviation. Right bundle branch block, left anterior fascicular block. No variance from old studies. Discharge - Discharge Clinical Impression: Hypokalemia, Anxiety and depression Constipation Qualifiers: Constipation type: unspecified constipation type Qualified Code(s): K59.00 - Constipation, unspecified Condition: Stable Disposition: HOME, SELF-CARE Instructions: Constipation ([facility]), Hypokalemia ([facility]), Anxiety ([facility]) Additional Instructions: Your potassium was mildly low here in the emergency department. It was replaced. Please drink all of the magnesium citrate once you get home. Use the Zofran if it causes you nausea. Increase your fluid intake, increase your fiber intake. Follow-up with primary care. If you develop worsening or new concerning symptoms of any sort, return immediately to the emergency department for evaluation.
[2020-05-05] MEDS ORDERED: ONDANSETRON ODT 4 MG TAB (6 TAB/ER DISP) PO PRN (15:51)
[2020-05-05] MEDS ORDERED: MAGNESIUM CITRATE 296 ML BOTTLE PO ONE (15:51)
[2020-05-05 15:53] VITALS: BP 123/86
[2020-05-05] MEDS ORDERED: POTASSIUM CHLORIDE 10 MEQ TABLET.ER PO ONE (15:53)
--- NOTE | 2020-05-05 16:17 | EKG REPORT ---
SEVERITY:- ABNORMAL ECG - UNKNOWN RHYTHM, IRREGULAR RATE 61-96 RIGHT ATRIAL ABNORMALITY RBBB AND LAFB LEFT VENTRICULAR HYPERTROPHY : Confirmed by: Nael Gil MD 05-May-2020 16:16:51
== END 2020-05-05 16:57 | disposition home or self-care (01) ==
LOC: ER 12:20
DX: E87.6 Hypokalemia (principal); F41.9 Anxiety disorder, unspecified; F32.9 Major depressive disorder, single episode, unspecified; K59.00 Constipation, unspecified; R10.9 Unspecified abdominal pain; R06.2 Wheezing; I11.0 Hypertensive heart disease with heart failure; I50.9 Heart failure, unspecified; I25.10 Atherosclerotic heart disease of native coronary artery without angina pectoris; E78.00 Pure hypercholesterolemia, unspecified; E11.9 Type 2 diabetes mellitus without complications; Z86.73 Personal history of transient ischemic attack (TIA), and cerebral infarction without residual deficits; Z88.2 Allergy status to sulfonamides; I25.2 Old myocardial infarction; Z95.0 Presence of cardiac pacemaker
CPT/HCPCS: 93005; 94640; 99284; 36415; 83690; 85025; 80053; 84484; 71045; 74018; 93010; A9270 ×4; J3490

== ENCOUNTER → 2020-06-08 | Outpatient (CLI) | payer MEDICARE ==
--- NOTE | 2020-06-08 19:28 | EKG REPORT ---
SEVERITY:- ABNORMAL ECG - SINUS RHYTHM LEFT ATRIAL ABNORMALITY RIGHT BUNDLE BRANCH BLOCK LEFT VENTRICULAR HYPERTROPHY ANTERIOR Q WAVES, POSSIBLY DUE TO LVH : Confirmed by: Amos Giordano MD 08-Jun-2020 19:26:47
== END ==
LOC: OD 12:05
PROVIDERS: ATTEND Nurse Practitioner Family
DX: Z79.891 Long term (current) use of opiate analgesic (principal)
CPT/HCPCS: 93005; 36415; 93010; G0480; 80358

== ENCOUNTER 2020-07-22 13:35 | Emergency (ER) | payer MEDICARE ==
[2020-07-22 15:37] LABS: ABSOLUTE EOSINOPHILS # (AUTO) 0.1 10^3/uL (0.0-0.6); ABSOLUTE LYMPHOCYTES (AUTO) 1.5 10^3/uL (0.5-4.7); ABSOLUTE MONOCYTES (AUTO) 0.4 10^3/uL (0.1-1.4); ABSOLUTE NEUT (AUTO) 6.2 10^3/uL (1.7-8.2); BASOPHILS % (AUTO) 0.5 % (0-2); EOSINOPHILS % (AUTO) 0.9 % (0-6); HEMATOCRIT 33.8 % (36.0-47.0); HEMOGLOBIN 11.3 g/dL (12.0-15.5); LYMPHOCYTES % (AUTO) 18.1 % (13-45); MEAN CORPUSCULAR HEMOGLOBIN 29.8 pg (27.0-33.4); MEAN CORPUSCULAR HGB CONC 33.5 g/dL (32.0-36.0); MEAN CORPUSCULAR VOLUME 89 fl (80-97); MONOCYTES % (AUTO) 5.1 % (3-13); PLATELET COUNT 391 10^3/uL (150-450); RED CELL DISTRIBUTION WIDTH 14.3 % (11.5-14.0); SEGMENTED NEUTROPHILS % (AUTO) 75.4 % (42-78); TOTAL CELLS COUNTED % (AUTO) 100 %; WHITE BLOOD COUNT 8.2 10^3/uL (4.0-10.5)
[2020-07-22 15:46] LABS: ALBUMIN 3.9 g/dL (3.5-5.0); ALKALINE PHOSPHATASE 133 U/L (38-126); ANION GAP 9 (5-19); ASPARTATE AMINO TRANSFERASE 35 U/L (14-36); BILIRUBIN,DIRECT 0.5 mg/dL (0.0-0.4); BILIRUBIN,TOTAL 0.6 mg/dL (0.2-1.3); BLOOD UREA NITROGEN 24 mg/dL (7-20); CALCIUM 9.1 mg/dL (8.4-10.2); CARBON DIOXIDE 39 mmol/L (22-30); CHLORIDE 94 mmol/L (98-107); CREATINE KINASE 151 U/L (30-135); GLUCOSE 157 mg/dL (75-110); POTASSIUM 3.6 mmol/L (3.6-5.0); TOTAL PROTEIN 6.4 g/dL (6.3-8.2)
[2020-07-22 15:56] LABS: CREATINE KINASE MB 3.1 ng/mL (<4.55)
[2020-07-22 16:00] LABS: TROPONIN I 0.097 ng/mL
--- NOTE | 2020-07-22 16:52 | RADIOLOGY REPORT (SQ) ---
EXAM DESCRIPTION: CHEST SINGLE VIEW IMAGES COMPLETED DATE/TIME: 07/22/2020 4:39 pm REASON FOR STUDY: Chest pain, cough congestion COMPARISON: 05/05/2020 EXAM PARAMETERS: NUMBER OF VIEWS: One view. TECHNIQUE: Single frontal radiographic view of the chest acquired. RADIATION DOSE: NA LIMITATIONS: None. FINDINGS: LUNGS AND PLEURA: Low lung volumes. Cannot exclude patchy opacification in the left base. MEDIASTINUM AND HILAR STRUCTURES: No masses. Contour normal. HEART AND VASCULAR STRUCTURES: Heart size is borderline. , no doubt accentuated by the low lung volum es. BONES: No acute findings. HARDWARE: Pacemaker. Sternotomy wires. OTHER: No other significant finding. IMPRESSION: Borderline heart size without pulmonary edema. Cannot exclude limited airspace disease in the left lower lobe, pneumonia versus atelectasis. TECHNICAL DOCUMENTATION: JOB ID: [id number] 2010 [employer]- All Rights Reserved Reading location - IP/workstation name: [email or web address]
--- NOTE | 2020-07-22 18:02 | ER Document Report ---
Entered by DOUGIE CORCORAN SCRIBE 07/22/20 1613 Acting as scribe for:MOIRA BEATTY MD ED General - General Chief Complaint: Chest Pain Stated Complaint: CHEST PAIN/LEG PAIN Time Seen by Provider: 07/22/20 15:53 Primary Care Provider: CHRISTINA DEAN FNP-C [Primary Care Provider] - Follow up as needed Mode of Arrival: Medic Information source: Patient, Emergency Med Personnel Notes: This 74 year old female patient with a history significant for HTN, CAD with pacemaker, and CHF brought in by EMS presents to the ED today with complaints of chest pain. When we entered the room, the patient was most concerned about her left knee and some "white stuff" that cannot be seen and tells us to ask the person who put the IV in. She further states that she was admitted for a week at [facility] for CHF and was discharged on 07/16. She mentions that while there, the nurse wrapped her knee too tight and now it hurts. Patient apparently told someone that she initially had sternal chest pain that was sharp and 5/5 in nature, but after taking Nitro and x4 tablets of Aspirin, the pain is now described as pressure and 3/5 in severity. Patient also reportedly told someone that she has been having cough, congestion, shortness of breath, and sore throat for the last week, but when asked about these symptoms, she avoids the question and then talks about an IV that was put in her right hand a week ago that a nurse was having trouble with. TRAVEL OUTSIDE OF THE [place] IN LAST 30 DAYS: No - Related Data Allergies/Adverse Reactions: lorazepam [From Ativan] Allergy (Intermediate, Verified 05/05/20 12:43) Delirium Sulfa (Sulfonamide Antibiotics) Allergy (Mild, Verified 05/05/20 12:43) Hives promethazine [From Phenergan] Allergy (Verified 05/05/20 12:43) Past Medical History - General Information source: Patient, [facility] Records - Social History Smoking Status: Never Smoker Cigarette use (# per day): No Chew tobacco use (# tins/day): No Smoking Education Provided: No Family History: Reviewed & Not Pertinent, Hypertension - Past Medical History Cardiac Medical History: Reports: Hx Congestive Heart Failure, Hx Coronary Artery Disease, Hx Heart Attack, Hx Hypercholesterolemia, Hx Hypertension Pulmonary Medical History: Reports: Hx COPD - On home O2 at 4 L/min at all times., Hx Pneumonia Neurological Medical History: Reports: Hx Cerebrovascular Accident, Hx Seizures Endocrine Medical History: Reports: Hx Diabetes Mellitus Type 2, Hx Hypothyroidism Musculoskeletal Medical History: Reports Hx Arthritis Psychiatric Medical History: Reports: Hx Depression Past Surgical History: Reports: Hx Appendectomy, Hx Cholecystectomy, Hx Coronary Artery Bypass Graft, Hx Hysterectomy, Hx Orthopedic Surgery - Back surgery 2., Hx Pacemaker - Immunizations Immunizations up to date: Yes Hx Diphtheria, Pertussis, Tetanus Vaccination: Yes Hx Pneumococcal Vaccination: 10/29/10 Review of Systems - Review of Systems Constitutional: No symptoms reported EENT: See HPI Cardiovascular: See HPI Respiratory: See HPI Gastrointestinal: No symptoms reported Genitourinary: No symptoms reported Female Genitourinary: No symptoms reported Musculoskeletal: See HPI Skin: No symptoms reported Hematologic/Lymphatic: No symptoms reported Neurological/Psychological: No symptoms reported -: Yes All other systems reviewed and negative Physical Exam - Vital signs Vitals: Pulse Ox 96 07/22/20 13:40 - General General appearance: Alert In distress: None - HEENT Head: Normocephalic, Atraumatic Eyes: Normal Pupils: PERRL - Respiratory Respiratory status: No respiratory distress Chest status: Nontender Breath sounds: Normal Chest palpation: Tender - There is some mild anterior chest wall tenderness. - Cardiovascular Rhythm: Other - Irregular with frequent premature beats Murmur: No - Abdominal Inspection: Normal Distension: No distension Bowel sounds: Normal Tenderness: Nontender - Abdomen soft Organomegaly: No organomegaly - Back Back: Normal, Nontender - Extremities General upper extremity: Other - Patient's wrists are held in slight extension with the fingers in flexion. 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 - Neurological Neuro grossly intact: Yes - Psychological Associated symptoms: Normal affect, Normal mood - Skin Skin Temperature: Warm Skin Moisture: Dry Skin Color: Normal Course - Vital Signs Vital signs: Temp Pulse Resp BP Pulse Ox 97.8 F 23 H 135/62 H 99 07/22/20 13:46 07/22/20 19:17 07/22/20 19:17 07/22/20 19:17 - Laboratory Result Diagrams: 07/22/20 14:53 07/22/20 14:53 Laboratory results interpreted by me: 07/22/20 07/22/20 07/22/20 14:53 14:53 14:53 Hgb 11.3 L Hct 33.8 L RDW 14.3 H Chloride 94 L Carbon Dioxide 39 H BUN 24 H Est GFR (MDRD) Non-Af 55 L Glucose 157 H Direct Bilirubin 0.5 H Alkaline Phosphatase 133 H Creatine Kinase 151 H NT-Pro-B Natriuret Pep 6250 H - Diagnostic Test Radiology reviewed: Image reviewed, Reports reviewed - Chest x-ray compared to 05/05/2020 shows borderline heart size without pulmonary edema. Cannot exclude limited airspace disease left lower lobe, pneumonia versus atelectasis. Essentially unchanged from previous chest x-ray. - EKG Interpretation by Me EKG shows normal: Sinus rhythm, [place], Intervals, QRS Complexes, ST-T Waves Rate: Normal - 72 Rhythm: APC's [place]/QRS: RBBB, IVCD Voltage: Consistent with LVH Discharge - Discharge Clinical Impression: Chest pain Qualifiers: Chest pain type: unspecified Qualified Code(s): R07.9 - Chest pain, unspecified Knee pain, bilateral Qualifiers: Chronicity: chronic Qualified Code(s): M25.561 - Pain in right knee Condition: Stable Disposition: HOME, SELF-CARE Additional Instructions: Chest Pain of Unclear Cause: The exact cause of your chest pain isn't clear. Fortunately, there is no evidence of a dangerous medical condition. Further testing may be required to find the source of the pain. Most often, we find that this pain is coming from the chest wall -- the muscles or rib joints in the chest. But chest pain can come from the lung and lung lining, the esophagus, the heart valves or heart lining, and even the stomach or gallbladder. Rest. Eat lightly until the pain is gone. We may prescribe medicine for pain and inflammation. You should call the physician immediately if the pain radiates to the shoulder, jaw or arms; if you start to run a fever or develop a cough; or if you develop shortness of breath, or other new or alarming symptoms. Arthritis: Your symptoms are due to arthritis. Arthritis is an inflammation of the joints. Your type of arthritis is called osteoarthritis (due to "wear and tear"). All types of arthritis are treated with antiinflammatory medications. Other medication may be required for special types of arthritis, or if your problem does not respond to the antiinflammatory medicine. Continue your regular medications. Follow-up with your primary care doctor if not improving. RETURN TO THE EMERGENCY ROOM IF ANY NEW OR WORSENING SYMPTOMS. Referrals: CHRISTINA DEAN, NAEL-C [Primary Care Provider] - Follow up as needed I personally performed the services described in the documentation, reviewed and edited the documentation which was dictated to the scribe in my presence, and it accurately records my words and actions.
[2020-07-22 20:47] VITALS: BP 128/70
--- NOTE | 2020-07-22 22:00 | EKG REPORT ---
SEVERITY:- ABNORMAL ECG - SINUS RHYTHM MULTIPLE ATRIAL PREMATURE COMPLEXES RIGHT BUNDLE BRANCH BLOCK LVH WITH IVCD AND SECONDARY REPOL ABNRM : Confirmed by: Chiara Castellano MD 22-Jul-2020 22:00:17
== END 2020-07-22 20:25 | disposition home or self-care (01) ==
LOC: ER 13:35
DX: R07.9 Chest pain, unspecified (principal); M25.561 Pain in right knee; R60.0 Localized edema; Z95.0 Presence of cardiac pacemaker; I11.0 Hypertensive heart disease with heart failure; I50.9 Heart failure, unspecified; I25.10 Atherosclerotic heart disease of native coronary artery without angina pectoris; Z88.2 Allergy status to sulfonamides; Z88.8 Allergy status to other drugs, medicaments and biological substances; J44.9 Chronic obstructive pulmonary disease, unspecified; Z99.81 Dependence on supplemental oxygen; E11.9 Type 2 diabetes mellitus without complications
CPT/HCPCS: 36415; 71045; 80053; 82550; 82553; 83880; 84484; 85025; 93005; 93010; 99285

== ENCOUNTER → 2020-08-30 | Outpatient (CLI) | payer MEDICARE | LOC: OD 15:42 | PROVIDERS: ATTEND Nurse Practitioner Family | DX: Z51.81 Encounter for therapeutic drug level monitoring (principal); Z79.891 Long term (current) use of opiate analgesic | CPT/HCPCS: 36415; G0480; 80358 ==

== ENCOUNTER 2020-09-10 10:54 | Observation (INO) | payer MEDICARE ==
[2020-09-10 11:52] LABS: ABSOLUTE LYMPHOCYTES (AUTO) 2.3 10^3/uL (0.5-4.7); ABSOLUTE MONOCYTES (AUTO) 0.6 10^3/uL (0.1-1.4); ABSOLUTE NEUT (AUTO) 8.7 10^3/uL (1.7-8.2); BASOPHILS % (AUTO) 0.3 % (0-2); EOSINOPHILS % (AUTO) 0.4 % (0-6); HEMATOCRIT 43.3 % (36.0-47.0); HEMOGLOBIN 14.1 g/dL (12.0-15.5); LYMPHOCYTES % (AUTO) 19.4 % (13-45); MEAN CORPUSCULAR HEMOGLOBIN 28.4 pg (27.0-33.4); MEAN CORPUSCULAR HGB CONC 32.6 g/dL (32.0-36.0); MEAN CORPUSCULAR VOLUME 87 fl (80-97); MONOCYTES % (AUTO) 5.3 % (3-13); PLATELET COUNT 252 10^3/uL (150-450); RED BLOOD COUNT 4.97 10^6/uL (3.72-5.28); RED CELL DISTRIBUTION WIDTH 15.8 % (11.5-14.0); SEGMENTED NEUTROPHILS % (AUTO) 74.6 % (42-78); TOTAL CELLS COUNTED % (AUTO) 100 %; WHITE BLOOD COUNT 11.6 10^3/uL (4.0-10.5)
[2020-09-10 11:59] LABS: ALBUMIN 4.6 g/dL (3.5-5.0); ALKALINE PHOSPHATASE 163 U/L (38-126); ASPARTATE AMINO TRANSFERASE 32 U/L (14-36); BILIRUBIN,DIRECT 0.3 mg/dL (0.0-0.4); BILIRUBIN,TOTAL 0.9 mg/dL (0.2-1.3); BLOOD UREA NITROGEN 22 mg/dL (7-20); CALCIUM 10.3 mg/dL (8.4-10.2); CHLORIDE 89 mmol/L (98-107); CREATINE KINASE 119 U/L (30-135); GLUCOSE 176 mg/dL (75-110); POTASSIUM 3.3 mmol/L (3.6-5.0); TOTAL PROTEIN 7.4 g/dL (6.3-8.2)
[2020-09-10 12:06] LABS: ANION GAP 13 (5-19); CARBON DIOXIDE 39 mmol/L (22-30)
--- NOTE | 2020-09-10 12:11 | RADIOLOGY REPORT (SQ) ---
EXAM DESCRIPTION: CHEST SINGLE VIEW IMAGES COMPLETED DATE/TIME: 09/10/2020 12:00 pm REASON FOR STUDY: copd COMPARISON: 07/22/2020 EXAM PARAMETERS: NUMBER OF VIEWS: One view. TECHNIQUE: Single frontal radiographic view of the chest acquired. RADIATION DOSE: NA LIMITATIONS: None. FINDINGS: LUNGS AND PLEURA: No opacities, masses or pneumothorax. No pleural effusion. MEDIASTINUM AND HILAR STRUCTURES: No masses. Contour normal. HEART AND VASCULAR STRUCTURES: Unchanged. BONES: No acute findings. HARDWARE: Unchanged. OTHER: No other significant finding. IMPRESSION: NO ACUTE RADIOGRAPHIC FINDING IN THE CHEST. TECHNICAL DOCUMENTATION: JOB ID: [id number] 2010 [employer]- All Rights Reserved Reading location - IP/workstation name: [email or web address]
[2020-09-10 12:54] LABS: APPEARANCE,URINE CLOUDY; BILIRUBIN,URINE NEGATIVE (NEGATIVE); COLOR,URINE YELLOW; GLUCOSE, URINE NEGATIVE (NEGATIVE); KETONES,URINE NEGATIVE (NEGATIVE); LEUKOCYTE ESTERASE,URINE TRACE (NEGATIVE); NITRITE,URINE NEGATIVE (NEGATIVE); PROTEIN,URINE >=500 mg/dL (NEGATIVE); TRIPLE PHOSPHATE CRYSTAL,URINE MANY /HPF; URINE SPECIFIC GRAVITY 1.014; UROBILINOGEN,URINE NEGATIVE mg/dL (<2.0)
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
[2020-09-10 15:19] LABS: APPEARANCE,URINE CLEAR; BILIRUBIN,URINE NEGATIVE (NEGATIVE); COLOR,URINE YELLOW; GLUCOSE, URINE NEGATIVE (NEGATIVE); KETONES,URINE NEGATIVE (NEGATIVE); LEUKOCYTE ESTERASE,URINE NEGATIVE (NEGATIVE); NITRITE,URINE NEGATIVE (NEGATIVE); PROTEIN,URINE >=500 mg/dL (NEGATIVE); URINE SPECIFIC GRAVITY 1.013; UROBILINOGEN,URINE NEGATIVE mg/dL (<2.0)
[2020-09-10] MEDS ORDERED: IPRATROPIUM/ALBUTEROL 0.5-2.5 MG/3 ML AMPUL NEB PRN (17:57)
[2020-09-10] MEDS ORDERED: MAG HYDROX/AL HYDROX/SIMETH SUSP 30 ML UDCUP PO PRN (17:57)
[2020-09-10] MEDS ORDERED: ONDANSETRON HCL INJ/PF 4 MG/2 ML SDV IV PRN (17:57)
[2020-09-10] MEDS ORDERED: MAGNESIUM HYDROXIDE SUSP 30 ML UDCUP PO PRN (17:57)
[2020-09-10] MEDS ORDERED: ACETAMINOPHEN 325 MG TABLET PO PRN (17:57)
[2020-09-10] MEDS ORDERED: RINGERS SOLUTION,LACTATED 1,000 ML IV PRN (18:15)
[2020-09-10] MEDS ORDERED: NITROGLYCERIN 0.4 MG/TAB 25 TAB/BOTTLE SL PRN (18:16)
[2020-09-10] MEDS ORDERED: TRAZODONE HCL 50 MG TABLET PO PRN (18:37)
[2020-09-10] MEDS ORDERED: GLUCAGON,HUMAN RECOMB 1 MG INJ IM PRN (18:39)
[2020-09-10] MEDS ORDERED: DEXTROSE 50%-WATER 25 GM/50 ML DISP.SYRIN IV PRN ×2 (18:39)
[2020-09-10] MEDS ORDERED: DEXTROSE 40% GEL 15 GM TUBE PO PRN ×2 (18:39)
[2020-09-10] MEDS ORDERED: HALOPERIDOL LACTATE INJ 5 MG/1 ML VIAL IV PRN (18:45)
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
[2020-09-10] MEDS ORDERED: MAGNESIUM CITRATE 296 ML BOTTLE PO PRN (21:07)
--- NOTE | 2020-09-10 21:17 | ADVANCED CARE ---
- Diagnosis (1) Acute metabolic encephalopathy Diagnosis Current: Yes (2) Acute on chronic respiratory failure with hypoxia Diagnosis Current: Yes (3) Hypokalemia Diagnosis Current: Yes (4) Vascular dementia Diagnosis Current: Yes (5) Encephalomalacia Diagnosis Current: Yes (6) Congestive heart failure Diagnosis Current: Yes (7) Anxiety and depression Diagnosis Current: Yes (8) Constipation Diagnosis Current: Yes (9) Hypertension Diagnosis Current: Yes (10) Chronic musculoskeletal pain Diagnosis Current: Yes Attendance: Due to the patient's was already at home when I admitted the patient. The patient was unable to participate in the conversation and so the discussion was held over the phone with the patient's . Resuscitation Status: Full Code Discussion: Initially the discussion was based on gathering clinical information. When I reviewed the CODE STATUS the patient's requested full measures. I then began to discuss placement. He admits that it is very hard taking care of her at home. He admitted that she was recently hospitalized in [place] and in fact they wanted to send her to intermediate. He refused and the patient came home. He and family are helping to take care of her. It is possible that he regrets this decision. He still has not appreciated the patient's clinical decline and extremely poor prognosis given the multiple comorbidities. I believe multiple discussions will need to be had to continue to educate the patient's regarding the patient's prognosis, current quality of life and chronic progressive nature of her illness ease. Care Planning Goals: Further education and consideration of DNR status as the first step. Also practical discussions surrounding the 's ability to continue to provide care for the patient at home. Document(s) Completed: None Time Spent: 20 minutes
[2020-09-10] MEDS: METHADONE HCL 10 MG TABLET PO SCH (21:53)
[2020-09-10] MEDS: ISOSORBIDE MONONITRATE 30 MG TAB.ER.24H PO SCH (21:54)
[2020-09-10] MEDS: HEPARIN SOD (PORCINE) 5,000 UNIT/ML 1 ML VIAL SUBCUT SCH (21:58)
[2020-09-10] MEDS ORDERED: INSULIN GLARGINE,HUM.REC.ANLOG 1,000 UNIT/10 ML VIAL SUBCUT SCH (22:00)
[2020-09-10] MEDS ORDERED: METHADONE HCL 10 MG TABLET PO SCH (22:00)
[2020-09-10] MEDS ORDERED: SENNOSIDES/DOCUSATE 8.6-50 MG 1 EACH TABLET PO SCH (22:00)
[2020-09-10] MEDS: ACETAZOLAMIDE 250 MG TABLET PO SCH (22:01)
[2020-09-11] MEDS: METHADONE HCL 10 MG TABLET PO SCH ×2 (05:45→13:42)
[2020-09-11] MEDS: HEPARIN SOD (PORCINE) 5,000 UNIT/ML 1 ML VIAL SUBCUT SCH ×2 (05:46→13:46)
[2020-09-11] MEDS ORDERED: PANTOPRAZOLE SODIUM 20 MG TABLET.DR PO SCH (06:00)
[2020-09-11] MEDS ORDERED: LEVOTHYROXINE SODIUM 0.1 MG TABLET PO SCH (06:00)
[2020-09-11] MEDS ORDERED: INSULIN REG, HUMAN 100 UNIT/ML 3 ML VIAL (PYX) SUBCUT SCH (08:00)
--- NOTE | 2020-09-11 09:17 | EKG REPORT ---
SEVERITY:- ABNORMAL ECG - SINUS WITH APCs SUPRAVENTRICULAR BIGEMINY GAGANDEEP, CONSIDER BIATRIAL ABNORMALITIES RIGHT BUNDLE BRANCH BLOCK LEFT VENTRICULAR HYPERTROPHY ANTERIOR Q WAVES, POSSIBLY DUE TO LVH : Confirmed by: Oneida Barlow 11-Sep-2020 09:17:28
[2020-09-11] MEDS: ISOSORBIDE MONONITRATE 30 MG TAB.ER.24H PO SCH (09:26)
[2020-09-11] MEDS: ACETAZOLAMIDE 250 MG TABLET PO SCH (09:26)
[2020-09-11] MEDS ORDERED: METOPROLOL SUCCINATE 50 MG TAB.SR.24H PO SCH (10:00)
[2020-09-11] MEDS ORDERED: ESCITALOPRAM OXALATE 10 MG TABLET PO SCH (10:00)
[2020-09-11] MEDS ORDERED: LUBIPROSTONE 24 MCG CAPSULE PO SCH (10:00)
[2020-09-11] MEDS ORDERED: POTASSIUM CHLORIDE 10 MEQ TABLET.ER PO SCH (10:00)
[2020-09-11] MEDS ORDERED: AMLODIPINE BESYLATE 5 MG TABLET PO SCH (10:00)
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
--- NOTE | 2020-09-11 11:29 | ADVANCED CARE ---
- Diagnosis (1) Acute metabolic encephalopathy Diagnosis Current: Yes (2) Acute on chronic respiratory failure with hypoxia Diagnosis Current: Yes (3) Hypokalemia Diagnosis Current: Yes (4) Vascular dementia Diagnosis Current: Yes (5) Encephalomalacia Diagnosis Current: Yes (6) Congestive heart failure Diagnosis Current: Yes (7) Anxiety and depression Diagnosis Current: Yes (8) Constipation Diagnosis Current: Yes (9) Hypertension Diagnosis Current: Yes (10) Chronic musculoskeletal pain Diagnosis Current: Yes Attendance: Discussions were held with the patient's as well as her daughter Zuleika. Resuscitation Status: Full Code Discussion: Patient unfortunately has chronic pain requiring chronic opioid therapy. She also is afflicted with chronic progressive vascular dementia that is getting quite severe. Today we discussed the fact that her primary care provider has suggested long-term placement. The patient's daughter is in support of this and in fact has felt that it was appropriate since at least last year. The patient's admits that he is having difficulty providing all the care necessary for Kiley. Care Planning Goals: Today I reinforced the fact that the patient needs his long-term care placement. To assist in the transition I have ordered home health with retirement to monitor the effects of new medication, PT and OT as well as an aide and a social media community manager. Hopefully this will help transition the family to the difficult decision of long-term care placement. In addition at that time they should consider changing CODE STATUS. Document(s) Completed: None Time Spent: 25 minutes
[2020-09-11 14:49] VITALS: BP 135/71
== END 2020-09-11 15:10 | disposition home health service (06) ==
LOC: ER 10:54 → EH 16:28 → 4W 18:35
PROVIDERS: ADMIT Hospitalist; ATTEND Hospitalist
DX: G93.41 Metabolic encephalopathy (principal); J96.21 Acute and chronic respiratory failure with hypoxia; E87.6 Hypokalemia; F01.51 Vascular dementia, unspecified severity, with behavioral disturbance; G93.89 Other specified disorders of brain; I11.0 Hypertensive heart disease with heart failure; I50.9 Heart failure, unspecified; F41.9 Anxiety disorder, unspecified; F32.9 Major depressive disorder, single episode, unspecified; K59.03 Drug induced constipation; T40.605A Adverse effect of unspecified narcotics, initial encounter; G89.29 Other chronic pain; M79.18 Myalgia, other site; M54.9 Dorsalgia, unspecified; M19.90 Unspecified osteoarthritis, unspecified site; Z79.899 Other long term (current) drug therapy; J44.9 Chronic obstructive pulmonary disease, unspecified; E11.65 Type 2 diabetes mellitus with hyperglycemia; G60.0 Hereditary motor and sensory neuropathy; Z95.1 Presence of aortocoronary bypass graft; Z90.49 Acquired absence of other specified parts of digestive tract; L82.1 Other seborrheic keratosis; R60.0 Localized edema; E03.9 Hypothyroidism, unspecified; I25.2 Old myocardial infarction; Z99.81 Dependence on supplemental oxygen; Z95.0 Presence of cardiac pacemaker; Z79.4 Long term (current) use of insulin; Z79.891 Long term (current) use of opiate analgesic; Z79.82 Long term (current) use of aspirin; Z79.890 Hormone replacement therapy
CPT/HCPCS: 93005; 99285; 36415; 82962 ×2; 82550; 85025; 80053; 81001; 84484; 83880; 71045; 93010; G0378 ×2; A9270 ×15; J1630; J3490 ×2; J7120; J1815

== ENCOUNTER 2020-09-30 16:12 | Emergency (ER) | payer MEDICARE ==
[2020-09-30 18:15] LABS: ABSOLUTE BASOPHILS # (AUTO) 0.1 10^3/uL (0.0-0.2); ABSOLUTE LYMPHOCYTES (AUTO) 3.3 10^3/uL (0.5-4.7); ABSOLUTE MONOCYTES (AUTO) 0.5 10^3/uL (0.1-1.4); ABSOLUTE NEUT (AUTO) 7.2 10^3/uL (1.7-8.2); EOSINOPHILS % (AUTO) 0.2 % (0-6); HEMATOCRIT 39.6 % (36.0-47.0); LYMPHOCYTES % (AUTO) 29.7 % (13-45); MEAN CORPUSCULAR HEMOGLOBIN 28.1 pg (27.0-33.4); MEAN CORPUSCULAR HGB CONC 32.9 g/dL (32.0-36.0); MEAN CORPUSCULAR VOLUME 86 fl (80-97); MONOCYTES % (AUTO) 4.5 % (3-13); PLATELET COUNT 252 10^3/uL (150-450); RED BLOOD COUNT 4.64 10^6/uL (3.72-5.28); RED CELL DISTRIBUTION WIDTH 15.8 % (11.5-14.0); SEGMENTED NEUTROPHILS % (AUTO) 64.6 % (42-78); TOTAL CELLS COUNTED % (AUTO) 100 %; WHITE BLOOD COUNT 11.2 10^3/uL (4.0-10.5)
--- NOTE | 2020-09-30 18:28 | RADIOLOGY REPORT (SQ) ---
EXAM DESCRIPTION: CHEST SINGLE VIEW IMAGES COMPLETED DATE/TIME: 09/30/2020 6:07 pm REASON FOR STUDY: weakness COMPARISON: 09/10/2020 EXAM PARAMETERS: NUMBER OF VIEWS: One view. TECHNIQUE: Single frontal radiographic view of the chest acquired. RADIATION DOSE: NA LIMITATIONS: None. FINDINGS: LUNGS AND PLEURA: No opacities, masses or pneumothorax. No pleural effusion. MEDIASTINUM AND HILAR STRUCTURES: No masses. Contour normal. HEART AND VASCULAR STRUCTURES: Heart normal in size. Normal vasculature. BONES: No acute findings. HARDWARE: Sternotomy wires. Pacemaker. OTHER: No other significant finding. IMPRESSION: NO ACUTE RADIOGRAPHIC FINDING IN THE CHEST. TECHNICAL DOCUMENTATION: JOB ID: [id number] 2010 [employer]- All Rights Reserved Reading location - IP/workstation name: [email or web address]
[2020-09-30 18:42] LABS: ALBUMIN 4.4 g/dL (3.5-5.0); ALKALINE PHOSPHATASE 136 U/L (38-126); ANION GAP 9 (5-19); ASPARTATE AMINO TRANSFERASE 29 U/L (14-36); BILIRUBIN,DIRECT 0.3 mg/dL (0.0-0.4); BILIRUBIN,TOTAL 0.8 mg/dL (0.2-1.3); BLOOD UREA NITROGEN 45 mg/dL (7-20); CALCIUM 9.9 mg/dL (8.4-10.2); CARBON DIOXIDE 36 mmol/L (22-30); CHLORIDE 93 mmol/L (98-107); GLUCOSE 201 mg/dL (75-110); POTASSIUM 4.1 mmol/L (3.6-5.0); TOTAL PROTEIN 6.9 g/dL (6.3-8.2)
--- NOTE | 2020-09-30 19:31 | ER Document Report ---
ED General - General Chief Complaint: General Weakness Stated Complaint: WEAKNESS Time Seen by Provider: 09/30/20 17:58 TRAVEL OUTSIDE OF THE [place] IN LAST 30 DAYS: No - HPI Notes: Patient is a 75-year-old female with a past medical history of Ilxoxyu-Iihkg-Cnree (CMT) disorder who presents with feelings of dehydration. She states that she has chronic pain from her CMT. She has a wheelchair at home as she is unable to walk. Patient states that her has been taking care of her but he is also having health problems. She states she called the ambulance today because she feels dehydrated. She has been drinking plenty of fluids but states she is on a water pill and has to urinate frequently. Patient states she takes methadone for pain. She states she had chest pain yesterday and this morning but it has resolved. It was left-sided and she had pain in her arm. Patient states she had a previous open heart surgery. Took nitroglycerin this morning and felt better. No abdominal pain or diarrhea. No dysuria. No recent illnesses. She states she feels like she needs help caring for her home and her daily activities. - Related Data Allergies/Adverse Reactions: lorazepam [From Ativan] Allergy (Intermediate, Verified 05/05/20 12:43) Delirium Sulfa (Sulfonamide Antibiotics) Allergy (Mild, Verified 05/05/20 12:43) Hives promethazine [From Phenergan] Allergy (Verified 05/05/20 12:43) Past Medical History - General Information source: Patient - Social History Smoking Status: Never Smoker Chew tobacco use (# tins/day): No Frequency of alcohol use: None Drug Abuse: None Family History: Hypertension - Past Medical History Cardiac Medical History: Reports: Hx Congestive Heart Failure, Hx Coronary Artery Disease, Hx Heart Attack, Hx Hypercholesterolemia, Hx Hypertension Denies: Hx DVT, Hx Pulmonary Embolism Pulmonary Medical History: Reports: Hx COPD - On home O2 at 4 L/min at all times., Hx Pneumonia Denies: Hx Asthma, Hx Bronchitis Neurological Medical History: Reports: Hx Cerebrovascular Accident, Hx Seizures. Denies: Hx Migraine Endocrine Medical History: Reports: Hx Diabetes Mellitus Type 1, Hx Diabetes Mellitus Type 2, Hx Hypothyroidism. Denies: Hx Hyperthyroidism Renal/ Medical History: Denies: Hx Peritoneal Dialysis GI Medical History: Denies: Hx Cirrhosis, Hx Gastroesophageal Reflux Disease, Hx Hepatitis Musculoskeletal Medical History: Reports Hx Arthritis Skin Medical History: Denies Hx Eczema, Denies Hx Psoriasis Psychiatric Medical History: Reports: Hx Dementia - Most likely vascular, Hx Depression Infectious Medical History: Denies: Hx Hepatitis Past Surgical History: Reports: Hx Appendectomy, Hx Cardiac Surgery - pacemaker/CABG, Hx Cholecystectomy, Hx Coronary Artery Bypass Graft, Hx Hysterectomy, Hx Orthopedic Surgery - Back surgery 2., Hx Pacemaker - Immunizations Immunizations up to date: Yes Hx Diphtheria, Pertussis, Tetanus Vaccination: Yes Hx Pneumococcal Vaccination: 10/29/10 Review of Systems - Review of Systems Notes: CONSTITUTIONAL: No fever, fatigue or weight loss. SKIN: No rash. HENT: No congestion, ear pain, or sore throat. EYES: No recent vision problems or eye pain. CARDIOVASCULAR: No chest pain or edema. RESPIRATORY: No cough, shortness of breath, congestion, or wheezing. GASTROINTESTINAL: No abdominal pain, nausea, vomiting, bloody stools or diarrhea. GENITOURINARY: No dysuria. MUSCULOSKELETAL: Chronic pain to her lower extremities NEUROLOGIC: No seizures. No headache, focal weakness or sensory changes. HEMATOLOGIC: No unusual bruising or bleeding. PSYCHIATRIC: No depression or anxiety. Physical Exam - Vital signs Vitals: Temp 98.5 F 09/30/20 16:13 - General General appearance: Appears well Notes: VITAL SIGNS: Within normal limits. On 3 L O2 nasal cannula chronically. GENERAL: No acute distress, non-toxic appearance. HEAD: Normal with no signs of head trauma. EYES: EOMI, conjunctiva normal, no discharge. EARS: Hearing grossly intact. NOSE: Normal. NECK: Normal range of motion, no tenderness, supple, no lymphadenopathy, No adenopathy, no JVD. CHEST: Clear breath sounds bilaterally. No wheezes, rales, or rhonchi. CARDIAC: Regular rate and rhythm. VASCULAR: Trace peripheral edema bilaterally. ABDOMEN: Normal and soft with no tenderness MUSCULOSKELETAL: Contractures to her fingers bilaterally. Chronic decreased range of motion to lower extremities bilaterally. NEUROLOGICAL: Alert and oriented x 3. Speech normal. Follows commands appropriately. PSYCHIATRIC: Tearful due to frustration from her medical issues. SKIN: Normal appearance with no rashes or lesions. Course - Re-evaluation Re-evalutation: 09/30/20 19:29 Patient has a slightly elevated troponin. This was the same from her previous visit 1 month ago. I will obtain a second troponin in 3 hours. Patient is taking oral hydration and does not want IV fluids. I will await the rest of her lab results. Patient's troponin slightly increased. This is lower than her previous troponins. I did discuss with cardiology who felt that she could be managed as an outpatient. I reviewed all lab work with the patient. She has no evidence of pneumonia or fluid overload. Patient states she is just frustrated because she is unable to clean her house due to the CMT or do any other activities. I did place a case management consult so they could call her tomorrow and see if she can have any other aid. She does have home health now but it is only 2 days a week. Patient is very agreeable to this plan. She states she will follow-up with her PCP. 10/01/20 01:46 - Vital Signs Vital signs: Temp Pulse Resp BP Pulse Ox 98.4 F 26 H 182/88 H 98 09/30/20 22:36 09/30/20 22:36 09/30/20 22:36 09/30/20 22:36 - Laboratory Result Diagrams: 09/30/20 18:03 09/30/20 18:03 Laboratory results interpreted by me: 09/30/20 09/30/20 09/30/20 16:51 18:03 18:03 WBC 11.2 H RDW 15.8 H Chloride 93 L Carbon Dioxide 36 H BUN 45 H Est GFR (MDRD) Non-Af 50 L Glucose 201 H Alkaline Phosphatase 136 H Urine Protein 100 H - Diagnostic Test Radiology reviewed: Image reviewed, Reports reviewed - EKG Interpretation by Me EKG shows normal: Sinus rhythm Rate: Normal Rhythm: NSR When compared to previous EKG there are: No significant change Additional EKG results interpreted by me: 09/30/20 19:38 Sinus rhythm at a rate of 96. QTC 567. APCs present. Artifact present. No significant change from previous EKG. 09/30/20 19:40 Discharge - Discharge Clinical Impression: Chronic musculoskeletal pain Fatigue Qualifiers: Fatigue type: other Qualified Code(s): R53.83 - Other fatigue Condition: Stable Disposition: HOME, SELF-CARE Instructions: Fatigue (OM) Additional Instructions: Your work-up today is reassuring. I have placed a case management consult for social work. They will call you tomorrow. Make sure you are staying hydrated. Please return to the ER for any worsening symptoms..
[2020-09-30] MEDS ORDERED: ACETAMINOPHEN 325 MG TABLET PO ONE (20:10)
[2020-09-30 20:42] LABS: APPEARANCE,URINE CLEAR; BILIRUBIN,URINE NEGATIVE (NEGATIVE); COLOR,URINE STRAW; GLUCOSE, URINE NEGATIVE (NEGATIVE); KETONES,URINE NEGATIVE (NEGATIVE); LEUKOCYTE ESTERASE,URINE NEGATIVE (NEGATIVE); NITRITE,URINE NEGATIVE (NEGATIVE); PROTEIN,URINE 100 mg/dL (NEGATIVE); URINE SPECIFIC GRAVITY 1.008; UROBILINOGEN,URINE NEGATIVE mg/dL (<2.0)
[2020-09-30] MEDS ORDERED: CLONAZEPAM 1 MG TABLET PO ONE (22:18)
[2020-09-30 22:49] VITALS: BP 182/88
--- NOTE | 2020-10-04 16:33 | EKG REPORT ---
SEVERITY:- ABNORMAL ECG - SINUS TACHYCARDIA ATRIAL PREMATURE COMPLEXES PROBABLE LEFT ATRIAL ABNORMALITY RBBB AND LAFB LEFT VENTRICULAR HYPERTROPHY : Confirmed by: Oneida Barlow 04-Oct-2020 16:32:07
== END 2020-09-30 23:12 | disposition home or self-care (01) ==
LOC: ER 16:12
DX: G60.0 Hereditary motor and sensory neuropathy (principal); R53.83 Other fatigue; I11.0 Hypertensive heart disease with heart failure; I50.9 Heart failure, unspecified; I49.1 Atrial premature depolarization; I25.10 Atherosclerotic heart disease of native coronary artery without angina pectoris; I25.2 Old myocardial infarction; J44.9 Chronic obstructive pulmonary disease, unspecified; E11.9 Type 2 diabetes mellitus without complications; Z99.3 Dependence on wheelchair; Z95.1 Presence of aortocoronary bypass graft; Z99.81 Dependence on supplemental oxygen; Z79.899 Other long term (current) drug therapy; Z79.891 Long term (current) use of opiate analgesic; Z88.8 Allergy status to other drugs, medicaments and biological substances; Z88.2 Allergy status to sulfonamides
CPT/HCPCS: 99284; 36415; 83735; 85025; 80053; 81001; 84484; 71045; A9270 ×2; 93005; 93010